=== PATIENT | female | born 1960 | race Caucasian/White ===

== ENCOUNTER 2017-10-16 15:28 | Observation (INO) | payer OTHER, SELFPAY ==
[2017-10-16] VITALS (10 sets, daily range): BP systolic 96–109; BP diastolic 51–92; PULSE 58–78; RESP 14–18; TEMP 36.3–36.9; O2SAT 95–100; BMI 22.1
--- NOTE | 2017-10-16 | APP_PTH ---
PATIENT: WINDY INIGUEZ LOC: MS3 U#:[id number] AGE/SX: 57/F ROOM: HI324 RE10/16/[address]: Dr. Love Caba MD : 1960 BED: 1 DIS: 10/17/2017 SPEC #: [id number] RECD: 10/17/17 13:40 STATUS: BRENDA REQ #: [id number] JEREMIAS: 10/16/17 00:[address]: Love Caba DEPT: SURGICAL PATHOLOGY RECD BY: David Ball ENTERED: 10/17/17 13:40 SP TYPE: APPENDIX OTHR DR: Dr. Timothy Proctor III, MD Tissues: Appendix, NOS Procedures: Surgery Specimen Level III HEADER OPERATION: Laparoscopic appendectomy PRE-OP DIAGNOSIS: Acute appendicitis TISSUE SUBMITTED: Appendix MICROSCOPIC DIAGNOSIS Appendix, appendectomy: Appendix, negative for acute inflammation. See comment. ISAC:kelsey 10/20/17 COMMENT The entire appendix is examined. No evidence of acute inflammation in the lumen or appendicular wall. The mucosa and submucosa shows prominent lymphoid aggregates. This case has been reviewed in consultation with Dr. Rhodes who concurs with the above diagnosis. MICROSCOPIC DESCRIPTION Slides are reviewed. GROSS DESCRIPTION Received is one container labeled with the patient's name and designated appendix. The specimen consists of an appendix measuring 7 cm in length and up to 1 cm in average diameter. The attached periappendiceal adipose tissue measures up to 1.5 cm in width. No obvious perforation is identified. The serosa is focally congested. The lumen is filled focally with hemorrhagic material. No fecalith is identified. Learning Analyst sections are submitted in one cassette. / SJ:kelsey 10/17/17 More sections are submitted as follows: 2 & 3 ? rest of the appendix, 4 ? school admissions representative section of periappendiceal adipose tissue. / ISAC:kelsey 10/20/17 TC:5 [facility]: [id number]
--- NOTE | 2017-10-16 09:58 | CT_ITS ---
STUDY: CT ABDOMEN AND PELVIS WITH CONTRAST REASON FOR EXAM: Female, 57 years old. One day history of periumbilical pain. History of left breast cancer with lumpectomy and radiation treatment. RADIATION DOSAGE (If Supplied By Facility): CTDIvol = ( 9.57 ) mGy, DLP = ( 437.45 ) mGycm TECHNIQUE: Transaxial images were obtained from the dome of the diaphragm to the symphysis pubis with oral contrast. 100 ml of Isovue 300 contrast was administered. Sagittal and coronal images were reconstructed. Individualized dose optimization techniques were used for this CT. COMPARISON: None. FINDINGS: Mild increased markings in the lingular segment of the left upper lobe suggestive of probable atelectasis and/or scarring. The visualized portions of the heart are within normal limits. Normal liver. Normal gallbladder and extrahepatic biliary system. Normal spleen. Normal pancreas. Normal bilateral adrenal glands. Normal right kidney. Normal left kidney. Normal visualized stomach. Normal small intestine. Normal colon. There is a tubular, thick-walled appendix (>7mm), consistent with acute appendicitis. Normal abdominal aorta. Normal inferior vena cava. Normal retroperitoneum. Normal urinary bladder. There is absence of the uterus consistent with a prior hysterectomy. Normal abdominal wall. Normal osseous structures. CT/Abdomen/Pelvis WITH Contrast IMPRESSION: Findings suggestive of a appendicitis without evidence of perforation or abscess formation. Electronically Signed: Armaan Garcia MD at 12:33 EDT Tel [phone], Service support ,
[2017-10-16 10:24] LABS: Erythrocyte Sedimentation Rate 5 mm/hr (0-30)
[2017-10-16 10:34] LABS: ALB/GLOB Ratio 1.3 RATIO (0.9-2.4); AST(SGOT) 20 U/L (15-37); Alanine Aminotransfer ALT/SGPT 22 U/L (13-56); Albumin, Serum 4.1 g/dL (3.2-5.0); Alkaline Phosphatase 89 U/L (45-117); Anion Gap 6 (5-15); BUN 15 mg/dL (7-18); BUN/Creat Ratio 20.1 RATIO (10-20); Calcium,Total 8.4 mg/dL (8.5-10.1); Chloride 109 mmol/L (98-107); Creatinine, Serum 0.75 mg/dL (0.55-1.02); EST Glomerular Filtration Rate 85 mL/min (>60); Est Glom Filt Rate - Afr Amer 103 mL/min (>60); Globulin 3.1 g/dL (2.2-4.2); Glucose 91 mg/dL (74-106); Protein, Total 7.2 g/dL (6.4-8.2); Sodium Level 145 mmol/L (136-145)
--- NOTE | 2017-10-16 14:05 | PCM.HP.STD ---
History of Present Illness Date of Admission: 10/16/17 Chief Complaint: Lower abdominal pain, acute appendicitis The patient is a 57 year old F presented to do her PCP due to lower abdominal pain which started midday yesterday. Patient states that it has always been in her lower mid abdomen. Denies nausea/vomiting. Last ate some toast this morning at [address] Patient had a CT abdomen pelvis completed which showed acute appendicitis. Per Dr. Timothy Proctor III, patient's PCP her CBC and her chest x-ray were normal. 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 Lives: Spouse/ Significant Other Smoking Status: Former smoker Drugs: None - *Family History Maternal History Items: No pertinent history Review of Systems Constitutional: Reports: Anorexia Eyes: Denies: Blurred vision HEENT: Denies: Difficulty Swallowing Cardiovascular: Denies: Chest Pain Respiratory: Denies: Shortness of Breath Gastrointestinal: Reports: Abdominal Pain Genitourinary: Denies: Dysuria VTE Information - Inpt Only VTE Present on Admission: Yes VTE Mechan Device Prophylaxis: SCD's VTE Pharm Prophylaxis ordered?: No Reason prophylaxis not ordered:: Treatment Not Indicated Patient Problems: Active and Suspected Problems (Last Updated 10/16/17 @ 14:14 by Love Caba MD) History of partial mastectomy of left breast (Acute) 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) - Physical Exam General: Alert, Oriented x3, Cooperative HEENT: Atraumatic, Normocephalic Lungs: Normal air movement Cardiovascular: Regular rate Abdomen: Soft, Non-Distended, Tender - Tender palpation in the lower midline abdomen/left lower quadrant greater than right lower quadrant, no guarding or rebound Extremities: No clubbing, No cyanosis, No edema Skin: No rashes Vital Signs Temp Pulse Resp BP Pulse Ox 97.9 F 70 18 103/83 H 100 10/16/17 13:32 10/16/17 13:32 10/16/17 13:32 10/16/17 13:32 10/16/17 13:32 Oxygen Delivery Method Room Air Weight: 135 lb Body Mass Index (BMI) 22.1 Laboratory Tests Past 24 Hrs 10/16/17 10/16/17 09:30 09:30 ESR 5 Sodium 145 Potassium 4.0 Chloride 109 H Carbon Dioxide 30.0 Anion Gap 6 BUN 15 Creatinine 0.75 Est GFR (MDRD) Af Amer 103 Est GFR (MDRD) Non-Af 85 BUN/Creatinine Ratio 20.1 H Glucose 91 Calcium 8.4 L Total Bilirubin 0.70 AST 20 ALT 22 Alkaline Phosphatase 89 Total Protein 7.2 Albumin 4.1 Globulin 3.1 Albumin/Globulin Ratio 1.3 Assessment/Plan Active and Suspected Problems (Last Updated 10/16/17 @ 14:14 by Love Caba MD) History of partial mastectomy of left breast (Acute) 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 1. Discussed procedure laparoscopic appendectomy, possible open, possible bowel resection along with the risk but not limited to bleeding, infection/abscess, injury to another organ (small bowel, colon, etc.), adhesion, hernia at incision sites, and anesthesia. We will give the patient Zosyn 3.375 g IV ?1 prior to surgery. Patient and her had no further questions at this time. Love Caba M.D. Pager: [phone] [facility] [address] [place] [address], [address] [place] [address] Office: [phone]
--- NOTE | 2017-10-16 14:10 | HP.PCM_ITS ---
History of Present Illness Date of Admission: 10/16/17 Chief Complaint: Lower abdominal pain, acute appendicitis The patient is a 57 year old F presented to do her PCP due to lower abdominal pain which started midday yesterday. Patient states that it has always been in her lower mid abdomen. Denies nausea/vomiting. Last ate some toast this morning at [address] AM[address] Patient had a CT abdomen pelvis completed which showed acute appendicitis. Per Dr. Timothy Proctor III, patient's PCP her CBC and her chest x- ray were normal. 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 Lives: Spouse/ Significant Other Smoking Status: Former smoker Drugs: None - *Family History Maternal History Items: No pertinent history Review of Systems Constitutional: Reports: Anorexia Eyes: Denies: Blurred vision HEENT: Denies: Difficulty Swallowing Cardiovascular: Denies: Chest Pain Respiratory: Denies: Shortness of Breath Gastrointestinal: Reports: Abdominal Pain Genitourinary: Denies: Dysuria VTE Information - Inpt Only VTE Present on Admission: Yes VTE Mechan Device Prophylaxis: SCD's VTE Pharm Prophylaxis ordered?: No Reason prophylaxis not ordered:: Treatment Not Indicated Patient Problems: Active and Suspected Problems (Last Updated 10/16/17 @ 14:14 by Love Caba MD) History of partial mastectomy of left breast (Acute) 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) - Physical Exam General: Alert, Oriented x3, Cooperative HEENT: Atraumatic, Normocephalic Lungs: Normal air movement Cardiovascular: Regular rate Abdomen: Soft, Non-Distended, Tender - Tender palpation in the lower midline abdomen/left lower quadrant greater than right lower quadrant, no guarding or rebound Extremities: No clubbing, No cyanosis, No edema Skin: No rashes Vital Signs Temp Pulse Resp BP Pulse Ox 97.9 F 70 18 103/83 H 100 10/16/17 13:32 10/16/17 13:32 10/16/17 13:32 10/16/17 13:32 10/16/17 13:32 Oxygen Delivery Method Room Air Weight: 135 lb Body Mass Index (BMI) 22.1 Laboratory Tests Past 24 Hrs 10/16/17 10/16/17 09:30 09:30 ESR 5 Sodium 145 Potassium 4.0 Chloride 109 H Carbon Dioxide 30.0 Anion Gap 6 BUN 15 Creatinine 0.75 Est GFR (MDRD) Af Amer 103 Est GFR (MDRD) Non-Af 85 BUN/Creatinine Ratio 20.1 H Glucose 91 Calcium 8.4 L Total Bilirubin 0.70 AST 20 ALT 22 Alkaline Phosphatase 89 Total Protein 7.2 Albumin 4.1 Globulin 3.1 Albumin/Globulin Ratio 1.3 Assessment/Plan Active and Suspected Problems (Last Updated 10/16/17 @ 14:14 by Love Caba MD) History of partial mastectomy of left breast (Acute) 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 1. Discussed procedure laparoscopic appendectomy, possible open, possible bowel resection along with the risk but not limited to bleeding, infection/ abscess, injury to another organ (small bowel, colon, etc.), adhesion, hernia at incision sites, and anesthesia. We will give the patient Zosyn 3.375 g IV ? 1 prior to surgery. Patient and her had no further questions at this time. Love Caba M.D. Pager: [phone] [facility] [address] [place] [address], [address] [place] [address] Office: [phone]
[2017-10-16] MEDS: Piperacil/Tazobactam 3.375 GM/50 ML ML IV (14:40)
[2017-10-16] MEDS: Bupiv/Epi 0.5% Mpf 30 ML Vial (15:00)
--- NOTE | 2017-10-16 15:22 | PCM.OPRPT ---
Report of Operation Date of Procedure: 10/16/17 Pre-Operative Diagnosis: Acute appendicitis Post-Operative Diagnosis: Same Surgery/Procedure Performed:: Laparoscopic appendectomy blend plant operator: Avel Cerda Type of Anesthesia:: General Anesthesiologist: Carmelo Lopez Special Medications: Zosyn 3.375 g IV ?1 Specimen's removed: Appendix Estimated Blood Loss (mL): <10 CC Fluids Replaced: 1200 CC Description of Procedure: Indications: 57-year-old female presented to her PCP today with new Midline lower abdominal pain which started yesterday midday. CT abdomen and pelvis was ordered and was consistent with acute appendicitis. Per the patient's PCP her white blood cell count was normal. Patient was given Zosyn 3.375 g IV ?1 prior to surgery. Description of the procedure: The patient was placed on operating table in supine position. General anesthesia was induced. A timeout was completed verifying correct patient, procedure, sacrum position and special, prior to beginning procedure. A Navarro catheter and orogastric tube placed. Abdomen was prepped and draped in usual sterile fashion. Incision was made in the natural skin line above the umbilicus with a 15 blade scalpel. The fascia was elevated and incised. Entry into the peritoneum was confirmed visually and no bowel was noted in the vicinity of the incision. The Hudson trocar was placed under direct vision. Abdomen insufflated with a pressure of 12-15 mmHg. Patient tolerated insertion well. The scope was inserted and the abdomen inspected. No injuries from initial trocar placement were noted. Under direct visualization 2 -5 mm trocars were placed one above the symphysis pubis and below the hairline and one in the left lower quadrant lateral to the rectus muscle. Care is taken to avoid injury to the bladder and inferior epigastric vessels. The table was placed in Trendelenburg position with the right side elevated. The appendix was grasped with atraumatic grasper and elevated. It was noted to be inflamed. A window was developed in the mesoappendix at the point between the base of the appendix and the cecum. An endoscopic 45 mm linear cutting stapler blue load was then used to divide and staple the base of the appendix. Enseal was used to divide the mesoappendix. The appendix was withdrawn into the Hudson trocar after being placed endoscopically retrieval bag. Appendix was sent to pathology. The appendiceal stump was then irrigated and hemostasis was assured. Fluid was suctioned no other pathology was identified. Secondary trochars were removed under direct visualization. No bleeding was noted trocar sites. The laparoscope withdrawn and the umbilical trocar removed. The abdomen was allowed to collapse. Local anesthesia of 18 mL of 0.5% Marcaine with epi was used at the incision sites. The umbilical trocar site was closed with the [id number] 0 Vicryl suture. The skin was closed up to clear sutures of 4-0 Monocryl and Steri-Strips. The patient was extubated. The patient tolerated the procedure well and was taken to the postanesthesia care unit in satisfactory condition. - Complications none
--- NOTE | 2017-10-16 15:28 | OP.PCM_ITS ---
Report of Operation Date of Procedure: 10/16/17 Pre-Operative Diagnosis: Acute appendicitis Post-Operative Diagnosis: Same Surgery/Procedure Performed:: Laparoscopic appendectomy crisis clinician: Avel Cerda Type of Anesthesia:: General Anesthesiologist: Carmelo Lopez Special Medications: Zosyn 3.375 g IV ?1 Specimen's removed: Appendix Estimated Blood Loss (mL): <10 CC Fluids Replaced: 1200 CC Description of Procedure: Indications: 57-year-old female presented to her PCP today with new Midline lower abdominal pain which started yesterday midday. CT abdomen and pelvis was ordered and was consistent with acute appendicitis. Per the patient' s PCP her white blood cell count was normal. Patient was given Zosyn 3.375 g IV ?1 prior to surgery. Description of the procedure: The patient was placed on operating table in supine position. General anesthesia was induced. A timeout was completed verifying correct patient, procedure, sacrum position and special, prior to beginning procedure. A Navarro catheter and orogastric tube placed. Abdomen was prepped and draped in usual sterile fashion. Incision was made in the natural skin line above the umbilicus with a 15 blade scalpel. The fascia was elevated and incised. Entry into the peritoneum was confirmed visually and no bowel was noted in the vicinity of the incision. The Hudson trocar was placed under direct vision. Abdomen insufflated with a pressure of 12-15 mmHg. Patient tolerated insertion well. The scope was inserted and the abdomen inspected. No injuries from initial trocar placement were noted. Under direct visualization 2 -5 mm trocars were placed one above the symphysis pubis and below the hairline and one in the left lower quadrant lateral to the rectus muscle. Care is taken to avoid injury to the bladder and inferior epigastric vessels. The table was placed in Trendelenburg position with the right side elevated. The appendix was grasped with atraumatic grasper and elevated. It was noted to be inflamed. A window was developed in the mesoappendix at the point between the base of the appendix and the cecum. An endoscopic 45 mm linear cutting stapler blue load was then used to divide and staple the base of the appendix. Enseal was used to divide the mesoappendix. The appendix was withdrawn into the Hudson trocar after being placed endoscopically retrieval bag. Appendix was sent to pathology. The appendiceal stump was then irrigated and hemostasis was assured. Fluid was suctioned no other pathology was identified. Secondary trochars were removed under direct visualization. No bleeding was noted trocar sites. The laparoscope withdrawn and the umbilical trocar removed. The abdomen was allowed to collapse. Local anesthesia of 18 mL of 0.5 % Marcaine with epi was used at the incision sites. The umbilical trocar site was closed with the [id number] 0 Vicryl suture. The skin was closed up to clear sutures of 4-0 Monocryl and Steri-Strips. The patient was extubated. The patient tolerated the procedure well and was taken to the postanesthesia care unit in satisfactory condition. - Complications none
[2017-10-16] MEDS: HYDROmorphone 0.5 MG/0.5 ML SYRINGE IV (15:52)
[2017-10-16] MEDS: Dextrose 5%-Lactated Ringers 1,000 ML 125 ML IV (17:05)
[2017-10-16] MEDS: Ondansetron 4 MG/2 ML Vial IV (18:57)
[2017-10-16] MEDS: 0.9% NaCl Peripheral Flush Adult/Peds IV (18:57)
[2017-10-17] MEDS: Dextrose 5%-Lactated Ringers 1,000 ML 125 ML IV (00:49)
[2017-10-17 02:30] VITALS: BP 96/49; PULSE 62; RESP 16; TEMP 36.8; O2SAT 97
--- NOTE | 2017-10-17 08:19 | PCM.PN.SRG ---
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 - Physical Exam General: Alert, Oriented x3, Cooperative, No apparent distress Lungs: Normal air movement Cardiovascular: Regular rate Abdomen: Soft, Distended - Mild, Tender - Incisions clean dry and intact with Steri/OpSite Vital Signs Temp Pulse Resp BP Pulse Ox 98.2 F 62 16 96/49 L 97 10/17/17 02:30 10/17/17 02:30 10/17/17 02:30 10/17/17 02:30 10/17/17 02:30 Oxygen Delivery Method Room Air Weight: 135 lb 0.001 oz Body Mass Index (BMI) 22.1 Intake and Output for Last 24 Hours 10/15/17 10/16/17 10/17/17 23:59 23:59 23:59 Intake Total 1965 / 1965 2154 / 2154 Output Total 50 / 50 650 / 650 Balance 1915 / 1915 1504 / 1504 Laboratory Tests Past 24 Hrs 10/16/17 10/16/17 09:30 09:30 ESR 5 Sodium 145 Potassium 4.0 Chloride 109 H Carbon Dioxide 30.0 Anion Gap 6 BUN 15 Creatinine 0.75 Est GFR (MDRD) Af Amer 103 Est GFR (MDRD) Non-Af 85 BUN/Creatinine Ratio 20.1 H Glucose 91 Calcium 8.4 L Total Bilirubin 0.70 AST 20 ALT 22 Alkaline Phosphatase 89 Total Protein 7.2 Albumin 4.1 Globulin 3.1 Albumin/Globulin Ratio 1.3 Medical Necessity - Tobacco Use Smoking Status: Former smoker Assessment/Plan Active and Suspected Problems (Last Updated 10/16/17 @ 14:14 by Love Caba MD) History of partial mastectomy of left breast (Acute) 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 Patient will be having regular diet for breakfast. If she tolerates okay to DC home as patient's pain has been controlled without any narcotics here. 2. Follow-up in the office in 2 weeks. Love Caba M.D. Pager: [phone] [facility] [address] [place] [address], [address] [place] [address] Office: [phone]
--- NOTE | 2017-10-17 08:22 | PN.SURG_ITS ---
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 - Physical Exam General: Alert, Oriented x3, Cooperative, No apparent distress Lungs: Normal air movement Cardiovascular: Regular rate Abdomen: Soft, Distended - Mild, Tender - Incisions clean dry and intact with Steri/OpSite Vital Signs Temp Pulse Resp BP Pulse Ox 98.2 F 62 16 96/49 L 97 10/17/17 02:30 10/17/17 02:30 10/17/17 02:30 10/17/17 02:30 10/17/17 02:30 Oxygen Delivery Method Room Air Weight: 135 lb 0.001 oz Body Mass Index (BMI) 22.1 Intake and Output for Last 24 Hours 10/15/17 10/16/17 10/17/17 23:59 23:59 23:59 Intake Total 1965 / 1965 2154 / 2154 Output Total 50 / 50 650 / 650 Balance 1915 / 1915 1504 / 1504 Laboratory Tests Past 24 Hrs 10/16/17 10/16/17 09:30 09:30 ESR 5 Sodium 145 Potassium 4.0 Chloride 109 H Carbon Dioxide 30.0 Anion Gap 6 BUN 15 Creatinine 0.75 Est GFR (MDRD) Af Amer 103 Est GFR (MDRD) Non-Af 85 BUN/Creatinine Ratio 20.1 H Glucose 91 Calcium 8.4 L Total Bilirubin 0.70 AST 20 ALT 22 Alkaline Phosphatase 89 Total Protein 7.2 Albumin 4.1 Globulin 3.1 Albumin/Globulin Ratio 1.3 Medical Necessity - Tobacco Use Smoking Status: Former smoker Assessment/Plan Active and Suspected Problems (Last Updated 10/16/17 @ 14:14 by Love Caba MD) History of partial mastectomy of left breast (Acute) 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 Patient will be having regular diet for breakfast. If she tolerates okay to DC home as patient's pain has been controlled without any narcotics here. 2. Follow-up in the office in 2 weeks. Love Caba M.D. Pager: [phone] [facility] [address] [address], [address] [place] [address] Office: [phone]
--- NOTE | 2017-10-17 08:22 | PCM.DC.APPY ---
Discharge Diet: Light diet - advance as tolerated Discharge Activity: May not drive while taking narcotic pain medications. May shower in (days): 1 Ice area for (Minutes): 20 - PRN Lifting Restrictions: No lifting > 20 lbs for 4 wks, no strenuous exercise for 6-8 wks Call your doctor if your incision/area has: Continuous Slow Oozing, Sudden Increased Bleeding, Increased Pain/ Swelling, Increased Redness, Foul Smelling Discharge, Swelling at the incision site Call your doctor if you observe: Fever of 101 or Higher Remove Dressing in (days):: 0 - Okay to remove OpSite today Additional Instructions: Okay to take Tylenol or ibuprofen for pain control. To help prevent constipation if no bowel movement today to take 2-3 doses of MiraLAX throughout the day tomorrow. If no results would take half a bottle of magnesium citrate next day if no results in 6 hours from I would drink the other half. Medications to take at Discharge NK [NK] 10/16/17 Allergies/Adverse Reactions: Allergies No Known Allergies Allergy (Verified 10/16/17 13:20) Primary Care Physician: Timothy Proctor III, MD [Primary Care Provider] - Please Follow Up With: Love Caba MD - After 5:00/weekends call [phone] with any concerns When: Call the office for a follow-up on Friday, [phone] Proposed Discharge Date: 10/17/17
--- NOTE | 2017-10-17 08:27 | DCINST_ITS ---
Discharge Diet: Light diet - advance as tolerated Discharge Activity: May not drive while taking narcotic pain medications. May shower in (days): 1 Ice area for (Minutes): 20 - PRN Lifting Restrictions: No lifting > 20 lbs for 4 wks, no strenuous exercise for 6 -8 wks Call your doctor if your incision/area has: Continuous Slow Oozing, Sudden Increased Bleeding, Increased Pain/ Swelling, Increased Redness, Foul Smelling Discharge, Swelling at the incision site Call your doctor if you observe: Fever of 101 or Higher Remove Dressing in (days):: 0 - Okay to remove OpSite today Additional Instructions: Okay to take Tylenol or ibuprofen for pain control. To help prevent constipation if no bowel movement today to take 2-3 doses of MiraLAX throughout the day tomorrow. If no results would take half a bottle of magnesium citrate next day if no results in 6 hours from I would drink the other half. Medications to take at Discharge NK [NK] 10/16/17 Allergies/Adverse Reactions: Allergies No Known Allergies Allergy (Verified 10/16/17 13:20) Primary Care Physician: Timothy Proctor III, MD [Primary Care Provider] - Please Follow Up With: Love Caba MD - After 5:00/weekends call [phone]? [phone] with any concerns When: Call the office for a follow-up on Friday, [phone] Proposed Discharge Date: 10/17/17
[2017-10-17 09:04] VITALS: BP 98/46; PULSE 58; RESP 16; TEMP 36.8; O2SAT 99
[2017-10-17] MEDS: Enoxaparin 40 MG/0.4 ML Syringe SC (09:11)
[2017-10-17] MEDS: Docusate Sodium 100 MG Capsule PO (09:11)
== END 2017-10-17 11:27 | disposition home or self-care (01) ==
LOC: SDC 15:46 → MS3 10-17 07:25
PROVIDERS: Admitting Provider Surgery; Family Provider Family Medicine; PCP Family Medicine; Visit Provider Surgery
PROC: 0DTJ4ZZ Resection of Appendix, Percutaneous Endoscopic Approach (ICD-10-PCS; CPT 44970; principal; 2017-10-16 07:25)
DX: K35.80 Unspecified acute appendicitis (principal); Z85.3 Personal history of malignant neoplasm of breast; Z92.3 Personal history of irradiation; Z87.891 Personal history of nicotine dependence
CPT/HCPCS: 44970; 74177; 80053; 85652; 88304; 96361; 96372; 96374; 99218; J7120; Q9967; A4216; C1760; G0378; G0379; J2405

== ENCOUNTER → 2017-12-16 16:45 | Outpatient (CLI) | payer OTHER, SELFPAY ==
--- NOTE | 2017-12-16 15:00 | BI_ITS ---
MAMMOGRAPHY - BILATERAL SCREENING REASON FOR EXAM: Female, 57 years old. Routine annual screening examination. 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 2-D mediolateral oblique (MLO) and craniocaudad (CC) views of both breasts were obtained. CAD: Full Field Digital Mammography with Computer Added Detection was performed. COMPARISON: None. FINDINGS: Breast Composition: The breasts are extremely dense, which lowers the sensitivity of mammography. There are no dominant masses or suspicious calcifications. No other significant abnormalities are identified. BI/SCREENING MAMM (CAD), BILAT IMPRESSION: Stable bilateral screening mammogram. Yearly follow-up mammogram recommended. (A) ASSESSMENT CATEGORY: BIRADS Category 2: Benign. A letter regarding these results will be sent to the patient by the facility within 30 days. Approximately 10% of breast cancers are not detected by mammography. A normal mammogram should not delay biopsy of a clinically suspicious abnormality. [id number] Electronically Signed: Becca Rogers MD at 13:02 EDT Tel , Service support ,
--- NOTE | 2017-12-16 16:45 | DT_ITS ---
This patient was seen during an EMR downtime December 15, 2017 - December 22, 2017. This patient may have a combination of paper and electronic documentation or all paper documentation. All documentation is viewable within the e-chart portion of [facility] for each patient visit.
== END ==
PROVIDERS: Family Provider Family Medicine; PCP Family Medicine; Visit Provider Family Medicine
DX: Z12.31 Encounter for screening mammogram for malignant neoplasm of breast (principal)
CPT/HCPCS: 77063; 77067

== ENCOUNTER → 2018-12-25 | Outpatient (CLI) | payer OTHER, SELFPAY ==
--- NOTE | 2018-12-24 17:02 | BI_ITS ---
MAMMOGRAPHY - BILATERAL SCREENING REASON FOR EXAM: Female, 58 years old. Routine annual screening examination. PERTINENT HISTORY: Personal history of breast cancer. Prior left lumpectomy and radiation treatment. Grandmother with breast cancer. TECHNIQUE: Digital bilateral breast israel (3D mammographic acquisition) in the CC and MLO projections. 2-D mediolateral oblique (MLO) and craniocaudad (CC) views of both breasts were obtained. CAD: Full Field Digital Mammography with Computer Added Detection was performed. COMPARISON: Comparison is made with prior examination dated December 16, 2017 and December 10, 2016. FINDINGS: Breast Composition: The breasts are extremely dense, which lowers the sensitivity of mammography. There are no dominant masses or suspicious calcifications. The patient is status post left lumpectomy with resultant mild architectural distortion in the deep upper portion of the left breast. Surgical clips are seen in the left axillary region. No other significant abnormalities are identified. There has been no significant change since the prior study. BI/SCREEN MAMM (CAD) W/ISRAEL BILAT IMPRESSION: Stable bilateral screening mammogram. Yearly follow-up mammogram recommended. (A) ASSESSMENT CATEGORY: BIRADS Category 2: Benign. A letter regarding these results will be sent to the patient by the facility within 30 days. Approximately 10% of breast cancers are not detected by mammography. A normal mammogram should not delay biopsy of a clinically suspicious abnormality. [id number] Electronically Signed: Armaan Garcia, at 8:31 EDT , Service support ,
== END | disposition home or self-care (01) ==
LOC: OPBI 07:39
PROVIDERS: Family Provider Family Medicine; PCP Family Medicine; Referring Provider Family Medicine; Visit Provider Family Medicine
DX: Z12.31 Encounter for screening mammogram for malignant neoplasm of breast (principal)
CPT/HCPCS: 77063; 77067

== ENCOUNTER → 2019-01-21 | Outpatient (CLI) | payer OTHER, SELFPAY ==
[2019-01-21 14:44] LABS: Pathologist Comment May follow
[2019-01-21 16:06] LABS: RBC /Synovial Fluid 0.005 10^6/uL (0)
[2019-01-21 17:42] LABS: Synovial Fld Polynuclear WBC % 89.9 %
[2019-01-21 17:43] LABS: Synovial Fld Mononuclear WBC % 10.1 %
[2019-01-21 18:49] LABS: AUTO B FLUID DILUENT BKGD CT WBC <0.1 RBC <0.01 (W<.1,R<.01); Source- Body Fluid SYNOVIAL
[2019-01-21 18:50] LABS: Appearance /Synovial Fluid Cloudy (CLEAR); Color / Synovial Fluid Yellow (Pale Yellow); Source / Synovial Fluid RIGHT KNEE
[2019-01-21 18:51] LABS: Body Fluid QC Type(s) BF2Q,BF3Q; Synovial Fld Mononuclear WBC # 2.484 10^3/ul
[2019-01-21 18:53] LABS: Lymph 2 %; Monocyte /Synovial Fluid 4 %; Neutrophil 93 % (0-25); Other Cell /Synovial Fluid 1 %
[2019-01-22 13:20] LABS: Pathologist Review Reviewed
== END | disposition home or self-care (01) ==
LOC: LABSPEC 14:09
PROVIDERS: Family Provider Family Medicine; PCP Family Medicine; Referring Provider Specialist; Visit Provider Specialist
DX: M17.11 Unilateral primary osteoarthritis, right knee (principal)
CPT/HCPCS: 87015; 87070; 87075; 87101; 87116; 87205; 87206; 89050; 89051; 89060

== ENCOUNTER → 2020-01-05 15:51 | Outpatient (CLI) | payer OTHER, SELFPAY ==
--- NOTE | 2020-01-05 15:54 | BI_ITS ---
MAMMOGRAPHY - BILATERAL SCREENING 3-D TOMOSYNTHESIS REASON FOR EXAM: Female, 59 years old. Routine screening PERTINENT HISTORY: BILAT SCREENING - PERSONAL HX @ AGE 48 WITH LT LUMPECTOMY, RADIATION, and amp; TOMOXIFEN - FAM HX OF PATERNAL GRANDMOTHER @ AGE 70''S. TECHNIQUE: 2-D mammograms and 3-D Tomosynthesis of the breast (s) were performed. CAD was performed. COMPARISON: 12/24/2018 FINDINGS: The breast composition is Extremely dense tissue. Scattered benign calcifications are seen. No dense spiculated masses or suspicious microcalcifications are identified. Stable architectural distortion in the left breast from previous surgery.. There is no skin thickening or retraction. There has been no significant change since the prior study. BI/SCREEN MAMM (CAD) W/ISRAEL BILAT IMPRESSION: No mammographic signs of malignancy. Routine yearly mammograms recommended. ASSESSMENT CATEGORY: BIRADS Category 2: Benign. A letter regarding these results will be sent to the patient by the facility within 30 days. FOLLOW UP RECOMMENDATION: Yearly follow up mammogram recommended. (A) Approximately 10% of breast cancers are not detected by mammography. A normal mammogram should not delay biopsy of a clinically suspicious abnormality. Electronically Signed: Elkin Bran MD at 7:56 EDT , Service support ,
== END ==
PROVIDERS: PCP Family Medicine; Referring Provider Family Medicine; Visit Provider Family Medicine
DX: Z12.31 Encounter for screening mammogram for malignant neoplasm of breast (principal)
CPT/HCPCS: 77063; 77067

== ENCOUNTER → 2020-10-26 14:22 | Outpatient (CLI) | payer BC, SELFPAY ==
--- NOTE | 2020-10-26 14:25 | US_ITS ---
STUDY: ULTRASOUND BREAST - LEFT REASON FOR EXAM: Female, 60 years old. Fullness in the region of the lumpectomy site. TECHNIQUE: Axial and longitudinal images of the LEFT breast were performed with a high resolution ultrasound transducer. # OF IMAGES: 22 COMPARISON: Comparison is made with prior mammogram done earlier today. FINDINGS: LEFT Breast: The area of the lumpectomy site was examined by ultrasound. No sonographic abnormality is seen. US/Breast Limited Unilateral IMPRESSION: No sonographic abnormality is seen. ASSESSMENT CATEGORY: BIRADS Category 1: Negative. A letter regarding these results will be sent to the patient by the facility within 30 days. Electronically Signed: Armaan Garcia MD at 15:42 EDT , Service support ,
--- NOTE | 2020-10-26 14:25 | BI_ITS ---
MAMMOGRAPHY - BILATERAL DIAGNOSTIC REASON FOR EXAM: Female, 60 years old. Tenderness at the lumpectomy site. PERTINENT HISTORY: Personal history of breast cancer. Prior left lumpectomy with radiation treatment. TECHNIQUE: Digital bilateral breast suraj (3D mammographic acquisition) in the CC and MLO projections. 2-D mediolateral oblique (MLO) and craniocaudad (CC) views of both breasts were obtained. CAD: Full Field Digital Mammography with Computer Added Detection was performed. COMPARISON: Comparison is made with prior study dated 01/05/2020 and 12/24/2018. FINDINGS: Breast Composition: The breasts are extremely dense, which lowers the sensitivity of mammography. There are no dominant masses or suspicious calcifications. The patient is status post lumpectomy in the inferior deep portion of the left breast with resultant postsurgical scarring. This is unchanged. Surgical clips are also seen in the left axillary region. No other significant abnormalities are identified. There has been no significant change since the prior study. BI/DIAG MAMM W/CAD, BILAT IMPRESSION: Stable bilateral diagnostic mammogram. With the patient''s history of tenderness at the lumpectomy site, correlation with ultrasound is recommended. ASSESSMENT CATEGORY: BIRADS Category 0: Incomplete. Need additional imaging evaluation. A letter regarding these results will be sent to the patient by the facility within 30 days. Approximately 10% of breast cancers are not detected by mammography. A normal mammogram should not delay biopsy of a clinically suspicious abnormality. Electronically Signed: Armaan Garcia MD at 15:21 EDT , Service support ,
== END ==
PROVIDERS: PCP Family Medicine; Referring Provider Family Medicine; Visit Provider Family Medicine
DX: N64.89 Other specified disorders of breast (principal); Z85.3 Personal history of malignant neoplasm of breast
CPT/HCPCS: 76642; 77062; 77066; G0279

== ENCOUNTER → 2021-11-29 | Outpatient (CLI) | payer BC, SELFPAY ==
--- NOTE | 2021-11-29 07:31 | BI_ITS ---
MAMMOGRAPHY - BILATERAL SCREENING REASON FOR EXAM: Female, 61 years old. Routine annual screening examination. PERTINENT HISTORY: Personal history of breast cancer. Prior left lumpectomy and radiation. TECHNIQUE: Digital bilateral breast israel (3D mammographic acquisition) in the CC and MLO projections. 2-D mediolateral oblique (MLO) and craniocaudad (CC) views of both breasts were obtained. CAD: Full Field Digital Mammography with Computer Added Detection was performed. COMPARISON: Comparison is made with prior examination dated 01/05/2020 and 10/26/2020. FINDINGS: Breast Composition: The breasts are extremely dense, which lowers the sensitivity of mammography. There are no dominant masses or suspicious calcifications. The patient status post lumpectomy in the upper lateral aspect of the left breast with resultant postoperative deformity. Surgical clips are seen in the left axillary region. No other significant abnormalities are identified. There has been no significant change since the prior study. BI/SCRN MAMM (CAD)W/ISRAEL BILAT IMPRESSION: Stable bilateral screening mammogram. Yearly follow-up mammogram recommended. (A) ASSESSMENT CATEGORY: BIRADS Category 2: Benign. A letter regarding these results will be sent to the patient by the facility within 30 days. Approximately 10% of breast cancers are not detected by mammography. A normal mammogram should not delay biopsy of a clinically suspicious abnormality. [id number] Electronically Signed: Armaan Garcia MD at 8:48 EDT ,
== END | disposition home or self-care (01) ==
PROVIDERS: PCP Physician Assistant; Visit Provider Physician Assistant
DX: Z12.31 Encounter for screening mammogram for malignant neoplasm of breast (principal); Z85.3 Personal history of malignant neoplasm of breast
CPT/HCPCS: 77063; 77067

== ENCOUNTER → 2022-12-02 | Outpatient (CLI) | payer OTHER, SELFPAY ==
--- NOTE | 2022-12-02 10:10 | BI_ITS ---
MAMMOGRAPHY - BILATERAL SCREENING REASON FOR EXAM: Female, 62 years old. Routine annual screening examination. PERTINENT HISTORY: Personal history of breast cancer status post left lumpectomy 2008 with chemoradiation. TECHNIQUE: Digital bilateral breast israel (3D mammographic acquisition) in the CC and MLO projections. 2-D mediolateral oblique (MLO) and craniocaudad (CC) views of both breasts were obtained. CAD: Full Field Digital Mammography with Computer Added Detection was performed. COMPARISON: Mammogram from November 29, 2022, October 26, 2020. Diagnostic left breast ultrasound from October 26, 2020. FINDINGS: Breast Composition: The breasts are extremely dense, which lowers the sensitivity of mammography. There are no dominant masses or suspicious calcifications. Stable left breast lumpectomy postoperative changes. Stable surgical clips in the left axilla. No other significant abnormalities are identified. There has been no significant change since the prior study. BI/SCRN MAMM (CAD)W/ISRAEL BILAT IMPRESSION: Stable bilateral screening mammogram. Yearly follow-up mammogram recommended. (A) ASSESSMENT CATEGORY: BIRADS Category 2: Benign. A letter regarding these results will be sent to the patient by the facility within 30 days. Approximately 10% of breast cancers are not detected by mammography. A normal mammogram should not delay biopsy of a clinically suspicious abnormality. Electronically Signed: Alfonso Pittman MD at 16:11 EDT ,
== END | disposition home or self-care (01) ==
PROVIDERS: PCP Physician Assistant; Referring Provider Physician Assistant; Visit Provider Physician Assistant
DX: Z12.31 Encounter for screening mammogram for malignant neoplasm of breast (principal)
CPT/HCPCS: 77063; 77067

== ENCOUNTER 2023-11-15 22:21 | Emergency (ER) | payer OTHER, SELFPAY ==
[2023-11-15 22:21] VITALS: BP 149/110; PULSE 84; RESP 15; TEMP 36.2; O2SAT 96
--- NOTE | 2023-11-15 22:36 | CT_ITS ---
STUDY: CT ABDOMEN AND PELVIS WITHOUT CONTRAST REASON FOR EXAM: Female, 63 years old. Kidney Stone RADIATION DOSAGE (If Supplied By Facility): CTDIvol = ( 7.62 ) mGy, DLP = ( 376.93 ) mGycm TECHNIQUE: Transaxial images were obtained from the dome of the diaphragm to the symphysis pubis without oral contrast, and without intravenous contrast. Sagittal and coronal images were reconstructed. Individualized dose optimization techniques were used for this CT. COMPARISON: None. FINDINGS: The visualized lung bases are unremarkable. The visualized portions of the heart are within normal limits. There is decreased attenuation of the liver consistent with steatosis. Normal gallbladder and extrahepatic biliary system. Normal spleen. Normal pancreas. Normal bilateral adrenal glands. Bilateral small nonobstructing renal stones. There is mild left hydronephrosis and ureteral dilatation but no ureteral stone possibly consistent with a recently passed stone. There is a small hiatal hernia. Normal small intestine. There are multiple colonic diverticula consistent with diverticulosis. There are surgical clips in the region of the appendix consistent with a prior appendectomy. Normal abdominal aorta. Normal inferior vena cava. Normal retroperitoneum. Normal urinary bladder. Normal abdominal wall. Normal osseous structures. CT/Abdomen/Pelvis without Cont IMPRESSION: 1. Suspect recently passed left ureteral stone with mild ureteral dilatation and hydronephrosis. 2. Bilateral nonobstructing renal stones. 3. Fatty infiltration liver. 4. Diverticulosis without diverticulitis. Electronically Signed: Dane Dominguez MD at 0:05 EDT ,
--- NOTE | 2023-11-15 22:37 | EX.ED.DYSGE1 ---
HPI <Jb Macias MD - Last Filed: 11/16/23 23:34> History of Present Illness Chief Complaint: Abd Pain Narrative Narrative: 63-year-old female past medical history of rheumatoid arthritis, hypercholesterolemia, presents with left lower quadrant abdominal pain/left flank pain that she has had over the last few hours. She states that she ate dinner and a few hours later, she was in bed and had sudden onset of left flank pain. She had the sudden urge to urinate and felt a pressure sensation when she tried to urinate. She denies any blood in her urine, no fevers or chills, but she is starting to become nauseated. No exacerbating or alleviating factors. She is having pain in the left lower quadrant of her abdomen flank. No exacerbating or alleviating factors. PFSH <Jb Macias MD - Last Filed: 11/16/23 23:34> [facility] Medical History (Updated 11/16/23 @ 00:[address] Casa Jay, DO) Acute appendicitis Ductal carcinoma in situ (DCIS) of left breast Home Medications NK 10/16/17 [History Last Taken Unknown] Allergy/AdvReac Type Severity Reaction Status Date / Time codeine AdvReac Mild Nausea Verified 11/15/23 22:26 Family History Grandmother Breast cancer Sister Heart disease Hypertension Surgical History (Updated 11/15/23 @ 22:50 by Rica Allen) History of hysterectomy History of partial mastectomy of left breast S/P laparoscopic appendectomy (~10/16/17) Social History Smoking Status: Former smoker alcohol intake: current alcohol intake frequency: a few times a month substance use type: does not use ROS <Jb Macias MD - Last Filed: 11/16/23 23:34> ROS ED ROS Narrative Constitutional: No fever, no chills. HEENT: No sore throat. No neck pain. No loss of vision. No rhinorrhea. Cardiovascular: No chest pain. No palpitations. No pedal edema. Respiratory: No cough, no shortness of breath. Abdominal: Left lower quadrant abdominal pain. Positive nausea. No vomiting. Genitourinary: Positive pressure sensation with urination no hematuria. Positive left flank pain. Musculoskeletal: No myalgias. No arthralgias. Neurologic: No headaches. No dizziness. No lightheadedness. Skin: No rash. No change in color. Psychiatric: No depression. No anxiety. EXAM <Jb Macias MD - Last Filed: 11/16/23 23:34> Physical Exam Narrative Exam Narrative: Afebrile. Vital signs noted. HEENT: Normocephalic. Atraumatic. PERRL, EOMI. Neck soft and supple. No point tenderness or step off. Cardiovascular: Regular rate and rhythm. No murmurs, rubs, or gallops appreciated. Respiratory: No tachypnea. Lungs clear to auscultation bilaterally. Gastrointestinal: Abdomen soft, nontender, with normoactive bowel sounds. No rebound or guarding. No CVA tenderness to percussion. Neurological: Awake. Alert. Nonfocal, nonlateralizing. Skin: No rash. Normal color. No pallor. Musculoskeletal: No pedal edema. Full range of motion extremities. Const Vital Signs: 11/16/23 00:33 11/16/23 00:33 Temperature 97.4 F L Pulse Rate 68 66 Respiratory Rate 16 16 Blood Pressure 136/98 H Blood Pressure Mean 110 Pulse Ox 96 99 Oxygen Delivery Method Room Air <Dr. Casa Jay DO - Last Filed: 11/16/23 00:39> Physical Exam Const Vital Signs: 11/16/23 00:33 11/16/23 00:33 Temperature 97.4 F L Pulse Rate 68 66 Respiratory Rate 16 16 Blood Pressure 136/98 H Blood Pressure Mean 110 Pulse Ox 96 99 Oxygen Delivery Method Room Air [facility] <Jb Macias MD - Last Filed: 11/16/23 23:34> [employer] Narrative Medical decision making narrative: Patient states that the pain is more deep inside her abdomen and flank. In the differential diagnosis is ureterolithiasis versus UTI versus pyelonephritis versus diverticulitis. History and support does not necessarily support diverticulitis as she not having problems with bowel movements. She appears uncomfortable as is with ureterolithiasis and ureteral colic. Comprehensive workup was pursued, and I do feel CT imaging without contrast is indicated. She will be bolused normal saline 1 L intravenously and given Toradol for analgesia as she declined morphine and states that she has an allergy to codeine and that narcotic pain medications make her sick. I reviewed her laboratory work and she has normal white count of 8.6, hemoglobin normal at 14.8, hematocrit 45.2. Potassium is slightly low at 3.4, but she declined oral replacement in the emergency department as she was already nauseated. Urinalysis shows WBC count 5-10 and RBC count 5-10 as well. I do not feel antibiotics are indicated. Her urine was sent for culture instead. Currently, she is pending the results of the CT. I signed the patient out to Dr. Jay, who will check the CT results and make final disposition on this patient with suspected ureterolithiasis. She is in stable condition. Patient was turned over to me by Dr. Macias @ [id number] on 11/15/2023 Brief history: 63-year-old female presents with left-sided flank pain Physical exam: No CVA tenderness noted on my exam. No pulsatile abdominal masses noted Labs and images reviewed (if obtained): CT scan shows hydronephrosis and likely passed kidney stone CBC without leukocytosis, no anemia or thrombocytopenia noted BMP with mild hypokalemia otherwise no signs of metabolic acidosis Urinalysis without definitive evidence of infection Urine culture sent and is pending MDM/plan: The synthesis of the patient's history, physical exam, labs images suggest likely passed nephrolithiasis. Repeat abdominal exam was benign. She is appropriate for discharge home with Tylenol ibuprofen instructions and f. Strict return precautions were discussed p.o. fluid instructions Lab Data Attestation: I reviewed the patient's lab results. Labs: Laboratory Results - last 24 hr 11/15/23 11/15/23 22:30 22:48 WBC 8.6 RBC 4.77 Hgb 14.8 Hct 45.2 MCV 94.8 MCH 31.0 MCHC 32.7 RDW Std Deviation 47.8 H RDW Coeff of Zulma 13.5 Plt Count 282 MPV 10.1 Immature Gran % (Auto) 0.300 Neut % (Auto) 52.6 Lymph % (Auto) 34.6 [place] % (Auto) 9.6 Eos % (Auto) 2.3 Baso % (Auto) 0.6 Absolute Neuts (auto) 4.5 Absolute Lymphs (auto) 2.97 Nucleated RBC % 0 Sodium 142 Potassium 3.4 L Chloride 108 H Carbon Dioxide 29.0 Anion Gap 5 BUN 16 Creatinine 0.91 Est GFR (MDRD) Af Amer 80 Est GFR (MDRD) Non-Af 66 BUN/Creatinine Ratio 17.6 Glucose 132 H Calcium 9.7 Urine Color Yellow Urine Clarity Sl. Cloudy Urine pH 5.0 Ur Specific [place] 1.030 Urine Protein 15 H Urine Glucose (UA) Normal Urine Ketones 5 H Urine Occult Blood 25 H Urine Nitrite Negative Urine Bilirubin Negative Urine Urobilinogen Normal Ur Leukocyte Esterase 100 H Urine RBC 5-10 SEEN Urine WBC 5-10 SEEN Ur Squamous Epith Cells 0-5 SEEN Calcium Oxalate Crystal RARE Urine Bacteria 1+ Hyaline Casts 0-5 SEEN Fine Granular Casts 0-5 SEEN Urine Mucus 0 SEEN Radiography Diagnostic Testing: Clinical Impression(s) from Imaging Studies Abdomen/Pelvis CT 11/15/23 22:36 IMPRESSION: 1. Suspect recently passed left ureteral stone with mild ureteral dilatation and hydronephrosis. 2. Bilateral nonobstructing renal stones. 3. Fatty infiltration liver. 4. Diverticulosis without diverticulitis. Electronically Signed: Dane Dominguez MD at 0:05 EDT , <Dr. Casa Jay, DO - Last Filed: 11/16/23 00:39> [employer] Narrative Medical decision making narrative: Patient states that the pain is more deep inside her abdomen and flank. In the differential diagnosis is ureterolithiasis versus UTI versus pyelonephritis versus diverticulitis. History and support does not necessarily support diverticulitis as she not having problems with bowel movements. She appears uncomfortable as is with ureterolithiasis and ureteral colic. Comprehensive workup was pursued, and I do feel CT imaging without contrast is indicated. She will be bolused normal saline 1 L intravenously and given Toradol for analgesia as she declined morphine and states that she has an allergy to codeine and that narcotic pain medications make her sick. Urinalysis will be obtained as well as CBC and BMP. Patient was turned over to me by Dr. Macias @ 1365 on 11/15/2023 Brief history: 63-year-old female presents with left-sided flank pain Physical exam: No CVA tenderness noted on my exam. No pulsatile abdominal masses noted Labs and images reviewed (if obtained): CT scan shows hydronephrosis and likely passed kidney stone CBC without leukocytosis, no anemia or thrombocytopenia noted BMP with mild hypokalemia otherwise no signs of metabolic acidosis Urinalysis without definitive evidence of infection Urine culture sent and is pending MDM/plan: The synthesis of the patient's history, physical exam, labs images suggest likely passed nephrolithiasis. Repeat abdominal exam was benign. She is appropriate for discharge home with Tylenol ibuprofen instructions and f. Strict return precautions were discussed p.o. fluid instructions Lab Data Labs: Laboratory Results - last 24 hr 11/15/23 11/15/23 22:30 22:48 WBC 8.6 RBC 4.77 Hgb 14.8 Hct 45.2 MCV 94.8 MCH 31.0 MCHC 32.7 RDW Std Deviation 47.8 H RDW Coeff of Zulma 13.5 Plt Count 282 MPV 10.1 Immature Gran % (Auto) 0.300 Neut % (Auto) 52.6 Lymph % (Auto) 34.6 [place] % (Auto) 9.6 Eos % (Auto) 2.3 Baso % (Auto) 0.6 Absolute Neuts (auto) 4.5 Absolute Lymphs (auto) 2.97 Nucleated RBC % 0 Sodium 142 Potassium 3.4 L Chloride 108 H Carbon Dioxide 29.0 Anion Gap 5 BUN 16 Creatinine 0.91 Est GFR (MDRD) Af Amer 80 Est GFR (MDRD) Non-Af 66 BUN/Creatinine Ratio 17.6 Glucose 132 H Calcium 9.7 Urine Color Yellow Urine Clarity Sl. Cloudy Urine pH 5.0 Ur Specific [place] 1.030 Urine Protein 15 H Urine Glucose (UA) Normal Urine Ketones 5 H Urine Occult Blood 25 H Urine Nitrite Negative Urine Bilirubin Negative Urine Urobilinogen Normal Ur Leukocyte Esterase 100 H Urine RBC 5-10 SEEN Urine WBC 5-10 SEEN Ur Squamous Epith Cells 0-5 SEEN Calcium Oxalate Crystal RARE Urine Bacteria 1+ Hyaline Casts 0-5 SEEN Fine Granular Casts 0-5 SEEN Urine Mucus 0 SEEN Radiography Diagnostic Testing: Clinical Impression(s) from Imaging Studies Abdomen/Pelvis CT 11/15/23 22:36 IMPRESSION: 1. Suspect recently passed left ureteral stone with mild ureteral dilatation and hydronephrosis. 2. Bilateral nonobstructing renal stones. 3. Fatty infiltration liver. 4. Diverticulosis without diverticulitis. Electronically Signed: Dane Dominguez MD at 0:05 EDT , Discharge Plan Triage Chief Complaint: Abd Pain ED Provider: Jb Macias Dx/Rx/DC Orders Clinical Impression: Nephrolithiasis Instructions: ED Kidney Stone, Passed Prescriptions: No Action NK Primary Care Provider: Eric Villalpando Referrals: Eric Villalpando MD [Primary Care Provider] - Activity Restrictions/Additional Instructions: Thank you for trusting us with your care today! Please take Tylenol (2 pills, 650 mg), ibuprofen (2 pills, 400 mg) every 6 hours as needed for pain and fever control. Please return to the emergency department if your symptoms change or worsen. Please follow with your primary care physician for further outpatient evaluation and management. Disposition Disposition: Home, Self Care Discharge Date/Time: 11/16/23 00:51
[2023-11-15] MEDS: 0.9% Normal Saline (1000mL) 1,000 ML 999 ML IV (22:45)
[2023-11-15] MEDS: Ondansetron 4 MG/2 ML Vial IV (22:45)
[2023-11-15] MEDS: Ketorolac 30 MG/ML Syringe IV (22:45)
[2023-11-15 22:55] LABS: Absolute Lymphocyte Count 2.97 X10^3/uL (0.83-4.51); Absolute Neutrophil Count 4.5 X10^3/uL (2.0-7.7); Basophil# 0.05 X10^3/uL; Basophil% 0.6 % (0-1); Eosinophils% 2.3 % (0-5); Hematocrit 45.2 % (37-47); Hemoglobin 14.8 g/dL (12.0-15.0); Lymphocyte # 2.97 X10^3/ul (0.83-4.51); Lymphocyte % 34.6 % (19-41); Mean Corp Hgb Conc 32.7 g/dL (32-36); Mean Corpuscular Volume 94.8 fL (81-99); Mean Platelet Vol. 10.1 fl (6.2-12.0); Monocyte# 0.82 X10^3/uL; Monocyte% 9.6 % (0-10); NRBC Flagged by Analyzer 0 % (0-5); Neutrophil # 4.51 X10^3/uL (2.7-7.7); Neutrophil % 52.6 % (47-70); Platelet Count 282 K/mm3 (150-450); RBC Distribution Width CV 13.5 % (11.6-14.6); RBC Distribution Width SD 47.8 fl (35.1-43.9); Red Blood Count 4.77 M/mm3 (4.2-5.4); White Blood Count 8.6 K/mm3 (4.4-11.0)
[2023-11-15 22:59] LABS: Mucous, Urine 0 SEEN /hpf (<or=2+)
[2023-11-15 23:03] LABS: Color, Urine Yellow (Yellow); Glucose, Dipstick Normal (Normal); Ketone-Dipstick 5 mg/dl (Negative); Leukocyte Esterase-Dipstick 100 /ul (Negative); Nitrite-Dipstick Negative (Negative); Occult Blood-Urine 25 /ul (Negative); Protein-Dipstick 15 mg/dl (Negative); Urine Bilirubin Dipstick Negative (Negative); Urine Clarity Sl. Cloudy (Clear); Urine Urobilinogen Normal (Normal)
[2023-11-15 23:10] LABS: Anion Gap 5 (5-15); BUN 16 mg/dL (7-18); BUN/Creat Ratio 17.6 RATIO (10-20); Calcium,Total 9.7 mg/dL (8.5-10.1); Chloride 108 mmol/L (98-107); Creatinine, Serum 0.91 mg/dL (0.55-1.02); EST Glomerular Filtration Rate 66 mL/min (>60); Est Glom Filt Rate - Afr Amer 80 mL/min (>60); Glucose 132 mg/dL (74-106); Potassium 3.4 mmol/L (3.5-5.1); Sodium Level 142 mmol/L (136-145)
[2023-11-15 23:11] LABS: Bacteria 1+ /hpf (None Seen); Calcium Oxalate Crystals Ur RARE /hpf (<or=2+); Fine Granular Cast- Urine 0-5 SEEN /lpf (0-5); Hyaline Cast 0-5 SEEN /lpf (0-5); Red Blood Cells-Urine 5-10 SEEN /hpf (0-5); Squamous Epithelial Cells - UA 0-5 SEEN /hpf (5-10); White Blood Cells 5-10 SEEN /hpf (0-5)
[2023-11-16 00:32] VITALS: BMI 26.5
[2023-11-16 00:33] VITALS: BP 136/98; PULSE 66; PULSE 68; RESP 16; TEMP 36.3; O2SAT 96; O2SAT 99
== END 2023-11-16 00:51 | disposition home or self-care (01) ==
PROVIDERS: Emergency Provider Emergency Medicine; PCP Family Medicine; Visit Provider Emergency Medicine
DX: N13.2 Hydronephrosis with renal and ureteral calculous obstruction (principal); M06.9 Rheumatoid arthritis, unspecified; E78.00 Pure hypercholesterolemia, unspecified; E87.6 Hypokalemia; Z87.891 Personal history of nicotine dependence
CPT/HCPCS: 36415; 74176; 80048; 81001; 85025; 87086; 96361; 96374; 96375; 99284; J7030; A4216; J2405

== ENCOUNTER → 2023-12-11 | Outpatient (CLI) | payer OTHER, SELFPAY ==
--- NOTE | 2023-12-11 10:58 | BI_ITS ---
MAMMOGRAPHY - BILATERAL SCREENING REASON FOR EXAM: Female, 63 years old. Routine annual screening examination. PERTINENT HISTORY: Personal history of breast cancer. Prior left lumpectomy with radiation. Grandmother with breast cancer. TECHNIQUE: Digital bilateral breast [place] (3D mammographic acquisition) in the CC and MLO projections. 2-D mediolateral oblique (MLO) and craniocaudad (CC) views of both breasts were obtained. CAD: Full Field Digital Mammography with Computer Added Detection was performed. COMPARISON: Comparison is made with prior study dated December 02, 2022 and November 29, 2021. FINDINGS: Breast Composition: The breasts are extremely dense, which lowers the sensitivity of mammography. There are no dominant masses or suspicious calcifications. Stable postoperative changes in the upper lateral aspect of the left breast in keeping with prior lumpectomy at that site. Surgical clips are seen in the left axilla. No other significant abnormalities are identified. There has been no significant change since the prior study. BI/SCRN MAMM (CAD)W/[place] BILAT IMPRESSION: Stable bilateral screening mammogram. Yearly follow-up mammogram recommended. (A) ASSESSMENT CATEGORY: BIRADS Category 2: Benign. A letter regarding these results will be sent to the patient by the facility within 30 days. Approximately 10% of breast cancers are not detected by mammography. A normal mammogram should not delay biopsy of a clinically suspicious abnormality. [id number] Electronically Signed: Armaan Garcia MD at 12:44 EDT ,
== END | disposition home or self-care (01) ==
LOC: OPBI 10:56
PROVIDERS: PCP Family Medicine; Visit Provider Family Medicine
DX: Z12.31 Encounter for screening mammogram for malignant neoplasm of breast (principal)
CPT/HCPCS: 77063; 77067

== ENCOUNTER → 2024-12-14 | Outpatient (CLI) | payer SELFPAY ==
--- NOTE | 2024-12-14 12:20 | BI_ITS ---
EXAM: SCRN MAMM (CAD)W/[place] BILAT DATE: 12/14/2024 CLINICAL HISTORY: F, Age 64 y/o , SCREENING BREAST CANCER RISK ASSESSMENT: Na TECHNIQUE: Bilateral screening digital breast tomosynthesis with 2D and 3D images. Computer aided detection. COMPARISON: Prior exam(s) were compared FINDINGS: TISSUE DENSITY: The breast tissue is heterogenously dense, which may obscure small masses. Bilateral Breast Mammographic Findings: Right breast: There is architectural distortion in the outer right breast mid depth. There is questionable associated calcifications, although the calcifications may be artifactual. Left breast: No suspicious masses, calcifications or other abnormalities are identified. BI/SCRN MAMM (CAD)W/[place] BILAT IMPRESSION: OVERALL FINAL ASSESSMENT: BIRADS 0 Incomplete: Need additional imaging evaluati on. RECOMMENDATION: Incomplete: Need additional imaging evaluation with diagnostic right breast fran mogram and ultrasound. A letter with findings and recommendations will be mailed to the patient. Reading Location: [id number]
== END | disposition home or self-care (01) ==
PROVIDERS: PCP Family Medicine; Referring Provider Family Medicine; Visit Provider Family Medicine
DX: Z12.31 Encounter for screening mammogram for malignant neoplasm of breast (principal)
CPT/HCPCS: 77063; 77067

== ENCOUNTER → 2024-12-22 | Outpatient (CLI) | payer SELFPAY ==
--- NOTE | 2024-12-22 09:04 | BI_ITS ---
EXAM: DIAG MAMM W/CAD, UNILAT; BREAST LIMITED UNILATERAL; RT BRST UNILAT [place] ADD-ON 12/22/2024 CLINICAL HISTORY: F, Age 64 y/o , ABN MAMM TECHNIQUE: Right diagnostic digital breast tomosynthesis with 2D and 3D images. Computer aided detection. Also, targeted right breast ultrasound was performed. COMPARISON: Prior exam(s) dated 12/14/2024, 12/11/2023, 12/02/2022, 11/29/2021. FINDINGS: MAMMOGRAM: TISSUE DENSITY: The breast tissue is heterogenously dense, which may obscure small masses. Right breast: Follow-up examination performed for the right breast findings seen on examination of 12/14/2024. On the present examination, the architectural distortion in the lateral right breast at middle depth does not persist. This may represent overlapping fibroglandular tissue. ULTRASOUND: Ultrasound performed of the lateral right breast demonstrates no suspicious sonographic findings. There is no evidence of solid mass or abnormal cystic elements. BI/DIAG MAMM W/CAD, UNILAT IMPRESSION: There is no evidence of malignancy in the right breast. OVERALL FINAL ASSESSMENT: BIRADS 1 NEGATIVE. RECOMMENDATION: Routine annual follow-up in 1 Year A letter with findings and recommendations will be mailed to the patient. Reading Location: [id number]
--- NOTE | 2024-12-22 09:04 | BI_ITS ---
EXAM: DIAG MAMM W/CAD, UNILAT; BREAST LIMITED UNILATERAL; RT BRST UNILAT [place] ADD-ON 12/22/2024 CLINICAL HISTORY: F, Age 64 y/o , ABN MAMM TECHNIQUE: Right diagnostic digital breast tomosynthesis with 2D and 3D images. Computer aided detection. Also, targeted right breast ultrasound was performed. COMPARISON: Prior exam(s) dated 12/14/2024, 12/11/2023, 12/02/2022, 11/29/2021. FINDINGS: MAMMOGRAM: TISSUE DENSITY: The breast tissue is heterogenously dense, which may obscure small masses. Right breast: Follow-up examination performed for the right breast findings seen on examination of 12/14/2024. On the present examination, the architectural distortion in the lateral right breast at middle depth does not persist. This may represent overlapping fibroglandular tissue. ULTRASOUND: Ultrasound performed of the lateral right breast demonstrates no suspicious sonographic findings. There is no evidence of solid mass or abnormal cystic elements. BI/Rt Brst Unilat [place] Add-On IMPRESSION: There is no evidence of malignancy in the right breast. OVERALL FINAL ASSESSMENT: BIRADS 1 NEGATIVE. RECOMMENDATION: Routine annual follow-up in 1 Year A letter with findings and recommendations will be mailed to the patient. Reading Location: [id number]
== END | disposition home or self-care (01) ==
PROVIDERS: PCP Family Medicine; Referring Provider Family Medicine; Visit Provider Family Medicine
DX: R92.8 Other abnormal and inconclusive findings on diagnostic imaging of breast (principal)
CPT/HCPCS: 76642; 77061; 77065; G0279

== ENCOUNTER 2025-02-11 21:37 | Emergency (ER) | payer OTHER, SELFPAY ==
[2025-02-11 21:37] VITALS: BP 148/99; PULSE 107; RESP 28; TEMP 36.8; O2SAT 99; BMI 25.8
[2025-02-11 21:39] VITALS: BP 148/99; PULSE 107; RESP 28; TEMP 36.8; O2SAT 99
--- NOTE | 2025-02-11 21:46 | CT_ITS ---
PROCEDURE: ABDOMEN/PELVIS WITHOUT CONT 02/11/2025 REASON FOR EXAM: RIGHT FLANK PAIN TECHNIQUE: ABDOMEN/PELVIS WITHOUT CONT Noncontrast technique limits evaluation of the abdominal and pelvic viscera. Coronal and Sagittal reconstruction series were provided. One or more dose reduction techniques were used (e.g., Automated exposure control, adjustment of the mA and/or kV according to patient size, use of iterative reconstruction technique). RADIATION DOSE SUMMARY: CTDlvol: 9 mGy DLP: 462 mGycm COMPARISON: 11/16/2023 FINDINGS: Under aerated lung bases. Upper limits of normal heart size. Diffuse hepatic steatosis. Unremarkable gallbladder, pancreas, spleen, adrenal glands, right kidney. 2 mm left renal calcification. Very mild right-sided hydronephrosis, 2 mm distal right ureteral stone. Unremarkable bladder. No retroperitoneal or pelvic adenopathy. Status post hysterectomy. No free air. Small hiatal hernia. Nondistended bowel. Status post appendectomy. Diverticulosis. No acute large bowel findings. No acute abdominal wall findings. CT/Abdomen/Pelvis without Cont IMPRESSION: 2 mm right UVJ stone, very mild hydronephrosis. Reading Location: [place] [id number]
--- NOTE | 2025-02-11 21:49 | ED.VIS.GI ---
HPI HPI - GI History of Present Illness Chief Complaint: Abd Pain Detail of Chief Complaint: Abdominal pain Informant: patient Narrative Narrative: Patient presents with abdominal pain that started 2 hours ago. Pain came on rather suddenly after taking an antibiotic. Patient states pain reminds her of a kidney stone. She complains of nausea and vomiting with it and diaphoresis. Pain is a 10 out of 10. Denies fevers or chills or sweats. Denies dysuria urgency or frequency PFSH PFSH Medical History (Updated 02/11/25 @ 23:[address] Foreign Augustine, DO) Acute appendicitis Ductal carcinoma in situ (DCIS) of left breast Home Medications ?Medication ?Instructions ?Recorded ?Last Taken ?Type ketorolac 10 mg tablet 10 mg PO Q8H PRN pain 2 days #6 02/11/25 Unknown Rx tabs ondansetron 4 mg disintegrating 4 mg PO Q8H PRN PRN Nausea #10 tabs 02/11/25 Unknown Rx tablet Allergy/AdvReac Type Severity Reaction Status Date / Time codeine AdvReac Mild Nausea Verified 02/11/25 21:39 Family History Grandmother Breast cancer Sister Heart disease Hypertension Surgical History History of hysterectomy S/P laparoscopic appendectomy (~10/16/17) History of partial mastectomy of left breast Social History Smoking Status: Former smoker alcohol intake: current alcohol intake frequency: a few times a month substance use type: does not use ROS ROS ED Review of Systems ROS Unobtainable: other Constitutional Constitutional ED: Reports lethargy; Denies chills, fever(s), sweats or weight loss Eyes Eyes: Denies blurry vision, change in vision or diplopia ENT ENT ED: Denies rhinorrhea or sore throat Cardiovascular Cardiovascular: Denies chest pain, orthopnea or racing heartbeat Respiratory/Chest Respiratory/Chest: Denies cough, dyspnea, dyspnea on exertion, orthopnea or sputum Gastrointestinal Gastrointestinal: Reports abdominal pain, nausea and vomiting; Denies diarrhea Genitourinary Genitourinary ED: Denies dysuria, hematuria or urinary frequency Musculoskeletal Musculoskeletal: Denies arthralgias, back pain, myalgias or neck pain Integumentary Denies abscess, Abrasions or rash Neurologic Neurologic: Denies headache(s) or weakness Psychiatric Psychiatric: Denies anxiety, depression or suicidal thoughts Endocrine Endocrinology: Denies polydipsia, polyphagia or polyuria Hematologic/Lymphatic Hematologic/Lymphatic: Denies easy bleeding, easy bruising or lymphadenopathy Allergic/Immunologic Allergic/Immunologic ED: Denies mouth swelling, tongue swelling or urticaria EXAM Physical Exam Const Vital Signs: 02/11/25 21:37 02/11/25 21:39 02/11/25 22:59 Temperature 98.3 F 98.3 F 98.2 F Temperature Source Oral Oral Oral Pulse Rate 107 H 107 H 81 Respiratory Rate 28 H 28 H 18 Blood Pressure 148/99 H 148/99 H 129/75 H Blood Pressure Mean 115 115 93 Pulse Ox 99 99 95 Oxygen Delivery Method Room Air Room Air Room Air Positive well nourished and well developed General Appearance ED: well developed and NAD HEENT Reports TM's clear and moist mucous membranes normocephalic and atraumatic; Negative for trauma or tenderness Tympanic Membrane ED: Yes TM's clear Eyes PERRL and EOMs intact bilaterally General Eye ED: Negative for pale conjunctiva or scleral icterus Neck no lymphadenopathy, supple and no JVD General: Negative for tenderness Chest Wall inspection of chest normal and palpation of chest normal Chest: Negative for tenderness Resp normal respiratory effort and clear to auscultation bilaterally Effort and Inspection: Negative for respiratory distress or pain with movement Auscultation: Negative for rhonchi, wheezes or diminished lung sounds Cardio regular rate, regular rhythm, S1 normal heart sound, S2 normal heart sound and no murmurs Peripheral Pulses: pulses 2+ throughout GI normal to inspection, nondistended, normoactive bowel sounds, soft to palpation, non-distended and no masses GI Narrative: Tenderness palpation over right lower quadrant with guarding. Tenderness over the suprapubic region with some guarding. There is no rebound, rigidity, or peritoneal signs. No mass palpated. Back/Spine no CVA tenderness and no thoracic nor lumbar tenderness Extremity normal to inspection General Extremety ED: Negative for edema General Extremity: Negative for edema Neuro oriented x3, CN's II-XII intact bilaterally, no sensory deficits noted and gait normal Sensorium / Orientation: awake, alert, oriented to person, oriented to place and oriented to time Motor Exam: strength 5/5 throughout and strength abnormal Psych mental status grossly normal Skin no rashes or lesions noted and no wounds MDM MDM MDM Narrative Medical decision making narrative: Patient presents with sudden onset of abdominal pain and nausea and vomiting. She thought it might be related to the cefadroxil she is taking for sinus infection. She is on day 2 of the antibiotic. Patient does have history of kidney stone also. Clinically suspect likely kidney stone. IV line established. She was medicated with Toradol and Zofran and she had good pain relief with that. CBC with differential obtained showed a white count of 9.6 with hemoglobin 14 and platelet count of 232. Chemistries unremarkable. Urinalysis without signs of infection. CT scan of the abdomen pelvis showed a 2 mm right UVJ stone with just very mild hydroureter. At this point should be discharged to home with urine strainers. She will be given a prescription for Toradol as she does not want to take any narcotic pain medications as she does not tolerate them well. Will also give her prescription for Zofran. Advised return if worsening pain, fever, vomiting, or condition worsen anyway Lab Data Attestation: I reviewed the patient's lab results. Labs: Laboratory Results - last 24 hr 02/11/25 21:50 WBC 9.6 RBC 4.53 Hgb 14.3 Hct 42.4 MCV 93.6 MCH 31.6 MCHC 33.7 RDW Std Deviation 44.4 H RDW Coeff of Zulma 13.0 Plt Count 232 MPV 10.2 Immature Gran % (Auto) 0.700 Neut % (Auto) 70.3 H Lymph % (Auto) 18.5 L [place] % (Auto) 8.2 Eos % (Auto) 1.8 Baso % (Auto) 0.5 Absolute Neuts (auto) 6.7 Absolute Lymphs (auto) 1.78 Nucleated RBC % 0 Sodium 142 Potassium 3.7 Chloride 106 Carbon Dioxide 23.9 Anion Gap 13 BUN 16 Creatinine 0.91 Estim Creat Clear Calc 65.96 Est GFR (MDRD) Non-Af 71 BUN/Creatinine Ratio 18.0 Glucose 164 H Calcium 9.5 Radiography Diagnostic Testing: Clinical Impression(s) from Imaging Studies Abdomen/Pelvis CT 02/11/25 21:46 IMPRESSION: 2 mm right UVJ stone, very mild hydronephrosis. Reading Location: [place] [id number] Discharge Plan Triage Chief Complaint: Abd Pain ED Provider: Foreign Augustine Dx/Rx/DC Orders Clinical Impression: Urolithiasis Instructions: ED Kidney Stone with Pain Prescriptions: New ketorolac 10 mg tablet 10 mg PO Q8H PRN (Reason: pain) 2 Days Qty: 6 0RF ondansetron 4 mg tablet,disintegrating 4 mg PO Q8H PRN PRN (Reason: Nausea) Qty: 10 0RF Primary Care Provider: Eric Villalpando Referrals: Sintia Oden MD [Med Staff - Active Staff] - As Needed Eric Villalpando MD [Primary Care Provider] - Print Language: Indonesian Disposition Disposition: Home, Self Care
[2025-02-11] MEDS: 0.9% Normal Saline (1000mL) 1,000 ML 150 ML IV (21:57)
[2025-02-11 21:59] LABS: Hematocrit 42.4 % (37-47); Hemoglobin 14.3 g/dL (12.0-15.0); Immature Granulocytes Count 0.070 X10^3/uL (0.0-0.0); Mean Corp Hgb Conc 33.7 g/dL (32-36); Mean Corpuscular Volume 93.6 fL (81-99); Mean Platelet Vol. 10.2 fl (6.2-12.0); NRBC Flagged by Analyzer 0 % (0-5); Platelet Count 232 K/mm3 (150-450); RBC Distribution Width CV 13.0 % (11.6-14.6); RBC Distribution Width SD 44.4 fl (35.1-43.9); Red Blood Count 4.53 M/mm3 (4.2-5.4); White Blood Count 9.6 K/mm3 (4.4-11.0)
[2025-02-11 22:17] LABS: Anion Gap 13 (5-15); BUN 16 mg/dL (4-19); BUN/Creat Ratio 18.0 RATIO (10-20); Calcium,Total 9.5 mg/dL (7.6-11.0); Carbon Dioxide 23.9 mmol/L (21.0-32.0); Chloride 106 mmol/L (98-108); Estimated Creatinine Clearance 65.96 ml/min (50-250); Glucose 164 mg/dL (70-99); Potassium 3.7 mmol/L (3.3-5.1)
--- OUTSIDE RECORDS SUMMARY | 2025-02-11 22:18 | XMS RPT_ITS | CCD ---
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 cough and sneezing fits, and diarrhea. Windy reports a constant pressure-like headache across her forehead that began a few months ago. The headache is present upon waking and persists throughout the day, subsiding slightly by mid to late morning but intensifying again in the afternoon. She notes that the headache is sometimes accompanied by nausea in the afternoon. The headache does not wake her from sleep and is not triggered by sexual activity. She denies any neurological symptoms such as vision changes, facial weakness, dysphagia, dysarthria, or drooling. She also denies any pain in the temporal areas. In addition to the headache, Windy experiences a coughing and sneezing fit every morning, which she attributes to allergies. She reports post-nasal drainage but denies any sore throat, otalgia, fever, or pain in the cheek area, upper teeth, or gums. She also experiences diarrhea every morning. She denies any nausea or emesis. Windy has a history of sleep apnea but has not yet started using a CPAP machine due to anxiety. She is considering an oral appliance as an alternative treatment. She reports that her sleep has improved, and she no longer takes trazodone for insomnia. Windy has tried to identify the cause of her headaches by discontinuing several medications, including Astepro, Lipitor, and minoxidil, but this did not alleviate the headaches. She is currently only taking Actemra. She denies any recent changes in medication prior to the onset of the headaches. Past medical history, appointments, medications, allergies reviewed. 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 Doss ([facility]) Insomnia 03/07/2015 Internal hemorrhoids without mention of complication REINA (nonalcoholic steatohepatitis) 04/16/2023 VICKIE (obstructive sleep apnea) 08/10/2023 Consult Sleep Med 07/2023. 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 Esteves ([facility]) Previous Surgical History PAST SURGICAL HISTORY Procedure Laterality Date APPENDECTOMY 10/16/2017 COLONOSCOPY 10/07/2022 repeat in 10 years COLONOSCOPY FLX DX W/COLLJ SPEC WHEN PFRMD 05/06/2011 CYSTOSCOPY 09/21/2014 INJ RADIOACTIVE TRACER FOR ID OF SENTINEL NODE 06/30/2008 LEFT BREAST MASTECTOMY,PARTIAL, WITH AXILLARY LYMPHADENECTOMY 06/30/2008 LEFT BREAST, lumpectomy- cancerious PAST SURGICAL HISTORY OF Novasure PAST SURGICAL HISTORY OF 06/24/2011 Excisional biopsy right forearm- benign PAST SURGICAL HISTORY OF 07/11/2015 left trigger thumb release PREOP PLACEMENT NEEDLE LOC 06/30/2008 LEFT BREAST PUNCH BIOPSY B/O 04/13/2011 Right forearm STEREOTACTIC CORE BIOPSY 06/01/2008 left TONSILLECTOMY PRIMARY/SECONDARY TOTAL ABDOMINAL HYSTERECT W/WO RMVL TUBE OVARY 01/12/2008 Hysterectomy, BLANCA BSO Family History FAMILY HISTORY Problem Relation Age of Onset Cancer Father LIVER AND PANCREAS other (ASHD [Other]) Sister defibrillator Breast Cancer Paternal Grandmother Cancer Maternal Grandfather LUNG Arthritis Mother Patient Allergies ALLERGIES Allergen Reactions Horse Hair And Dand* Other: See Comments Codeine Vomiting Nausea and vomiting Fosamax [Alendronat* Other: See Comments Chest pain Loratadine-Pseudoep* Other: See Comments Palpitations and jittery Relafen [Nabumetone] Unknown Trees Unknown Current Medications Current Outpatient Medications (more content not included)... Normal [facility] Breast Limited Unilateralon 12-22-2024 Breast Limited Unilateral [facility] Imaging Services [address] [place], [place] [id number] Breast Limited Unilateral MR#: [id number] Acct: [id number] Name: WINDY INIGUEZ Rep #: [id number] : 1960 F 64 From: Marga Brice MD PCP: Dr. Eric Esteves MD Status: REG CLI Study: Breast Limited Unilateral Date of Exam: Exam# [id number] Ordering Dr: Eric Esteves MD EXAM: DIAG MAMM W/CAD, UNILAT; BREAST LIMITED UNILATERAL; RT BRST UNILAT ERIC ADD-ON 12/22/2024 CLINICAL HISTORY: F, Age 64 y/o , ABN MAMM TECHNIQUE: Right diagnostic digital breast tomosynthesis with 2D and 3D images. Computer aided detection. Also, targeted right breast ultrasound was performed. COMPARISON: Prior exam(s) dated 12/14/2024, 12/11/2023, 12/02/2022, 11/29/2021. FINDINGS: MAMMOGRAM: TISSUE DENSITY: The breast tissue is heterogenously dense, which may obscure small masses. Right breast: Follow-up examination performed for the right breast findings seen on examination of 12/14/2024. On the present examination, the architectural distortion in the lateral right breast at middle depth does not persist. This may represent overlapping fibroglandular tissue. ULTRASOUND: Ultrasound performed of the lateral right breast demonstrates no suspicious sonographic findings. There is no evidence of solid mass or abnormal cystic elements. US/Breast Limited Unilateral IMPRESSION: There is no evidence of malignancy in the right breast. OVERALL FINAL ASSESSMENT: BIRADS 1 NEGATIVE. RECOMMENDATION: Routine annual follow-up in 1 Year A letter with findings and recommendations will be mailed to the patient. Reading Location: [facility] CC: Dr. Eric Esteves MD Computational Theory Scientist: Signed Normal [facility] Breast imaging reportOrdered By: Marga Brice on 12-22-2024 Study report [facility] Imaging Services [address] [place] [address] DIAG MAMM W/CAD, UNILAT MR#: [id number] Acct: [id number] Name: WINDY INIGUEZ Rep #: [id number] : 1960 F 64 From: Karolyn Brice MD PCP: Dr. Eric Esteves MD Status: REG CLI Study:DIAG MAMM W/CAD, UNILAT Date of Exam: 12/22/24 Exam# [id number] Ordering Dr: Jenna Esteves MD EXAM: DIAG MAMM W/CAD, UNILAT; BREAST LIMITED UNILATERAL; RT BRST UNILAT ERIC ADD-ON 12/22/2024 CLINICAL HISTORY: F, Age 64 y/o , ABN MAMM TECHNIQUE: Right diagnostic digital breast tomosynthesis with 2D and 3D images. Computer aided detection. Also, targeted right breast ultrasound was performed. COMPARISON: Prior exam(s) dated 12/14/2024, 12/11/2023, 12/02/2022, 11/29/2021. FINDINGS: MAMMOGRAM: TISSUE DENSITY: The breast tissue is heterogenously dense, which may obscure small masses. Right breast: Follow-up examination performed for the right breast findings seen on examination of 12/14/2024. On the present examination, the architectural distortion in the lateral right breast at middle depth does not persist. This may represent overlapping fibroglandular tissue. ULTRASOUND: Ultrasound performed of the lateral right breast demonstrates no suspicious sonographic findings. There is no evidence of solid mass or abnormal cystic elements. BI/DIAG MAMM W/CAD, UNILAT IMPRESSION: There is no evidence of malignancy in the right breast. OVERALL FINAL ASSESSMENT: BIRADS 1 NEGATIVE. RECOMMENDATION: Routine annual follow-up in 1 Year A letter with findings and recommendations will be mailed to the patient. Reading Location: [facility] CC: Dr. Eric Esteves MD ~ Computational Theory Scientist: Signed [facility] Study report [facility] Imaging Services [address] [place] [address] Rt Brst Unilat Eric Add-On MR#: [id number] Acct: [id number] Name: WINDY INIGUEZ Rep #: [id number] : 1960 F 64 From: Karolyn Brice MD PCP: Dr. Eric Esteves MD Status: REG CLI Study:Rt Brst Unilat Eric Add-On Date of Exam : 12/22/24 Exam# [id number] Ordering Dr: Jenna Esteves MD EXAM: DIAG MAMM W/CAD, UNILAT; BREAST LIMITED UNILATERAL; RT BRST UNILAT ERIC ADD-ON 12/22/2024 CLINICAL HISTORY: F, Age 64 y/o , ABN MAMM TECHNIQUE: Right diagnostic digital breast tomosynthesis with 2D and 3D images. Computer aided detection. Also, targeted right breast ultrasound was performed. COMPARISON: Prior exam(s) dated 12/14/2024, 12/11/2023, 12/02/2022, 11/29/2021. FINDINGS: MAMMOGRAM: TISSUE DENSITY: The breast tissue is heterogenously dense, which may obscure small masses. Right breast: Follow-up examination performed for the right breast findings seen on examination of 12/14/2024. On the present examination, the architectural distortion in the lateral right breast at middle depth does not persist. This may represent overlapping fibroglandular tissue. ULTRASOUND: Ultrasound performed of the lateral right breast demonstrates no suspicious sonographic findings. There is no evidence of solid mass or abnormal cystic elements. BI/Rt Brst Unilat Eric Add-On IMPRESSION: There is no evidence of malignancy in the right breast. OVERALL FINAL ASSESSMENT: BIRADS 1 NEGATIVE. RECOMMENDATION: Routine annual follow-up in 1 Year A letter with findings and recommendations will be mailed to the patient. Reading Location: [id number] CC: Dr. Eric Esteves MD ~ Computational Theory Scientist: Signed [facility] WINDY INIGUEZ ([id number]) 1960 F Date Time Provider Department 12/22/24 SG BA During your visit today, we recorded the following information about you: Sg Ba MA 12/22/2024 2:50 PM Signed Diagnotic mammogram results given to PCP to review. STEPHANIE Barnes Jeffrey A, MD 12/22/2024 5:12 PM Signed Let patient know the additional breast imaging showed no suspicious mass and can return to yearly routine screening. Zoraida Taylor LPN 12/23/2024 9:11 AM Signed Patient notified of results and provider's instructions. Patient verbalizes understanding. Zoraida Taylor LPN Allergies As of Date: 12/22/2024 Noted Allergy Reaction CODEINE 01/31/2005 11 - Vomiting Comments: Nausea and vomiting DUST MITES 06/14/2005 16 - Unknown FOSAMAX (ALENDRONATE) 12/06/2020 14 - Other: See Comments Comments: Chest pain LORATADINE-PSEUDOEPH EDRINE 08/11/2023 14 - Other: See Comments Comments: Palpitations and jittery MOLD 06/14/2005 16 - Unknown RELAFEN (NABUMETONE) 06/14/2005 16 - Unknown TREES 06/14/2005 16 - Unknown Date Reviewed: 09/08/2024 Reviewed by: Eric Esteves MD - Fully Assessed Reason for Visit: Results [95] Prescriptions as of 12/23/2024 - omeprazole (PRILOSEC) 40 mg capsule Take 1 capsule by mouth once daily. - traZODone (DESYREL) 100 mg tablet Take 1/2 to 1 tablet by mouth at bedtime for insomnia. - atorvastatin (LIPITOR) 20 mg tablet Take 1 tablet by mouth daily at bedtime. For cholesterol. - tocilizumab (ACTEMRA) 162 mg/0.9 mL Inject 0.9 mL subcutaneously one time a week. Per Rheumatology - fluticasone (FLONASE) 50 mcg/actuation nasal spray Use 1 [place] in each nostril twice daily. Rinse mouth after use. - Cholecalciferol, Vitamin D3, 50 mcg (2,000 unit) cap Take 1 capsule by mouth once daily. - calcium carbonate/vitamin D3 (CALCIUM-D ORAL) Take by mouth once daily. Meds Comments as of 02/13/2024: Lipitor placed on hold 02/13/2024 due to rash. Problem List As Of Date 12/22/2024 Noted Resolved Carcinoma in situ of breast [D05.90] 07/11/2008 CMC arthritis, thumb, degenerative [M18.9] 05/27/2014 De Quervain's tenosynovitis, left [M65.4] 05/27/2014 08/13/2016 Urethral stenosis [DPC2413] 09/28/2014 Insomnia [G47.00] 03/07/2015 Degenerative arthritis of toe joint [M19.079] 03/07/2015 08/13/2016 Patellar tendinitis of right knee [M76.51] 03/07/2015 08/13/2016 Trigger thumb of left hand [M65.312] 07/18/2015 08/13/2016 Personal history of malignant neoplasm of breas*12/13/2016 Arthritis of right knee [M17.11] 09/22/2018 Osteoporosis of lumbar spine [M81.0] 10/09/2018 Elevated liver function tests [R79.89] 10/17/2020 Well adult exam [Z00.00] 12/06/2020 Right elbow pain [M25.521] 08/13/2021 Encounter for screening for diabetes mellitus [*03/13/2022 Rheumatoid arthritis of multiple sites with neg*04/01/2022 Situational depression [F43.21] 04/01/2022 GERD without esophagitis [K21.9] 04/01/2022 Vitamin D deficiency [E55.9] 09/19/2022 Medication management [Z79.899] 09/19/2022 Skin cancer screening [Z12.83] 04/02/2023 REINA (nonalcoholic steatohepatitis) [K75.81] 04/16/2023 VICKIE (obstructive sleep apnea) [G47.33] 08/10/2023 Encounter for screening mammogram for breast ca*09/17/2023 Trigger ring finger of left hand [M65.342] 10/09/2023 Hyperlipidemia, mixed [E78.2] 04/20/2024 Encounter Status:Closed by ZORAIDA TAYLOR on 12/23/24 Normal [facility] DIAG MAMM W/CAD, UNILATon DIAG MAMM W/CAD, UNILAT [facility] Imaging Services [address] [place], [place] [address] DIAG MAMM W/CAD, UNILAT MR#: [id number] Acct: [id number] Name: WINDY INIGUEZ Rep #: [id number] : 1960 F 64 From: Marga Brice MD PCP: Dr. Eric Esteves MD Status: REG CLI Study: DIAG MAMM W/CAD, UNILAT Date of Exam: 12/22/24 Exam# [id number] Ordering Dr: Eric Esteves MD EXAM: DIAG MAMM W/CAD, UNILAT; BREAST LIMITED UNILATERAL; RT BRST UNILAT ERIC ADD-ON 12/22/2024 CLINICAL HISTORY: F, Age 64 y/o , ABN MAMM TECHNIQUE: Right diagnostic digital breast tomosynthesis with 2D and 3D images. Computer aided detection. Also, targeted right breast ultrasound was performed. COMPARISON: Prior exam(s) dated 12/14/2024, 12/11/2023, 12/02/2022, 11/29/2021. FINDINGS: MAMMOGRAM: TISSUE DENSITY: The breast tissue is heterogenously dense, which may obscure small masses. Right breast: Follow-up examination performed for the right breast findings seen on examination of 12/14/2024. On the present examination, the architectural distortion in the lateral right breast at middle depth does not persist. This may represent overlapping fibroglandular tissue. ULTRASOUND: Ultrasound performed of the lateral right breast demonstrates no suspicious sonographic findings. There is no evidence of solid mass or abnormal cystic elements. BI/DIAG MAMM W/CAD, UNILAT IMPRESSION: There is no evidence of malignancy in the right breast. OVERALL FINAL ASSESSMENT: BIRADS 1 NEGATIVE. RECOMMENDATION: Routine annual follow-up in 1 Year A letter with findings and recommendations will be mailed to the patient. Reading Location: [facility] CC: Dr. Eric Esteves MD Computational Theory Scientist: Signed Normal [facility] Rt Brst Unilat Eric Add-Onon 12-22-2024 Rt Brst Unilat Eric Add-On [facility] Imaging Services [address] [place], [place] [id number] Rt Brst Unilat Eric Add-On MR#: [id number] Acct: [id number] Name: WINDY INIGUEZ Rep #: [id number] : 1960 F 64 From: Marga Brice MD PCP: Dr. Eric Esteves MD Status: REG CLI Study: Rt Brst Unilat Eric Add-On Date of Exam: 12/22 Exam# [id number] Ordering Dr: Eric Esteves MD EXAM: DIAG MAMM W/CAD, UNILAT; BREAST LIMITED UNILATERAL; RT BRST UNILAT ERIC ADD-ON 12/22/2024 CLINICAL HISTORY: F, Age 64 y/o , ABN MAMM TECHNIQUE: Right diagnostic digital breast tomosynthesis with 2D and 3D images. Computer aided detection. Also, targeted right breast ultrasound was performed. COMPARISON: Prior exam(s) dated 12/14/2024, 12/11/2023, 12/02/2022, 11/29/2021. FINDINGS: MAMMOGRAM: TISSUE DENSITY: The breast tissue is heterogenously dense, which may obscure small masses. Right breast: Follow-up examination performed for the right breast findings seen on examination of 12/14/2024. On the present examination, the architectural distortion in the lateral right breast at middle depth does not persist. This may represent overlapping fibroglandular tissue. ULTRASOUND: Ultrasound performed of the lateral right breast demonstrates no suspicious sonographic findings. There is no evidence of solid mass or abnormal cystic elements. BI/Rt Brst Unilat Eric Add-On IMPRESSION: There is no evidence of malignancy in the right breast. OVERALL FINAL ASSESSMENT: BIRADS 1 NEGATIVE. RECOMMENDATION: Routine annual follow-up in 1 Year A letter with findings and recommendations will be mailed to the patient. Reading Location: [facility] CC: Dr. Eric Esteves MD Computational Theory Scientist: Signed Normal [facility] 12-15-2024 [facility] KHADIJAHWINDY Huang ([id number]) 1960 F Date Time Provider Department 12/15/24 [facility] During your visit today, we recorded the following information about you: Maricruz Sherman RN 12/15/2024 2:47 PM Signed Julia with [facility] called and reports she had sent over a request for orders for a diagnostic and US of the R breast and the report they had of the mammogram. I let her know I didn't see that the providers office had received them and asked her to resend them. Once providers office receives and reviews. Please fax over orders to fax # [phone]. LAWRENCE Baldwin Roxanne, MA 12/15/2024 4:25 PM Signed Received results from mammogram. Given to provider to review and advise. STEPHANIE Barnes Jeffrey A, MD 12/15/2024 5:18 PM Signed Orders ready to be faxed to [facility]. Zoraida Taylor LPN 12/16/2024 6:57 AM Signed Orders faxed to [phone]. Zoraida Taylor LPN Allergies As of Date: 12/15/2024 Noted Allergy Reaction CODEINE 01/31/2005 11 - Vomiting Comments: Nausea and vomiting DUST MITES 06/14/2005 16 - Unknown FOSAMAX (ALENDRONATE) 12/06/2020 14 - Other: See Comments Comments: Chest pain LORATADINE-PSEUDOEPH EDRINE 08/11/2023 14 - Other: See Comments Comments: Palpitations and jittery MOLD 06/14/2005 16 - Unknown RELAFEN (NABUMETONE) 06/14/2005 16 - Unknown TREES 06/14/2005 16 - Unknown Date Reviewed: 09/08/2024 Reviewed by: Eric Esteves MD - Fully Assessed Reason for Visit: Orders [681] Primary Visit Diagnosis:Abnormal mammogram [R92.8] Order(s):[facility] DIAGNOSTIC RIGHT [[id number]] Order #: [id number] FUTURE BREAST LTD RIGHT [[id number]] Order #: [id number] FUTURE Prescriptions as of 12/16/2024 - omeprazole (PRILOSEC) 40 mg capsule Take 1 capsule by mouth once daily. - traZODone (DESYREL) 100 mg tablet Take 1/2 to 1 tablet by mouth at bedtime for insomnia. - atorvastatin (LIPITOR) 20 mg tablet Take 1 tablet by mouth daily at bedtime. For cholesterol. - tocilizumab (ACTEMRA) 162 mg/0.9 mL Inject 0.9 mL subcutaneously one time a week. Per Rheumatology - fluticasone (FLONASE) 50 mcg/actuation nasal spray Use 1 [place] in each nostril twice daily. Rinse mouth after use. - Cholecalciferol, Vitamin D3, 50 mcg (2,000 unit) cap Take 1 capsule by mouth once daily. - calcium carbonate/vitamin D3 (CALCIUM-D ORAL) Take by mouth once daily. Meds Comments as of 02/13/2024: Lipitor placed on hold 02/13/2024 due to rash. Problem List As Of Date 12/15/2024 Noted Resolved Carcinoma in situ of breast [D05.90] 07/11/2008 CMC arthritis, thumb, degenerative [M18.9] 05/27/2014 De Quervain's tenosynovitis, left [M65.4] 05/27/2014 08/13/2016 Urethral stenosis [FRI2926] 09/28/2014 Insomnia [G47.00] 03/07/2015 Degenerative arthritis of toe joint [M19.079] 03/07/2015 08/13/2016 Patellar tendinitis of right knee [M76.51] 03/07/2015 08/13/2016 Trigger thumb of left hand [M65.312] 07/18/2015 08/13/2016 Personal history of malignant neoplasm of breas*12/13/2016 Arthritis of right knee [M17.11] 09/22/2018 Osteoporosis of lumbar spine [M81.0] 10/09/2018 Elevated liver function tests [R79.89] 10/17/2020 Well adult exam [Z00.00] 12/06/2020 Right elbow pain [M25.521] 08/13/2021 Encounter for screening for diabetes mellitus [*03/13/2022 Rheumatoid arthritis of multiple sites with neg*04/01/2022 Situational depression [F43.21] 04/01/2022 GERD without esophagitis [K21.9] 04/01/2022 Vitamin D deficiency [E55.9] 09/19/2022 Medication management [Z79.899] 09/19/2022 Skin cancer screening [Z12.83] 04/02/2023 REINA (nonalcoholic steatohepatitis) [K75.81] 04/16/2023 VICKIE (obstructive sleep apnea) [G47.33] 08/10/2023 Encounter for screening mammogram for breast ca*09/17/2023 Trigger ring finger of left hand [M65.342] 10/09/2023 Hyperlipidemia, mixed [E78.2] 04/20/2024 Encounter Status:Closed by ZORAIDA TAYLOR on 12/16/24 Normal [facility] Breast imaging reportOrdered By: Jazmin Grimes on 12-14-2024 Study report [facility] Imaging Services [address] [place] [address] SCRN MAMM (CAD)W/ERIC BILAT MR#: [id number] Acct: [id number] Name: WINDY INIGUEZ Rep #: [id number] : 1960 F 64 From: Aniket Olivia MD PCP: Dr. Eric Esteves MD Status: REG CLI Study:SCRN MAMM (CAD)W/ERIC BILAT Date of Exa m: 12/14/24 Exam# [id number] Ordering Dr: Jenna Esteves MD EXAM: SCRN MAMM (CAD)W/ERIC BILAT DATE: 12/14/2024 CLINICAL HISTORY: F, Age 64 y/o , SCREENING BREAST CANCER RISK ASSESSMENT: Na TECHNIQUE: Bilateral screening digital breast tomosynthesis with 2D and 3D images. Computeraided detection. COMPARISON: Prior exam(s) were compared FINDINGS: TISSUE DENSITY: The breast tissue is heterogenously dense, which may obscure small masses. Bilateral Breast Mammographic Findings: Right breast: There is architectural distortion in the outer right breast mid depth. There isquestionable associated calcifications, although the calcifications may be artifactual. Left breast: No suspicious masses, calcifications or other abnormalities are identified. BI/SCRN MAMM (CAD)W/ERIC BILAT IMPRESSION: OVERALL FINAL ASSESSMENT: BIRADS 0 Incomplete: Need additional imaging evaluation. RECOMMENDATION: Incomplete: Need additional imaging evaluation with diagnostic right breast mammogram and ultrasound. A letter with findings and recommendations will be mailed to the patient. Reading Location: [id number] CC: Dr. Eric Esteves MD ~ Computational Theory Scientist: Signed [facility] SCRN MAMM (CAD)W/ERIC BILATo n 12-14-2024 SCRN MAMM (CAD)W/ERIC BILAT [facility] Imaging Services [address] [place] [id number] SCRN MAMM (CAD)W/ERIC BILAT MR#: [id number] Acct: [id number] Name: WINDY INIGUEZ Rep #: [id number] : 1960 F 64 From: Jazmin Foster i, MD PCP: Dr. Eric Esteves MD Status: [facility] Study: SCRN MAMM (CAD)W/ERIC BILAT Date of Exam: 10/05 Exam# [id number] Ordering Dr: Eric Esteves MD EXAM: SCRN MAMM (CAD)W/ERIC BILAT DATE: 12/14/2024 CLINICAL HISTORY: F, Age 64 y/o , SCREENING BREAST CANCER RISK ASSESSMENT: Na TECHNIQUE: Bilateral screening digital breast tomosynthesis with 2D and 3D images. Computer aided detection. COMPARISON: Prior exam(s) were compared FINDINGS: TISSUE DENSITY: The breast tissue is heterogenously dense, which may obscure small masses. Bilateral Breast Mammographic Findings: Right breast: There is architectural distortion in the outer right breast mid depth. There is questionable associated calcifications, although the calcifications may be artifactual. Left breast: No suspicious masses, calcifications or other abnormalities are identified. BI/SCRN MAMM (CAD)W/ERIC BILAT IMPRESSION: OVERALL FINAL ASSESSMENT: BIRADS 0 Incomplete: Need additional imaging evaluation. RECOMMENDATION: Incomplete: Need additional imaging evaluation with diagnostic right breast mammogram and ultrasound. A letter with findings and recommendations will be mailed to the patient. Reading Location: [id number] CC: Dr. Eric Esteves MD Computational Theory Scientist: Signed [facility] CNOVon 09-08-2024 CNOV Office Visit (FAMPWS) KHADIJAHWINDY Huang ([id number]) 1960 F Date Time Provider Department 09/08/24 9:40 AM ERIC ESTEVES FAMPWS During your visit today, we recorded the following information about you: Pulse Respiration Blood pressure Weight 80/minute 16/minute 120/86 78.5 kg Eric Esteves MD 09/08/2024 1:57 PM Signed Chief Complaint Patient presents with: Trigger Finger HPI Windy Iniguez is a 64 year old female who presents here today for Trigger injection. left ring finger injected 10/2023 and lasted till about mid May 2024. Patient saw ENT yesterday. See scanned documents. Patient was switched to Protonix. Past medical history, appointments, medications, allergies reviewed. 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 Doss ([facility]) Insomnia 03/07/2015 Internal hemorrhoids without mention of complication REINA (nonalcoholic steatohepatitis) 04/16/2023 VICKIE (obstructive sleep apnea) 08/10/2023 Consult Sleep Med 07/2023. 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 Esteves ([facility]) Previous Surgical History PAST SURGICAL HISTORY Procedure Laterality Date APPENDECTOMY 10/16/2017 COLONOSCOPY 10/07/2022 repeat in 10 years COLONOSCOPY FLX DX W/COLLJ SPEC WHEN PFRMD 05/06/2011 CYSTOSCOPY 09/21/2014 INJ RADIOACTIVE TRACER FOR ID OF SENTINEL NODE 06/30/2008 LEFT BREAST MASTECTOMY,PARTIAL, WITH AXILLARY LYMPHADENECTOMY 06/30/2008 LEFT BREAST, lumpectomy- cancerious PAST SURGICAL HISTORY OF Novasure PAST SURGICAL HISTORY OF 06/24/2011 Excisional biopsy right forearm- benign PAST SURGICAL HISTORY OF 07/11/2015 left trigger thumb release PREOP PLACEMENT NEEDLE LOC 06/30/2008 LEFT BREAST PUNCH BIOPSY B/O 04/13/2011 Right forearm STEREOTACTIC CORE BIOPSY 06/01/2008 left TONSILLECTOMY PRIMARY/SECONDARY TOTAL ABDOMINAL HYSTERECT W/WO RMVL TUBE OVARY 01/12/2008 Hysterectomy, BLANCA BSO Family History FAMILY HISTORY Problem Relation Age of Onset Cancer Father LIVER AND PANCREAS other (ASHD [Other]) Sister defibrillator Breast Cancer Paternal Grandmother Cancer Maternal Grandfather LUNG Arthritis Mother Patient Allergies ALLERGIES Allergen Reactions Codeine Vomiting Nausea and vomiting Dust Mites Unknown Fosamax [Alendronat* Other: See Comments Chest pain Loratadine-Pseudoep* Other: See Comments Palpitations and jittery Mold Unknown Relafen [Nabumetone] Unknown Trees Unknown Current Medications Current Outpatient Medications on File Prior to Visit Medication Sig ciprofloxacin HCl (CIPRO) 500 mg tablet Take 1 tablet by mouth two times a day for 10 days. traZODone (DESYREL) 100 mg tablet Take 1/2 to 1 tablet by mouth at bedtime for insomnia. omeprazole (PRILOSEC) 40 mg capsule Take 1 capsule by mouth once daily. atorvastatin (LIPITOR) 20 mg tablet Take 1 tablet by mouth daily at bedtime. For cholesterol. tocilizumab (ACTEMRA) 162 mg/0.9 mL Inject 0.9 mL subcutaneously one time a week. Per Rheumatology fluticasone (FLONASE) 50 mcg/actuation nasal spray Use 1 [place] in each nostril twice daily. Rinse mouth after use. Cholecalciferol, Vitamin D3, 50 mcg (2,000 unit) cap Take 1 capsule by mouth once daily. calcium carbonate/vitamin D3 (CALCIUM-D ORAL) Take by mouth once daily. No current facility-administere d medications on file prior to visit. Social History Social History Tobacco Use Smoking status: Never Smokeless tobacco: Never Vaping Use Vaping status: Never Used Substance Use Topics Alcohol use: Yes Comment: socially Drug use: No Review of Symptoms REVIEW OF SYSTEMS See HPI EXAM: LMP 12/30/2007 General Appearance: Well appearing, alert, in no acute distress, well-hydrated, well nourished.. Musculoskeletal: triggering of left ring finger. Health Maintenance List Mammogram Screening due on 12/10/2024 RSV Vaccine(1 - Risk 60-74 years 1-dose series) due on 04/20/2025 Anxiety Screening due on 04/20/2025 Covid-19 Vaccine(8 - Pfizer risk 2023- season) due on 10/10/2024 Diabetes Screening due on 03/25/2027 Lipid Screening due on 03/25/2029 DTaP,Tdap,Td Vaccine(4 - Td or Tdap) du (more content not included)... Normal [facility] CNOVon 08-30-2024 CN Office Visit (FAMPWS) WINDY INIGUEZ ([id number]) 1960 F Date Time Provider Department 08/30/24 2:00 PM ERIC ESTEVES FAMPWS During your visit today, we recorded the following information about you: Pulse Blood pressure Weight 82/minute 120/76 78.5 kg Eric Esteves MD 08/30/2024 4:05 PM Signed Chief Complaint Patient presents with: Back Pain HPI Windy Iniguez is a 63 year old female who presents here today for back pain/left hand/trigger finger. Patient with Hx of GERD, RA seeing Rheum, situational depression, past Hx of breast cancer, insomnia, Vit D def, osteoporosis as well as those below. Patient had the left ring finger injected 10/2023 and lasted till about mid May 2024. Patient continues to have a hoarse voice since having COVID at the last week of April and resolved over 5 weeks. No smoking or chewing tobacco. No GERD symptoms with being on the omeprazole 40 mg a day. The lower thoracic back has been bothering her on the left for the past 3 weeks. Has been doing ice, heat and OTC pain relievers with no benefit. Not constant. Does not bother her when sleeping, rolling over and getting up. The pain starts when she has been sitting for an extended time. Then when it's sore she will feel it when getting up and walking. No dysuria, hematuria, fevers or chills. Some urine frequency. Office visit 04/20/2024 Patient did see derm for her Rash. They did do an biopsy. This came back as keratosis pilaris inflamed. Patient with Hx of GERD, RA seeing Rheum, situational depression, past Hx of breast cancer, insomnia, Vit D def, osteoporosis as well as those below. Since last seeing me she had both knees x-rayed and left hand x-rayed. Left hand showed findings consistent with RA and the knees showed changes consistent with mod arthritis of the medial joint spaces bilaterally and the patella femoral joint area on the right. Patient was given a dose of kenalog in her buttocks 3 weeks ago. This did seem to improve her symptoms. Patient has been doing ok otherwise. Patient gregory been seeing PHYSICAL THERAPY who has been working on her hip pain, low back pain and knee pain. Past medical history, appointments, medications, allergies reviewed. 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 Doss ([facility]) Insomnia 03/07/2015 Internal hemorrhoids without mention of complication REINA (nonalcoholic steatohepatitis) 04/16/2023 VICKIE (obstructive sleep apnea) 08/10/2023 Consult Sleep Med 07/2023. 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 Esteves ([facility]) Previous Surgical History PAST SURGICAL HISTORY Procedure Laterality Date APPENDECTOMY 10/16/2017 COLONOSCOPY 10/07/2022 repeat in 10 years COLONOSCOPY FLX DX W/COLLJ SPEC WHEN PFRMD 05/06/2011 CYSTOSCOPY 09/21/2014 INJ RADIOACTIVE TRACER FOR ID OF SENTINEL NODE 06/30/2008 LEFT BREAST MASTECTOMY,PARTIAL, WITH AXILLARY LYMPHADENECTOMY 06/30/2008 LEFT BREAST, lumpectomy- cancerious PAST SURGICAL HISTORY OF Novasure PAST SURGICAL HISTORY OF 06/24/2011 Excisional biopsy right forearm- benign PAST SURGICAL HISTORY OF 07/11/2015 left trigger thumb release PREOP PLACEMENT NEEDLE LOC 06/30/2008 LEFT BREAST PUNCH BIOPSY B/O 04/13/2011 Right forearm STEREOTACTIC CORE BIOPSY 06/01/2008 left TONSILLECTOMY PRIMARY/SECONDARY TOTAL ABDOMINAL HYSTERECT W/WO RMVL TUBE OVARY 01/12/2008 Hysterectomy, BLANCA BSO Family History FAMILY HISTORY Problem Relation Age of Onset Cancer Father LIVER AND PANCREAS other (ASHD [Other]) Sister defibrillator Breast Cancer Paternal Grandmother Cancer Maternal Grandfather LUNG Arthritis Mother Patient Allergies ALLERGIES Allergen Reactions Codeine Vomiting Nausea and vomiting Dust Mites Unknown Fosamax [Alendronat* Other: See Comments Chest pain Loratadine-Pseudoep* Other: See Comments Palpitations and jittery Mold Unknown Relafen [Nabumetone] Unknown Trees Unknown Current Medications Current Outpatient Medications on File Prior to Visit Medication Sig traZODone (DESYREL) 100 mg tablet Take 1/2 to 1 tablet by mouth at bedtime for insomnia. (more content not included)... Normal [facility] UA DIP, URINE (POC)on 2024 BILIRUBIN UA (POCT) Negative Negative [facility] CLARITY UA (POCT) Clear [facility] COLOR UA (POCT) Yellow [facility] GLUCOSE UA (POCT) Negative Negative mg/dL [facility] Hemoglobin Ql (U) Negative Negative [facility] Interpretation and review of laboratory results Abnormal [facility] KETONE UA (POCT) Negative Negative mg/dL [facility] LEUKOCYTES UA (POCT) Small Abnormal Negative [facility] NITRITE UA (POCT) Negative Negative [facility] PH UA (POCT) 5 4.5 - 8.0 [facility] Protein Ql (U) Negative Negative mg/dL [facility] SPECIFIC GRAVITY UA (POCT) 1.025 1.005 - 1.030 [facility] UROBILINOGEN UA (POCT) 0.2 Arianna l E.U./dL [facility] Location:[address], [address] [place] [address] POINT OF CARE [facility] CNOVon 06-30-2024 CNOV Office Visit (SLEWST) WINDY INIGUEZ ([id number]) 1960 F Date Time Provider Department 06/30/24 10:30 AM MORGAN BEY During your visit today, we recorded the following information about you: Pulse Respiration Blood pressure Weight 90/minute 18/minute 120/78 77.9 kg Morgan Bey APRN.CNP 06/30/2024 12:15 PM Signed [facility] Follow up/ Established patient visit Date of last visit : 02/27/2024 The following Impression/Plan was copied and pasted from the patient's last Sleep Disorders Center visit on 02/27/24: IMPRESSION: Chronic insomnia (primary encounter diagnosis) Windy Iniguez is a 63 year old female with chronic insomnia, VICKIE Some increased stress since losing COBRA and will need to find insurance coverage until she can go on Medicare We will stop doxepin and switch to trazodone Rx trazodone 50-100 mg at HS Continue with online [facility]I Go To Sleep program She did look up PAP therapy, thinks it would be difficult to tolerate but is willing to consider Follow up 3 mos Morgan Bey APRN.INTERNAL AUDITOR Here for follow up for insomnia She was doing pretty well with insomnia on trazodone by the end of April but now feels like starting over with insomnia, back to using trazodone the past 2 wks after being ill for 5 wks with COVID. So back to sleeping every other night--having insomnia every other night. When she takes trazodone 100 mg it feels like she can't breathe through her nose, like she is trying to catch her breath when falling asleep. So she usually only takes 50 mg which is helpful but sleeps better with 100 mg. Was taking Nyquil when ill. Has been napping. Very fatigued from COVID and RA flare due to COVID. She has done online CBTI Go To Sleep and found that helpful Other meds tried for insomnia: Doxepin -- no adverse effects, just not effective Melatonin VICKIE AHI 8.2 on HSAT in 07/2023 Really worried about the idea of PAP therapy No TMJ or dental issues SLEEP HYGIENE QUESTIONS: Bedtime : 11 PM, trazodone at 10 pm Wake up Time : varies now since having Covid, was 7 AM before Time it takes to fall sleep : varies Number of times patient wakes up per night : none Naps : recently because of being ill PATIENT-ENTERED QUESTIONNAIRE SLEEP SCORES 04/01/2022 PHQ-9 Score 13 10/16/2020 03/31/2023 03/22/2024 PROMIS Global Health - (T-Scores - the mean of general population = 50. Five points is a clinically meaningful difference.) Physical T-Score 32.4 34.9 34.9 Mental T-Score 38.8 43.5 43.5 ALLERGIES Allergen Reactions Codeine Vomiting Nausea and vomiting Dust Mites Unknown Fosamax [Alendronat* Other: See Comments Chest pain Loratadine-Pseudoep* Other: See Comments Palpitations and jittery Mold Unknown Relafen [Nabumetone] Unknown Trees Unknown CURRENT MEDICATIONS: traZODone (DESYREL) 100 mg tablet Take 1/2 to 1 tablet by mouth at bedtime for insomnia. omeprazole (PRILOSEC) 40 mg capsule Take 1 capsule by mouth once daily. atorvastatin (LIPITOR) 20 mg tablet Take 1 tablet by mouth daily at bedtime. For cholesterol. tocilizumab (ACTEMRA) 162 mg/0.9 mL Inject 0.9 mL subcutaneously one time a week. Per Rheumatology fluticasone (FLONASE) 50 mcg/actuation nasal spray Use 1 [place] in each nostril twice daily. Rinse mouth after use. Cholecalciferol, Vitamin D3, 50 mcg (2,000 unit) cap Take 1 capsule by mouth once daily. calcium carbonate/vitamin D3 (CALCIUM-D ORAL) Take by mouth once daily. PHYSICAL EXAMINATION: Vital Signs: BP 120/78 (BP Site: Right Arm, BP Position: Sitting) Pulse 90 Resp 18 Wt 77.9 kg (171 lb 12.8 oz) LMP 12/30/2007 SpO2 95% BMI 28.15 kg/m? PHYSICAL EXAM: General appearance: pleasant, NAD Mental status: alert and oriented, able to provide own history Constitutional: WNL Skin: No visible rashes on exposed skin Neuro: No focal deficits observed, no tremors IMPRESSION: Chronic insomnia Vickie (obstructive sleep apnea) (primary encounter diagnosis) Windy Iniguez is a 63 year old female with PMH of chronic insomnia, at least mild VICKIE, RA, HLD. GERD, REINA, hx breast cancer Her insomnia was stable on trazodone before becoming ill with COVID infection in April. She is just now getting back to normal. I think the feeling of not breathing when falling asleep when she takes 100 mg of trazodone may be apnea. She is very reluctant to use PAP therapy. She is willing to try Oral Appliance Therapy (OAT). Might need to refer her to F Dentist although this isn't convenient. PLAN: Continue with trazodone 50-100 mg at HS, contact me for refill Follow up 6 mos Refer to Dentist for OAT for at least mild VICKIE Morgan Bey APRN.Morgan Villanueva APRN.CNP 06/30/2024 11:08 AM Signed For sleep apnea, refer to dentist for Oral Appliance Therapy We'll check if Dr Joel Dyer in [place] (more content not included)... Normal [facility] CNOVon 04-20-2024 CNOV Office Visit (FAMPWS) WINDY INIGUEZ ([id number]) 1960 F Date Time Provider Department 04/20/24 2:00 PM [facility] During your visit today, we recorded the following information about you: Pulse Respiration Blood pressure Weight 82/minute 16/minute 120/80 76.2 kg Height 1.664 m Eric Esteves MD 04/20/2024 3:13 PM Signed Chief Complaint Patient presents with: Physical HPI Windy Iniguez is a 63 year old female who presents here today for Physical. Patient did see derm for her Rash. They did do an biopsy. This came back as keratosis pilaris inflamed. Patient with Hx of GERD, RA seeing Rheum, situational depression, past Hx of breast cancer, insomnia, Vit D def, osteoporosis as well as those below. Since last seeing me she had both knees x-rayed and left hand x-rayed. Left hand showed findings consistent with RA and the knees showed changes consistent with mod arthritis of the medial joint spaces bilaterally and the patella femoral joint area on the right. Patient was given a dose of kenalog in her buttocks 3 weeks ago. This did seem to improve her symptoms. Patient has been doing ok otherwise. Patient gregory been seeing PHYSICAL THERAPY who has been working on her hip pain, low back pain and knee pain. Past medical history, appointments, medications, allergies reviewed. 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 Doss ([facility]) Insomnia 03/07/2015 Internal hemorrhoids without mention of complication REINA (nonalcoholic steatohepatitis) 04/16/2023 VICKIE (obstructive sleep apnea) 08/10/2023 Consult Sleep Med 07/2023. 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 Esteves ([facility]) Previous Surgical History PAST SURGICAL HISTORY Procedure Laterality Date APPENDECTOMY 10/16/2017 COLONOSCOPY 10/07/2022 repeat in 10 years COLONOSCOPY FLX DX W/COLLJ SPEC WHEN PFRMD 05/06/2011 CYSTOSCOPY 09/21/2014 INJ RADIOACTIVE TRACER FOR ID OF SENTINEL NODE 06/30/2008 LEFT BREAST MASTECTOMY,PARTIAL, WITH AXILLARY LYMPHADENECTOMY 06/30/2008 LEFT BREAST, lumpectomy- cancerious PAST SURGICAL HISTORY OF Novasure PAST SURGICAL HISTORY OF 06/24/2011 Excisional biopsy right forearm- benign PAST SURGICAL HISTORY OF 07/11/2015 left trigger thumb release PREOP PLACEMENT NEEDLE LOC 06/30/2008 LEFT BREAST PUNCH BIOPSY B/O 04/13/2011 Right forearm STEREOTACTIC CORE BIOPSY 06/01/2008 left TONSILLECTOMY PRIMARY/SECONDARY TOTAL ABDOMINAL HYSTERECT W/WO RMVL TUBE OVARY 01/12/2008 Hysterectomy, BLANCA BSO Family History FAMILY HISTORY Problem Relation Age of Onset Cancer Father LIVER AND PANCREAS other (ASHD [Other]) Sister defibrillator Breast Cancer Paternal Grandmother Cancer Maternal Grandfather LUNG Arthritis Mother Patient Allergies ALLERGIES Allergen Reactions Codeine Vomiting Nausea and vomiting Dust Mites Unknown Fosamax [Alendronat* Other: See Comments Chest pain Loratadine-Pseudoep* Other: See Comments Palpitations and jittery Mold Unknown Relafen [Nabumetone] Unknown Trees Unknown Current Medications Current Outpatient Medications on File Prior to Visit Medication Sig traZODone (DESYREL) 100 mg tablet Take 1/2 to 1 tablet by mouth at bedtime for insomnia. atorvastatin (LIPITOR) 20 mg tablet Take 1 tablet by mouth daily at bedtime. For cholesterol. Benzonatate 200 mg capsule Take 1 capsule by mouth three times a day as needed. omeprazole (PRILOSEC) 40 mg capsule Take 1 capsule by mouth once daily. tocilizumab (ACTEMRA) 162 mg/0.9 mL Inject 0.9 mL subcutaneously one time a week. Per Rheumatology fluticasone (FLONASE) 50 mcg/actuation nasal spray Use 1 [place] in each nostril twice daily. Rinse mouth after use. Cholecalciferol, Vitamin D3, 50 mcg (2,000 unit) cap Take 1 capsule by mouth once daily. calcium carbonate/vitamin D3 (CALCIUM-D ORAL) Take by mouth once daily. No current facility-administere d medications on file prior to visit. Social History Social History Tobacco Use Smoking status: Never Smokeless tobacco: Never Vaping Use Vaping status: Never Used Substance Use Topics Alcohol use: Yes Comment: socially Drug use: No (more content not included)... Normal [facility] CNTHERAPYon 04-12-2024 CNTHERAPY OT/PT/Speech Visit (PTWS) WINDY INIGUEZ ([id number]) 1960 F Date Time Provider Department 04/12/24 9:30 AM BEATRICE SABILLON PTMARINE Date Time Provider Department Center 04/12/2024 9:30 AM [id number] SABILLON PTMARINE [facility] Reason for Visit: Physical Therapy [503] Primary Visit Diagnosis:Left hip pain [M25.552] Allergies As of Date: 04/12/2024 Noted Allergy Reaction CODEINE 01/31/2005 11 - Vomiting Comments: Nausea and vomiting DUST MITES 06/14/2005 16 - Unknown FOSAMAX (ALENDRONATE) 12/06/2020 14 - Other: See Comments Comments: Chest pain LORATADINE-PSEUDOEPH EDRINE 08/11/2023 14 - Other: See Comments Comments: Palpitations and jittery MOLD 06/14/2005 16 - Unknown RELAFEN (NABUMETONE) 06/14/2005 16 - Unknown TREES 06/14/2005 16 - Unknown Date Reviewed: 03/18/2024 Reviewed by: Linda Craig MA - Fully Assessed Prescriptions as of 04/12/2024 - traZODone (DESYREL) 100 mg tablet Take 1/2 to 1 tablet by mouth at bedtime for insomnia. - atorvastatin (LIPITOR) 20 mg tablet Take 1 tablet by mouth daily at bedtime. For cholesterol. - Benzonatate 200 mg capsule Take 1 capsule by mouth three times a day as needed. - omeprazole (PRILOSEC) 40 mg capsule Take 1 capsule by mouth once daily. - tocilizumab (ACTEMRA) 162 mg/0.9 mL Inject 0.9 mL subcutaneously one time a week. Per Rheumatology - fluticasone (FLONASE) 50 mcg/actuation nasal spray Use 1 [place] in each nostril twice daily. Rinse mouth after use. - Cholecalciferol, Vitamin D3, 50 mcg (2,000 unit) cap Take 1 capsule by mouth once daily. - calcium carbonate/vitamin D3 (CALCIUM-D ORAL) Take by mouth once daily. Meds Comments as of 02/13/2024: Lipitor placed on hold 02/13/2024 due to rash. Fan Mail Editor: Addendum Therapy (PT/OT/Speech/Resp) ID: [id number] 04/12/2024 9:53 AM Author: BEATRICE SABILLON Signed by BEATRICE SABILLON PT on 04/12/2024 at 9:53 AM * * * This document replaces document [id number] * * * Document text: Program_ID:[id number] Access Code: [email or web address] URL: [email or web address] Date: 04-12-2024 Prepared By: Beatrice Sabillon Program Notes Exercises - Standing Lumbar Extension - 3-5 x daily - 7 x weekly - 3-5 sets - 10 reps - Supine Posterior Pelvic Tilt - 1-2 x daily - 7 x weekly - 2 sets - 5 reps - Supine Bridge - 1-2 x daily - 7 x weekly - 3-4 sets - 10 reps - Supine Gluteal Sets - 1-2 x daily - 7 x weekly - 3-4 sets - 8 reps -------- Normal [facility] THERAPY NTon 04-12-2024 THERAPY NT HNO ID: [id number] Author: BEATRICE SABILLON PT Service: ? Author Type: Physical Therapist Type: Therapy (PT/OT/Speech/Resp) Filed: 04/12/2024 09:53 Note Text: Program_ID:[id number] Access Code: [email or web address] URL: [email or web address] Date: 04-12-2024 Prepared By: Beatrice Sabillon Program Notes Exercises - Standing Lumbar Extension - 3-5 x daily - 7 x weekly - 3-5 sets - 10 reps - Supine Posterior Pelvic Tilt - 1-2 x daily - 7 x weekly - 2 sets - 5 reps - Supine Bridge - 1-2 x daily - 7 x weekly - 3-4 sets - 10 reps - Supine Gluteal Sets - 1-2 x daily - 7 x weekly - 3-4 sets - 8 reps Normal [facility] CNTHERAPYon 03-26-2024 CNTHERAPY OT/PT/Speech Visit (PTWS) WINDY INIGUEZ ([id number]) 1960 F Date Time Provider Department 03/26/24 3:30 PM KOMAL MICHELLE PTWS Date Time Provider Department Center 03/26/2024 3:30 PM [id number], MARIAH PTWS Brenden Gotti Reason for Visit: Physical Therapy [503] Primary Visit Diagnosis:Left hip pain [M25.552] Allergies As of Date: 03/26/2024 Noted Allergy Reaction CODEINE 01/31/2005 11 - Vomiting Comments: Nausea and vomiting DUST MITES 06/14/2005 16 - Unknown FOSAMAX (ALENDRONATE) 12/06/2020 14 - Other: See Comments Comments: Chest pain LORATADINE-PSEUDOEPH EDRINE 08/11/2023 14 - Other: See Comments Comments: Palpitations and jittery MOLD 06/14/2005 16 - Unknown RELAFEN (NABUMETONE) 06/14/2005 16 - Unknown TREES 06/14/2005 16 - Unknown Date Reviewed: 03/18/2024 Reviewed by: Linda Craig MA - Fully Assessed Prescriptions as of 03/29/2024 - traZODone (DESYREL) 100 mg tablet Take 1/2 to 1 tablet by mouth at bedtime for insomnia. - atorvastatin (LIPITOR) 20 mg tablet Take 1 tablet by mouth daily at bedtime. For cholesterol. - Benzonatate 200 mg capsule Take 1 capsule by mouth three times a day as needed. - omeprazole (PRILOSEC) 40 mg capsule Take 1 capsule by mouth once daily. - tocilizumab (ACTEMRA) 162 mg/0.9 mL Inject 0.9 mL subcutaneously one time a week. Per Rheumatology - fluticasone (FLONASE) 50 mcg/actuation nasal spray Use 1 [place] in each nostril twice daily. Rinse mouth after use. - Cholecalciferol, Vitamin D3, 50 mcg (2,000 unit) cap Take 1 capsule by mouth once daily. - calcium carbonate/vitamin D3 (CALCIUM-D ORAL) Take by mouth once daily. Meds Comments as of 02/13/2024: Lipitor placed on hold 02/13/2024 due to rash. Fan Mail Editor: Therapy (PT/OT/Speech/Resp) ID: [id number] 03/26/2024 4:06 PM Author: KOMAL MICHELLE Signed by KOMAL MICHELLE HOME ENER[employer] RATER on 03/26/2024 at 4:06 PM Document text: Program_ID:[id number] Access Code: [email or web address] URL: [email or web address] Date: 03-26-2024 Prepared By: Beatrice Sabillon Program Notes Exercises - Standing Lumbar Extension - 3-5 x daily - 7 x weekly - 3-5 sets - 10 reps - Supine Figure 4 Piriformis Stretch - 3 x daily - 7 x weekly - 1 sets - 3 reps - Supine Posterior Pelvic Tilt - 1-2 x daily - 7 x weekly - 4 sets - 10 reps - Standing Lumbar Extension with Counter - 1 x daily - 7 x weekly - 2 sets - 10 reps - Standing Lumbar Extension with Counter - 1 x daily - 7 x weekly - 2 sets - 10 reps -------- Normal [facility] THERAPY NTon 03-26-2024 THERAPY NT HNO ID: [id number] Author: KOMAL MICHELLE PTA Service: ? Author Type: Business Executive Type: Therapy (PT/OT/Speech/Resp) Filed: 03/26/2024 16:06 Note Text: Program_ID:[id number] Access Code: [email or web address] URL: [email or web address] Date: 03-26-2024 Prepared By: Beatrice Sabillon Program Notes Exercises - Standing Lumbar Extension - 3-5 x daily - 7 x weekly - 3-5 sets - 10 reps - Supine Figure 4 Piriformis Stretch - 3 x daily - 7 x weekly - 1 sets - 3 reps - Supine Posterior Pelvic Tilt - 1-2 x daily - 7 x weekly - 4 sets - 10 reps - Standing Lumbar Extension with Counter - 1 x daily - 7 x weekly - 2 sets - 10 reps - Standing Lumbar Extension with Counter - 1 x daily - 7 x weekly - 2 sets - 10 reps Normal [facility] 25(OH)D3 SerPl-ncon 2023 25-hydroxyvitamin D3 [Mass/Vol] 47.4 ng/mL Normal 31.0-80.0 [facility] Comment on above: Order Comment: Speci men Type: BLOOD SPECIMEN Ordering Facility: [facility] Address: [address] [place] [address] Performed By: #### 2 4323-8, 2132-9, LIPNF, 16145-8 #### [facility] CLIA [id number] [address] [place] [address] [place] CBC W Auto Differential pane l (Bld)on 03-25-2024 Basophils (Bld) [#/Vol] 0.05 10*3/uL Normal <0.11 [facility] Comment on above: Order Comment: Speci men Type: BLOOD SPECIMEN Ordering Facility: [facility] Address: [address] [place] [address] Performed By: #### 5 7021-8 #### [facility] CLIA [id number] [address] [place] [address] [place] Basophils/100 WBC (Bld) 1.0 % Normal [facility] Comment on above: Order Comment: Speci men Type: BLOOD SPECIMEN Ordering Facility: [facility] Address: [address] [place] [address] Performed By: #### 5 7021-8 #### [facility] CLIA [id number] [address] [place] [address] [place] Differential cell count method Nom (Bld) Auto Normal [facility] Comment on above: Order Comment: Speci men Type: BLOOD SPECIMEN Ordering Facility: [facility] Address: [address] [place] [address] Performed By: #### 5 7021-8 #### [facility] CLIA [id number] [address] [place] [address] [place] Eosinophils (Bld) [#/Vol] 0.13 10*3/uL Normal <0.46 [facility] Comment on above: Order Comment: Speci men Type: BLOOD SPECIMEN Ordering Facility: [facility] Address: [address] [place] [address] Performed By: #### 5 7021-8 #### [facility] CLIA [id number] [address] [place] [address] [place] Eosinophils/100 WBC (Bld) 2.5 % Normal [facility] Comment on above: Order Comment: Speci men Type: BLOOD SPECIMEN Ordering Facility: [facility] Address: [address] [place] [address] Performed By: #### 5 7021-8 #### [facility] CLIA [id number] [address] [place] [address] [place] Erythrocyte distribution width (RBC) [Ratio] 13.2 % Normal 11.5-15.0 [facility] Comment on above: Order Comment: Speci men Type: BLOOD SPECIMEN Ordering Facility: [facility] Address: [address] [place] [address] Performed By: #### 5 7021-8 #### [facility] CLIA [id number] [address] [place] [address] [place] Hematocrit (Bld) [Volume fraction] 45.7 % Normal 36.0-46.0 [facility] Comment on above: Order Comment: Speci men Type: BLOOD SPECIMEN Ordering Facility: [facility] Address: [address] [place] [address] Performed By: #### 5 7021-8 #### [facility] CLIA [id number] [address] [place] [address] [place] Hemoglobin (Bld) [Mass/Vol] 14.9 g/dL Normal 11.5-15.5 [facility] Comment on above: Order Comment: Speci men Type: BLOOD SPECIMEN Ordering Facility: [facility] Address: [address] [place] [address] Performed By: #### 5 7021-8 #### [facility] CLIA [id number] [address] [place] [address] [place] Immature granulocytes (Bld) [#/Vol] 10*3/uL Normal <0.10 [facility] Comment on above: Order Comment: Speci men Type: BLOOD SPECIMEN Ordering Facility: [facility] Address: [address] [place] [address] Performed By: #### 5 7021-8 #### [facility] CLIA [id number] [address] [place] [address] [place] Immature granulocytes/100 WBC (Bld) 0.4 % Normal [facility] Comment on above: Order Comment: Speci men Type: BLOOD SPECIMEN Ordering Facility: [facility] Address: [address] [place] [address] Performed By: #### 5 7021-8 #### [facility] CLIA [id number] [address] [place] [address] [place] Lymphocytes (Bld) [#/Vol] 1.97 10*3/uL Normal 1.00-4.00 [facility] Comment on above: Order Comment: Speci men Type: BLOOD SPECIMEN Ordering Facility: [facility] Address: [address] [place] [address] Performed By: #### 5 7021-8 #### [facility] CLIA [id number] [address] [place] [address] [place] Lymphocytes/100 WBC (Bld) 37.8 % Normal [facility] Comment on above: Order Comment: Speci men Type: BLOOD SPECIMEN Ordering Facility: [facility] Address: [address] [place] [address] Performed By: #### 5 7021-8 #### [facility] CLIA [id number] [address] [place] [address] [place] MCH (RBC) [Entitic mass] 31.7 pg Normal 26.0-34.0 [facility] Comment on above: Order Comment: Speci men Type: BLOOD SPECIMEN Ordering Facility: [facility] Address: [address] [place] [address] Performed By: #### 5 7021-8 #### [facility] CLIA [id number] [address] [place] [address] [place] MCHC (RBC) [Mass/Vol] 32.6 g/dL Normal 30.5-36.0 [facility] Comment on above: Order Comment: Speci men Type: BLOOD SPECIMEN Ordering Facility: [facility] Address: [address] [place] [address] Performed By: #### 5 7021-8 #### [facility] CLIA [id number] [address] [place] [address] [place] MCV (RBC) [Entitic vol] 97.2 fL Normal 80.0-100.0 C [facility] Comment on above: Order Comment: Speci men Type: BLOOD SPECIMEN Ordering Facility: [facility] Address: [address] [place] [address] Performed By: #### 5 7021-8 #### [facility] CLIA [id number] [address] [place] [address] [place] Monocytes (Bld) [#/Vol] 0.48 10*3/uL Normal <0.87 [facility] Comment on above: Order Comment: Speci men Type: BLOOD SPECIMEN Ordering Facility: [facility] Address: [address] [place] [address] Performed By: #### 5 7021-8 #### [facility] CLIA [id number] [address] [place] [address] [place] Monocytes/100 WBC (Bld) 9.2 % Normal C [facility] Comment on above: Order Comment: Speci men Type: BLOOD SPECIMEN Ordering Facility: [facility] Address: [address] [place] [address] Performed By: #### 5 7021-8 #### [facility] CLIA [id number] [address] [place] [address] [place] Neutrophils (Bld) [#/Vol] 2.56 10*3/uL Normal 1.45-7.50 [facility] Comment on above: Order Comment: Speci men Type: BLOOD SPECIMEN Ordering Facility: [facility] Address: [address] [place] [address] Performed By: #### 5 7021-8 #### [facility] CLIA [id number] [address] [place] [address] [place] Neutrophils/100 WBC (Bld) 49.1 % Normal [facility] Comment on above: Order Comment: Speci men Type: BLOOD SPECIMEN Ordering Facility: [facility] Address: [address] [place] [address] Performed By: #### 5 7021-8 #### [facility] CLIA [id number] [address] [place] [address] [place] Nucleated RBC (Bld) [#/Vol] 10*3/uL Normal <0.01 [facility] Comment on above: Order Comment: Speci men Type: BLOOD SPECIMEN Ordering Facility: [facility] Address: [address] [place] [address] Performed By: #### 5 7021-8 #### [facility] CLIA [id number] [address] [place] [address] [place] Nucleated RBC/100 WBC (Bld) [Ratio] 0.0 /100 WBC Normal [facility] Comment on above: Order Comment: Speci men Type: BLOOD SPECIMEN Ordering Facility: [facility] Address: [address] [place] [address] Performed By: #### 5 7021-8 #### [facility] CLIA [id number] [address] [place] [address] [place] Platelet mean volume (Bld) [Entitic vol] 10.9 fL Normal 9.0-12.7 [facility] Comment on above: Order Comment: Speci men Type: BLOOD SPECIMEN Ordering Facility: [facility] Address: [address] [place] [address] Performed By: #### 5 7021-8 #### [facility] CLIA [id number] [address] [place] [address] [place] Platelets (Bld) [#/Vol] 252 10*3/uL Normal 150-400 [facility] Comment on above: Order Comment: Speci men Type: BLOOD SPECIMEN Ordering Facility: [facility] Address: [address] [place] [address] Performed By: #### 5 7021-8 #### [facility] CLIA [id number] [address] [place] [address] [place] RBC (Bld) [#/Vol] 4.70 10*6/uL Normal 3.90-5.20 [facility] Comment on above: Order Comment: Speci men Type: BLOOD SPECIMEN Ordering Facility: [facility] Address: [address] [place] [address] Performed By: #### 5 7021-8 #### [facility] CLIA [id number] [address] [place] [address] [place] WBC (Bld) [#/Vol] 5.21 10*3/uL Normal 3.70-11.00 [facility] Comment on above: Order Comment: Speci men Type: BLOOD SPECIMEN Ordering Facility: [facility] Address: [address] [place] [address] Performed By: #### 5 7021-8 #### [facility] CLIA [id number] [address] [place] [address] [place] Comprehensive metabolic 2000 panelon 03-25-2024 Albumin [Mass/Vol] 4.6 g/dL Normal 3.9-4.9 [facility] Comment on above: Order Comment: Speci men Type: BLOOD SPECIMEN Ordering Facility: [facility] Address: [address] [place] [address] Performed By: #### 2 4323-8, 2132-03, LIPNF, #### [facility] CLIA [id number] [address] [place] [address] [place] ALP [Catalytic activity/Vol] 117 U/L Normal 34-123 [facility] Comment on above: Order Comment: Speci men Type: BLOOD SPECIMEN Ordering Facility: [facility] Address: [address] [place] [address] Performed By: #### 2 4323-8, 2132-03, LIPNF, #### [facility] CLIA [id number] [address] [place] [address] [place] ALT [Catalytic activity/Vol] 45 U/L High 7-38 [facility] Comment on above: Order Comment: Speci men Type: BLOOD SPECIMEN Ordering Facility: [facility] Address: [address] [place] [address] Performed By: #### 2 432-8, 2132-03, LIPNF, #### [facility] CLIA [id number] [address] [place] [address] [place] Anion gap [Moles/Vol] 10 mmol/L Normal 8-15 [facility] Comment on above: Order Comment: Speci men Type: BLOOD SPECIMEN Ordering Facility: [facility] Address: [address] [place] [address] Performed By: #### 2 432-8, 2132-03, LIPNF, #### [facility] CLIA [id number] [address] [place], [place] [id number] [place] AST [Catalytic activity/Vol] 32 U/L Normal 13-35 [facility] Comment on above: Order Comment: Speci men Type: BLOOD SPECIMEN Ordering Facility: [facility] Address: [address] [place] [address] Performed By: #### 2 432-8, 2132-03, LIPNF, #### [facility] CLIA [id number] [address] [place], [place] [id number] [place] Bilirubin [Mass/Vol] 0.9 mg/dL Normal 0.2-1.3 [facility] Comment on above: Order Comment: Speci men Type: BLOOD SPECIMEN Ordering Facility: [facility] Address: [address] [place] [address] Performed By: #### 2 432-8, 2132-03, LIPNF, #### [facility] CLIA [id number] [address] [place] [address] [place] Calcium [Mass/Vol] 9.3 mg/dL Normal 8.5-10.2 [facility] Comment on above: Order Comment: Speci men Type: BLOOD SPECIMEN Ordering Facility: [facility] Address: [address] [place] [address] Performed By: #### 2 8, 2132-03, LIPNF, #### [facility] CLIA [id number] [address] [place] [address] [place] Chloride [Moles/Vol] 107 mmol/L Normal 98-107 [facility] Comment on above: Order Comment: Speci men Type: BLOOD SPECIMEN Ordering Facility: [facility] Address: [address] [place] [address] Performed By: #### 2 4328, 2132-03, LIPNF, #### [facility] CLIA [id number] [address] [place], [place] [address] [place] CO2 [Moles/Vol] 27 mmol/L Normal 22-30 [facility] Comment on above: Order Comment: Speci men Type: BLOOD SPECIMEN Ordering Facility: [facility] Address: [address] [place] [address] Performed By: #### 2 432-8, 2132-03, [place], #### [facility] CLIA [id number] [address] [place] [address] [place] Creatinine [Mass/Vol] 0.87 mg/dL Normal 0.58-0.96 [facility] Comment on above: Order Comment: Speci men Type: BLOOD SPECIMEN Ordering Facility: [facility] Address: [address] [place] [address] Performed By: #### 2 4328, 2132-03, [place], #### [facility] CLIA [id number] [address] [place] [address] [place] Creatinine and Glomerular filtration rate.predicted panel (S/P/Bld) 75 mL/min/1.73m??? Normal >=60 [facility] Comment on above: Order Comment: Naina lopez Type: BLOOD SPECIMEN Ordering Facility: [facility] Address: [address] [place] [address] Result Comment: Fanny mated Glomerular Filtration Rate (eGFR) is calculated using the 2020 CKD-EPI creatinine equation. This equation utilizes serum creatinine, sex, and age as parameters. The creatinine assay has traceable calibration to isotope dilution-mass spectrometry. Refer to KDIGO guidelines for clinical interpretation. In patients with unstable renal function, e.g. those with acute kidney injury, the eGFR may not accurately reflect actual GFR. Performed By: #### 2 432-8, 2132-03, LIPGISELA, #### [facility] CLIA [id number] [address] [place] [address] [place] Glucose [Mass/Vol] 110 mg/dL High 74-99 [facility] Comment on above: Order Comment: Heroi men Type: BLOOD SPECIMEN Ordering Facility: [facility] Address: [address] [place] [address] Result Comment: The [place] Diabetes Association (ADA) provides guidance for cutoff values for fasting glucose and random glucose. The ADA defines fasting as no caloric intake for at least 8 hours. Fasting plasma glucose results between 100 to 125 mg/dL indicate increased risk for diabetes (prediabetes). Fasting plasma glucose results greater than or equal to 126 mg/dL meet the criteria for diagnosis of diabetes. In the absence of unequivocal hyperglycemia, results should be confirmed by repeat testing. In a patient with classic symptoms of hyperglycemia or hyperglycemic crisis, random plasma glucose results greater than or equal to 200 mg/dL meet the criteria for diagnosis of diabetes. Reference: Standards of Medical Care in Diabetes 2016, [place] Diabetes Association. Diabetes Care. 2016.39(Suppl 1). Performed By: #### 2 4323-02, 2132-03, ROME, #### [facility] CLIA [id number] [address] [place] [address] [place] Potassium [Moles/Vol] 4.0 mmol/L Normal 3.7-5.1 [facility] Comment on above: Order Comment: Speci men Type: BLOOD SPECIMEN Ordering Facility: [facility] Address: [address] [place] [address] Performed By: #### 2 4323-02, 2132-03, LIPGISELA, #### [facility] CLIA [id number] [address] [place] [address] [place] Protein [Mass/Vol] 6.5 g/dL Normal 6.3-8.0 [facility] Comment on above: Order Comment: Speci men Type: BLOOD SPECIMEN Ordering Facility: [facility] Address: [address] [place], [place] [address] Performed By: #### 2 4323-02, 2132-03, LIPNF, #### [facility] CLIA [id number] [address] [place] [address] [place] Sodium [Moles/Vol] 144 mmol/L Normal 136-144 [facility] Comment on above: Order Comment: Speci men Type: BLOOD SPECIMEN Ordering Facility: [facility] Address: [address] [place] [address] Performed By: #### 2 4323-8, 2132-03, ROME, #### [facility] CLIA [id number] [address] [place] [address] [place] Urea nitrogen [Mass/Vol] 12 mg/dL Normal 7-21 [facility] Comment on above: Order Comment: Naina men Type: BLOOD SPECIMEN Ordering Facility: [facility] Address: [address] [place] [address] Performed By: #### 2 4328, 2132-03, ROME, #### [facility] CLIA [id number] [address] [place] [address] [place] HbA1c (Bld)on 03-25-2024 Average glucose Estimated from glycated hemoglobin (Bld) [Mass/Vol] 111 mg/dL Normal [facility] Comment on above: Order Comment: Naina lopez Type: BLOOD SPECIMEN Ordering Facility: [facility] Address: [address] [place] [address] Result Comment: eAG: (Estimated average glucose) is a calculated value from HgbA1c and is patient accounting representative of the average blood glucose level in the last 2-3 month period. Performed By: #### 2 4323-8, 2132-03, ROME, #### [facility] CLIA [id number] [address] [place] [address] [place] HbA1c (Bld) [Mass fraction] 5.5 % Normal 4.3-5.6 [facility] Comment on above: Order Comment: Naina lopez Type: BLOOD SPECIMEN Ordering Facility: [facility] Address: [address] [place] [address] Result Comment: Amer [place] Diabetes Association guidelines indicate that patients with HgbA1c in the range 5.7-6.4% are at increased risk for development of diabetes, and intervention by lifestyle modification may be beneficial. HgbA1c greater or equal to 6.5% is considered diagnostic of diabetes. Performed By: #### 2 4323-8, 2132-03, LIPNF, #### [facility] CLIA [id number] [facility] [place] [address] [place] LIPID PANEL, NONFASTINGon Cholesterol [Mass/Vol] 192 mg/dL Normal <200 [facility] Comment on above: Order Comment: Naina men Type: BLOOD SPECIMEN Ordering Facility: [facility] Address: [address] [place] [address] Result Comment: <200 mg/dL, Desirable 200-239 mg/dL, Borderline high >239 mg/dL, High Performed By: #### 2 432-8, 2132-03, LIPNF, #### [facility] CLIA [id number] [address] [place] [address] [place] HDL CHOLESTEROL, NF 61 mg/dL Normal >39 [facility] Comment on above: Order Comment: Naina lopez Type: BLOOD SPECIMEN Ordering Facility: [facility] Address: [address] [place] [address] Result Comment: 40-5 9 mg/dL, Acceptable >59 mg/dL, High: Negative risk factor for coronary heart disease <40 mg/dL, Low: Positive risk factor for coronary heart disease Performed By: #### 2 432-8, 2132-03, LIPNF, #### [facility] CLIA [id number] [address] [place] [address] [place] LDL CHOLESTEROL, NF 111 mg/dL High <100 [facility] Comment on above: Order Comment: Naina men Type: BLOOD SPECIMEN Ordering Facility: [facility] Address: [address] [place] [address] Result Comment: <100 mg/dL, Optimal 100-129 mg/dL, Near optimal/above optimal 130-159 mg/dL, Borderline high 160-189 mg/dL, High >189 mg/dL, Very high Secondary prevention optimal LDL Cholesterol levels are recommended to be < 70 mg/dL Performed By: #### 2 4323-8, 9, LIPNF, #### [facility] CLIA [id number] [address] [place] [address] [place] LDL/HDL RATIO, NF 1.82 mg/dL Normal <2.54 [facility] Comment on above: Order Comment: Speci men Type: BLOOD SPECIMEN Ordering Facility: [facility] Address: [address] [place] [address] Result Comment: Refe rence: 1. National Cholesterol Education Program ATP III Guideline At-A-Glance Quick Desk Reference: National Heart, Lung, and Blood [place]. National Institutes of Health. 2001: NIH Publication No. 01-3305. 2. An International Atherosclerosis Society position paper: global recommendations for the management of dyslipidemia: executive summary, Atherosclerosis. 2014: 232(2):410-413. Performed By: #### 2 432-8, 2132-03, R[place], #### [facility] CLIA [id number] [address] [place] [address] [place] NON HDL CHOL, NF 131 mg/dL High <130 [facility] Comment on above: Order Comment: Naina lopez Type: BLOOD SPECIMEN Ordering Facility: [facility] Address: [address] [place] [address] Result Comment: <130 mg/dL, Optimal 130-159 mg/dL, Near optimal/above optimal 160-189 mg/dL, Borderline high 190-219 mg/dL, High >219 mg/dL, Very high Secondary prevention optimal non HDL Cholesterol levels are recommended to be <100 mg/dL Performed By: #### 2 4323-8, 9, LIPNF, #### [facility] CLIA [id number] [address] [place] [address] [place] T CHOL/HDL RATIO NF 3.15 mg/dL Normal <5.10 [facility] Comment on above: Order Comment: Speci men Type: BLOOD SPECIMEN Ordering Facility: [facility] Address: [address] [place] [address] Performed By: #### 2 432-8, 2132-03, LIPNF, #### [facility] CLIA [id number] [address] [place] [address] [place] TRIGLYCERIDES, NF 100 mg/dL Normal <150 [facility] Comment on above: Order Comment: Speci men Type: BLOOD SPECIMEN Ordering Facility: [facility] Address: [address] [place] [address] Result Comment: <150 mg/dL, Normal 150-199 mg/dL, Borderline high 200-499 mg/dL, High >499 mg/dL, Very high Performed By: #### 2 432-8, 2132-03, LIPNF, #### [facility] CLIA [id number] [address] [place] [address] [place] VLDL CHOLESTEROL, NF 20 mg/dL Normal <30 [facility] Comment on above: Order Comment: Speci men Type: BLOOD SPECIMEN Ordering Facility: [facility] Address: [address] [place] [address] Performed By: #### 2 4328, 2132-03, LIPNF, #### [facility] CLIA [id number] [address] [place] [address] [place] Magnesium SerPl-mCncon 03-25 Magnesium [Mass/Vol] 2.3 mg/dL Normal 1.7-2.3 [facility] Comment on above: Order Comment: Speci men Type: BLOOD SPECIMEN Ordering Facility: [facility] Address: [address] [place] [address] Performed By: #### 2 4328, 2132-03, LIPNF, #### [facility] CLIA [id number] [address] [place] [address] [place] Vit B12 SerPl-[facility] 024 Cobalamin (Vitamin B12) [Mass/Vol] 600 pg/mL Normal 232-1245 [facility] Comment on above: Order Comment: Speci men Type: BLOOD SPECIMEN Ordering Facility: [facility] Address: [address] [place] [address] Performed By: #### 2 4323-8, 2132-9, LIPNF, 52629-3 #### [facility] CLIA [id number] [address] [place] [address] [id number] 03-22-2024 [id number] HNO ID: [id number] Author: BEATRICE SABILLON PT Service: ? Author Type: Physical Therapist Type: [id number] Filed: 03/22/2024 11:07 Note Text: [facility] Physical Therapy Plan of Care Certification Patient Name: Windy Iniguez : 1960 [facility] #: [id number] Date: 03/22/2024 To: Eric Esteves MD From Therapist: Beatrice Sabillon PT RE: Patient Certification/ Recertification Your review, approval and electronic signature are required in order to comply with Payor: PEDRO / Plan: BLUE ACCESS PPO / Product Type: PPO / regulations. The identified Physical Therapy PLAN OF CARE for the patient is as follows: M25.552 Left hip pain (primary encounter diagnosis) PLAN OF CARE: Assessment: Windy Iniguez presents with diagnosis of left hip pain that interferes with walking in the community, sitting . She presents with impairments in ADL's, independence in exercise, joint mobility, overall function, patient reported outcome measures, posture, range of motion, strength, symptom management, and tissue tenderness. PROMIS? (Patient-Reported Outcomes Measurement Information System) scores were reviewed and identified as a rehabilitation concern. Prognosis for therapy is Good due to: good support system/ coping skills, within-session changes, positive past response to therapy, acuteness of condition, current objective clinical presentation . She will benefit from skilled therapy services to meet the goals established for this plan of care as noted below. Classification Pain Mechanism Classification: Nociceptive Low Back Pain Classification: Symptom Modulation Goals for Episode of Care: established 03/22/24 Independent in home exercises. Patient will decrease pain rating by 2 points to meet minimal clinical important difference for numeric pain rating scale. Restore pain-free lumbar ROM to minimal to no limitation extension to allow for improved posture and reduced pain with transitional movements. Stand / Walk 30-40 minutes without pain/symptoms. Sit 1-2 hours without pain/symptoms to allow for seated activities. Patient will be able to tolerate functional activities for 1-2 hours without increased symptoms. Patient will be able to correct postural deviations independently in order to improve postural alignment of trunk during sitting, allow for normal mechanics, to decrease current pain , and prevent future recurrence. Patient Goals: reduce hip pain Time Frame for Goals and Treatment : 05/03/24 Planned Interventions, Frequency, and Duration: Current Frequency: 1x/week Duration: 6 weeks Total Number of Visits Planned: 6 Planned Treatment Interventions: Therapeutic exercise (57678), Neuromuscular re-education (01147), Manual therapy (14369), Therapeutic activities (09526), Self-custodial management (96073), Gait Training (95158) PLAN FOR NEXT VISIT: assess symptom response to extension directional preference exercises. Continue core stabilization if pt. has centralization of symptoms from L hip to low back Patient demonstrates good understanding of plan of care and treatment. The above goals and plan of care were discussed and agreed upon by patient/family. For further details regarding this patient refer to the Physical Therapy electronically documented visit dated 03/22/2024. Provider Attestation I have reviewed the treatment plan for Windy Iniguez, [facility]# [id number] for the period of 03/22/24 -- 04/26/24, established on 03/22/2024. Signature certifies the need for therapy services. Normal [facility] CNTHERAPYon 03-22-2024 CNTHERAPY OT/PT/Speech Visit (PTWS) WINDY INIGUEZ ([id number]) 1960 F Date Time Provider Department 03/22/24 8:00 AM BEATRICE SABILLON PTWS Date Time Provider Department [place] 03/22/2024 8:00 AM [id number] SABILLON PTWS Brenden Shen Reason for Visit: PT Kimal [747] Primary Visit Diagnosis:Left hip pain [M25.552] Allergies As of Date: 03/22/2024 Noted Allergy Reaction CODEINE 01/31/2005 11 - Vomiting Comments: Nausea and vomiting DUST MITES 06/14/2005 16 - Unknown FOSAMAX (ALENDRONATE) 12/06/2020 14 - Other: See Comments Comments: Chest pain LORATADINE-PSEUDOEPH EDRINE 08/11/2023 14 - Other: See Comments Comments: Palpitations and jittery MOLD 06/14/2005 16 - Unknown RELAFEN (NABUMETONE) 06/14/2005 16 - Unknown TREES 06/14/2005 16 - Unknown Date Reviewed: 03/18/2024 Reviewed by: Linda Craig MA - Fully Assessed Prescriptions as of 03/22/2024 - traZODone (DESYREL) 100 mg tablet Take 1/2 to 1 tablet by mouth at bedtime for insomnia. - atorvastatin (LIPITOR) 20 mg tablet Take 1 tablet by mouth daily at bedtime. For cholesterol. - Benzonatate 200 mg capsule Take 1 capsule by mouth three times a day as needed. - omeprazole (PRILOSEC) 40 mg capsule Take 1 capsule by mouth once daily. - tocilizumab (ACTEMRA) 162 mg/0.9 mL Inject 0.9 mL subcutaneously one time a week. Per Rheumatology - fluticasone (FLONASE) 50 mcg/actuation nasal spray Use 1 [place] in each nostril twice daily. Rinse mouth after use. - Cholecalciferol, Vitamin D3, 50 mcg (2,000 unit) cap Take 1 capsule by mouth once daily. - calcium carbonate/vitamin D3 (CALCIUM-D ORAL) Take by mouth once daily. Meds Comments as of 02/13/2024: Lipitor placed on hold 02/13/2024 due to rash. Fan Mail Editor: Therapy (PT/OT/Speech/Resp) ID: [id number] 03/22/2024 8:27 AM Author: BEATRICE SABILLON Signed by BEATRICE SABILLON PT on 03/22/2024 at 8:27 AM Document text: Program_ID:[id number] Access Code: [email or web address] URL: [email or web address] Date: 03-22-2024 Prepared By: Beatrice Sabillon Program Notes Exercises - Standing Lumbar Extension - 3-5 x daily - 7 x weekly - 3-5 sets - 10 reps - Supine Figure 4 Piriformis Stretch - 3 x daily - 7 x weekly - 3 sets - 10 reps - Supine Posterior Pelvic Tilt - 1-2 x daily - 7 x weekly - 4 sets - 10 reps -------- Normal [facility] THERAPY NTon 03-22-2024 THERAPY NT HNO ID: [id number] Author: BEATRICE SABILLON PT Service: ? Author Type: Physical Therapist Type: Therapy (PT/OT/Speech/Resp) Filed: 03/22/2024 08:27 Note Text: Program_ID:[id number] Access Code: [email or web address] URL: [email or web address] Date: 03-22-2024 Prepared By: Beatrice Sabillon Program Notes Exercises - Standing Lumbar Extension - 3-5 x daily - 7 x weekly - 3-5 sets - 10 reps - Supine Figure 4 Piriformis Stretch - 3 x daily - 7 x weekly - 3 sets - 10 reps - Supine Posterior Pelvic Tilt - 1-2 x daily - 7 x weekly - 4 sets - 10 reps Normal [facility] CNPNon 03-20-2024 CNPN Telephone (FAMPWS) WINDY INIGUEZ ([id number]) 1960 F Date Time Provider Department 03/20/24 ERIC ESTEVES During your visit today, we recorded the following information about you: Eric Esteves MD 03/20/2024 8:40 PM Signed Let patient know hip x-ray showed no acute issues. Order placed for PHYSICAL THERAPY. Zoraida Taylor LPN 03/22/2024 8:59 AM Signed Patient notified of results and provider's instructions. Patient verbalizes understanding. Pt actually saw order on and had PT appointment this am. Zoraida Taylor LPN Allergies As of Date: 03/20/2024 Noted Allergy Reaction CODEINE 01/31/2005 11 - Vomiting Comments: Nausea and vomiting DUST MITES 06/14/2005 16 - Unknown FOSAMAX (ALENDRONATE) 12/06/2020 14 - Other: See Comments Comments: Chest pain LORATADINE-PSEUDOEPH EDRINE 08/11/2023 14 - Other: See Comments Comments: Palpitations and jittery MOLD 06/14/2005 16 - Unknown RELAFEN (NABUMETONE) 06/14/2005 16 - Unknown TREES 06/14/2005 16 - Unknown Date Reviewed: 03/18/2024 Reviewed by: Linda Craig MA - Fully Assessed Reason for Visit: Results [95] Primary Visit Diagnosis:Left hip pain [M25.552] Order(s):CONSULT TO PHYSICAL THERAPY [9032] Order #: [id number]: 1 FUTURE Prescriptions as of 03/22/2024 - traZODone (DESYREL) 100 mg tablet Take 1/2 to 1 tablet by mouth at bedtime for insomnia. - atorvastatin (LIPITOR) 20 mg tablet Take 1 tablet by mouth daily at bedtime. For cholesterol. - Benzonatate 200 mg capsule Take 1 capsule by mouth three times a day as needed. - omeprazole (PRILOSEC) 40 mg capsule Take 1 capsule by mouth once daily. - tocilizumab (ACTEMRA) 162 mg/0.9 mL Inject 0.9 mL subcutaneously one time a week. Per Rheumatology - fluticasone (FLONASE) 50 mcg/actuation nasal spray Use 1 [place] in each nostril twice daily. Rinse mouth after use. - Cholecalciferol, Vitamin D3, 50 mcg (2,000 unit) cap Take 1 capsule by mouth once daily. - calcium carbonate/vitamin D3 (CALCIUM-D ORAL) Take by mouth once daily. Meds Comments as of 02/13/2024: Lipitor placed on hold 02/13/2024 due to rash. 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] 09/28/2014 Insomnia [G47.00] 03/07/2015 Degenerative arthritis of toe joint [M19.079] 03/07/2015 08/13/2016 Patellar tendinitis of right knee [M76.51] 03/07/2015 08/13/2016 Trigger thumb of left hand [M65.312] 07/18/2015 08/13/2016 Personal history of malignant neoplasm of breas*12/13/2016 Arthritis of right knee [M17.11] 09/22/2018 Osteoporosis of lumbar spine [M81.0] 10/09/2018 Elevated liver function tests [R79.89] 10/17/2020 Well adult exam [Z00.00] 12/06/2020 Right elbow pain [M25.521] 08/13/2021 Encounter for screening for diabetes mellitus [*03/13/2022 Rheumatoid arthritis of multiple sites with neg*04/01/2022 Situational depression [F43.21] 04/01/2022 GERD without esophagitis [K21.9] 04/01/2022 Vitamin D deficiency [E55.9] 09/19/2022 Medication management [Z79.899] 09/19/2022 Skin cancer screening [Z12.83] 04/02/2023 REINA (nonalcoholic steatohepatitis) [K75.81] 04/16/2023 VICKIE (obstructive sleep apnea) [G47.33] 08/10/2023 Encounter for screening mammogram for breast ca*09/17/2023 Trigger ring finger of left hand [M65.342] 10/09/2023 Encounter Status:Closed by ZORAIDA TAYLOR on 03/22/24 [facility] CNOVon 03-18-2024 CNOV Office Visit (FAMPWS) KHADIJAHWINDY Huang Jenna ([id number]) 1960 F Date Time Provider Department 03/18/24 9:40 AM ERIC ESTEVES During your visit today, we recorded the following information about you: Pulse Blood pressure Weight Height 88/minute 121/82 76.2 kg 1.702 m Eric Esteves MD 03/18/2024 4:53 PM Signed Chief Complaint Patient presents with: Follow Up Hip Pain Rash HPI Windy West Khadijahsal is a 63 year old female who presents here today for follow up on rash on legs. Patient with Hx of GERD, RA seeing Rheum, situational depression, past Hx of breast cancer, insomnia, Vit D def, osteoporosis as well as those below. Last visit patient was seen for rash on legs. We stopped the lipitor for possible drug reaction . Since being off the lipitor the rash has not improved and seems to be getting slightly worse and on her arms. Not itching or burning. Left hip pain for about last three weeks after walking on the beach [facility]. Is doing some exercises and has helped. But not resolved. Laying on the left hip makes it hurt more and with sitting. Has not noted any grinding. Office visit 02/13/2024 - rash on legs Rash started upper part of the left anterior lateral part maybe in December/January and then a few weeks later started to get it on the right anterior thigh. Thinks she may have a few spots on her upper inner arms. Denies any itching. Patient tried OTC cortisone with no improvement. Past medical history, appointments, medications, allergies reviewed. Previous Medical History PAST MEDICAL HISTORY 09/22/2018: Arthritis of right knee No date: Carcinoma in situ of breast Comment: LEFT 05/27/2014: CMC arthritis, thumb, degenerative No date: Diffuse cystic mastopathy 09/17/2023: Encounter for screening mammogram for breast cancer 04/01/2022: GERD without esophagitis 09/28/2019: Inflammatory arthritis Comment: Seeing Dr. Doss ([facility]) 03/07/2015: Insomnia No date: Internal hemorrhoids without mention of complication 04/16/2023: REINA (nonalcoholic steatohepatitis) 08/10/2023: VICKIE (obstructive sleep apnea) Comment: Consult Sleep Med 07/2023. 10/09/2018: Osteoporosis of lumbar spine 12/13/2016: Personal history of malignant neoplasm of breast 08/13/2021: Right elbow pain Comment: Seeing [facility] ortho 04/01/2022: Situational depression 04/02/2023: Skin cancer screening Comment: Sees Derm 09/28/2014: Urethral stenosis 09/19/2022: Vitamin D deficiency 12/06/2020: Well adult exam Comment: Last Done: 10/17/[address] Esteves ([facility]) Previous Surgical History PAST SURGICAL HISTORY 10/16/2017: APPENDECTOMY 10/07/2022: COLONOSCOPY Comment: repeat in 10 years 05/06/2011: COLONOSCOPY FLX DX W/COLLJ SPEC WHEN PFRMD 09/21/2014: CYSTOSCOPY 06/30/2008: INJ RADIOACTIVE TRACER FOR ID OF SENTINEL NODE Comment: LEFT BREAST 06/30/2008: MASTECTOMY,PARTIAL, WITH AXILLARY LYMPHADENECTOMY Comment: LEFT BREAST, lumpectomy- cancerious No date: PAST SURGICAL HISTORY OF Comment: Novasure 06/24/2011: PAST SURGICAL HISTORY OF Comment: Excisional biopsy right forearm- benign 07/11/2015: PAST SURGICAL HISTORY OF Comment: left trigger thumb release 06/30/2008: PREOP PLACEMENT NEEDLE LOC Comment: LEFT BREAST 04/13/2011: PUNCH BIOPSY B/O Comment: Right forearm 06/01/2008: STEREOTACTIC CORE BIOPSY Comment: left No date: TONSILLECTOMY PRIMARY/SECONDARY 01/12/2008: TOTAL ABDOMINAL HYSTERECT W/WO RMVL TUBE OVARY Comment: Hysterectomy, BLANCA BSO Family History FAMILY HISTORY Problem Relation Age of Onset Cancer Father LIVER AND PANCREAS other (ASHD [Other]) Sister defibrillator Breast Cancer Paternal Grandmother Cancer Maternal Grandfather LUNG Arthritis Mother Patient Allergies ALLERGIES Allergen Reactions Codeine Vomiting Nausea and vomiting Dust Mites Unknown Fosamax [Alendronat* Other: See Comments Chest pain Loratadine-Pseudoep* Other: See Comments Palpitations and jittery Mold Unknown Relafen [Nabumetone] Unknown Trees Unknown Current Medications Current Outpatient Medications on File Prior to Visit Medication Sig traZODone (DESYREL) 100 mg tablet Take 1/2 to 1 tablet by mouth at bedtime for insomnia. atorvastatin (LIPITOR) 20 mg tablet Take 1 tablet by mouth daily at bedtime. For cholesterol. Benzonatate 200 mg capsule Take 1 capsule by mouth three times a day as needed. omeprazole (PRILOSEC) 40 mg capsule Take 1 capsule by mouth once daily. tocilizumab (ACTEMRA) 162 mg/0.9 mL Inject 0.9 mL subcutaneously one time a week. Per Rheumatology fluticasone (FLONASE) 50 mcg/actuation nasal spray Use 1 [place] in each nostril twice daily. Rinse mouth after use. Cholecalciferol, Vitamin D3, 50 mcg (2,000 unit) cap Take 1 capsule by mouth once daily. calcium carbonate/vitamin D3 (CALCIUM-D ORAL) Take by mouth once daily. (more content not included)... Normal [facility] XR HIP SYLVIA 5V PEL+ AP/LAT EA HIPon 03-18-2024 XR HIP SYLVIA 5V PEL+ AP/LAT EA HIP * * *Final Report* * * DATE OF EXAM: Mar 18 2024 10:58AM WOX [id number] - XR HIP SYLVIA 5V PEL+ AP/LAT EA HIP / PROCEDURE REASON: Left hip pain * * * * Physician Interpretation * * * * EXAMINATION: XR HIP SYLVIA 5V PEL+ AP/LAT EA HIP PATIENT/TECHNOLOGIST PROVIDED HISTORY: pain for several months in both hips and left worse after walking on beach a few weeks ago, pain is lateral side upper pelvis and groin on both no inj CLINICAL INFORMATION: 63 years old Female with Left hip pain TECHNIQUE: XR HIP SYLVIA 5V PEL+ AP/LAT EA HIP Laterality: BILATERAL Number of different views (projections): 5 COMPARISON: None RESULT: No fracture. Hip joint spaces are maintained. Sacroiliac joints and pubic symphysis are maintained. IMPRESSION: No acute osseous abnormality. Computational Theory Scientist: PSCB Transcribe Date/Time: Mar 20 2024 2:34P Dictated by : SRINI RODRIGUEZ DO This examination was interpreted and the report reviewed and electronically signed by: SRINI RODRIGUEZ DO on Mar 20 2024 2:36PM EST [id number] Normal [facility] CNOVon 02-27-2024 CNOV Office Visit (SLEWST) WINDY INIGUEZ ([id number]) 1960 F Date Time Provider Department 02/27/24 8:00 AM MORGAN BEY During your visit today, we recorded the following information about you: Pulse Respiration Blood pressure Weight 99/minute 16/minute 121/84 76.3 kg Morgan Bey APRN.INTERNAL AUDITOR 03/07/2024 9:57 AM Signed [facility] Follow up/ Established patient visit Date of last visit : 11/10/2023 The following Impression/Plan was copied and pasted from the patient's last [facility] visit on 11/10/23: IMPRESSION/PLAN: F51.04 Chronic insomnia (primary encounter diagnosis) G47.33 VICKIE (obstructive sleep apnea) Windy Jenna Geetha is a 63 year old female with chronic insomnia, VICKIE. PMH of RA, GERD, REINA, breast cancer. Has had sleep onset insomnia for at least 2 yrs; she did get some relief with doxepin 20 mg but stopped when she developed a URI a few weeks ago. Diagnosed with at least mild VICKIE this year. We discussed VICKIE, reviewed her HSAT result, briefly discussed risks of untreated VICKIE, treatment options including dental device and PAP therapy. Will treat insomnia first, then revisit VICKIE. Take doxepin 20 mg at about 9 PM Info re [facility] online CBTI program for insomnia Follow up 3 mos Morgan Bey APRN.INTERNAL AUDITOR Here for follow up for chronic insomnia, VICKIE She thinks stress is making is difficult to control her insomnia My mind is everywhere COBRA ends next month, needs coverage until age 65 so this is of course very stressful She reports doxepin isn't helping, taking 20 mg at HS, no adverse effects She is doing the online CBTI program. [facility] told her she isn't doing enough sleep restriction. She doesn't want to get out of bed after 20 minutes. She no longer reads in bed. She is staying up until 130 AM. Tried CBD gummies last week but they didn't help. No other meds tried for insomnia except melatonin. SLEEP HYGIENE QUESTIONS: Time it takes to fall sleep : long long time around 130 AM. gets up at 5 AM, she doesn't usually hear him. She is setting alarm for 7 AM but finding it hard to get up then. Number of times patient wakes up per night : if she wakes to urinate she is able to fall back asleep. Estimated total sleep time ( in a 24 hour period of time) : 5 Naps : No VICKIE AHI 8.2 on HSATin 07/2023 PATIENT-ENTERED QUESTIONNAIRE SLEEP SCORES 04/01/2022 PHQ-9 Score 13 10/16/2020 03/31/2023 PROMIS Global Health - (T-Scores - the mean of general population = 50. Five points is a clinically meaningful difference.) Physical T-Score 32.4 34.9 Mental T-Score 38.8 43.5 ALLERGIES Allergen Reactions Codeine Vomiting Nausea and vomiting Dust Mites Unknown Fosamax [Alendronat* Other: See Comments Chest pain Loratadine-Pseudoep* Other: See Comments Palpitations and jittery Mold Unknown Relafen [Nabumetone] Unknown Trees Unknown CURRENT MEDICATIONS: atorvastatin (LIPITOR) 20 mg tablet Take 1 tablet by mouth daily at bedtime. For cholesterol. Benzonatate 200 mg capsule Take 1 capsule by mouth three times a day as needed. omeprazole (PRILOSEC) 40 mg capsule Take 1 capsule by mouth once daily. tocilizumab (ACTEMRA) 162 mg/0.9 mL Inject 0.9 mL subcutaneously one time a week. Per Rheumatology fluticasone (FLONASE) 50 mcg/actuation nasal spray Use 1 [place] in each nostril twice daily. Rinse mouth after use. Cholecalciferol, Vitamin D3, 50 mcg (2,000 unit) cap Take 1 capsule by mouth once daily. calcium carbonate/vitamin D3 (CALCIUM-D ORAL) Take by mouth once daily. traZODone (DESYREL) 100 mg tablet Take 1/2 to 1 tablet by mouth at bedtime for insomnia. PHYSICAL EXAMINATION: Vital Signs: BP 121/84 Pulse 99 Resp 16 Wt 76.3 kg (168 lb 3.4 oz) LMP 12/30/2007 SpO2 97% BMI 26.35 kg/m? PHYSICAL EXAM: General appearance: pleasant, NAD Mental status: alert and oriented, able to provide own history Constitutional: WNL Skin: No visible rashes on exposed skin Neuro: No focal deficits observed, no tremors IMPRESSION: Chronic insomnia (primary encounter diagnosis) Windy Iniguez is a 63 year old female with chronic insomnia, VICKIE Some increased stress since losing COBRA and will need to find insurance coverage until she can go on Medicare We will stop doxepin and switch to trazodone Rx trazodone 50-100 mg at HS Continue with online CBTI [facility] program She did look up PAP therapy, thinks it would be difficult to tolerate but is willing to consider Follow up 3 mos Morgan Bey APRN.INTERNAL AUDITOR Referring Provider: ERIC ESTEVES [[id number]] Allergies As of Date: 02/27/2024 Noted Allergy Reaction CODEINE 01/31/2005 11 - Vomiting Comments: Nausea and vomiting DUST MITES 06/14/2005 16 - Unknown FOSAMAX (ALENDRONATE) 12/06/2020 14 - Other: See Comments Comments: Chest pain LORATADI (more content not included)... Normal [facility] CNOVon 02-13-2024 CNOV Office Visit (FAMPWS) WINDY INIGUEZ ([id number]) 1960 F Date Time Provider Department 02/13/24 1:00 PM ERIC ESTEVES During your visit today, we recorded the following information about you: Pulse Respiration Blood pressure Weight 82/minute 16/minute 128/83 75.8 kg Eric Esteves MD 02/13/2024 2:22 PM Signed Chief Complaint Patient presents with: Rash HPI Windy Iniguez is a 63 year old female who presents here today for rash on legs.. Patient with Hx of GERD, RA seeing Rheum, situational depression, past Hx of breast cancer, insomnia, Vit D def, osteoporosis as well as those below. Rash started upper part of the left anterior lateral part maybe in December/January and then a few weeks later started to get it on the right anterior thigh. Thinks she may have a few spots on her upper inner arms. Denies any itching. Patient tried OTC cortisone with no improvement. Her doxepin was increased to 20 mg QHS on 11/10/2023 and her Lipitor was increased from 10 mg to 20 mg on 01/08/2024. Past medical history, appointments, medications, allergies reviewed. Previous Medical History PAST MEDICAL HISTORY 09/22/2018: Arthritis of right knee No date: Carcinoma in situ of breast Comment: LEFT 05/27/2014: CMC arthritis, thumb, degenerative No date: Diffuse cystic mastopathy 09/17/2023: Encounter for screening mammogram for breast cancer 04/01/2022: GERD without esophagitis 09/28/2019: Inflammatory arthritis Comment: Seeing Dr. Doss ([facility]) 03/07/2015: Insomnia No date: Internal hemorrhoids without mention of complication 04/16/2023: REINA (nonalcoholic steatohepatitis) 08/10/2023: VICKIE (obstructive sleep apnea) Comment: Consult Sleep Med 07/2023. 10/09/2018: Osteoporosis of lumbar spine 12/13/2016: Personal history of malignant neoplasm of breast 08/13/2021: Right elbow pain Comment: Seeing [facility] ortho 04/01/2022: Situational depression 04/02/2023: Skin cancer screening Comment: Sees Derm 09/28/2014: Urethral stenosis 09/19/2022: Vitamin D deficiency 12/06/2020: Well adult exam Comment: Last Done: 10/17/[address] Esteves ([facility]) Previous Surgical History PAST SURGICAL HISTORY 10/16/2017: APPENDECTOMY 10/07/2022: COLONOSCOPY Comment: repeat in 10 years 05/06/2011: COLONOSCOPY FLX DX W/COLLJ SPEC WHEN PFRMD 09/21/2014: CYSTOSCOPY 06/30/2008: INJ RADIOACTIVE TRACER FOR ID OF SENTINEL NODE Comment: LEFT BREAST 06/30/2008: MASTECTOMY,PARTIAL, WITH AXILLARY LYMPHADENECTOMY Comment: LEFT BREAST, lumpectomy- cancerious No date: PAST SURGICAL HISTORY OF Comment: Novasure 06/24/2011: PAST SURGICAL HISTORY OF Comment: Excisional biopsy right forearm- benign 07/11/2015: PAST SURGICAL HISTORY OF Comment: left trigger thumb release 06/30/2008: PREOP PLACEMENT NEEDLE LOC Comment: LEFT BREAST 04/13/2011: PUNCH BIOPSY B/O Comment: Right forearm 06/01/2008: STEREOTACTIC CORE BIOPSY Comment: left No date: TONSILLECTOMY PRIMARY/SECONDARY 01/12/2008: TOTAL ABDOMINAL HYSTERECT W/WO RMVL TUBE OVARY Comment: Hysterectomy, BLANCA BSO Family History FAMILY HISTORY Problem Relation Age of Onset Cancer Father LIVER AND PANCREAS other (ASHD [Other]) Sister defibrillator Breast Cancer Paternal Grandmother Cancer Maternal Grandfather LUNG Arthritis Mother Patient Allergies ALLERGIES Allergen Reactions Codeine Vomiting Nausea and vomiting Dust Mites Unknown Fosamax [Alendronat* Other: See Comments Chest pain Loratadine-Pseudoep* Other: See Comments Palpitations and jittery Mold Unknown Relafen [Nabumetone] Unknown Trees Unknown Current Medications Current Outpatient Medications on File Prior to Visit Medication Sig atorvastatin (LIPITOR) 20 mg tablet Take 1 tablet by mouth daily at bedtime. For cholesterol. doxepin capsule 10 mg Take 2 capsules by mouth daily at bedtime. beclomethasone (QVAR REDIHALER) 40 mcg/actuation inhaler Inhale 1 Puff as instructed two times a day. Rinse, guargle and spit after each use. Benzonatate 200 mg capsule Take 1 capsule by mouth three times a day as needed. omeprazole (PRILOSEC) 40 mg capsule Take 1 capsule by mouth once daily. tocilizumab (ACTEMRA) 162 mg/0.9 mL Inject 0.9 mL subcutaneously one time a week. Per Rheumatology fluticasone (FLONASE) 50 mcg/actuation nasal spray Use 1 [place] in each nostril twice daily. Rinse mouth after use. Cholecalciferol, Vitamin D3, 50 mcg (2,000 unit) cap Take 1 capsule by mouth once daily. calcium carbonate/vitamin D3 (CALCIUM-D ORAL) Take by mouth once daily. No current facility-administere d medications on file prior to visit. Social History Social History Tobacco Use Smoking status: Never Smokeless tobacco: Never Vaping Use Vaping Use: Never used Substance Use Topics Alcohol use: Yes Comment: socially Drug use: No Review of Symptom (more content not included)... Normal [facility] POTASSIUMon 11-17-2023 Interpretation and review of laboratory results Normal [facility] Potassium [Moles/Vol] 4.0 mmol/L 3.7 - 5.1 mmol/L [facility] UA DIP, URINE (POC)on 2023 BILIRUBIN UA (POCT) Negative Negative [facility] CLARITY UA (POCT) Clear [facility] COLOR UA (POCT) Yellow [facility] GLUCOSE UA (POCT) Negative Negative mg/dL [facility] Hemoglobin Ql (U) Negative Negative [facility] KETONE UA (POCT) Negative Negative mg/dL [facility] LEUKOCYTES UA (POCT) Negative Negative [facility] NITRITE UA (POCT) Negative Negative [facility] PH UA (POCT) 5.5 4.5 - 8.0 [facility] Protein Ql (U) Negative Negative mg/dL [facility] SPECIFIC GRAVITY UA (POCT) >=1.030 1.005 - 1.030 [facility] UROBILINOGEN UA (POCT) 0.2 Arianna l E.U./dL [facility] Location:Formerly [facility], [address], [place], [place], [id number] [place] [address] POINT OF CARE [facility] Absolute lymphocyte countOrd ered By: Jb Macias on 11-15-2023 Lymphocytes Auto (Unsp spec) [#/Vol] 2.97 10*3/uL 0.83-4.51 [facility] Automated lymphocyte count a s percentage of total leukocytesOrdered By: Jb Macias on 11-15-2023 Lymphocytes/100 WBC Auto (Unsp spec) 34.6 % 19-41 [facility] Basophil percentageOrdered B y: Jb Macias on 11-15-2023 Basophil percentage 5-10 SEEN /hpf 0-5 [facility] Basophils/100 WBC (Bld) 0.6 % 0-1 [facility] Chloride [Moles/Vol] 108 mmol/L 98-107 [facility] Eosinophils/100 WBC (Bld) 2.3 % 0-5 [facility] Glucose [Mass/Vol] 132 mg/dL 74-[address] [facility] Comment on above: Fasting Glucose resu lt greater than or equal to 126 mg/dL suggests DIABETES MELLITUS per A.D.A. criteria. Hemoglobin (Bld) [Mass/Vol] 14.8 g/dL 12.0-15.0 [facility] Monocytes/100 WBC (Bld) 9.6 % 0-10 [facility] Neutrophils (Bld) [#/Vol] 4.5 10*3/uL 2.0-7.7 [facility] Neutrophils/100 WBC (Bld) 52.6 % 47-70 [facility] Potassium [Moles/Vol] 3.4 mmol/L 3.5-5.1 [facility] Sodium [Moles/Vol] 142 mmol/L 136-[address] [facility] WBC (Bld) [#/Vol] 8.6 10*3/uL 4.4-11.[address] [facility] Bilirubin Test strip Ql (U)O rdered By: Jb Macias on 11-15-2023 Bilirubin Ql (U) Negative Negative [facility] Calcium oxalate crystals det ection in urine sediment by light microscopyOrdered By: Jb Macias on 11-15-2023 Calcium oxalate crystals LM Ql (Urine sed) RARE /hpf [facility] Determination of erythrocyte mean corpuscular volume (MCV)Ordered By: Jb Macias on 11-15-2023 MCV (RBC) [Entitic vol] 94.8 fL 81-99 [facility] Erythrocyte distribution wid th ratioOrdered By: Jb Macias on 11-15-2023 Erythrocyte distribution width (RBC) [Ratio] 13.5 % 11.6-14.6 [facility] Erythrocyte distribution wid th standard deviationOrdered By: Jb Macias on 11-15-2023 Erythrocyte distribution width (RBC) [Entitic vol] 47.8 fL 35.1-43.9 [facility] Hematocrit Auto (Bld) [Volum e fraction]Ordered By: Jb Macias on 11-15-2023 Hematocrit (Bld) [Volume fraction] 45.2 % 37-47 [facility] Hyaline casts LM.LPF (Urine sed) [#/Area]Ordered By: Jb Macias on 11-15-2023 Hyaline casts (Urine sed) [#/Area] 0 /[LPF] 0-5 [facility] Immature granulocytes/100 WB C Auto (Bld)Ordered By: Jb Macias on 11-15-2023 Immature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 02-27-2024 08:01-0400 Diastolic blood pressure 84 mm[Hg] Morgan Sotero [employer].INTERNAL AUDITOR Work Phone: [facility] 02-27-2024 08:01-0400 Heart rate 99 /min Morgan Sotero [employer].INTERNAL AUDITOR Work Phone: [facility] 02-27-2024 08:01-0400 Respiratory rate 16 /min Morgan Sotero [employer].INTERNAL AUDITOR Work Phone: [facility] 02-27-2024 08:01-0400 SaO2% (BldA) [Mass fraction] 97 % Morgan Bey [employer].INTERNAL AUDITOR Work Phone: [facility] 02-27-2024 08:01-0400 Systolic blood pressure 121 mm[Hg] Morgan Bey APRN.INTERNAL AUDITOR Work Phone: [facility] 02-13-2024 13:23-0400 Diastolic blood pressure 83 mm[Hg] Eric Esteves MD Work Phone: [facility] 02-13-2024 13:23-0400 Systolic blood pressure 128 mm[Hg] Eric Esteves MD Work Phone: [facility] 02-13-2024 12:56-0400 Body mass index (BMI) [Ratio] 26.16 kg/m2 Eric Esteves MD Work Phone: [facility] 02-13-2024 12:56-0400 Body weight 75.75 kg Eric Esteves MD Work Phone: [facility] 02-13-2024 12:56-0400 Heart rate 82 /min Eric Esteves MD Work Phone: [facility] 02-13-2024 12:56-0400 Respiratory rate 16 /min Eric Esteves MD Work Phone: [facility] 11-17-2023 13:09-0400 Body mass index (BMI) [Ratio] 25.84 kg/m2 Devi Ward APRN.INTERNAL AUDITOR Work Phone: [facility] 11-17-2023 13:09-0400 Body weight 74.84 kg Devi Ward APRN.INTERNAL AUDITOR Work Phone: [facility] 11-17-2023 13:09-0400 Diastolic blood pressure 82 mm[Hg] Devi Ward APRN.INTERNAL AUDITOR Work Phone: [facility] 11-17-2023 13:09-0400 Heart rate 87 /min Devi Ward APRN.INTERNAL AUDITOR Work Phone: [facility] 11-17-2023 13:09-0400 Respiratory rate 16 /min Devi Ward [employer].INTERNAL AUDITOR Work Phone: [facility] 11-17-2023 13:09-0400 Systolic blood pressure 125 mm[Hg] Devi Ward [employer].INTERNAL AUDITOR Work Phone: [facility] 11-16-2023 00:33-0400 Body temperature 97.4 [degF] [facility] 11-16-2023 00:33-0400 Diastolic blood pressure 98 mm[Hg] [facility] 11-16-2023 00:33-0400 Heart rate 66 /min [facility] 11-16-2023 00:33-0400 Respiratory rate 16 /min [facility] 11-16-2023 00:33-0400 SaO2% (BldA) [Mass fraction] 99 % [facility] 11-16-2023 00:33-0400 Systolic blood pressure 136 mm[Hg] [facility] 11-16-2023 00:32-0400 Body mass index (BMI) [Ratio] 26.5 kg/m2 [facility] 11-16-2023 00:32-0400 Body weight 76.91 kg [facility] 11-15-2023 22:21-0400 Body height 170.18 cm [facility] 11-10-2023 15:26-0400 Body mass index (BMI) [Ratio] 26.22 kg/m2 Morgan Sotero [employer].INTERNAL AUDITOR Work Phone: [facility] 11-10-2023 15:26-0400 Body weight 75.93 kg Morgna Sotero [employer].INTERNAL AUDITOR Work Phone: [facility] 11-10-2023 15:26-0400 Diastolic blood pressure 86 mm[Hg] Morgan Sotero [employer].INTERNAL AUDITOR Work Phone: [facility] 11-10-2023 15:26-0400 Heart rate 85 /min Morgan Sotero [employer].INTERNAL AUDITOR Work Phone: [facility] 11-10-2023 15:26-0400 Respiratory rate 18 /min Morgan Sotero [employer].INTERNAL AUDITOR Work Phone: [facility] 11-10-2023 15:26-0400 SaO2% (BldA) [Mass fraction] 97 % Morgan Sotero [employer].INTERNAL AUDITOR Work Phone: [facility] 11-10-2023 15:26-0400 Systolic blood pressure 143 mm[Hg] Morgan Sotero [employer].INTERNAL AUDITOR Work Phone: [facility] 11-05-2023 09:15-0400 Body mass index (BMI) [Ratio] 26.16 kg/m2 Eric Esteves MD Work Phone: [facility] 11-05-2023 09:15-0400 Body temperature 98.49 [degF] Eric Esteves MD Work Phone: [facility] 11-05-2023 09:15-0400 Body weight 75.75 kg Eric Esteves MD Work Phone: [facility] 11-05-2023 09:15-0400 Diastolic blood pressure 80 mm[Hg] Eric Esteves MD Work Phone: [facility] 11-05-2023 09:15-0400 Heart rate 97 /min Eric Esteves MD Work Phone: [facility] 11-05-2023 09:15-0400 Respiratory rate 18 /min Eric Esteves MD Work Phone: [facility] 11-05-2023 09:15-0400 SaO2% (BldA) [Mass fraction] 98 % Eric Esteves MD Work Phone: [facility] 11-05-2023 09:15-0400 Systolic blood pressure 120 mm[Hg] Eric Esteves MD Work Phone: [facility] 10-22-2023 08:01-0400 Body temperature 97.7 [degF] Eric Esteves MD Work Phone: [facility] 10-22-2023 08:01-0400 Body weight 76.2 kg Eric Esteves MD Work Phone: [facility] 10-22-2023 08:01-0400 Diastolic blood pressure 80 mm[Hg] Eric Esteves MD Work Phone: [facility] 10-22-2023 08:01-0400 Heart rate 92 /min Eric Esteves MD Work Phone: [facility] 10-22-2023 08:01-0400 Respiratory rate 18 /min Eric Esteves MD Work Phone: [facility] 10-22-2023 08:01-0400 SaO2% (BldA) [Mass fraction] 96 % Eric Esteves MD Work Phone: [facility] 10-22-2023 08:01-0400 Systolic blood pressure 120 mm[Hg] Eric Esteves MD Work Phone: [facility] 09-17-2023 08:35-0500 Body weight 74.84 kg Eric Esteves MD Work Phone: [facility] 09-17-2023 08:35-0500 Diastolic blood pressure 80 mm[Hg] Eric Esteves MD Work Phone: [facility] 09-17-2023 08:35-0500 Heart rate 82 /min Eric Esteves MD Work Phone: [facility] 09-17-2023 08:35-0500 Respiratory rate 16 /min Eric Esteves MD Work Phone: [facility] 09-17-2023 08:35-0500 Systolic blood pressure 118 mm[Hg] Eric Esteves MD Work Phone: [facility] 04-02-2023 09:57-0400 Body height 170.2 cm Eric Esteves MD Work Phone: [facility] 04-02-2023 09:57-0400 Body temperature 97.59 [degF] Eric Esteves MD Work Phone: [facility] 04-02-2023 09:57-0400 Body weight 77.84 kg Eric Esteves MD Work Phone: [facility] 04-02-2023 09:57-0400 Diastolic blood pressure 80 mm[Hg] Eric Esteves MD Work Phone: [facility] 04-02-2023 09:57-0400 Heart rate 74 /min Eric Esteves MD Work Phone: [facility] 04-02-2023 09:57-0400 Respiratory rate 16 /min Eric Esteves MD Work Phone: [facility] 04-02-2023 09:57-0400 SaO2% (BldA) [Mass fraction] 96 % Eric Esteves MD Work Phone: [facility] 04-02-2023 09:57-0400 Systolic blood pressure 124 mm[Hg] Eric Esteves MD Work Phone: [facility] 10-21-2022 13:43-0400 Body height 167.[address] [facility] 10-21-2022 13:43-0400 Body weight 78.[address] [facility] 10-07-2022 08:22-0400 Diastolic blood pressure 85 mm[Hg] Dane Rapp MD Work Phone: [facility] 10-07-2022 08:22-0400 Heart rate 60 /min Dane Rapp MD Work Phone: [facility] 10-07-2022 08:22-0400 Respiratory rate 5 /min Dane Rapp MD Work Phone: [facility] 10-07-2022 08:22-0400 SaO2% (BldA) [Mass fraction] 95 % Dane Rapp MD Work Phone: [facility] 10-07-2022 08:22-0400 Systolic blood pressure 122 mm[Hg] Dane Rapp MD Work Phone: [facility] 10-07-2022 07:55-0400 Body temperature 97 [degF] Dane Rapp MD Work Phone: [facility] 10-07-2022 06:40-0400 Body height 167.6 cm Dane Rapp MD Work Phone: [facility] 10-07-2022 06:40-0400 Body weight 74.84 kg Dane Rapp MD Work Phone: [facility] 09-19-2022 08:58-0500 Body weight 78.47 kg Eric Esteves MD Work Phone: [facility] 09-19-2022 08:58-0500 Diastolic blood pressure 94 mm[Hg] Eric Esteves MD Work Phone: [facility] 09-19-2022 08:58-0500 Heart rate 82 /min Eric Esteves MD Work Phone: [facility] 09-19-2022 08:58-0500 Systolic blood pressure 138 mm[Hg] Eric Esteves MD Work Phone: [facility] 07-29-2022 14:26-0500 Body height 167.[address] [facility] 07-29-2022 14:26-0500 Body weight 77.[address] [facility] 06-19-2022 08:03-0500 Body temperature 97 [degF] Eric Esteves MD Work Phone: [facility] 06-19-2022 08:03-0500 Body weight 76.66 kg Eric Esteves MD Work Phone: [facility] 06-19-2022 08:03-0500 Diastolic blood pressure 80 mm[Hg] Eric Esteves MD Work Phone: [facility] 06-19-2022 08:03-0500 Heart rate 84 /min Eric Esteves MD Work Phone: [facility] 06-19-2022 08:03-0500 Respiratory rate 18 /min Eric Esteves MD Work Phone: [facility] 06-19-2022 08:03-0500 Systolic blood pressure 100 mm[Hg] Eric Esteves MD Work Phone: [facility] 06-17-2022 15:10-0500 Body height 167.[address] [facility] 06-17-2022 15:10-0500 Body weight 76.43 kg Cori Keshawn SALGADO [facility] 05-23-2022 11:49-0500 Diastolic blood pressure 84 mm[Hg] Eric Esteves MD Work Phone: [facility] 05-23-2022 11:49-0500 Systolic blood pressure 124 mm[Hg] Eric Esteves MD Work Phone: [facility] 05-23-2022 10:48-0500 Body temperature 98.4 [degF] Eric Esteves MD Work Phone: [facility] 05-23-2022 10:48-0500 Body weight 77.11 kg Eric Esteves MD Work Phone: [facility] 05-23-2022 10:48-0500 Heart rate 77 /min Eric Esteves MD Work Phone: [facility] 05-23-2022 10:48-0500 Respiratory rate 18 /min Eric Esteves MD Work Phone: [facility] 05-23-2022 10:48-0500 SaO2% (BldA) [Mass fraction] 98 % Eric Esteves MD Work Phone: [facility] 05-06-2022 14:30-0400 Body height 167.[address] [facility] 05-06-2022 14:30-0400 Body weight 77.[address] [facility] 04-22-2022 08:08-0400 Body height 167.6 cm Maricruz Ovidio PA-C Work Phone: [facility] 04-22-2022 08:08-0400 Body temperature 97.81 [degF] Maricruz [place] PA-C Work Phone: [facility] 04-22-2022 08:08-0400 Body weight 77.11 kg Maricruz [place] PA-C Work Phone: [facility] 04-22-2022 08:08-0400 Diastolic blood pressure 82 mm[Hg] Maricruz [place] PA-C Work Phone: [facility] 04-22-2022 08:08-0400 Heart rate 104 /min Maricruz [place] PA-C Work Phone: [facility] 04-22-2022 08:08-0400 SaO2% (BldA) [Mass fraction] 96 % Maricruz [place] PA-C Work Phone: [facility] 04-22-2022 08:08-0400 Systolic blood pressure 128 mm[Hg] Maricruz [place] PA-C Work Phone: [facility] 04-01-2022 16:04-0400 Diastolic blood pressure 85 mm[Hg] Eric Esteves MD Work Phone: [facility] 04-01-2022 16:04-0400 Systolic blood pressure 126 mm[Hg] Eric Esteves MD Work Phone: [facility] 04-01-2022 14:45-0400 Body height 167 cm Eric Esteves MD Work Phone: [facility] 04-01-2022 14:45-0400 Body weight 76.66 kg Eric Esteves MD Work Phone: [facility] 04-01-2022 14:45-0400 Heart rate 86 /min Eric Esteves MD Work Phone: [facility] 04-01-2022 14:45-0400 Respiratory rate 16 /min Eric Esteves MD Work Phone: [facility] 01-25-2022 07:31-0400 Body weight 75.66 kg Twyla Kauffman APRN.INTERNAL AUDITOR Work Phone: [facility] 01-25-2022 07:31-0400 Diastolic blood pressure 72 mm[Hg] Twyla Kauffman APRN.INTERNAL AUDITOR Work Phone: [facility] 01-25-2022 07:31-0400 Systolic blood pressure 124 mm[Hg] Twyla Kauffman APRN.INTERNAL AUDITOR Work Phone: [facility] 01-24-2022 12:09-0400 Body temperature 97.81 [degF] Afia Ba APRN.INTERNAL AUDITOR Work Phone: [facility] 01-24-2022 12:09-0400 Body weight 75.57 kg Afia Ba APRN.INTERNAL AUDITOR Work Phone: [facility] 01-24-2022 12:09-0400 Diastolic blood pressure 94 mm[Hg] Afia Ba APRN.INTERNAL AUDITOR Work Phone: [facility] 01-24-2022 12:09-0400 Heart rate 111 /min Afia Ba APRN.INTERNAL AUDITOR Work Phone: [facility] 01-24-2022 12:09-0400 Respiratory rate 21 /min Afia Ba APRN.INTERNAL AUDITOR Work Phone: [facility] 01-24-2022 12:09-0400 SaO2% (BldA) [Mass fraction] 98 % Afia Ba APRN.INTERNAL AUDITOR Work Phone: [facility] 01-24-2022 12:09-0400 Systolic blood pressure 128 mm[Hg] Afia Ba APRN.INTERNAL AUDITOR Work Phone: [facility] Encounters Encounter Date Encounter Type Care Provider Facility Start: 02-09-2025 End: 02-09-2025 Patient encounter procedure Eric Esteves MD Work Phone: [facility] Comment on above: Headaches (Primary D x); Bacterial sinusitis; Abrasion of left lower extremity, initial encounter Start: 02-09-2025 End: 02-09-2025 ambulatory ERIC ESTEVES Facility:[facility] Start: 12-24-2024 End: 12-24-2024 ambulatory Morgan eBy APRN.INTERNAL AUDITOR Work Phone: Neurology Start: 12-24-2024 End: 12-24-2024 Follow-up encounter Morgan Bey APRN.INTERNAL AUDITOR Work Phone: Neurology Comment on above: Cancelled next week s follow up appointment Start: 12-22-2024 End: 12-23-2024 Telephone encounter Sg Ba MA Family [facility] [place] Comment on above: Results Start: 12-22-2024 End: 12-22-[address] Eric Esteves MD Work Phone: [facility] Work Phone: Start: 12-22-2024 End: 12-22-[address] Eric Esteves MD -Outpatient Breast Imaging Work Phone: Start: 12-22-2024 End: 12-22-2024 ambulatory Eric Esteves Facility:[facility] Start: 12-15-2024 End: 12-15-2024 ambulatory Eric Esteves MD Work Phone: [facility] [place] Comment on above: Mammogram results fr om yesterday 12/14 Start: 12-15-2024 End: 12-16-2024 Telephone encounter Eric Esteves MD Work Phone: [facility] [place] Comment on above: Orders Start: 12-14-2024 End: 12-14-[address] Eric Esteves MD Work Phone: [facility] Work Phone: Start: 12-14-2024 End: 12-14-[address] Eric Esteves MD -Outpatient Breast Imaging Work Phone: Start: 12-13-2024 End: 12-14-2024 Refill Eric Esteves MD Work Phone: [facility] [place] Comment on above: Refill Request Start: 11-28-2024 End: 12-07-2024 MC Get Medical Advice Eric Esteves MD Work Phone: [facility] [place] Comment on above: Mammogram order Start: 09-08-2024 End: 09-08-2024 Chart abstracting Sg Ba MA [facility] [place] Comment on above: Consult (ENT ) Start: 09-08-2024 End: 09-08-2024 ambulatory ERIC ESTEVES Facility:[facility] Start: 09-08-2024 End: 09-08-2024 Patient encounter procedure Eric Esteves MD Work Phone: [facility] [place] Comment on above: Trigger ring finger of left hand (Primary Dx) Start: 09-01-2024 End: 09-01-2024 ambulatory Eric Esteves MD Work Phone: [facility] Start: 09-01-2024 End: 09-01-2024 Patient encounter procedure Eric Esteves MD Work Phone: [facility] Comment on above: Referral to [facility] Start: 08-30-2024 End: 08-30-2024 ambulatory ERIC ESTEVES Facility:[facility] Start: 08-30-2024 End: 08-30-2024 Office outpatient visit 25 minutes Eric Esteves MD Work Phone: [facility] [place] Comment on above: Urine frequency (Tosha concetta Dx); Flank pain; Trigger ring finger of left hand; Hoarse voice quality; Acute cystitis without hematuria Start: 07-27-2024 End: 08-09-2024 ambulatory Morgan Sotero [employer].INTERNAL AUDITOR Work Phone: Neurology Start: 07-27-2024 End: 08-09-2024 Follow-up encounter Morgan Bey APRN.INTERNAL AUDITOR Work Phone: Neurology Comment on above: Follow Up on 06/30 a ppointment re dentist Start: 06-30-2024 End: 06-30-2024 Patient encounter procedure Morgan Sotero [employer].INTERNAL AUDITOR Work Phone: Neurology Comment on above: VICKIE (obstructive sle ep apnea) (Primary Dx); Chronic insomnia Start: 06-30-2024 End: 06-30-2024 ambulatory MORGAN SOTERO Facility:[facility] Start: 05-28-2024 End: 06-03-2024 ambulatory Morgan Sotero [employer].INTERNAL AUDITOR Work Phone: Neurology Start: 05-28-2024 End: 06-03-2024 Patient encounter procedure Morgan Sotero ETCHER AIRCRAFT.INTERNAL AUDITOR Work Phone: Neurology Comment on above: Jose s appointment - sick Start: 05-15-2024 End: 05-17-2024 ambulatory Eric Esteves MD Work Phone: [facility] [place] Comment on above: Covid Start: 04-21-2024 End: 04-21-2024 ambulatory Eric Esteves MD Work Phone: [facility] [place] Start: 04-21-2024 End: 04-21-2024 Documentation procedure Eric Esteves MD Work Phone: [facility] [place] Comment on above: Mammogram Documentat ion Start: 04-20-2024 End: 04-20-2024 ambulatory ERIC ESTEVES Facility:[facility] Start: 04-20-2024 End: 04-20-2024 Patient encounter procedure Eric Esteves MD Work Phone: [facility] [place] Comment on above: Well adult exam (Tosha concetta Dx); GERD without esophagitis; Situational depression; Rheumatoid arthritis 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 factor (HCC); Carcinoma in situ of left breast, unspecified type; Insomnia, unspecified type; VICKIE (obstructive sleep apnea); Vitamin D deficiency; REINA (nonalcoholic steatohepatitis); Encounter for screening for diabetes mellitus; Medication management; Hyperlipidemia, mixed Start: 04-20-2024 End: 04-20-2024 Patient encounter status Eric Esteves MD Work Phone: [facility] Work Phone: Start: 04-20-2024 Encounter for genera l adult medical examination without abnormal findings ERIC ESTEVES [facility] Start: 04-12-2024 End: 04-12-2024 ambulatory Beatrice Sabillon PT [facility] Comment on above: Left hip pain (Prima ry Dx) Start: 03-26-2024 End: 03-26-2024 ambulatory Komal Michelle HOME ENERGY RATER Work Phone: [facility] Comment on above: Left hip pain (Prima ry Dx) Start: 03-25-2024 End: 03-25-2024 ambulatory ERIC ESTEVES Facility:[facility] Start: 03-22-2024 End: 03-22-2024 ambulatory Beatrice Sabillon PT [place] [facility] Physical Therapy Comment on above: Left hip pain (Prima ry Dx) Start: 03-20-2024 End: 03-22-2024 Telephone encounter Eric Esteves MD Work Phone: [facility] [place] Comment on above: Results Start: 03-18-2024 End: 03-18-2024 ambulatory ERIC ESTEVES Facility:[facility] Start: 03-18-2024 End: 03-18-2024 Subsequent hospital visit by physician Xr [facility] [place] Work Phone: Radiology Comment on above: Left hip pain [M25.5 52] Start: 03-18-2024 End: 03-18-2024 Patient encounter procedure Eric Esteves MD Work Phone: [facility] [place] Comment on above: Rash (Primary Dx); Left hip pain; Tendinitis of left hip flexor Start: 03-18-2024 End: 03-18-2024 ambulatory ERIC ESTEVES Facility:[facility] Start: 02-27-2024 End: 02-27-2024 Patient encounter procedure Morgan Bey APRN.INTERNAL AUDITOR Work Phone: Neurology Comment on above: Chronic insomnia (Pr imary Dx) Start: 02-27-2024 End: 02-27-2024 ambulatory ERIC ESTEVES Facility:[facility] Start: 02-17-2024 ambulatory Eric canchola MD Work Phone: [facility] [place] Comment on above: Quick question re ra sh Start: 02-13-2024 End: 02-13-2024 ambulatory ERIC ESTEVES Facility:[facility] Start: 02-13-2024 End: 02-13-2024 Patient encounter procedure Eric Esteves MD Work Phone: [facility] [place] Comment on above: Rash (Primary Dx) Start: 02-06-2024 E-mail encounter holly m caregiver Sg Ba MA [facility] [place] Start: 02-06-2024 Patient encounter procedure Sg Ba MA [facility] [place] Comment on above: Appointment Start: 01-08-2024 ambulatory Eric canchola MD Work Phone: [facility] Comment on above: Lipitor Start: 01-07-2024 Telephone encounter Eric Esteves MD Work Phone: [facility] Comment on above: Results Start: 12-14-2023 Telephone encounter Eric Esteves MD Work Phone: [facility] Comment on above: Results Start: 12-12-2023 Chart abstracting Eric reis MD Work Phone: [facility] Comment on above: Ext Mammogram Start: 11-18-2023 Telephone encounter Devi puentes ETCHER AIRCRAFT.INTERNAL AUDITOR Work Phone: [facility] Comment on above: Results Start: 11-17-2023 End: 11-17-2023 Patient encounter procedure Devi Ward ETCHER AIRCRAFT.INTERNAL AUDITOR Work Phone: [facility] Comment on above: Hypokalemia (Primary Dx); Urinary frequency Start: 11-15-2023 End: 11-16-2023 Emergency department patient visit [facility] Work Phone: Start: 11-10-2023 End: 11-10-2023 Patient encounter procedure Morgan Bey ETCHER AIRCRAFT.INTERNAL AUDITOR Work Phone: Neurology Comment on above: Chronic insomnia (Pr imary Dx); VICKIE (obstructive sleep apnea) Start: 11-05-2023 End: 11-05-2023 Patient encounter procedure Eric Esteves MD Work Phone: [facility] Comment on above: Trigger ring finger of left hand (Primary Dx) Start: 10-22-2023 Telephone encounter Eric Esteves MD Work Phone: [facility] Comment on above: Results Start: 10-22-2023 End: 10-22-2023 Patient encounter procedure Eric Esteves MD Work Phone: [facility] Comment on above: Viral illness (Prima ry Dx) Start: 09-17-2023 End: 09-17-2023 Patient encounter procedure Eric Esteves MD Work Phone: [facility] [place] Comment on above: Dysfunction of right eustachian tube (Primary Dx); Encounter for screening mammogram for breast cancer; Trigger ring finger of left hand Start: 04-15-2023 ambulatory Eric canchola MD Work Phone: [facility] [place] Comment on above: Liver US Results - [facility] Start: 04-14-2023 Telephone encounter Devi puentes APRN.INTERNAL AUDITOR Work Phone: [facility] [place] Comment on above: Results Start: 04-14-2023 End: 04-14-2023 Subsequent hospital visit by physician [facility] Work Phone: Radiology Comment on above: Elevated liver funct ion tests [R79.89] Start: 04-02-2023 End: 04-02-2023 Patient encounter procedure Eric Esteves MD Work Phone: Family [facility] [place] Comment on above: Well adult exam ([facility] Dx); GERD without esophagitis; Rheumatoid arthritis 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 factor (HCC); Situational depression; Carcinoma in situ of left breast, unspecified type; Insomnia, unspecified type; Osteoporosis of lumbar spine; Elevated liver function tests; Skin cancer screening; Fatigue, unspecified type; Snores; Hypersomnolence Start: 04-02-2023 End: 04-02-2023 Patient encounter status Eric Esteves MD Work Phone: [facility] Work Phone: Start: 03-18-2023 ambulatory Eric canchola MD Work Phone: [facility] [place] Start: 03-18-2023 Patient encounter procedure Eric Esteves MD Work Phone: Family [facility] [place] Comment on above: Upcoming annual well ness appointment on 04/02 Start: 12-12-2022 Chart abstracting Eric reis MD Work Phone: [facility] [place] Comment on above: Outside Rheumatology Start: 12-03-2022 Telephone encounter Zenia galvin PA-C Work Phone: [facility] [place] Comment on above: Results Start: 12-02-2022 End: 12-02-2022 ambulatory [facility] Work Phone: Start: 12-02-2022 End: 12-02-2022 Patient encounter procedure [facility] Start: 11-21-2022 Refill Eric canchola MD Work Phone: [facility] Comment on above: Refill Request Start: 10-21-2022 End: 10-21-[address] Nutrition Therapy Comment on above: Reassessment; Patien t Education Start: 10-07-2022 ambulatory TATIANA SILVAINA Facility :[facility] Start: 10-07-2022 End: 10-07-2022 Subsequent hospital visit by physician Dane Rapp MD Work Phone: [facility] Comment on above: Special screening fo r malignant neoplasm of colon [Z12.11] Start: 09-30-2022 Telephone encounter Dane Rapp MD Work Phone: General Surgery Comment on above: GI Pre Procedure Start: 09-19-2022 Telephone encounter Sg Ba MA [facility] Comment on above: Orders Start: 09-19-2022 End: 09-19-2022 Patient encounter procedure Eric Esteves MD Work Phone: [facility] Comment on above: Fluid level behind t ympanic membrane of right ear (Primary Dx); Eustachian tube dysfunction, right Start: 07-29-2022 End: 07-29-[address] Nutrition Therapy Comment on above: Reassessment; Patien t Education Start: 06-19-2022 End: 06-19-2022 Patient encounter procedure Eric Esteves MD Work Phone: [facility] Comment on above: Non-recurrent acute serous otitis media of right ear (Primary Dx); URI, acute Start: 06-18-2022 End: 06-18-2022 Nursing evaluation of patient and report Mi Nurse [facility] Comment on above: Need for vaccination (Primary Dx) Start: 06-17-2022 End: 06-17-2022 ambulatory Eric Esteves MD Work Phone: [facility] [place] Comment on above: Reassessment; Patien t Education Start: 06-17-2022 Follow-up encounter Eric Esteves MD Work Phone: [facility] [place] Comment on above: Follow up from 05/23 visit for cough Start: 05-24-2022 Telephone encounter Eric Esteves MD Work Phone: [facility] [place] Comment on above: Results Start: 05-23-2022 End: 05-23-2022 Patient encounter procedure Eric Esteves MD Work Phone: [facility] [place] Comment on above: Bacterial URI (Prima ry Dx); Suspected COVID-19 virus infection Start: 05-22-2022 Telephone encounter Eric Esteves MD Work Phone: [facility] [place] Comment on above: Opened In Error Start: 05-06-2022 End: 05-06-[address] Nutrition Therapy Comment on above: Assessment; Patient Education Start: 04-22-2022 End: 04-22-2022 Patient encounter procedure Maricruz Robertson PA-C Work Phone: General Surgery Comment on above: Screening for colon cancer (Primary Dx); Tortuous colon Start: 04-17-2022 Telephone encounter Eric Esteves MD Work Phone: [facility] [place] Comment on above: Orders Start: 04-01-2022 End: 04-01-2022 Patient encounter procedure Eric Esteves MD Work Phone: [facility] [place] Comment on above: Well adult exam (Tosha concetta Dx); Insomnia, unspecified type; Personal history of malignant neoplasm of breast; Osteoporosis of lumbar spine; Rheumatoid arthritis 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 factor (HCC); Screening for colon cancer; Situational depression; GERD without esophagitis Start: 04-01-2022 End: 04-01-2022 Patient encounter status Eric Esteves MD Work Phone: [facility] [place] Start: 04-01-2022 Telephone encounter Sg Ba MA [facility] [place] Comment on above: Consult Start: 03-13-2022 ambulatory Eric canchola MD Work Phone: [facility] [place] Comment on above: Lab Tests Prior to A ppt Start: 03-13-2022 Patient encounter status Sheldon Esteves MD Work Phone: [facility] [place] Start: 02-15-2022 Orders Only Twyla PONCE RN.INTERNAL AUDITOR Work Phone: OB/Gynecology Comment on above: Folliculitis (Primar y Dx) Start: 01-25-2022 End: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 Type Detail Facility Start: 06-26-2015 End: 04-01-2022 Tobacco smoking status NHIS Never smoked tobacco [facility] Work Phone: History of tobacco use Cigarette Smoker C [facility] Work Phone: Start: 06-26-2015 End: 04-01-2022 Tobacco use and exposure Smokeless tobacco non-user [facility] Work Phone: Start: 08-21-2021 End: 02-09-2025 Alcohol intake Current drinker of alcohol (finding) [facility] Start: 10-16-2020 History SDOH Alcohol Frequency 3 [facility] Start: 10-16-2020 History SDOH Alcohol Std Drinks 1 [facility] Start: 05-23-2008 History SDOH Alcohol Comment socially [facility] Start: 10-16-2020 History SDOH Social Connections Phone 2 [facility] Start: 10-16-2020 History SDOH Social Connections Get Together 98 [facility] Start: 10-16-2020 History SDOH Stress 5 [facility] Start: 10-16-2020 Education 16 [facility] Start: 1960 Sex Assigned At Not on file [facility] Start: 07-02-2021 End: 05-23-2022 Exposure to SARS-CoV-2 (event) Not sure [facility] Start: 1960 Sex Assigned At Female [facility] Start: 10-27-2017 End: 11-15-2023 Tobacco smoking status NVIS Unknown if ever smoked [facility] Start: 10-16-2017 None [facility] Start: 10-16-2017 Spouse/ Significant Other [facility] Start: 10-16-2020 End: 11-25-2022 History of Social function [facility] Start: 10-16-2020 End: 11-25-2022 Social connection and isolation [facility] How often do you get together with friends or relatives? Patient refused [facility] Do you belong to any clubs or organizations such as temple groups, unions, fraternal or athletic groups, or school groups? Yes [facility] Are you now , , , , never or living with a partner? [facility] How often to you hav e a drink containing alcohol? 2-4 times a month [facility] How many standard dr inks containing alcohol do you have on a typical day? 1 or 2 [facility] How often do you hav e 6 or more drinks on 1 occasion? Never [facility] Do you feel stress - tense, restless, nervous, or anxious, or unable to sleep at night because your mind is troubled all the time - these days [OSQ] Very much [facility] (I/We) worried jada (my/our) food would run out before (I/we) got money to buy more. Never true [facility] In the past 12 month s, was there a time when you were not able to pay the mortgage or rent on time? No [facility] Start: 11-15-2023 Tobacco smoking status [facility] Ex-smoker (finding) [facility] Medical Equipment Procedure Code Equipment Code Equipment Origin al Text Equipment Identifier Dates RELOAD,STANDARD 45 [id number] ETH FDA Start: 10-16-2017 RELOAD,STANDARD 45 [id number] ETH FDA Start: 10-16-2017 RELOAD,STANDARD 45 [id number] ETH FDA Start: 10-16-2017 RELOAD,STANDARD 45 [id number] ETH FDA Start: 10-16-2017 RELOAD,STANDARD 45 [id number] ETH FDA Start: 10-16-2017 Functional Status Date Assessment Result Facility 10-26-2018 Are you deaf, or do you have serious difficulty hearing No 10/26/2018 9:48 PM EDT Timothy Proctor III, MD [facility] 10-26-2018 Are you blind, or do you have serious difficulty seeing, even when wearing glasses No 10/26/2018 9:48 PM TOYAT Timothy Proctor III, MD No [facility] 10-26-2018 Do you have serious difficulty walking or climbing stairs No 10/26/2018 9:48 PM Timothy Coleman III, MD [facility] 10-26-2018 Do you have difficul ty dressing or bathing No 10/26/2018 9:48 PM Timothy Coleman III, MD [facility] 10-26-2018 Because of a physica l, mental, or emotional condition, do you have difficulty doing errands alone such as visiting a physician's office or shopping No 10/26/2018 9:48 PM EDT Timothy Proctor III, MD No [facility] Mental Status Date Assessment Result Facility 10-26-2018 Because of a physica l, mental, or emotional condition, do you have serious difficulty concentrating, remembering, or making decisions No 10/26/2018 9:48 PM EDT Timothy Proctor III, MD No [facility] Clinical Notes 07-18-2015 to 02-09-2025 Patient InstructionsEric Esteves MD - 02/09/2025 8:36 AM EDTTelephone Encounter - Morgan Bey APRN.INTERNAL AUDITOR - 12/24/2024 1:55 PM EDTBEric wallace MD - 09/08/2024 9:58 AM EST Note Date & Type Note Facility 02-09-2025 Instructions Eric Esteves MD - 02/09/2025 9:19 AM EDT We discussed your headaches: - Your headaches may be related to sinus issues or allergies. I will treat this as a sinus infection and have prescribed an antibiotic for 10 days. This has been sent to your preferred [facility] pharmacy. - Please restart Astepro (nasal spray) and begin taking a daily allergy medication such as Claritin, Deja, or Zyrtec. You mentioned Deja worked well for you in the past, so you may consider using that again. - If your headaches do not improve after completing the antibiotic course, we will proceed with a head CT to rule out other causes. Please schedule a follow-up appointment in one month to reassess your symptoms. - If your headaches resolve before the follow-up, you may cancel the appointment and send me a [employer] message to let me know. We discussed your morning symptoms: - Your coughing and sneezing fits, as well as the sensation of drainage in your throat, may be related to allergies. Restarting Astepro and a daily allergy medication should help alleviate these symptoms. - Continue monitoring your symptoms and let me know if they worsen or do not improve. We discussed your sleep apnea: - Untreated sleep apnea can contribute to headaches and other health issues. I encourage you to follow up with Morgan Bey or a dentist specializing in sleep apnea devices to explore treatment options, such as a mouthpiece, if CPAP therapy is not feasible for you. Please follow these instructions and let me know if you have any concerns or if your symptoms change. I look forward to seeing you at your follow-up appointment in one month. documented in this encounter [facility] 02-09-2025 Note HNO ID: [id number] Author: ERIC ESTEVES MD Service: ? Author Type: Physician Type: Progress Notes Filed: 02/09/2025 23:07 Note Text: Chief Complaint Patient presents with: Headaches HPI Windy Iniguez is a 64 year old female who presents here today for an acute visit. Patient here today with complaints of headaches. Would like to have left lower ash looked at to make sure it's healing. Hit lower ash on a friends car door. Windy Iniguez is a 64-year-old female with a history of sleep apnea, presenting with persistent headaches, morning cough and sneezing fits, and diarrhea. Windy reports a constant pressure-like headache across her forehead that began a few months ago. The headache is present upon waking and persists throughout the day, subsiding slightly by mid to late morning but intensifying again in the afternoon. She notes that the headache is sometimes accompanied by nausea in the afternoon. The headache does not wake her from sleep and is not triggered by sexual activity. She denies any neurological symptoms such as vision changes, facial weakness, dysphagia, dysarthria, or drooling. She also denies any pain in the temporal areas. In addition to the headache, Windy experiences a coughing and sneezing fit every morning, which she attributes to allergies. She reports post-nasal drainage but denies any sore throat, otalgia, fever, or pain in the cheek area, upper teeth, or gums. She also experiences diarrhea every morning. She denies any nausea or emesis. Windy has a history of sleep apnea but has not yet started using a CPAP machine due to anxiety. She is considering an oral appliance as an alternative treatment. She reports that her sleep has improved, and she no longer takes trazodone for insomnia. Windy has tried to identify the cause of her headaches by discontinuing several medications, including Astepro, Lipitor, and minoxidil, but this did not alleviate the headaches. She is currently only taking Actemra. She denies any recent changes in medication prior to the onset of the headaches. Past medical history, appointments, medications, allergies reviewed. 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 Doss ([facility]) Insomnia 03/07/2015 Internal hemorrhoids without mention of complication REINA (nonalcoholic steatohepatitis) 04/16/2023 VICKIE (obstructive sleep apnea) 08/10/2023 Consult Sleep Med 07/2023. 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 Esteves ([facility]) Previous Surgical History PAST SURGICAL HISTORY Procedure Laterality Date APPENDECTOMY 10/16/2017 COLONOSCOPY 10/07/2022 repeat in 10 years COLONOSCOPY FLX DX W/COLLJ SPEC WHEN PFRMD 05/06/2011 CYSTOSCOPY 09/21/2014 INJ RADIOACTIVE TRACER FOR ID OF SENTINEL NODE 06/30/2008 LEFT BREAST MASTECTOMY,PARTIAL, WITH AXILLARY LYMPHADENECTOMY 06/30/2008 LEFT BREAST, lumpectomy- cancerious PAST SURGICAL HISTORY OF Novasure PAST SURGICAL HISTORY OF 06/24/2011 Excisional biopsy right forearm- benign PAST SURGICAL HISTORY OF 07/11/2015 left trigger thumb release PREOP PLACEMENT NEEDLE LOC 06/30/2008 LEFT BREAST PUNCH BIOPSY B/O 04/13/2011 Right forearm STEREOTACTIC CORE BIOPSY 06/01/2008 left TONSILLECTOMY PRIMARY/SECONDARY TOTAL ABDOMINAL HYSTERECT W/WO RMVL TUBE OVARY 01/12/2008 Hysterectomy, BLANCA BSO Family History FAMILY HISTORY Problem Relation Age of Onset Cancer Father LIVER AND PANCREAS other (ASHD [Other]) Sister defibrillator Breast Cancer Paternal Grandmother Cancer Maternal Grandfather LUNG Arthritis Mother Patient Allergies ALLERGIES Allergen Reactions Horse Hair And Dand* Other: See Comments Codeine Vomiting Nausea and vomiting Fosamax [Alendronat* Other: See Comments Chest pain Loratadine-Pseudoep* Other: See Comments Palpitations and jittery Relafen [Nabumetone] Unknown Trees Unknown Current Medications Current Outpatient Medications on File Prior to Visit Medication Sig omeprazole (PRILOSEC) 40 mg capsule Take 1 capsule by mouth once daily. traZODone (DESYREL) 100 mg tablet Take 1/2 to 1 tablet by mouth at bedtime for insomnia. atorvastatin (LIPITOR) 20 mg tablet Take 1 tablet by mouth daily a (more content not included)... [facility] 02-09-2025 History of Presen t illness Narrative Chief Complaint Patient presents with: Headaches HPI Windy Iniguez is a 64 year old female who presents here today for an acute visit. Patient here today with complaints of headaches. Would like to have left lower ash looked at to make sure it's healing. Hit lower ash on a friends car door. Windy Iniguez is a 64-year-old female with a history of sleep apnea, presenting with persistent headaches, morning cough and sneezing fits, and diarrhea. Windy reports a constant pressure-like headache across her forehead that began a few months ago. The headache is present upon waking and persists throughout the day, subsiding slightly by mid to late morning but intensifying again in the afternoon. She notes that the headache is sometimes accompanied by nausea in the afternoon. The headache does not wake her from sleep and is not triggered by sexual activity. She denies any neurological symptoms such as vision changes, facial weakness, dysphagia, dysarthria, or drooling. She also denies any pain in the temporal areas. In addition to the headache, Windy experiences a coughing and sneezing fit every morning, which she attributes to allergies. She reports post-nasal drainage but denies any sore throat, otalgia, fever, or pain in the cheek area, upper teeth, or gums. She also experiences diarrhea every morning. She denies any nausea or emesis. Windy has a history of sleep apnea but has not yet started using a CPAP machine due to anxiety. She is considering an oral appliance as an alternative treatment. She reports that her sleep has improved, and she no longer takes trazodone for insomnia. Windy has tried to identify the cause of her headaches by discontinuing several medications, including Astepro, Lipitor, and minoxidil, but this did not alleviate the headaches. She is currently only taking Actemra. She denies any recent changes in medication prior to the onset of the headaches. Past medical history, appointments, medications, allergies reviewed. 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 Doss ([facility]) Insomnia 03/07/2015 Internal hemorrhoids without mention of complication REINA (nonalcoholic steatohepatitis) 04/16/2023 VICKIE (obstructive sleep apnea) 08/10/2023 Consult Sleep Med 07/2023. 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 Esteves ([facility]) Previous Surgical History PAST SURGICAL HISTORY Procedure Laterality Date APPENDECTOMY 10/16/2017 COLONOSCOPY 10/07/2022 repeat in 10 years COLONOSCOPY FLX DX W/COLLJ SPEC WHEN PFRMD 05/06/2011 CYSTOSCOPY 09/21/2014 INJ RADIOACTIVE TRACER FOR ID OF SENTINEL NODE 06/30/2008 LEFT BREAST MASTECTOMY,PARTIAL, WITH AXILLARY LYMPHADENECTOMY 06/30/2008 LEFT BREAST, lumpectomy- cancerious PAST SURGICAL HISTORY OF Novasure PAST SURGICAL HISTORY OF 06/24/2011 Excisional biopsy right forearm- benign PAST SURGICAL HISTORY OF 07/11/2015 left trigger thumb release PREOP PLACEMENT NEEDLE LOC 06/30/2008 LEFT BREAST PUNCH BIOPSY B/O 04/13/2011 Right forearm STEREOTACTIC CORE BIOPSY 06/01/2008 left TONSILLECTOMY PRIMARY/SECONDARY <AGE 12 TOTAL ABDOMINAL HYSTERECT W/WO RMVL TUBE OVARY 01/12/2008 Hysterectomy, BLANCA BSO Family History FAMILY HISTORY Problem Relation Age of Onset Cancer Father LIVER AND PANCREAS other (ASHD [Other]) Sister defibrillator Breast Cancer Paternal Grandmother Cancer Maternal Grandfather LUNG Arthritis Mother Patient Allergies ALLERGIES Allergen Reactions Horse Hair And Dand* Other: See Comments Codeine Vomiting Nausea and vomiting Fosamax [Alendronat* Other: See Comments Chest pain Loratadine-Pseudoep* Other: See Comments Palpitations and jittery Relafen [Nabumetone] Unknown Trees Unknown Current Medications Current Outpatient Medications on File Prior to Visit Medication Sig omeprazole (PRILOSEC) 40 mg capsule Take 1 capsule by mouth once daily. traZODone (DESYREL) 100 mg tablet Take 1/2 to 1 tablet by mouth at bedtime for insomnia. atorvastatin (LIPITOR) 20 mg tablet Take 1 tablet by mouth daily at bedtime. For cholesterol. tocilizumab (ACTEMRA) 162 mg/0.9 mL Inject 0.9 mL subcutaneously one time a week. Per Rheumatology fluticasone (FLONASE) 50 mcg/actuation nasal spray Use 1 [place] in each nostril twice daily. Rinse mouth after use. Cholecalciferol, Vitamin D3, 50 mcg (2,000 unit) cap Take 1 capsule by mouth once daily. calcium carbonate/vitamin D3 (CALCIUM-D ORAL) Take by mouth once daily. No current facility-administered medications on file prior to visit. Social History Social History Tobacco Use Smoking status: Never Smokeless tobacco: Never Vaping Use Vaping status: Never Used Substance Use Topics Alcohol use: Yes Comment: socially Drug use: No Review of Symptoms REVIEW OF SYSTEMS SEE HPI EXAM: BP 128/88 (BP Site: Right Arm, BP Position: Sitting, BP Cuff Size: Regular Adult) Pulse 84 Resp 16 Wt 77.5 kg (170 lb 12.8 oz) LMP 12/30/2007 BMI 27.99 kg/m General Appearance: Well appearing, alert, in no acute distress, well-hydrated, well nourished.. Eyes: Anicteric sclera. Pupils are equally round and reactive to light. Extraocular movements are intact. . Ears: External ears, TM's normal, canals clear. Nose/Sinuses: Nares normal, septum midline, mucosa normal, no drainage or sinus tenderness. Oropharynx: Lips, mucosa, and tongue normal, teeth and gums normal, oropharynx normal. Neck: Supple, no adenopathy; thyroid symmetric, normal size, no bruits. Lungs: Lungs clear to auscultation. No wheezing, rhonchi, rales.. Heart: RRR without murmur, gallop, or rubs. No ectopy. Neuo: crainal nerves 2-12 normal. Light touch sensation normal nd moving al four extremities. Skin: has a healing abrasion on the left lower shine. No signs of infection. Health Maintenance List Mammogram Screening due on 12/10/2024 RSV Vaccine(1 - Risk 60-74 years 1-dose series) due on 04/20/2025 Anxiety Screening due on 04/20/2025 Influenza Vaccine(1) due on 03/14/2025 Diabetes Screening due on 03/25/2027 Lipid Screening due on 03/25/2029 DTaP,Tdap,Td Vaccine(4 - Td or Tdap) due on 06/18/2032 Colorectal Cancer Screening due on 10/07/2032 Pneumococcal Vaccine: 50+ Completed Cervical Cancer Screening Discontinued Hepatitis C Screening Discontinued HIV Screening Discontinued Shingrix Vaccine Discontinued Data reviewed Assessment and Plan 1. Headaches (R51.9) Bacterial sinusitis (J32.9) Chronic headaches with a constant pressure across the forehead, persisting for several months. Symptoms are worse in the morning and late afternoon, with associated nausea. No otalgia, facial pain, or dental pain. Neurological exam is unremarkable. Differential diagnoses include sinusitis, sleep apnea-related headaches, and migraines. - Initiated antibiotic therapy for 10 days to treat suspected bacterial sinusitis. - Advised resumption of Astepro and initiation of a daily antihistamine such as Claritin, Deja, or Zyrtec. - Scheduled follow-up in one month to reassess headache symptoms. - If headaches persist, will order a CT scan of the head. 2. Abrasion of left lower extremity, initial encounter (S80.812A) Abrasion on the left lower extremity secondary to trauma from a car door. No signs of infection; mild erythema and pruritus consistent with normal healing process. - Continue monitoring for signs of infection. - Advised patient that pruritus is a normal part of the healing process. Requested Prescriptions Signed Prescriptions Disp Refills cefADROxil (DURICEF) 500 mg capsule 20 capsule 0 Sig: Take 1 capsule by mouth two times a day for 10 days. F/u in a month recheck Eric Esteves MD Recording using [employer] software for draft documentation of the visit was discussed with the patient/authorized patient accounting representative; all questions welcomed and answered. Patient/authorized patient accounting representative agreed to proceed documented in this encounter [facility] 12-24-2024 Telephone encounter Note Noted thanks Morgan Bey APRN.INTERNAL AUDITOR [facility] 12-24-2024 Miscellaneous Notes Noted thanks Morgan Bey APRN.INTERNAL AUDITOR Patient cancelled 12/29 appointment. DARYN Mccarthy documented in this encounter [facility] 12-24-2024 Telephone encounter Note Patient cancelled 12/29 appointment. DARYN Mccarthy [facility] 12-23-2024 Telephone encounter Note Patient notified of results and provider's instructions. Patient verbalizes understanding. Zoraida Taylor LPN [facility] 12-23-2024 Miscellaneous Notes Patient notified of results and provider's instructions. Patient verbalizes understanding. Zoraida Taylor LPN Let patient know the additional breast imaging showed no suspicious mass and can return to yearly routine screening. Diagnotic mammogram results given to PCP to review. Sg Ba MA documented in this encounter [facility] 12-22-2024 Telephone encounter Note Let patient know the additional breast imaging showed no suspicious mass and can return to yearly routine screening. [facility] 12-22-2024 Telephone encounter Note Diagnotic mammogram results given to PCP to review. Sg Ba MA [facility] 12-22-2024 Radiology Diagnostic study note [facility] Imaging Services [address] [place], [place] [address] Breast Limited Unilateral MR#: [id number] Acct: [id number] Name: WINDY INIGUEZ Rep #: [id number] : 1960 F 64 From: Karolyn Brice MD PCP: Dr. Eric Esteves MD Status: REG CLI Study:Breast Limited Unilateral Date of Exam: 12/22/24 Exam# [id number] Ordering Dr: Jenna Esteves MD EXAM: DIAG MAMM W/CAD, UNILAT; BREAST LIMITED UNILATERAL; RT BRST UNILAT ERIC ADD-ON 12/22/2024 CLINICAL HISTORY: F, Age 64 y/o , ABN MAMM TECHNIQUE: Right diagnostic digital breast tomosynthesis with 2D and 3D images. Computer aided detection. Also, targeted right breast ultrasound was performed. COMPARISON: Prior exam(s) dated 12/14/2024, 12/11/2023, 12/02/2022, 11/29/2021. FINDINGS: MAMMOGRAM: TISSUE DENSITY: The breast tissue is heterogenously dense, which may obscure small masses. Right breast: Follow-up examination performed for the right breast findings seen on examination of 12/14/2024. On the present examination, the architectural distortion in the lateral right breast at middle depth does not persist. This may represent overlapping fibroglandular tissue. ULTRASOUND: Ultrasound performed of the lateral right breast demonstrates no suspicious sonographic findings. There is no evidence of solid mass or abnormal cystic elements. US/Breast Limited Unilateral IMPRESSION: There is no evidence of malignancy in the right breast. OVERALL FINAL ASSESSMENT: BIRADS 1 NEGATIVE. RECOMMENDATION: Routine annual follow-up in 1 Year A letter with findings and recommendations will be mailed to the patient. Reading Location: [id number] CC: Dr. Eric Esteves MD ~ Computational Theory Scientist: Signed [facility] 12-16-2024 Telephone encounter Note Orders faxed to [phone]. Zoraida Taylor LPN [facility] 12-16-2024 Miscellaneous Notes Orders faxed to [phone]. Zoraida Taylor LPN Orders ready to be faxed to [facility]. Received results from mammogram. Given to provider to review and advise. Sg Ba MA Julia with [facility] called and reports she had sent over a request for orders for a diagnostic and US of the R breast and the report they had of the mammogram. I let her know I didn't see that the providers office had received them and asked her to resend them. Once providers office receives and reviews. Please fax over orders to fax # [phone]. Maricruz Sherman RN documented in this encounter [facility] 12-15-2024 Telephone encounter Note Orders ready to be faxed to [facility]. [facility] 12-15-2024 Telephone encounter Note Received results from mammogram. Given to provider to review and advise. Sg Ba MA [facility] 12-15-2024 Telephone encounter Note Julia with [facility] called and reports she had sent over a request for orders for a diagnostic and US of the R breast and the report they had of the mammogram. I let her know I didn't see that the providers office had received them and asked her to resend them. Once providers office receives and reviews. Please fax over orders to fax # [phone]. Maricruz Sherman RN [facility] 12-13-2024 Telephone encounter Note Prescription Refill Information The patient has been identified by name and date of : Yes Caregiver verified no other encounters exist for this prescription request: Yes Caregiver confirmed with patient/requestor that no other refills are due, in the near future, with this provider at this time: Yes The last office visit in the department: 09/08/24 Does the patient have a future office visit with this provider/department: Yes Requested Prescriptions Pending Prescriptions Disp Refills omeprazole (PRILOSEC) 40 mg capsule 90 capsule 1 Sig: Take 1 capsule by mouth once daily. Zoraida Taylor LPN December 13, 2024 10:18 AM [facility] 12-13-2024 Miscellaneous Notes Prescription Refill Information The patient has been identified by name and date of : Yes Caregiver verified no other encounters exist for this prescription request: Yes Caregiver confirmed with patient/requestor that no other refills are due, in the near future, with this provider at this time: Yes The last office visit in the department: 09/08/24 Does the patient have a future office visit with this provider/department: Yes Requested Prescriptions Pending Prescriptions Disp Refills omeprazole (PRILOSEC) 40 mg capsule 90 capsule 1 Sig: Take 1 capsule by mouth once daily. Zoraida Taylor LPN December 13, 2024 10:18 AM documented in this encounter [facility] 12-07-2024 Telephone encounter Note Patient calling [facility] did not have her Mamm order. Printed order and faxed to [phone] as requested, she has appt scheduled fro 12/14/2024. [facility] 12-07-2024 Miscellaneous Notes Patient calling [facility] did not have her Mamm order. Printed order and faxed to [phone] as requested, she has appt scheduled fro 12/14/2024. Please fax to [facility] as requested. Pt is requesting to have mammogram order faxed to [facility] [phone]. Order pended. Zoraida Taylor LPN documented in this encounter [facility] 11-29-2024 Telephone encounter Note Please fax to [facility] as requested. [facility] 11-29-2024 Telephone encounter Note Pt is requesting to have mammogram order faxed to [facility] [phone]. Order pended. Zoraida Taylor LPN [facility] 09-08-2024 Note HNO ID: [id number] Author: ERIC ESTEVES MD Service: ? Author Type: Physician Type: Procedures Filed: 09/08/2024 13:57 Note Text: UNIVERSAL PROTOCOL / SAFETY CHECKLIST Procedure to be Performed: trigger finger inject Sign In: A Moment of CARE was completed. Appropriate PPE (Personal Protective Equipment) worn by all providers involved with the procedure. Special equipment not required. Patient/Surrogate Stated/Verified: Patient name, Date of , Relevant allergies, and The intended procedure Time Out: Relevant labs, photos, and/or imaging studies are not applicable. Intended patient and procedure match the source document(s) (e.g. consent, HANDP, associated studies [imaging, pathology]) match the intended patient and procedure. Consent obtained and matches the intended procedure. Yes. Correct side/site has been marked and visible. Medications required for this procedure are verified. Fire risk assessed and is not applicable. Implants: are not applicable. Sign Out: Specimens not collected. All instruments, equipment, possible retained foreign bodies are accounted for. Yes. The post-procedure plan of care has been communicated to the patient or surrogate. Area was cleansed with betadine and alcohol. A 25 gauge 5/8 needle was inserted. Aspiration attempted with no blood return. Medication was then injected without any difficulty. Patient tolerated well. Medication: 0.25 ml 2% lido without epi with 20 mg of kenalog. [facility] 09-08-2024 Procedure note Procedure(s): TENDON SHEATH INJECT. Pre-Procedure Diagnose(s): Trigger ring finger of left hand Post-Procedure Diagnose(s): Trigger ring finger of left hand UNIVERSAL PROTOCOL / SAFETY CHECKLIST Procedure to be Performed: trigger finger inject Sign In: A Moment of CARE was completed. Appropriate PPE (Personal Protective Equipment) worn by all providers involved with the procedure. Special equipment not required. Patient/Surrogate Stated/Verified: Patient name, Date of , Relevant allergies, and The intended procedure Time Out: Relevant labs, photos, and/or imaging studies are not applicable. Intended patient and procedure match the source document(s) (e.g. consent, H&P, associated studies [imaging, pathology]) match the intended patient and procedure. Consent obtained and matches the intended procedure. Yes. Correct side/site has been marked and visible. Medications required for this procedure are verified. Fire risk assessed and is not applicable. Implants: are not applicable. Sign Out: Specimens not collected. All instruments, equipment, possible retained foreign bodies are accounted for. Yes. The post-procedure plan of care has been communicated to the patient or surrogate. Area was cleansed with betadine and alcohol. A 25 gauge 5/8 needle was inserted. Aspiration attempted with no blood return. Medication was then injected without any difficulty. Patient tolerated well. Medication: 0.25 ml 2% lido without epi with 20 mg of kenalog. [facility] 09-08-2024 Procedure note Procedure(s): TENDON SHEATH INJECT. Pre-Procedure Diagnose(s): Trigger ring finger of left hand Post-Procedure Diagnose(s): Trigger ring finger of left hand UNIVERSAL PROTOCOL / SAFETY CHECKLIST Procedure to be Performed: trigger finger inject Sign In: A Moment of CARE was completed. Appropriate PPE (Personal Protective Equipment) worn by all providers involved with the procedure. Special equipment not required. Patient/Surrogate Stated/Verified: Patient name, Date of , Relevant allergies, and The intended procedure Time Out: Relevant labs, photos, and/or imaging studies are not applicable. Intended patient and procedure match the source document(s) (e.g. consent, H&P, associated studies [imaging, pathology]) match the intended patient and procedure. Consent obtained and matches the intended procedure. Yes. Correct side/site has been marked and visible. Medications required for this procedure are verified. Fire risk assessed and is not applicable. Implants: are not applicable. Sign Out: Specimens not collected. All instruments, equipment, possible retained foreign bodies are accounted for. Yes. The post-procedure plan of care has been communicated to the patient or surrogate. Area was cleansed with betadine and alcohol. A 25 gauge 5/8 needle was inserted. Aspiration attempted with no blood return. Medication was then injected without any difficulty. Patient tolerated well. Medication: 0.25 ml 2% lido without epi with 20 mg of kenalog. documented in this encounter [facility] 09-08-2024 History of Presen t illness Narrative Chief Complaint Patient presents with: Trigger Finger HPI Windy Iniguez is a 64 year old female who presents here today for Trigger injection. left ring finger injected 10/2023 and lasted till about mid May 2024. Patient saw ENT yesterday. See scanned documents. Patient was switched to Protonix. Past medical history, appointments, medications, allergies reviewed. 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 Doss ([facility]) Insomnia 03/07/2015 Internal hemorrhoids without mention of complication RENIA (nonalcoholic steatohepatitis) 04/16/2023 VICKIE (obstructive sleep apnea) 08/10/2023 Consult Sleep Med 07/2023. 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 Esteves ([facility]) Previous Surgical History PAST SURGICAL HISTORY Procedure Laterality Date APPENDECTOMY 10/16/2017 COLONOSCOPY 10/07/2022 repeat in 10 years COLONOSCOPY FLX DX W/COLLJ SPEC WHEN PFRMD 05/06/2011 CYSTOSCOPY 09/21/2014 INJ RADIOACTIVE TRACER FOR ID OF SENTINEL NODE 06/30/2008 LEFT BREAST MASTECTOMY,PARTIAL, WITH AXILLARY LYMPHADENECTOMY 06/30/2008 LEFT BREAST, lumpectomy- cancerious PAST SURGICAL HISTORY OF Novasure PAST SURGICAL HISTORY OF 06/24/2011 Excisional biopsy right forearm- benign PAST SURGICAL HISTORY OF 07/11/2015 left trigger thumb release PREOP PLACEMENT NEEDLE LOC 06/30/2008 LEFT BREAST PUNCH BIOPSY B/O 04/13/2011 Right forearm STEREOTACTIC CORE BIOPSY 06/01/2008 left TONSILLECTOMY PRIMARY/SECONDARY <AGE 12 TOTAL ABDOMINAL HYSTERECT W/WO RMVL TUBE OVARY 01/12/2008 Hysterectomy, BLANCA BSO Family History FAMILY HISTORY Problem Relation Age of Onset Cancer Father LIVER AND PANCREAS other (ASHD [Other]) Sister defibrillator Breast Cancer Paternal Grandmother Cancer Maternal Grandfather LUNG Arthritis Mother Patient Allergies ALLERGIES Allergen Reactions Codeine Vomiting Nausea and vomiting Dust Mites Unknown Fosamax [Alendronat* Other: See Comments Chest pain Loratadine-Pseudoep* Other: See Comments Palpitations and jittery Mold Unknown Relafen [Nabumetone] Unknown Trees Unknown Current Medications Current Outpatient Medications on File Prior to Visit Medication Sig ciprofloxacin HCl (CIPRO) 500 mg tablet Take 1 tablet by mouth two times a day for 10 days. traZODone (DESYREL) 100 mg tablet Take 1/2 to 1 tablet by mouth at bedtime for insomnia. omeprazole (PRILOSEC) 40 mg capsule Take 1 capsule by mouth once daily. atorvastatin (LIPITOR) 20 mg tablet Take 1 tablet by mouth daily at bedtime. For cholesterol. tocilizumab (ACTEMRA) 162 mg/0.9 mL Inject 0.9 mL subcutaneously one time a week. Per Rheumatology fluticasone (FLONASE) 50 mcg/actuation nasal spray Use 1 [place] in each nostril twice daily. Rinse mouth after use. Cholecalciferol, Vitamin D3, 50 mcg (2,000 unit) cap Take 1 capsule by mouth once daily. calcium carbonate/vitamin D3 (CALCIUM-D ORAL) Take by mouth once daily. No current facility-administered medications on file prior to visit. Social History Social History Tobacco Use Smoking status: Never Smokeless tobacco: Never Vaping Use Vaping status: Never Used Substance Use Topics Alcohol use: Yes Comment: socially Drug use: No Review of Symptoms REVIEW OF SYSTEMS See HPI EXAM: LMP 12/30/2007 General Appearance: Well appearing, alert, in no acute distress, well-hydrated, well nourished.. Musculoskeletal: triggering of left ring finger. Health Maintenance List Mammogram Screening due on 12/10/2024 RSV Vaccine(1 - Risk 60-74 years 1-dose series) due on 04/20/2025 Anxiety Screening due on 04/20/2025 Covid-19 Vaccine(8 - Pfizer risk 2023- season) due on 10/10/2024 Diabetes Screening due on 03/25/2027 Lipid Screening due on 03/25/2029 DTaP,Tdap,Td Vaccine(4 - Td or Tdap) due on 06/18/2032 Colorectal Cancer Screening due on 10/07/2032 Influenza Vaccine Completed Pneumococcal Vaccine: 50+ Completed Cervical Cancer Screening Discontinued Hepatitis C Screening Discontinued HIV Screening Discontinued Shingrix Vaccine Discontinued Data reviewed A/P ASSESSMENT/PLAN: 1. Trigger ring finger of left hand - ICD9: 727.03, ICD10: M65.342 - discussed steroid injection and patient in agreement. - consent signed. - see procedure note. Eric Esteves MD documented in this encounter [facility] 09-08-2024 Note HNO ID: [id number] Author: ERIC ESTEVES MD Service: ? Author Type: Physician Type: Progress Notes Filed: 09/08/2024 13:57 Note Text: Chief Complaint Patient presents with: Trigger Finger HPI Windy Iniguez is a 64 year old female who presents here today for Trigger injection. left ring finger injected 10/2023 and lasted till about mid May 2024. Patient saw ENT yesterday. See scanned documents. Patient was switched to Protonix. Past medical history, appointments, medications, allergies reviewed. 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 Doss ([facility]) Insomnia 03/07/2015 Internal hemorrhoids without mention of complication REINA (nonalcoholic steatohepatitis) 04/16/2023 VICKIE (obstructive sleep apnea) 08/10/2023 Consult Sleep Med 07/2023. 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 Esteves ([facility]) Previous Surgical History PAST SURGICAL HISTORY Procedure Laterality Date APPENDECTOMY 10/16/2017 COLONOSCOPY 10/07/2022 repeat in 10 years COLONOSCOPY FLX DX W/COLLJ SPEC WHEN PFRMD 05/06/2011 CYSTOSCOPY 09/21/2014 INJ RADIOACTIVE TRACER FOR ID OF SENTINEL NODE 06/30/2008 LEFT BREAST MASTECTOMY,PARTIAL, WITH AXILLARY LYMPHADENECTOMY 06/30/2008 LEFT BREAST, lumpectomy- cancerious PAST SURGICAL HISTORY OF [facility] PAST SURGICAL HISTORY OF 06/24/2011 Excisional biopsy right forearm- benign PAST SURGICAL HISTORY OF 07/11/2015 left trigger thumb release PREOP PLACEMENT NEEDLE LOC 06/30/2008 LEFT BREAST PUNCH BIOPSY B/O 04/13/2011 Right forearm STEREOTACTIC CORE BIOPSY 06/01/2008 left TONSILLECTOMY PRIMARY/SECONDARY TOTAL ABDOMINAL HYSTERECT W/WO RMVL TUBE OVARY 01/12/2008 Hysterectomy, BLANCA BSO Family History FAMILY HISTORY Problem Relation Age of Onset Cancer Father LIVER AND PANCREAS other (ASHD [Other]) Sister defibrillator Breast Cancer Paternal Grandmother Cancer Maternal Grandfather LUNG Arthritis Mother Patient Allergies ALLERGIES Allergen Reactions Codeine Vomiting Nausea and vomiting Dust Mites Unknown Fosamax [Alendronat* Other: See Comments Chest pain Loratadine-Pseudoep* Other: See Comments Palpitations and jittery Mold Unknown Relafen [Nabumetone] Unknown Trees Unknown Current Medications Current Outpatient Medications on File Prior to Visit Medication Sig ciprofloxacin HCl (CIPRO) 500 mg tablet Take 1 tablet by mouth two times a day for 10 days. traZODone (DESYREL) 100 mg tablet Take 1/2 to 1 tablet by mouth at bedtime for insomnia. omeprazole (PRILOSEC) 40 mg capsule Take 1 capsule by mouth once daily. atorvastatin (LIPITOR) 20 mg tablet Take 1 tablet by mouth daily at bedtime. For cholesterol. tocilizumab (ACTEMRA) 162 mg/0.9 mL Inject 0.9 mL subcutaneously one time a week. Per Rheumatology fluticasone (FLONASE) 50 mcg/actuation nasal spray Use 1 [place] in each nostril twice daily. Rinse mouth after use. Cholecalciferol, Vitamin D3, 50 mcg (2,000 unit) cap Take 1 capsule by mouth once daily. calcium carbonate/vitamin D3 (CALCIUM-D ORAL) Take by mouth once daily. No current facility-administered medications on file prior to visit. Social History Social History Tobacco Use Smoking status: Never Smokeless tobacco: Never Vaping Use Vaping status: Never Used Substance Use Topics Alcohol use: Yes Comment: socially Drug use: No Review of Symptoms REVIEW OF SYSTEMS See HPI EXAM: LMP 12/30/2007 General Appearance: Well appearing, alert, in no acute distress, well-hydrated, well nourished.. Musculoskeletal: triggering of left ring finger. Health Maintenance List Mammogram Screening due on 12/10/2024 RSV Vaccine(1 - Risk 60-74 years 1-dose series) due on 04/20/2025 Anxiety Screening due on 04/20/2025 Covid-19 Vaccine(8 - Pfizer risk 2023- season) due on 10/10/2024 Diabetes Screening due on 03/25/2027 Lipid Screening due on 03/25/2029 DTaP,Tdap,Td Vaccine(4 - Td or Tdap) due on 06/18/2032 Colorectal Cancer Screening due on 10/07/2032 Influenza Vaccine Completed Pneumococcal Vaccine: 50+ Completed Cervical Cancer Screening Discontinued Hepatitis C Screening Discontinued HIV Screening Discontinued Shingrix Vaccine Discontinued Da (more content not included)... [facility] 09-08-2024 Note HNO ID: [id number] Author: SG BA MA Service: ? Author Type: Cot Assembler Type: Progress Notes Filed: 09/08/2024 08:04 Note Text: Scan on 09/07/2024 10:14 AM by ProviderMari PA-C: Consultation - ENT Sg Ba MA [facility] 09-08-2024 History of Presen t illness Narrative Scan on 09/07/2024 10:14 AM by ProviderMari PA-C: Consultation - ENT Sg Ba MA documented in this encounter [facility] 08-30-2024 History of Presen t illness Narrative Chief Complaint Patient presents with: Back Pain HPI Windy Iniguez is a 63 year old female who presents here today for back pain/left hand/trigger finger. Patient with Hx of GERD, RA seeing Rheum, situational depression, past Hx of breast cancer, insomnia, Vit D def, osteoporosis as well as those below. Patient had the left ring finger injected 10/2023 and lasted till about mid May 2024. Patient continues to have a hoarse voice since having COVID at the last week of April and resolved over 5 weeks. No smoking or chewing tobacco. No GERD symptoms with being on the omeprazole 40 mg a day. The lower thoracic back has been bothering her on the left for the past 3 weeks. Has been doing ice, heat and OTC pain relievers with no benefit. Not constant. Does not bother her when sleeping, rolling over and getting up. The pain starts when she has been sitting for an extended time. Then when it's sore she will feel it when getting up and walking. No dysuria, hematuria, fevers or chills. Some urine frequency. Office visit 04/20/2024 Patient did see derm for her Rash. They did do an biopsy. This came back as keratosis pilaris inflamed. Patient with Hx of GERD, RA seeing Rheum, situational depression, past Hx of breast cancer, insomnia, Vit D def, osteoporosis as well as those below. Since last seeing me she had both knees x-rayed and left hand x-rayed. Left hand showed findings consistent with RA and the knees showed changes consistent with mod arthritis of the medial joint spaces bilaterally and the patella femoral joint area on the right. Patient was given a dose of kenalog in her buttocks 3 weeks ago. This did seem to improve her symptoms. Patient has been doing ok otherwise. Patient gregory been seeing PHYSICAL THERAPY who has been working on her hip pain, low back pain and knee pain. Past medical history, appointments, medications, allergies reviewed. 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 Doss ([facility]) Insomnia 03/07/2015 Internal hemorrhoids without mention of complication REINA (nonalcoholic steatohepatitis) 04/16/2023 VICKIE (obstructive sleep apnea) 08/10/2023 Consult Sleep Med 07/2023. 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 Esteves ([facility]) Previous Surgical History PAST SURGICAL HISTORY Procedure Laterality Date APPENDECTOMY 10/16/2017 COLONOSCOPY 10/07/2022 repeat in 10 years COLONOSCOPY FLX DX W/COLLJ SPEC WHEN PFRMD 05/06/2011 CYSTOSCOPY 09/21/2014 INJ RADIOACTIVE TRACER FOR ID OF SENTINEL NODE 06/30/2008 LEFT BREAST MASTECTOMY,PARTIAL, WITH AXILLARY LYMPHADENECTOMY 06/30/2008 LEFT BREAST, lumpectomy- cancerious PAST SURGICAL HISTORY OF [facility] PAST SURGICAL HISTORY OF 06/24/2011 Excisional biopsy right forearm- benign PAST SURGICAL HISTORY OF 07/11/2015 left trigger thumb release PREOP PLACEMENT NEEDLE LOC 06/30/2008 LEFT BREAST PUNCH BIOPSY B/O 04/13/2011 Right forearm STEREOTACTIC CORE BIOPSY 06/01/2008 left TONSILLECTOMY PRIMARY/SECONDARY <AGE 12 TOTAL ABDOMINAL HYSTERECT W/WO RMVL TUBE OVARY 01/12/2008 Hysterectomy, BLANCA BSO Family History FAMILY HISTORY Problem Relation Age of Onset Cancer Father LIVER AND PANCREAS other (ASHD [Other]) Sister defibrillator Breast Cancer Paternal Grandmother Cancer Maternal Grandfather LUNG Arthritis Mother Patient Allergies ALLERGIES Allergen Reactions Codeine Vomiting Nausea and vomiting Dust Mites Unknown Fosamax [Alendronat* Other: See Comments Chest pain Loratadine-Pseudoep* Other: See Comments Palpitations and jittery Mold Unknown Relafen [Nabumetone] Unknown Trees Unknown Current Medications Current Outpatient Medications on File Prior to Visit Medication Sig traZODone (DESYREL) 100 mg tablet Take 1/2 to 1 tablet by mouth at bedtime for insomnia. omeprazole (PRILOSEC) 40 mg capsule Take 1 capsule by mouth once daily. atorvastatin (LIPITOR) 20 mg tablet Take 1 tablet by mouth daily at bedtime. For cholesterol. tocilizumab (ACTEMRA) 162 mg/0.9 mL Inject 0.9 mL subcutaneously one time a week. Per Rheumatology fluticasone (FLONASE) 50 mcg/actuation nasal spray Use 1 [place] in each nostril twice daily. Rinse mouth after use. Cholecalciferol, Vitamin D3, 50 mcg (2,000 unit) cap Take 1 capsule by mouth once daily. calcium carbonate/vitamin D3 (CALCIUM-D ORAL) Take by mouth once daily. No current facility-administered medications on file prior to visit. Social History Social History Tobacco Use Smoking status: Never Smokeless tobacco: Never Vaping Use Vaping status: Never Used Substance Use Topics Alcohol use: Yes Comment: socially Drug use: No Review of Symptoms REVIEW OF SYSTEMS See HPI EXAM: BP 120/76 Pulse 82 Wt 78.5 kg (173 lb) LMP 12/30/2007 BMI 28.35 kg/m General Appearance: Well appearing, alert, in no acute distress, well-hydrated, well nourished.. Back: no pain to palpation of vertebrae, mild discomfort to percussion over the left CVA region but not just to palpation. There is mild discomfort produced in the left CVA area with back extension and rotation to the right but not with other movements. no muscle tenderness, motor and sensory are normal, DTR's normal at the knees, negative SLR test, no evidence of scoliosis Lungs: Lungs clear to auscultation. No wheezing, rhonchi, rales.. Heart: RRR without murmur, gallop, or rubs. No ectopy. Abdomen: Abdomen soft, non-distended and has suprapubic tenderness. . Bowel sounds normal. No masses, organomegaly. Musculoskeletal: Spine range of motion normal. Muscular strength intact. Health Maintenance List Mammogram Screening due on 12/10/2024 RSV Vaccine(1 - Risk 60-74 years 1-dose series) due on 04/20/2025 Anxiety Screening due on 04/20/2025 Covid-19 Vaccine(8 - Pfizer risk 2023- season) due on 10/10/2024 Diabetes Screening due on 03/25/2027 Lipid Screening due on 03/25/2029 DTaP,Tdap,Td Vaccine(4 - Td or Tdap) due on 06/18/2032 Colorectal Cancer Screening due on 10/07/2032 Influenza Vaccine Completed Pneumococcal Vaccine: 50+ Completed Cervical Cancer Screening Discontinued Hepatitis C Screening Discontinued HIV Screening Discontinued Shingrix Vaccine Discontinued Data reviewed Latest Ref Rng 08/30/2024 GLUCOSE UA (POCT) Negative mg/dL Negative BILIRUBIN UA (POCT) Negative Negative KETONE UA (POCT) Negative mg/dL Negative SPECIFIC GRAVITY UA (POCT) 1.005 - 1.030 1.025 HEMOGLOBIN/BLOOD UA (POCT) Negative Negative PH UA (POCT) 4.5 - 8.0 5.0 PROTEIN UA (POCT) Negative mg/dL Negative UROBILINOGEN UA (POCT) Normal E.U./dL 0.2 NITRITE UA (POCT) Negative Negative LEUKOCYTES UA (POCT) Negative Small ! COLOR UA (POCT) Yellow CLARITY UA (POCT) Clear A/P ASSESSMENT/PLAN: 1. Urine frequency - ICD9: 788.41, ICD10: R35.0 (primary diagnosis) acute - UA positive for leuk esterase - Patient education for prevention given See below 2. Flank pain - ICD9: 789.09, ICD10: R10.9 - suspect a mild pyelonephritis, therefore systemic symptom. See UTI below. - UA DIP, URINE (POC) 3. Trigger ring finger of left hand - ICD9: 727.03, ICD10: M65.342 - patient to return for injection in the near future. 4. Hoarse voice quality - ICD9: 784.42, ICD10: R49.0 - CONSULT TO ENT 5. Acute cystitis without hematuria - ICD9: 595.0, ICD10: N30.00 - will treat with Cipro 500 mg twice a day for 10 days. Requested Prescriptions Signed Prescriptions Disp Refills ciprofloxacin HCl (CIPRO) 500 mg tablet 20 tablet 0 Sig: Take 1 tablet by mouth two times a day for 10 days. F/u near future for trigger injection left ring. Eric Esteves MD documented in this encounter [facility] 08-30-2024 Note HNO ID: [id number] Author: ERIC ESTEVES MD Service: ? Author Type: Physician Type: Progress Notes Filed: 08/30/2024 16:05 Note Text: Chief Complaint Patient presents with: Back Pain HPI Windy Iniguez is a 63 year old female who presents here today for back pain/left hand/trigger finger. Patient with Hx of GERD, RA seeing Rheum, situational depression, past Hx of breast cancer, insomnia, Vit D def, osteoporosis as well as those below. Patient had the left ring finger injected 10/2023 and lasted till about mid May 2024. Patient continues to have a hoarse voice since having COVID at the last week of April and resolved over 5 weeks. No smoking or chewing tobacco. No GERD symptoms with being on the omeprazole 40 mg a day. The lower thoracic back has been bothering her on the left for the past 3 weeks. Has been doing ice, heat and OTC pain relievers with no benefit. Not constant. Does not bother her when sleeping, rolling over and getting up. The pain starts when she has been sitting for an extended time. Then when it's sore she will feel it when getting up and walking. No dysuria, hematuria, fevers or chills. Some urine frequency. Office visit 04/20/2024 Patient did see derm for her Rash. They did do an biopsy. This came back as keratosis pilaris inflamed. Patient with Hx of GERD, RA seeing Rheum, situational depression, past Hx of breast cancer, insomnia, Vit D def, osteoporosis as well as those below. Since last seeing me she had both knees x-rayed and left hand x-rayed. Left hand showed findings consistent with RA and the knees showed changes consistent with mod arthritis of the medial joint spaces bilaterally and the patella femoral joint area on the right. Patient was given a dose of kenalog in her buttocks 3 weeks ago. This did seem to improve her symptoms. Patient has been doing ok otherwise. Patient gregory been seeing PHYSICAL THERAPY who has been working on her hip pain, low back pain and knee pain. Past medical history, appointments, medications, allergies reviewed. 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 Doss ([facility]) Insomnia 03/07/2015 Internal hemorrhoids without mention of complication REINA (nonalcoholic steatohepatitis) 04/16/2023 VICKIE (obstructive sleep apnea) 08/10/2023 Consult Sleep Med 07/2023. 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 Esteves ([facility]) Previous Surgical History PAST SURGICAL HISTORY Procedure Laterality Date APPENDECTOMY 10/16/2017 COLONOSCOPY 10/07/2022 repeat in 10 years COLONOSCOPY FLX DX W/COLLJ SPEC WHEN PFRMD 05/06/2011 CYSTOSCOPY 09/21/2014 INJ RADIOACTIVE TRACER FOR ID OF SENTINEL NODE 06/30/2008 LEFT BREAST MASTECTOMY,PARTIAL, WITH AXILLARY LYMPHADENECTOMY 06/30/2008 LEFT BREAST, lumpectomy- cancerious PAST SURGICAL HISTORY OF [facility] PAST SURGICAL HISTORY OF 06/24/2011 Excisional biopsy right forearm- benign PAST SURGICAL HISTORY OF 07/11/2015 left trigger thumb release PREOP PLACEMENT NEEDLE LOC 06/30/2008 LEFT BREAST PUNCH BIOPSY B/O 04/13/2011 Right forearm STEREOTACTIC CORE BIOPSY 06/01/2008 left TONSILLECTOMY PRIMARY/SECONDARY TOTAL ABDOMINAL HYSTERECT W/WO RMVL TUBE OVARY 01/12/2008 Hysterectomy, BLANCA BSO Family History FAMILY HISTORY Problem Relation Age of Onset Cancer Father LIVER AND PANCREAS other (ASHD [Other]) Sister defibrillator Breast Cancer Paternal Grandmother Cancer Maternal Grandfather LUNG Arthritis Mother Patient Allergies ALLERGIES Allergen Reactions Codeine Vomiting Nausea and vomiting Dust Mites Unknown Fosamax [Alendronat* Other: See Comments Chest pain Loratadine-Pseudoep* Other: See Comments Palpitations and jittery Mold Unknown Relafen [Nabumetone] Unknown Trees Unknown Current Medications Current Outpatient Medications on File Prior to Visit Medication Sig traZODone (DESYREL) 100 mg tablet Take 1/2 to 1 tablet by mouth at bedtime for insomnia. omeprazole (PRILOSEC) 40 mg capsule Take 1 capsule by mouth once daily. atorvastatin (LIPITOR) 20 mg tablet Take 1 tablet by mouth daily at bedtime. For cholesterol. tocilizumab (ACTEMRA) 162 mg/0.9 mL Inject 0.9 mL subcutaneously one time a we (more content not included)... [facility] 06-30-2024 Instructions Morgan Bey APRN.CNP - 06/30/2024 11:08 AM EST For sleep apnea, refer to dentist for Oral Appliance Therapy We'll check if Dr Joel Dyer in [place] takes [place], if not we'll check on Dr Julien in [place] documented in this encounter [facility] 06-30-2024 History of Presen t illness Narrative Images from the original note were not included. [facility] Follow up/ Established patient visit Date of last visit : 02/27/2024 The following Impression/Plan was copied and pasted from the patient's last [facility] visit on 02/27/24: IMPRESSION: Chronic insomnia (primary encounter diagnosis) Windy Iniguez is a 63 year old female with chronic insomnia, VICKIE Some increased stress since losing COBRA and will need to find insurance coverage until she can go on Medicare We will stop doxepin and switch to trazodone Rx trazodone 50-100 mg at HS Continue with online [facility] Go To Sleep program She did look up PAP therapy, thinks it would be difficult to tolerate but is willing to consider Follow up 3 mos Morgan Bey APRN.INTERNAL AUDITOR Here for follow up for insomnia She was doing pretty well with insomnia on trazodone by the end of April but now feels like starting over with insomnia, back to using trazodone the past 2 wks after being ill for 5 wks with COVID. So back to sleeping every other night--having insomnia every other night. When she takes trazodone 100 mg it feels like she can't breathe through her nose, like she is trying to catch her breath when falling asleep. So she usually only takes 50 mg which is helpful but sleeps better with 100 mg. Was taking Nyquil when ill. Has been napping. Very fatigued from COVID and RA flare due to COVID. She has done online [facility] Go To Sleep and found that helpful Other meds tried for insomnia: Doxepin -- no adverse effects, just not effective Melatonin VICKIE AHI 8.2 on HSAT in 07/2023 Really worried about the idea of PAP therapy No TMJ or dental issues SLEEP HYGIENE QUESTIONS: Bedtime : 11 PM, trazodone at 10 pm Wake up Time : varies now since having Covid, was 7 AM before Time it takes to fall sleep : varies Number of times patient wakes up per night : none Naps : recently because of being ill PATIENT-ENTERED QUESTIONNAIRE SLEEP SCORES 04/01/2022 PHQ-9 Score 13 10/16/2020 03/31/2023 03/22/2024 PROMIS Global Health - (T-Scores - the mean of general population = 50. Five points is a clinically meaningful difference.) Physical T-Score 32.4 34.9 34.9 Mental T-Score 38.8 43.5 43.5 ALLERGIES Allergen Reactions Codeine Vomiting Nausea and vomiting Dust Mites Unknown Fosamax [Alendronat* Other: See Comments Chest pain Loratadine-Pseudoep* Other: See Comments Palpitations and jittery Mold Unknown Relafen [Nabumetone] Unknown Trees Unknown CURRENT MEDICATIONS: traZODone (DESYREL) 100 mg tablet Take 1/2 to 1 tablet by mouth at bedtime for insomnia. omeprazole (PRILOSEC) 40 mg capsule Take 1 capsule by mouth once daily. atorvastatin (LIPITOR) 20 mg tablet Take 1 tablet by mouth daily at bedtime. For cholesterol. tocilizumab (ACTEMRA) 162 mg/0.9 mL Inject 0.9 mL subcutaneously one time a week. Per Rheumatology fluticasone (FLONASE) 50 mcg/actuation nasal spray Use 1 [place] in each nostril twice daily. Rinse mouth after use. Cholecalciferol, Vitamin D3, 50 mcg (2,000 unit) cap Take 1 capsule by mouth once daily. calcium carbonate/vitamin D3 (CALCIUM-D ORAL) Take by mouth once daily. PHYSICAL EXAMINATION: Vital Signs: BP 120/78 (BP Site: Right Arm, BP Position: Sitting) Pulse 90 Resp 18 Wt 77.9 kg (171 lb 12.8 oz) LMP 12/30/2007 SpO2 95% BMI 28.15 kg/m PHYSICAL EXAM: General appearance: pleasant, NAD Mental status: alert and oriented, able to provide own history Constitutional: WNL Skin: No visible rashes on exposed skin Neuro: No focal deficits observed, no tremors IMPRESSION: Chronic insomnia Vickie (obstructive sleep apnea) (primary encounter diagnosis) Windy Iniguez is a 63 year old female with PMH of chronic insomnia, at least mild VICKIE, RA, HLD. GERD, REINA, hx breast cancer Her insomnia was stable on trazodone before becoming ill with COVID infection in April. She is just now getting back to normal. I think the feeling of not breathing when falling asleep when she takes 100 mg of trazodone may be apnea. She is very reluctant to use PAP therapy. She is willing to try Oral Appliance Therapy (OAT). Might need to refer her to [facility] Dentist although this isn't convenient. PLAN: Continue with trazodone 50-100 mg at HS, contact me for refill Follow up 6 mos Refer to Dentist for OAT for at least mild VICKIE Morgan Bey APRN.CNP documented in this encounter [facility] 06-30-2024 Note HNO ID: [id number] Author: MORGAN BEY APRN.CNP Service: ? Author Type: Nurse Practitioner Type: Progress Notes Filed: 06/30/2024 12:15 Note Text: [facility] Follow up/ Established patient visit Date of last visit : 02/27/2024 The following Impression/Plan was copied and pasted from the patient's last Sleep Disorders Center visit on 02/27/24: IMPRESSION: Chronic insomnia (primary encounter diagnosis) Windy Iniguez is a 63 year old female with chronic insomnia, VICKIE Some increased stress since losing COBRA and will need to find insurance coverage until she can go on Medicare We will stop doxepin and switch to trazodone Rx trazodone 50-100 mg at HS Continue with online [facility] Go To Sleep program She did look up PAP therapy, thinks it would be difficult to tolerate but is willing to consider Follow up 3 mos Morgan Bey APRN.CNP Here for follow up for insomnia She was doing pretty well with insomnia on trazodone by the end of April but now feels like starting over with insomnia, back to using trazodone the past 2 wks after being ill for 5 wks with COVID. So back to sleeping every other night--having insomnia every other night. When she takes trazodone 100 mg it feels like she can't breathe through her nose, like she is trying to catch her breath when falling asleep. So she usually only takes 50 mg which is helpful but sleeps better with 100 mg. Was taking Nyquil when ill. Has been napping. Very fatigued from COVID and RA flare due to COVID. She has done online CBTI Go To Sleep and found that helpful Other meds tried for insomnia: Doxepin -- no adverse effects, just not effective Melatonin VICKIE AHI 8.2 on HSAT in 07/2023 Really worried about the idea of PAP therapy No TMJ or dental issues SLEEP HYGIENE QUESTIONS: Bedtime : 11 PM, trazodone at 10 pm Wake up Time : varies now since having Covid, was 7 AM before Time it takes to fall sleep : varies Number of times patient wakes up per night : none Naps : recently because of being ill PATIENT-ENTERED QUESTIONNAIRE SLEEP SCORES 04/01/2022 PHQ-9 Score 13 10/16/2020 03/31/2023 03/22/2024 PROMIS Global Health - (T-Scores - the mean of general population = 50. Five points is a clinically meaningful difference.) Physical T-Score 32.4 34.9 34.9 Mental T-Score 38.8 43.5 43.5 ALLERGIES Allergen Reactions Codeine Vomiting Nausea and vomiting Dust Mites Unknown Fosamax [Alendronat* Other: See Comments Chest pain Loratadine-Pseudoep* Other: See Comments Palpitations and jittery Mold Unknown Relafen [Nabumetone] Unknown Trees Unknown CURRENT MEDICATIONS: traZODone (DESYREL) 100 mg tablet Take 1/2 to 1 tablet by mouth at bedtime for insomnia. omeprazole (PRILOSEC) 40 mg capsule Take 1 capsule by mouth once daily. atorvastatin (LIPITOR) 20 mg tablet Take 1 tablet by mouth daily at bedtime. For cholesterol. tocilizumab (ACTEMRA) 162 mg/0.9 mL Inject 0.9 mL subcutaneously one time a week. Per Rheumatology fluticasone (FLONASE) 50 mcg/actuation nasal spray Use 1 [place] in each nostril twice daily. Rinse mouth after use. Cholecalciferol, Vitamin D3, 50 mcg (2,000 unit) cap Take 1 capsule by mouth once daily. calcium carbonate/vitamin D3 (CALCIUM-D ORAL) Take by mouth once daily. PHYSICAL EXAMINATION: Vital Signs: BP 120/78 (BP Site: Right Arm, BP Position: Sitting) Pulse 90 Resp 18 Wt 77.9 kg (171 lb 12.8 oz) LMP 12/30/2007 SpO2 95% BMI 28.15 kg/m? PHYSICAL EXAM: General appearance: pleasant, NAD Mental status: alert and oriented, able to provide own history Constitutional: WNL Skin: No visible rashes on exposed skin Neuro: No focal deficits observed, no tremors IMPRESSION: Chronic insomnia Vickie (obstructive sleep apnea) (primary encounter diagnosis) Windy Iniguez is a 63 year old female with PMH of chronic insomnia, at least mild VICKIE, RA, HLD. GERD, REINA, hx breast cancer Her insomnia was stable on trazodone before becoming ill with COVID infection in April. She is just now getting back to normal. I think the feeling of not breathing when falling asleep when she takes 100 mg of trazodone may be apnea. She is very reluctant to use PAP therapy. She is willing to try Oral Appliance Therapy (OAT). Might need to refer her to [facility]ist although this isn't convenient. PLAN: Continue with trazodone 50-100 mg at HS, contact me for refill Follow up 6 mos Refer to Dentist for OAT for at least mild VICKIE Morgan Bey APRN.LETI [facility] 05-28-2024 Telephone encounter Note See above [facility] 05-28-2024 Miscellaneous Notes See above Rx ok'd Ok to reschedule her follow up due to her illness Morgan Bey APRN.INTERNAL AUDITOR Prescription Refill Information The patient has been identified by name and date of : Yes Caregiver verified no other encounters exist for this prescription request: Yes Caregiver confirmed with patient/requestor that no other refills are due, in the near future, with this provider at this time: Yes The last office visit in the department: 02/27/2024 Does the patient have a future office visit with this provider/department: No Requested Prescriptions Pending Prescriptions Disp Refills traZODone (DESYREL) 100 mg tablet 30 tablet 2 Sig: Take 1/2 to 1 tablet by mouth at bedtime for insomnia. DARYN Mccarthy May 28, 2024 3:22 PM documented in this encounter [facility] 05-28-2024 Telephone encounter Note Rx ok'd Ok to reschedule her follow up due to her illness Morgan Bey APRN.INTERNAL AUDITOR [facility] 05-28-2024 Telephone encounter Note Prescription Refill Information The patient has been identified by name and date of : Yes Caregiver verified no other encounters exist for this prescription request: Yes Caregiver confirmed with patient/requestor that no other refills are due, in the near future, with this provider at this time: Yes The last office visit in the department: 02/27/2024 Does the patient have a future office visit with this provider/department: No Requested Prescriptions Pending Prescriptions Disp Refills traZODone (DESYREL) 100 mg tablet 30 tablet 2 Sig: Take 1/2 to 1 tablet by mouth at bedtime for insomnia. DARYN Mccarthy May 28, 2024 3:22 PM [facility] 04-21-2024 Telephone encounter Note Updated. Sg Ba MA [facility] 04-21-2024 Miscellaneous Notes Updated. Sg Ba MA documented in this encounter [facility] 04-20-2024 History of Presen t illness Narrative Images from the original note were not included. Chief Complaint Patient presents with: Physical HPI Windy Iniguez is a 63 year old female who presents here today for Physical. Patient did see derm for her Rash. They did do an biopsy. This came back as keratosis pilaris inflamed. Patient with Hx of GERD, RA seeing Rheum, situational depression, past Hx of breast cancer, insomnia, Vit D def, osteoporosis as well as those below. Since last seeing me she had both knees x-rayed and left hand x-rayed. Left hand showed findings consistent with RA and the knees showed changes consistent with mod arthritis of the medial joint spaces bilaterally and the patella femoral joint area on the right. Patient was given a dose of kenalog in her buttocks 3 weeks ago. This did seem to improve her symptoms. Patient has been doing ok otherwise. Patient gregory been seeing PHYSICAL THERAPY who has been working on her hip pain, low back pain and knee pain. Past medical history, appointments, medications, allergies reviewed. 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 Doss ([facility]) Insomnia 03/07/2015 Internal hemorrhoids without mention of complication REINA (nonalcoholic steatohepatitis) 04/16/2023 VICKIE (obstructive sleep apnea) 08/10/2023 Consult Sleep Med 07/2023. 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 Esteves ([facility]) Previous Surgical History PAST SURGICAL HISTORY Procedure Laterality Date APPENDECTOMY 10/16/2017 COLONOSCOPY 10/07/2022 repeat in 10 years COLONOSCOPY FLX DX W/COLLJ SPEC WHEN PFRMD 05/06/2011 CYSTOSCOPY 09/21/2014 INJ RADIOACTIVE TRACER FOR ID OF SENTINEL NODE 06/30/2008 LEFT BREAST MASTECTOMY,PARTIAL, WITH AXILLARY LYMPHADENECTOMY 06/30/2008 LEFT BREAST, lumpectomy- cancerious PAST SURGICAL HISTORY OF Novasure PAST SURGICAL HISTORY OF 06/24/2011 Excisional biopsy right forearm- benign PAST SURGICAL HISTORY OF 07/11/2015 left trigger thumb release PREOP PLACEMENT NEEDLE LOC 06/30/2008 LEFT BREAST PUNCH BIOPSY B/O 04/13/2011 Right forearm STEREOTACTIC CORE BIOPSY 06/01/2008 left TONSILLECTOMY PRIMARY/SECONDARY <AGE 12 TOTAL ABDOMINAL HYSTERECT W/WO RMVL TUBE OVARY 01/12/2008 Hysterectomy, BLANCA BSO Family History FAMILY HISTORY Problem Relation Age of Onset Cancer Father LIVER AND PANCREAS other (ASHD [Other]) Sister defibrillator Breast Cancer Paternal Grandmother Cancer Maternal Grandfather LUNG Arthritis Mother Patient Allergies ALLERGIES Allergen Reactions Codeine Vomiting Nausea and vomiting Dust Mites Unknown Fosamax [Alendronat* Other: See Comments Chest pain Loratadine-Pseudoep* Other: See Comments Palpitations and jittery Mold Unknown Relafen [Nabumetone] Unknown Trees Unknown Current Medications Current Outpatient Medications on File Prior to Visit Medication Sig traZODone (DESYREL) 100 mg tablet Take 1/2 to 1 tablet by mouth at bedtime for insomnia. atorvastatin (LIPITOR) 20 mg tablet Take 1 tablet by mouth daily at bedtime. For cholesterol. Benzonatate 200 mg capsule Take 1 capsule by mouth three times a day as needed. omeprazole (PRILOSEC) 40 mg capsule Take 1 capsule by mouth once daily. tocilizumab (ACTEMRA) 162 mg/0.9 mL Inject 0.9 mL subcutaneously one time a week. Per Rheumatology fluticasone (FLONASE) 50 mcg/actuation nasal spray Use 1 [place] in each nostril twice daily. Rinse mouth after use. Cholecalciferol, Vitamin D3, 50 mcg (2,000 unit) cap Take 1 capsule by mouth once daily. calcium carbonate/vitamin D3 (CALCIUM-D ORAL) Take by mouth once daily. No current facility-administered medications on file prior to visit. Social History Social History Tobacco Use Smoking status: Never Smokeless tobacco: Never Vaping Use Vaping status: Never Used Substance Use Topics Alcohol use: Yes Comment: socially Drug use: No Review of Symptoms REVIEW OF SYSTEMS GENERAL: No weight loss, malaise or fevers HEENT: Negative for frequent or significant headaches, No changes in hearing or vision, no nose bleeds or other nasal problems NECK: Negative for lumps, goiter, pain and significant neck swelling RESPIRATORY: Negative for cough, hemoptysis, wheezing, COPD. On occasion will get slightly short of breath. CARDIOVASCULAR: Negative for chest pain, leg swelling, hypertension, CHF or palpitations GI: No nausea, vomiting, or diarrhea, No heartburn or reflux symptoms, and no blood. : No history of dysuria, frequency or blood MUSCULOSKELETAL: see HPI SKIN: Negative for lesions, rash, and itching PSYCH: feeling somewhat depressed and anxious at times. HEMATOLOGY/LYMPHOLOGY: Negative for prolonged bleeding, bruising easily or swollen nodes ENDOCRINE: Negative for cold or heat intolerance, polyuria, polydipsia and goiter NEURO: No history of headaches, syncope, paralysis, seizures or tremors EXAM: BP 120/80 (BP Site: Right Arm, BP Position: Sitting, BP Cuff Size: Large Adult) Pulse 82 Resp 16 Ht 166.4 cm (5' 5.5) Wt 76.2 kg (168 lb) LMP 12/30/2007 BMI 27.53 kg/m Last 5 Encounter Wt Readings: Date: Wt: 04/20/2024 76.2 kg (168 lb) 03/18/2024 76.2 kg (168 lb) 02/27/2024 76.3 kg (168 lb 3.4 oz) 02/13/2024 75.8 kg (167 lb) 11/17/2023 74.8 kg (165 lb) General Appearance: Well appearing, alert, in no acute distress, well-hydrated, well nourished. and Overweight. Skin: Skin color, texture, turgor normal, no suspicious rashes or lesions. Head: Normocephalic, no masses, lesions, tenderness or abnormalities. Eyes: Anicteric sclera. Pupils are equally round and reactive to light. Extraocular movements are intact. . Ears: External ears, TM's normal, canals clear. Nose/Sinuses: Nares normal, septum midline, mucosa normal, no drainage or sinus tenderness. Oropharynx: Lips, mucosa, and tongue normal, teeth and gums normal, oropharynx normal. Neck: Supple, no adenopathy; thyroid symmetric, normal size, no bruits. Lungs: Lungs clear to auscultation. No wheezing, rhonchi, rales.. Heart: RRR without murmur, gallop, or rubs. No ectopy. Abdomen: Normal abdominal exam, Abdomen soft, non-tender. Bowel sounds normal. No masses, organomegaly. Extremities: No deformities, edema, skin discoloration, Good capillary refill. . Musculoskeletal: Muscular strength intact, No joint swelling, deformity, or tenderness. Peripheral Pulses: Normal. Neurologic: Gait normal. Reflexes normal and symmetric. Sensation to light touch nd crainal nerves 2-12 intact.. Health Maintenance List Anxiety Screening Never done RSV Vaccine(1 - Risk 60-74 years 1-dose series) Never done Mammogram Screening due on 12/03/2023 Covid-19 Vaccine( season) due on 06/07/2024 Diabetes Screening due on 03/25/2027 Lipid Screening due on 03/25/2029 DTaP,Tdap,Td Vaccine(4 - Td or Tdap) due on 06/18/2032 Colorectal Cancer Screening due on 10/07/2032 Influenza Vaccine Completed Pneumococcal Vaccine Completed Cervical Cancer Screening Discontinued Hepatitis C Screening Discontinued HIV Screening Discontinued Shingrix Vaccine Discontinued Data reviewed Latest Ref Rng 03/19/2023 04/02/2023 09/01/2023 01/07/2024 03/25/2024 WBC 3.70 - 11.00 k/uL 5.10 5.21 RBC 3.90 - 5.20 m/uL 4.72 4.70 Hemoglobin 11.5 - 15.5 g/dL 14.8 14.9 Hematocrit 36.0 - 46.0 % 46.1 (H) 45.7 MCV 80.0 - 100.0 fL 97.7 97.2 MCH 26.0 - 34.0 pg 31.4 31.7 MCHC 30.5 - 36.0 g/dL 32.1 32.6 RDW-CV 11.5 - 15.0 % 13.4 13.2 Platelet Count 150 - 400 k/uL 253 252 MPV 9.0 - 12.7 fL 11.5 10.9 Neut% % 52.7 49.1 Abs Neut (ANC) 1.45 - 7.50 k/uL 2.69 2.56 Lymph% % 31.0 37.8 Abs Lymph 1.00 - 4.00 k/uL 1.58 1.97 Hickman% % 11.8 9.2 Abs Hickman <0.87 k/uL 0.60 0.48 Eosin% % 3.1 2.5 Abs Eosin <0.46 k/uL 0.16 0.13 Baso% % 1.0 1.0 Abs Baso <0.11 k/uL 0.05 0.05 Immature Gran % % 0.4 0.4 IMMATURE GRANS (ABS) <0.10 k/uL <0.03 <0.03 NRBC /100 WBC 0.0 0.0 Absolute nRBC <0.01 k/uL <0.01 <0.01 DTYPE Auto Auto Protein, Total 6.3 - 8.0 g/dL 6.6 6.5 6.5 6.5 Albumin 3.9 - 4.9 g/dL 4.7 4.7 4.7 4.6 Calcium 8.5 - 10.2 mg/dL 9.6 9.3 Bilirubin, Total 0.2 - 1.3 mg/dL 0.6 0.9 1.1 0.9 Alkaline Phosphatase 34 - 123 U/L 98 120 113 117 AST 13 - 35 U/L 62 (H) 38 (H) 31 32 ALT 7 - 38 U/L 99 (H) 70 (H) 50 (H) 45 (H) Glucose 74 - 99 mg/dL 102 (H) 110 (H) BUN 7 - 21 mg/dL 13 12 Creatinine 0.58 - 0.96 mg/dL 0.88 0.87 Sodium 136 - 144 mmol/L 144 144 Potassium 3.7 - 5.1 mmol/L 4.1 4.0 Chloride 98 - 107 mmol/L 106 (H) 107 CO2 22 - 30 mmol/L 25 27 Anion Gap 8 - 15 mmol/L 13 10 eGFR >=60 mL/min/1.73m 74 75 Total Cholesterol, Nonfasting <200 mg/dL 233 (H) 245 (H) 168 192 Triglycerides, Nonfasting <150 mg/dL 91 152 (H) 76 100 HDL Cholesterol, Nonfasting >39 mg/dL 62 61 72 61 LDL Cholesterol, Nonfasting <100 mg/dL 153 (H) 154 (H) 81 111 (H) Non HDL Cholesterol, Nonfasting <130 mg/dL 171 (H) 184 (H) 96 131 (H) VLDL Cholesterol, Nonfasting <30 mg/dL 18 30 (H) 15 20 Total Chol/HDL Ratio, Nonfasting <5.10 mg/dL 3.76 4.02 2.33 3.15 LDL/HDL Ratio, Nonfasting <2.54 mg/dL 2.47 2.52 1.13 1.82 Bilirubin, Direct <0.2 mg/dL <0.2 0.3 (H) Hemoglobin A1C 4.3 - 5.6 % 5.2 5.5 Estimated Average Glucose mg/dL 103 111 Vitamin D 25 Hydroxy 31.0 - 80.0 ng/mL 35.2 47.4 Magnesium 1.7 - 2.3 mg/dL 2.3 2.3 TSH 0.270 - 4.200 mIU/L 1.680 Free T4 0.9 - 1.7 ng/dL 1.3 HCV RNA HCV RNA not detected by PCR. HCV RNA not detected by PCR. Hep B Surface Ag Negative Negative Hep A Ab, IgM Negative Negative Hep B Core Ab, IgM Negative Negative Vitamin B12 232 - 1,245 pg/mL 600 A/P ASSESSMENT/PLAN: 1. Well adult exam - ICD9: V70.0, ICD10: Z00.00 (primary diagnosis) - Counseled on healthy diet and regular exercise - Discussed need and benefit for weight loss. BMI 27.53 kg/(m^2) - Follow up for annual exam in one year 2. GERD without esophagitis - ICD9: 530.81, ICD10: K21.9 - Continue treatment with Prilosec 40 mg QD 3. Situational depression - ICD9: 309.0, ICD10: F43.21 - stale not needing med management 4. Rheumatoid arthritis 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 factor (HCC) - ICD9: 714.0, ICD10: M06.09 - on meds per Rheum 5. Carcinoma in situ of left breast, unspecified type - ICD9: 233.0, ICD10: D05.92 - follows with Heme/Onc 6. Insomnia, unspecified type - ICD9: 780.52, ICD10: G47.00 - cont trazodone. 7. VICKIE (obstructive sleep apnea) - ICD9: 327.23, ICD10: G47.33 - seeing sleep med. 8. Vitamin D deficiency - ICD9: 268.9, ICD10: E55.9 - cont replacement 9. REINA (nonalcoholic steatohepatitis) - ICD9: 571.8, ICD10: K75.81 FIB-4 Calculation: 1.19 at 03/25/2024 7:40 AM Calculated from: SGOT/AST: 32 U/L at 03/25/2024 7:40 AM SGPT/ALT: 45 U/L at 03/25/2024 7:40 AM Platelets: 252 k/uL at 03/25/2024 7:40 AM Age: 63 years 10. Hyperlipidemia, mixed - ICD9: 272.2, ICD10: E78.2 - Controlled - Continue current medications - Counseled on healthy diet and regular exercise - Discussed need for and benefit of weight loss. BMI 27.53 kg/(m^2) Requested Prescriptions Signed Prescriptions Disp Refills omeprazole (PRILOSEC) 40 mg capsule 90 capsule 1 Sig: Take 1 capsule by mouth once daily. atorvastatin (LIPITOR) 20 mg tablet 90 tablet 1 Sig: Take 1 tablet by mouth daily at bedtime. For cholesterol. F/u in year for WAE or sooner if needed. Eric Esteves MD documented in this encounter [facility] 04-20-2024 Note HNO ID: [id number] Author: ERIC ESTEVES MD Service: ? Author Type: Physician Type: Progress Notes Filed: 04/20/2024 15:13 Note Text: Chief Complaint Patient presents with: Physical HPI Windy Iniguez is a 63 year old female who presents here today for Physical. Patient did see derm for her Rash. They did do an biopsy. This came back as keratosis pilaris inflamed. Patient with Hx of GERD, RA seeing Rheum, situational depression, past Hx of breast cancer, insomnia, Vit D def, osteoporosis as well as those below. Since last seeing me she had both knees x-rayed and left hand x-rayed. Left hand showed findings consistent with RA and the knees showed changes consistent with mod arthritis of the medial joint spaces bilaterally and the patella femoral joint area on the right. Patient was given a dose of kenalog in her buttocks 3 weeks ago. This did seem to improve her symptoms. Patient has been doing ok otherwise. Patient gregory been seeing PHYSICAL THERAPY who has been working on her hip pain, low back pain and knee pain. Past medical history, appointments, medications, allergies reviewed. 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 Doss ([facility]) Insomnia 03/07/2015 Internal hemorrhoids without mention of complication REINA (nonalcoholic steatohepatitis) 04/16/2023 VICKIE (obstructive sleep apnea) 08/10/2023 Consult Sleep Med 07/2023. 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 Esteves ([facility]) Previous Surgical History PAST SURGICAL HISTORY Procedure Laterality Date APPENDECTOMY 10/16/2017 COLONOSCOPY 10/07/2022 repeat in 10 years COLONOSCOPY FLX DX W/COLLJ SPEC WHEN PFRMD 05/06/2011 CYSTOSCOPY 09/21/2014 INJ RADIOACTIVE TRACER FOR ID OF SENTINEL NODE 06/30/2008 LEFT BREAST MASTECTOMY,PARTIAL, WITH AXILLARY LYMPHADENECTOMY 06/30/2008 LEFT BREAST, lumpectomy- cancerious PAST SURGICAL HISTORY OF Novasure PAST SURGICAL HISTORY OF 06/24/2011 Excisional biopsy right forearm- benign PAST SURGICAL HISTORY OF 07/11/2015 left trigger thumb release PREOP PLACEMENT NEEDLE LOC 06/30/2008 LEFT BREAST PUNCH BIOPSY B/O 04/13/2011 Right forearm STEREOTACTIC CORE BIOPSY 06/01/2008 left TONSILLECTOMY PRIMARY/SECONDARY TOTAL ABDOMINAL HYSTERECT W/WO RMVL TUBE OVARY 01/12/2008 Hysterectomy, BLANCA BSO Family History FAMILY HISTORY Problem Relation Age of Onset Cancer Father LIVER AND PANCREAS other (ASHD [Other]) Sister defibrillator Breast Cancer Paternal Grandmother Cancer Maternal Grandfather LUNG Arthritis Mother Patient Allergies ALLERGIES Allergen Reactions Codeine Vomiting Nausea and vomiting Dust Mites Unknown Fosamax [Alendronat* Other: See Comments Chest pain Loratadine-Pseudoep* Other: See Comments Palpitations and jittery Mold Unknown Relafen [Nabumetone] Unknown Trees Unknown Current Medications Current Outpatient Medications on File Prior to Visit Medication Sig traZODone (DESYREL) 100 mg tablet Take 1/2 to 1 tablet by mouth at bedtime for insomnia. atorvastatin (LIPITOR) 20 mg tablet Take 1 tablet by mouth daily at bedtime. For cholesterol. Benzonatate 200 mg capsule Take 1 capsule by mouth three times a day as needed. omeprazole (PRILOSEC) 40 mg capsule Take 1 capsule by mouth once daily. tocilizumab (ACTEMRA) 162 mg/0.9 mL Inject 0.9 mL subcutaneously one time a week. Per Rheumatology fluticasone (FLONASE) 50 mcg/actuation nasal spray Use 1 [place] in each nostril twice daily. Rinse mouth after use. Cholecalciferol, Vitamin D3, 50 mcg (2,000 unit) cap Take 1 capsule by mouth once daily. calcium carbonate/vitamin D3 (CALCIUM-D ORAL) Take by mouth once daily. No current facility-administered medications on file prior to visit. Social History Social History Tobacco Use Smoking status: Never Smokeless tobacco: Never Vaping Use Vaping status: Never Used Substance Use Topics Alcohol use: Yes Comment: socially Drug use: No Review of Symptoms REVIEW OF SYSTEMS GENERAL: No weight loss, malaise or fevers HEENT: Negative for frequent or significant headaches, No changes in hearing or vision, no nose bleeds or other nasal problems NECK: Negative for lumps, goiter, pain and significant neck swelling RESPIR (more content not included)... [facility] 04-12-2024 History of Presen t illness Narrative Program_ID:[id number] Access Code: [email or web address] URL: [email or web address] Date: 04-12-2024 Prepared By: Beatrice Sabillon Program Notes Exercises - Standing Lumbar Extension - 3-5 x daily - 7 x weekly - 3-5 sets - 10 reps - Supine Posterior Pelvic Tilt - 1-2 x daily - 7 x weekly - 2 sets - 5 reps - Supine Bridge - 1-2 x daily - 7 x weekly - 3-4 sets - 10 reps - Supine Gluteal Sets - 1-2 x daily - 7 x weekly - 3-4 sets - 8 reps Episode Visit Count: 3 Therapist That Will Accept/Oversee The Plan Of Care: Beatrice Sabillon Start of Care Date: 03/22/24 Onset Date: 02/20/24 Plan of Care Certification Date: 03/22/24 Next Certification Due Date: 04/26/24 [facility] PHYSICAL THERAPY TREATMENT NOTE ASSESSMENT: Windy Iniguez tolerated the session with fatigue. She demonstrated difficulty with prone position and upright bike due to knee pain with AROM flexion/extension. Symptoms seemed to centralize with repeated lumbar extension, however knee pain returned upon walking. The patient will continue to benefit from ongoing skilled physical therapy . Current Frequency: 1x/week PLAN FOR NEXT VISIT: consider SL hip abd progression. Caution with knee/hip ER due to pt. had pain with R knee during piriformis stretch. Pt. changes insurance and mentions that PT may not be covered. SUBJECTIVE: pt. reports that rheumatology informed pt. that she is having an overall flair of RA. Pt. was given a shot of kenelog which she reports improved her symptoms. She has increased L kneed pain that is constant. Patient Goals: reduce hip pain Pain: Pain Pain Level: 0 Pain Location: Hip - Left, Back Pain Level 2: 5 Pain Location 2: Knee - Right Description 2: Aching Frequency 2: Standing Post Treatment Pain Post Treatment Pain Level: 5 Post Treatment Pain Location: Hip - Left Post Treatment Pain Location 2: Low Back/Lumbar Spine - Left OBJECTIVE MEASURES WITH LEVEL OF FUNCTION: LE Flexibility Flexibility: Hip Flexor Flexibility R Hip Flexor Flexibility: limited L Hip Flexor Flexibility: limited LE Strength R Hip Extension: 2-/5 L Hip Extension: 2-/5 TREATMENT: Therapeutic Exercise: 1: scifit bike seat 9, level 1, dc after 3 minutes due to knee pain increase. 1:1 throughout, subjective collected 2: *Access Code: [email or web address] URL: [email or web address] Date: 04/12/2024 Prepared by: Beatrice Vidal Exercises - Standing Lumbar Extension - 3-5 x daily - 7 x weekly - 3-5 sets - 10 reps - 1 hold - Supine Posterior Pelvic Tilt - 1-2 x daily - 7 x weekly - 2 sets - 5 reps - 10 hold - Supine Bridge - 1-2 x daily - 7 x weekly - 3-4 sets - 10 reps - 1 hold - Supine Gluteal Sets - 1-2 x daily - 7 x weekly - 3-4 sets - 8 reps - 5 hold 3: prone hip extension - dc due to upper back pain and knee pain 4: hook lying TA activation 2x10 5: hook lying TA activation with alt mini marches 3x30 sec 6: hook lying TA activation with alt leg slides 1x30 sec dc due to knee pain with active flexion/extension 7: hook lying bugs 3x30 sec Skilled Intervention: Patient was educated in proper exercise technique and purpose for exercises. Reviewed and educated patient on additions/changes for home exercise program as above (*). Skilled judgment was used in selection of appropriate interventions. Provided written instruction for home exercise program to facilitate proper performance and compliance. Correct performance of therapeutic exercises was facilitated with verbal, visual, and tactile cuing. Educated patient on rationale for performing exercises in regards to decreasing fatigue , increase ease of ADL, and ROM and function . Patient education as noted. Billing Therapeutic Exercise Treatment Minutes: 43 Skilled Treatment Time Minutes (timed and untimed codes): 43 Total Session Time (minutes): 43 Session Start Time : 926 Session Stop Time : 1009 Beatrice Sabillon PT documented in this encounter [facility] 04-12-2024 Note HNO ID: [id number] Author: BEATRICE SABILLON PT Service: ? Author Type: Physical Therapist Type: Progress Notes Filed: 04/12/2024 10:10 Note Text: Episode Visit Count: 3 Therapist That Will Accept/Oversee The Plan Of Care: Beatrice Sabillon Start of Care Date: 03/22/24 Onset Date: 02/20/24 Plan of Care Certification Date: 03/22/24 Next Certification Due Date: 04/26/24 REHABILITATION AND SPORTS THERAPY PHYSICAL THERAPY TREATMENT NOTE ASSESSMENT: Windy Iniguez tolerated the session with fatigue. She demonstrated difficulty with prone position and upright bike due to knee pain with AROM flexion/extension. Symptoms seemed to centralize with repeated lumbar extension, however knee pain returned upon walking. The patient will continue to benefit from ongoing skilled physical therapy . Current Frequency: 1x/week PLAN FOR NEXT VISIT: consider SL hip abd progression. Caution with knee/hip ER due to pt. had pain with R knee during piriformis stretch. Pt. changes insurance and mentions that PT may not be covered. SUBJECTIVE: pt. reports that rheumatology informed pt. that she is having an overall flair of RA. Pt. was given a shot of kenelog which she reports improved her symptoms. She has increased L kneed pain that is constant. Patient Goals: reduce hip pain Pain: Pain Pain Level: 0 Pain Location: Hip - Left, Back Pain Level 2: 5 Pain Location 2: Knee - Right Description 2: Aching Frequency 2: Standing Post Treatment Pain Post Treatment Pain Level: 5 Post Treatment Pain Location: Hip - Left Post Treatment Pain Location 2: Low Back/Lumbar Spine - Left OBJECTIVE MEASURES WITH LEVEL OF FUNCTION: LE Flexibility Flexibility: Hip Flexor Flexibility R Hip Flexor Flexibility: limited L Hip Flexor Flexibility: limited LE Strength R Hip Extension: 2-/5 L Hip Extension: 2-/5 TREATMENT: Therapeutic Exercise: 1: scifit bike seat 9, level 1, dc after 3 minutes due to knee pain increase. 1:1 throughout, subjective collected 2: *Access Code: [email or web address] URL: [email or web address] Date: 04/12/2024 Prepared by: Beatrice Sabillon Exercises - Standing Lumbar Extension - 3-5 x daily - 7 x weekly - 3-5 sets - 10 reps - 1 hold - Supine Posterior Pelvic Tilt - 1-2 x daily - 7 x weekly - 2 sets - 5 reps - 10 hold - Supine Bridge - 1-2 x daily - 7 x weekly - 3-4 sets - 10 reps - 1 hold - Supine Gluteal Sets - 1-2 x daily - 7 x weekly - 3-4 sets - 8 reps - 5 hold 3: prone hip extension - dc due to upper back pain and knee pain 4: hook lying TA activation 2x10 5: hook lying TA activation with alt mini marches 3x30 sec 6: hook lying TA activation with alt leg slides 1x30 sec dc due to knee pain with active flexion/extension 7: hook lying bugs 3x30 sec Skilled Intervention: Patient was educated in proper exercise technique and purpose for exercises. Reviewed and educated patient on additions/changes for home exercise program as above (*). Skilled judgment was used in selection of appropriate interventions. Provided written instruction for home exercise program to facilitate proper performance and compliance. Correct performance of therapeutic exercises was facilitated with verbal, visual, and tactile cuing. Educated patient on rationale for performing exercises in regards to decreasing fatigue , increase ease of ADL, and ROM and function . Patient education as noted. Billing Therapeutic Exercise Treatment Minutes: 43 Skilled Treatment Time Minutes (timed and untimed codes): 43 Total Session Time (minutes): 43 Session Start Time : 926 Session Stop Time : 1009 Beatrice Sabillon, PT [facility] 03-26-2024 History of Presen t illness Narrative Program_ID:[id number] Access Code: [email or web address] URL: [email or web address] Date: 03-26-2024 Prepared By: Beatrice Sabillon Program Notes Exercises - Standing Lumbar Extension - 3-5 x daily - 7 x weekly - 3-5 sets - 10 reps - Supine Figure 4 Piriformis Stretch - 3 x daily - 7 x weekly - 1 sets - 3 reps - Supine Posterior Pelvic Tilt - 1-2 x daily - 7 x weekly - 4 sets - 10 reps - Standing Lumbar Extension with Counter - 1 x daily - 7 x weekly - 2 sets - 10 reps - Standing Lumbar Extension with Counter - 1 x daily - 7 x weekly - 2 sets - 10 reps Episode Visit Count: 2 Therapist That Will Accept/Oversee The Plan Of Care: Beatrice Sabillon Start of Care Date: 03/22/24 Onset Date: 02/20/24 Plan of Care Certification Date: 03/22/24 Next Certification Due Date: 04/26/24 Patient Identified by Name and Date of : Yes REHABILITATION AND SPORTS THERAPY PHYSICAL THERAPY TREATMENT NOTE ASSESSMENT: Windy Iniguez tolerated the session with fatigue and expected muscle soreness. She demonstrated improvements in lumbar extension with use of table behind back. The patient will continue to benefit from ongoing skilled physical therapy to progress toward set goals. PLAN FOR NEXT VISIT: Contiue with n/s strengthening SUBJECTIVE: Pt reports that the exercise shave been helping. The hip is doing better and wento the fair without difficulty. Some pain in the lower back on the L side. Pt states that she has had this horrible pain in her R knee and can hardly walk. Pt states that she has not done any exercises yesterday or today. Pain: Pain Pain Level: 0 Pain Location: Hip - Left Pain Level 2: 0 Pain Location 2: Low Back/Lumbar Spine- Midline Post Treatment Pain Post Treatment Pain Level: Better OBJECTIVE MEASURES WITH LEVEL OF FUNCTION: TREATMENT: Therapeutic Exercise: 1: Standing lumbar extension at wall x 5 with wider HECTOR 2: Standing lumbar extension over edge of bed x 5 3: PPT 2x10 4: PPT with alt LE marching 2x10 B 5: *Reviewed HEP in depth 6: Seated TA activation with push into 55 cm physioball 2x10 Skilled Intervention: Patient was educated in proper exercise technique and purpose for exercises. Reviewed and educated patient on additions/changes for home exercise program as above (*). Skilled judgment was used in selection of appropriate interventions. Provided written instruction for home exercise program to facilitate proper performance and compliance. Correct performance of therapeutic exercises was facilitated with verbal and visual cuing. Billing Therapeutic Exercise Treatment Minutes: 38 Skilled Treatment Time Minutes (timed and untimed codes): 38 Total Session Time (minutes): 38 Session Start Time : 1533 Session Stop Time : 1611 PALMER Martinez PT documented in this encounter [facility] 03-26-2024 Note HNO ID: [id number] Author: BEATRICE SABILLON PT Service: ? Author Type: Physical Therapist Type: Progress Notes Filed: 03/29/2024 10:05 Note Text: Episode Visit Count: 2 Therapist That Will Accept/Oversee The Plan Of Care: Beatrice Sabillon Start of Care Date: 03/22/24 Onset Date: 02/20/24 Plan of Care Certification Date: 03/22/24 Next Certification Due Date: 04/26/24 Patient Identified by Name and Date of : Yes REHABILITATION AND SPORTS THERAPY PHYSICAL THERAPY TREATMENT NOTE ASSESSMENT: Windy Iniguez tolerated the session with fatigue and expected muscle soreness. She demonstrated improvements in lumbar extension with use of table behind back. The patient will continue to benefit from ongoing skilled physical therapy to progress toward set goals. PLAN FOR NEXT VISIT: Contiue with n/s strengthening SUBJECTIVE: Pt reports that the exercise shave been helping. The hip is doing better and wento the fair without difficulty. Some pain in the lower back on the L side. Pt states that she has had this horrible pain in her R knee and can hardly walk. Pt states that she has not done any exercises yesterday or today. Pain: Pain Pain Level: 0 Pain Location: Hip - Left Pain Level 2: 0 Pain Location 2: Low Back/Lumbar Spine- Midline Post Treatment Pain Post Treatment Pain Level: Better OBJECTIVE MEASURES WITH LEVEL OF FUNCTION: TREATMENT: Therapeutic Exercise: 1: Standing lumbar extension at wall x 5 with wider HECTOR 2: Standing lumbar extension over edge of bed x 5 3: PPT 2x10 4: PPT with alt LE marching 2x10 B 5: *Reviewed HEP in depth 6: Seated TA activation with push into 55 cm physioball 2x10 Skilled Intervention: Patient was educated in proper exercise technique and purpose for exercises. Reviewed and educated patient on additions/changes for home exercise program as above (*). Skilled judgment was used in selection of appropriate interventions. Provided written instruction for home exercise program to facilitate proper performance and compliance. Correct performance of therapeutic exercises was facilitated with verbal and visual cuing. Billing Therapeutic Exercise Treatment Minutes: 38 Skilled Treatment Time Minutes (timed and untimed codes): 38 Total Session Time (minutes): 38 Session Start Time : 1533 Session Stop Time : 1611 Komal Michelle, HOME EN[employer]GY [employer]ATER Beatrice Sabillon, PT [facility] 03-22-2024 Telephone encounter Note \Patient notified of results and provider's instructions. Patient verbalizes understanding. Pt actually saw order on [facility] and had PT appointment this am. Zoraida Taylor LPN [facility] 03-22-2024 Miscellaneous Notes \Patient notified of results and provider's instructions. Patient verbalizes understanding. Pt actually saw order on [facility] and had PT appointment this am. Zoraida Taylor LPN Let patient know hip x-ray showed no acute issues. Order placed for PHYSICAL THERAPY. documented in this encounter [facility] 03-22-2024 History of Presen t illness Narrative Program_ID:[id number] Access Code: [email or web address] URL: [email or web address] Date: 03-22-2024 Prepared By: Beatrice Sabillon Program Notes Exercises - Standing Lumbar Extension - 3-5 x daily - 7 x weekly - 3-5 sets - 10 reps - Supine Figure 4 Piriformis Stretch - 3 x daily - 7 x weekly - 3 sets - 10 reps - Supine Posterior Pelvic Tilt - 1-2 x daily - 7 x weekly - 4 sets - 10 reps Images from the original note were not included. Episode Visit Count: 1 Therapist That Will Accept/Oversee The Plan Of Care: Beatrice Sabillon Start of Care Date: 03/22/24 Onset Date: 02/20/24 Plan of Care Certification Date: 03/22/24 Next Certification Due Date: 04/26/24 Patient Identified by Name and Date of : Yes REHABILITATION AND SPORTS THERAPY PHYSICAL THERAPY EVALUATION PLAN OF CARE: Assessment: Windy Iniguez presents with diagnosis of left hip pain that interferes with walking in the community, sitting . She presents with impairments in ADL's, independence in exercise, joint mobility, overall function, patient reported outcome measures, posture, range of motion, strength, symptom management, and tissue tenderness. PROMIS (Patient-Reported Outcomes Measurement Information System) scores were reviewed and identified as a rehabilitation concern. Prognosis for therapy is Good due to: good support system/ coping skills, within-session changes, positive past response to therapy, acuteness of condition, current objective clinical presentation . She will benefit from skilled therapy services to meet the goals established for this plan of care as noted below. Classification Pain Mechanism Classification: Nociceptive Low Back Pain Classification: Symptom Modulation Goals for Episode of Care: established 03/22/24 Independent in home exercises. Patient will decrease pain rating by 2 points to meet minimal clinical important difference for numeric pain rating scale. Restore pain-free lumbar ROM to minimal to no limitation extension to allow for improved posture and reduced pain with transitional movements. Stand / Walk 30-40 minutes without pain/symptoms. Sit 1-2 hours without pain/symptoms to allow for seated activities. Patient will be able to tolerate functional activities for 1-2 hours without increased symptoms. Patient will be able to correct postural deviations independently in order to improve postural alignment of trunk during sitting, allow for normal mechanics, to decrease current pain , and prevent future recurrence. Patient Goals: reduce hip pain Time Frame for Goals and Treatment : 05/03/24 Planned Interventions, Frequency, and Duration: Current Frequency: 1x/week Duration: 6 weeks Total Number of Visits Planned: 6 Planned Treatment Interventions: Therapeutic exercise (47205), Neuromuscular re-education (40692), Manual therapy (68819), Therapeutic activities (84569), Self-custodial management (00372), Gait Training (76702) PLAN FOR NEXT VISIT: assess symptom response to extension directional preference exercises. Continue core stabilization if pt. has centralization of symptoms from L hip to low back Patient demonstrates good understanding of plan of care and treatment. The above goals and plan of care were discussed and agreed upon by patient/family. SUBJECTIVE: for L hip pain that onset [place] the [place] about 1 mo. ago. Pt. has PMHx of RA. Pt. has weekly injections for B knee pain due to her RA. Chronic hx of LBP, denies R hip pain. Prolonged sitting and walking cause increased L hip pain along the iliac crest and L ASIS. Patient Goals: reduce hip pain Functional Limitations: walking in the community, sitting Prior Level of Function: Independent without limitations Relevant History Employment: Retired Hobbies / Interests: exercises regularly with you tube program Intake Information: Prescription present Falls Interview: No positive findings with falls interview Red Flags Vertebral Fracture Red Flags: Female Vertebral Fracture Clinical Reasoning: Proceed with caution due to the above (1-2) risk factors Abdominal Aortic Aneurysm Red Flags: Age >60 Abdominal Aortic Aneurysm Clinical Reasoning: Proceed with caution Cancer Red Flags: Age >50 or <20, History of Cancer Cancer Clinical Reasoning: Proceed with caution Infection Clinical Reasoning: No identified risk factors. Cauda Equina Syndrome Clinical Reasoning: No identified risk factors. Red Flags - Cervical Cancer Red Flags: Age >50 or <20, History of Cancer Cancer Clinical Reasoning: Proceed with caution Infection Clinical Reasoning: No identified risk factors. Spine History Symptoms Location at Onset: Back Pain: Pain Pain Level: 3 Pain Location: Hip - Left Description: Sharp Frequency: At rest Additional Pain Information : Location 2 Pain Level 2: 0 Pain Location 2: Low Back/Lumbar Spine- Midline Description 2: Aching Frequency 2: Sitting Post Treatment Pain Post Treatment Pain Level: 0 Post Treatment Pain Location: Hip - Left Post Treatment Pain Score 2: 4/10 Post Treatment Pain Location 2: Low Back/Lumbar Spine - Left PROMIS Scales 03/22/2024 Higher is Better Phys Func - Score 36 (moderate dysfunction) Phys Func - Percentile 8 Self-Eff Symptom - Score 41 (Average) Self-Eff Symptom - Percentile 18 T-scores: mean of general population = 50. 5 points is clinically meaningfully difference Percentiles provide an indication of how the patient's score ranks in relation to the general population. Higher percentile rankings indicate better function/quality of life. 50th percentile is the average of the general population and indicates half of respondents had a worse score. OBJECTIVE MEASURES WITH LEVEL OF FUNCTION: Posture / Alignment Posture: Forward head, Increased thoracic kyphosis, Lateral Shift (weight shifted over the R) Sensation - Lower Extremity LE Light Touch Sensation: Grossly Intact Spine Observations R Lumbar Spine Palpation Tenderness: Iliacus, ASIS (Anterior superior iliac spine) L Lumbar Spine Palpation Tenderness: ASIS (Anterior superior iliac spine), Iliacus Sensation - Lumbar Sensation: Grossly Intact Lumbar Spine AROM Lumbar Flexion: Moderate limitation, Produces, Peripheralizing Lumbar Extension: Abolishes, Moderate limitation Repeated Test Movements - Lumbar CHADD - Symptoms During: abolishes CHADD - Symptoms After: centralized, increase ROM Other Lumbar Repeated Test Movements: Yes Other Repeated Test Movements - Lumbar SGIS/L - Symptoms During: centralizing SGIS/L - Symptoms After: centralized Static Testing - Lumbar Sit Erect: better, centralized Stand Erect: better Gait Gait: Independent Education: Education Learning Preferences: Demonstration, Explanation, Performance, Printed Materials Barriers: Acuity of Illness Learning/educational needs: Plan of Care, Home exercise program, Posture Education Provided: Yes, see treatment interventions for education provided Education Provided To: Patient Education Mode/Type: Demonstration, Explanation/Discussion, Literature/Printed Materials, Performance TREATMENT: PT Treatment Interventions: Therapeutic Exercise, Self-Half-Way Management Evaluation Therapeutic Exercise: 1: *Access Code: [email or web address] URL: [email or web address] Date: 03/22/2024 Prepared by: Beatrice Vidal Exercises - Standing Lumbar Extension - 3-5 x daily - 7 x weekly - 3-5 sets - 10 reps - 1 hold - Supine Figure 4 Piriformis Stretch - 3 x daily - 7 x weekly - 3 sets - 10 reps - 30 hold - Supine Posterior Pelvic Tilt - 1-2 x daily - 7 x weekly - 4 sets - 10 reps - 1 hold Skilled Intervention: Patient was educated in proper exercise technique and purpose for exercises. Reviewed and educated patient on additions/changes for home exercise program as above (*). Skilled judgment was used in selection of appropriate interventions. Provided written instruction for home exercise program to facilitate proper performance and compliance. Correct performance of therapeutic exercises was facilitated with verbal, visual, and tactile cuing. Educated patient on rationale for performing exercises in regards to decreasing fatigue , increase ease of ADL, and ROM and function . Patient education as noted. Self-Half-Way Management: 1: discussed centralization 2: discussed how LBP can radiate to the hip 3: discussed directional prefreence 4: encouraged good posture and modification of exercises as needd Skilled Intervention: Skilled judgment in the selection of proper modification for activity of daily living/home management based on clinical presentation, deficits, and needs. Provided written instruction for activities of daily living techniques to facilitate proper performance and compliance. Reviewed patient specific diagnosis in relation to activities of daily living/home management. Activity progression based on professional judgement. Moderate verbal cues for maintaining neutral spine alignment. Reviewed and educated patient on additions/changes for home program as noted above with an (*). Provided written instruction for home program to facilitate proper performance and compliance. Correct performance of home program was facilitated with verbal, visual, and tactile cueing. Billing * Evaluation Low Complexity: 1 Unit Therapeutic Exercise Treatment Minutes: 15 Self-Care/Home Management Treatment Minutes: 10 Skilled Treatment Time Minutes (timed and untimed codes): 45 Total Session Time (minutes): 45 Session Start Time : 0759 Session Stop Time : 0844 Beatrice Sabillon, PT documented in this encounter [facility] 03-22-2024 Note HNO ID: [id number] Author: BEATRICE SABILLON PT Service: ? Author Type: Physical Therapist Type: Progress Notes Filed: 03/22/2024 11:07 Note Text: Episode Visit Count: 1 Therapist That Will Accept/Oversee The Plan Of Care: Beatrice Sabillon Start of Care Date: 03/22/24 Onset Date: 02/20/24 Plan of Care Certification Date: 03/22/24 Next Certification Due Date: 04/26/24 Patient Identified by Name and Date of : Yes REHABILITATION AND SPORTS THERAPY PHYSICAL THERAPY EVALUATION PLAN OF CARE: Assessment: Windy Iniguez presents with diagnosis of left hip pain that interferes with walking in the community, sitting . She presents with impairments in ADL's, independence in exercise, joint mobility, overall function, patient reported outcome measures, posture, range of motion, strength, symptom management, and tissue tenderness. PROMIS? (Patient-Reported Outcomes Measurement Information System) scores were reviewed and identified as a rehabilitation concern. Prognosis for therapy is Good due to: good support system/ coping skills, within-session changes, positive past response to therapy, acuteness of condition, current objective clinical presentation . She will benefit from skilled therapy services to meet the goals established for this plan of care as noted below. Classification Pain Mechanism Classification: Nociceptive Low Back Pain Classification: Symptom Modulation Goals for Episode of Care: established 03/22/24 Independent in home exercises. Patient will decrease pain rating by 2 points to meet minimal clinical important difference for numeric pain rating scale. Restore pain-free lumbar ROM to minimal to no limitation extension to allow for improved posture and reduced pain with transitional movements. Stand / Walk 30-40 minutes without pain/symptoms. Sit 1-2 hours without pain/symptoms to allow for seated activities. Patient will be able to tolerate functional activities for 1-2 hours without increased symptoms. Patient will be able to correct postural deviations independently in order to improve postural alignment of trunk during sitting, allow for normal mechanics, to decrease current pain , and prevent future recurrence. Patient Goals: reduce hip pain Time Frame for Goals and Treatment : 05/03/24 Planned Interventions, Frequency, and Duration: Current Frequency: 1x/week Duration: 6 weeks Total Number of Visits Planned: 6 Planned Treatment Interventions: Therapeutic exercise (51523), Neuromuscular re-education (99168), Manual therapy (76280), Therapeutic activities (62729), Self-custodial management ([id number]), Gait Training ([id number]) PLAN FOR NEXT VISIT: assess symptom response to extension directional preference exercises. Continue core stabilization if pt. has centralization of symptoms from L hip to low back Patient demonstrates good understanding of plan of care and treatment. The above goals and plan of care were discussed and agreed upon by patient/family. SUBJECTIVE: for L hip pain that onset following walking on the beach for vacation about 1 mo. ago. Pt. has PMHx of RA. Pt. has weekly injections for B knee pain due to her RA. Chronic hx of LBP, denies R hip pain. Prolonged sitting and walking cause increased L hip pain along the iliac crest and L ASIS. Patient Goals: reduce hip pain Functional Limitations: walking in the community, sitting Prior Level of Function: Independent without limitations Relevant History Employment: Retired Hobbies / Interests: exercises regularly with you tube program Intake Information: Prescription present Falls Interview: No positive findings with falls interview Red Flags Vertebral Fracture Red Flags: Female Vertebral Fracture Clinical Reasoning: Proceed with caution due to the above (1-2) risk factors Abdominal Aortic Aneurysm Red Flags: Age >60 Abdominal Aortic Aneurysm Clinical Reasoning: Proceed with caution Cancer Red Flags: Age >50 or <20, History of Cancer Cancer Clinical Reasoning: Proceed with caution Infection Clinical Reasoning: No identified risk factors. Cauda Equina Syndrome Clinical Reasoning: No identified risk factors. Red Flags - Cervical Cancer Red Flags: Age >50 or <20, History of Cancer Cancer Clinical Reasoning: Proceed with caution Infection Clinical Reasoning: No identified risk factors. Spine History Symptoms Location at Onset: Back Pain: Pain Pain Level: 3 Pain Location: Hip - Left Description: Sharp Frequency: At rest Additional Pain Information : Location 2 Pain Level 2: 0 Pain Location 2: Low Back/Lumbar Spine- Midline Description 2: Aching Frequency 2: Sitting Post Treatment Pain Post Treatment Pain Level: 0 Post Treatment Pain Location: Hip - Left Post Treatment Pain Score 2: 4/10 Post Treatment Pain Location 2: Low Back/Lumbar Spine - Left PROMIS Scales 03/22/2024 Higher is Better Phys Func - Score 36 (moderate dysfunction) Phys Func (more content not included)... [facility] 03-20-2024 Telephone encounter Note Let patient know hip x-ray showed no acute issues. Order placed for PHYSICAL THERAPY. [facility] 03-18-2024 History of Presen t illness Narrative Radiology Service Progress Note PATIENT NAME: Windy Iniguez DATE OF SERVICE: March 18, 2024 TIME: 10:50 AM PATIENT IDENTITY VERIFICATION COMPLETED USING TWO (2) IDENTIFIERS: Name and Date of confirmed by patient verbally. FALL SCREENING: Has the patient had 2 falls in the last year or 1 fall with injury or currently using an Ambulatory Assistive Device (Walker, Cane, Wheelchair, Crutches, etc.)? No PATIENT GENDER DATA: Female. status: : No status: NO. PATIENT RELEVANT IMPLANT DATA REVIEWED: Not Applicable PATIENT PRESENTS WITH AN IMPLANTABLE OR ATTACHED CARE COORDINATOR: No RADIOLOGY DEPARTMENT: General X-ray: Exam(s) Completed: Pelvis X-Ray: Pelvis with Hip Bilateral PERIPHERAL IV DATA: Not applicable SIGNED BY: RT Ysabel(Sal) March 18, 2024 10:50 AM documented in this encounter [facility] 03-18-2024 Note HNO ID: [id number] Author: MERVIN STEVENS RT(R) Service: Radiology Author Type: Technologist Type: Progress Notes Filed: 03/18/2024 10:58 Note Text: Radiology Service Progress Note PATIENT NAME: Windy Iniguez DATE OF SERVICE: March 18, 2024 TIME: 10:50 AM PATIENT IDENTITY VERIFICATION COMPLETED USING TWO (2) IDENTIFIERS: Name and Date of confirmed by patient verbally. FALL SCREENING: Has the patient had 2 falls in the last year or 1 fall with injury or currently using an Ambulatory Assistive Device (Walker, Cane, Wheelchair, Crutches, etc.)? No PATIENT GENDER DATA: Female. status: : No status: NO. PATIENT RELEVANT IMPLANT DATA REVIEWED: Not Applicable PATIENT PRESENTS WITH AN IMPLANTABLE OR ATTACHED CARE COORDINATOR: No RADIOLOGY DEPARTMENT: General X-ray: Exam(s) Completed: Pelvis X-Ray: Pelvis with Hip Bilateral PERIPHERAL IV DATA: Not applicable SIGNED BY: Mevrin Stevens RT(R) March 18, 2024 10:50 AM [facility] 03-18-2024 Instructions Eric Esteves MD - 03/18/2024 10:32 AM EDT was going to refer to Derm but with the blanching question a vasculitis and if related to her underlying RA. Asked patient to discus with her whale fisherman next week documented in this encounter [facility] 03-18-2024 History of Presen t illness Narrative Chief Complaint Patient presents with: Follow Up Hip Pain Rash HPI Windy Iniguez is a 63 year old female who presents here today for follow up on rash on legs. Patient with Hx of GERD, RA seeing Rheum, situational depression, past Hx of breast cancer, insomnia, Vit D def, osteoporosis as well as those below. Last visit patient was seen for rash on legs. We stopped the lipitor for possible drug reaction . Since being off the lipitor the rash has not improved and seems to be getting slightly worse and on her arms. Not itching or burning. Left hip pain for about last three weeks after walking on the beach at [facility]. Is doing some exercises and has helped. But not resolved. Laying on the left hip makes it hurt more and with sitting. Has not noted any grinding. Office visit 02/13/2024 - rash on legs Rash started upper part of the left anterior lateral part maybe in December/January and then a few weeks later started to get it on the right anterior thigh. Thinks she may have a few spots on her upper inner arms. Denies any itching. Patient tried OTC cortisone with no improvement. Past medical history, appointments, medications, allergies reviewed. Previous Medical History PAST MEDICAL HISTORY 09/22/2018: Arthritis of right knee No date: Carcinoma in situ of breast Comment: LEFT 05/27/2014: [facility] arthritis, thumb, degenerative No date: Diffuse cystic mastopathy 09/17/2023: Encounter for screening mammogram for breast cancer 04/01/2022: GERD without esophagitis 09/28/2019: Inflammatory arthritis Comment: Seeing Dr. Doss ([facility]) 03/07/2015: Insomnia No date: Internal hemorrhoids without mention of complication 04/16/2023: REINA (nonalcoholic steatohepatitis) 08/10/2023: VICKIE (obstructive sleep apnea) Comment: Consult Sleep Med 07/2023. 10/09/2018: Osteoporosis of lumbar spine 12/13/2016: Personal history of malignant neoplasm of breast 08/13/2021: Right elbow pain Comment: Seeing [facility] ortho 04/01/2022: Situational depression 04/02/2023: Skin cancer screening Comment: Sees Derm 09/28/2014: Urethral stenosis 09/19/2022: Vitamin D deficiency 12/06/2020: Well adult exam Comment: Last Done: 10/17/[address] Esteves ([facility]) Previous Surgical History PAST SURGICAL HISTORY 10/16/2017: APPENDECTOMY 10/07/2022: COLONOSCOPY Comment: repeat in 10 years 05/06/2011: COLONOSCOPY FLX DX W/COLLJ SPEC WHEN PFRMD 09/21/2014: CYSTOSCOPY 06/30/2008: INJ RADIOACTIVE TRACER FOR ID OF SENTINEL NODE Comment: LEFT BREAST 06/30/2008: MASTECTOMY,PARTIAL, WITH AXILLARY LYMPHADENECTOMY Comment: LEFT BREAST, lumpectomy- cancerious No date: PAST SURGICAL HISTORY OF Comment: [place] 06/24/2011: PAST SURGICAL HISTORY OF Comment: Excisional biopsy right forearm- benign 07/11/2015: PAST SURGICAL HISTORY OF Comment: left trigger thumb release 06/30/2008: PREOP PLACEMENT NEEDLE LOC Comment: LEFT BREAST 04/13/2011: PUNCH BIOPSY B/O Comment: Right forearm 06/01/2008: STEREOTACTIC CORE BIOPSY Comment: left No date: TONSILLECTOMY PRIMARY/SECONDARY <AGE 12 01/12/2008: TOTAL ABDOMINAL HYSTERECT W/WO RMVL TUBE OVARY Comment: Hysterectomy, BLANCA BSO Family History FAMILY HISTORY Problem Relation Age of Onset Cancer Father LIVER AND PANCREAS other (ASHD [Other]) Sister defibrillator Breast Cancer Paternal Grandmother Cancer Maternal Grandfather LUNG Arthritis Mother Patient Allergies ALLERGIES Allergen Reactions Codeine Vomiting Nausea and vomiting Dust Mites Unknown Fosamax [Alendronat* Other: See Comments Chest pain Loratadine-Pseudoep* Other: See Comments Palpitations and jittery Mold Unknown Relafen [Nabumetone] Unknown Trees Unknown Current Medications Current Outpatient Medications on File Prior to Visit Medication Sig traZODone (DESYREL) 100 mg tablet Take 1/2 to 1 tablet by mouth at bedtime for insomnia. atorvastatin (LIPITOR) 20 mg tablet Take 1 tablet by mouth daily at bedtime. For cholesterol. Benzonatate 200 mg capsule Take 1 capsule by mouth three times a day as needed. omeprazole (PRILOSEC) 40 mg capsule Take 1 capsule by mouth once daily. tocilizumab (ACTEMRA) 162 mg/0.9 mL Inject 0.9 mL subcutaneously one time a week. Per Rheumatology fluticasone (FLONASE) 50 mcg/actuation nasal spray Use 1 [place] in each nostril twice daily. Rinse mouth after use. Cholecalciferol, Vitamin D3, 50 mcg (2,000 unit) cap Take 1 capsule by mouth once daily. calcium carbonate/vitamin D3 (CALCIUM-D ORAL) Take by mouth once daily. No current facility-administered medications on file prior to visit. Social History Social History Tobacco Use Smoking status: Never Smokeless tobacco: Never Vaping Use Vaping status: Never Used Substance Use Topics Alcohol use: Yes Comment: socially Drug use: No Review of Symptoms REVIEW OF SYSTEMS See HPI EXAM: BP 121/82 Pulse 88 Ht 170.2 cm (5' 7) Wt 76.2 kg (168 lb) LMP 12/30/2007 BMI 26.31 kg/m General Appearance: Well appearing, alert, in no acute distress, well-hydrated, well nourished.. Skin: has very small like pin head size macular papular rash on her anterior thighs and upper inner arms. Blanches to palpation. Musculoskeletal: there is discomfort to palpation of the anterior superior iliac spine and hip flexor tendons attached to this area. There is discomfort to palpation over the left greater trochanter and increased pain in this area with hip abduction.. Health Maintenance List Anxiety Screening Never done RSV Vaccine(1 - 1-dose 60+ series) Never done Mammogram Screening due on 12/03/2023 Covid-19 Vaccine( season) due on 03/14/2024 Influenza Vaccine(1) due on 03/14/2024 Diabetes Screening due on 03/19/2026 Lipid Screening due on 01/06/2029 DTaP,Tdap,Td Vaccine(4 - Td or Tdap) due on 06/18/2032 Colorectal Cancer Screening due on 10/07/2032 Pneumococcal Vaccine Completed Cervical Cancer Screening Discontinued Hepatitis C Screening Discontinued HIV Screening Discontinued Shingrix Vaccine Discontinued Data reviewed A/P ASSESSMENT/PLAN: 1. Rash - ICD9: 782.1, ICD10: R21 (primary diagnosis) - definitely not due to the Lipitor and patient to restart. - was going to refer to Derm but with the blanching question a vasculitis and if related to her underlying RA. Asked patient to discus with her whale fisherman next week 2. Left hip pain - ICD9: 719.45, ICD10: M25.552 - suspect greater trochanter bursitis. Check - XR HIP BILATERAL 5V PEL/AP/LAT EACH HIP: if ok will refer to PHYSICAL THERAPY. 3. Tendinitis of left hip flexor - ICD9: 727.09, ICD10: M76.892 - await hip x-rays nd if ok refer to PHYSICAL THERAPY. Keep next routine f/u Eric Esteves MD documented in this encounter [facility] 03-18-2024 Note HNO ID: [id number] Author: ERIC ESTEVES MD Service: ? Author Type: Physician Type: Progress Notes Filed: 03/18/2024 16:53 Note Text: Chief Complaint Patient presents with: Follow Up Hip Pain Rash HPI Windy Iniguez is a 63 year old female who presents here today for follow up on rash on legs. Patient with Hx of GERD, RA seeing Rheum, situational depression, past Hx of breast cancer, insomnia, Vit D def, osteoporosis as well as those below. Last visit patient was seen for rash on legs. We stopped the lipitor for possible drug reaction . Since being off the lipitor the rash has not improved and seems to be getting slightly worse and on her arms. Not itching or burning. Left hip pain for about last three weeks after walking on the beach at [facility]. Is doing some exercises and has helped. But not resolved. Laying on the left hip makes it hurt more and with sitting. Has not noted any grinding. Office visit 02/13/2024 - rash on legs Rash started upper part of the left anterior lateral part maybe in December/January and then a few weeks later started to get it on the right anterior thigh. Thinks she may have a few spots on her upper inner arms. Denies any itching. Patient tried OTC cortisone with no improvement. Past medical history, appointments, medications, allergies reviewed. Previous Medical History PAST MEDICAL HISTORY 09/22/2018: Arthritis of right knee No date: Carcinoma in situ of breast Comment: LEFT 05/27/2014: [facility] arthritis, thumb, degenerative No date: Diffuse cystic mastopathy 09/17/2023: Encounter for screening mammogram for breast cancer 04/01/2022: GERD without esophagitis 09/28/2019: Inflammatory arthritis Comment: Seeing Dr. Doss ([facility]) 03/07/2015: Insomnia No date: Internal hemorrhoids without mention of complication 04/16/2023: REINA (nonalcoholic steatohepatitis) 08/10/2023: VICKIE (obstructive sleep apnea) Comment: Consult Sleep Med 07/2023. 10/09/2018: Osteoporosis of lumbar spine 12/13/2016: Personal history of malignant neoplasm of breast 08/13/2021: Right elbow pain Comment: Seeing [facility] ortho 04/01/2022: Situational depression 04/02/2023: Skin cancer screening Comment: Sees Derm 09/28/2014: Urethral stenosis 09/19/2022: Vitamin D deficiency 12/06/2020: Well adult exam Comment: Last Done: 10/17/[address] Esteves ([facility]) Previous Surgical History PAST SURGICAL HISTORY 10/16/2017: APPENDECTOMY 10/07/2022: COLONOSCOPY Comment: repeat in 10 years 05/06/2011: COLONOSCOPY FLX DX W/COLLJ SPEC WHEN PFRMD 09/21/2014: CYSTOSCOPY 06/30/2008: INJ RADIOACTIVE TRACER FOR ID OF SENTINEL NODE Comment: LEFT BREAST 06/30/2008: MASTECTOMY,PARTIAL, WITH AXILLARY LYMPHADENECTOMY Comment: LEFT BREAST, lumpectomy- cancerious No date: PAST SURGICAL HISTORY OF Comment: [place] 06/24/2011: PAST SURGICAL HISTORY OF Comment: Excisional biopsy right forearm- benign 07/11/2015: PAST SURGICAL HISTORY OF Comment: left trigger thumb release 06/30/2008: PREOP PLACEMENT NEEDLE LOC Comment: LEFT BREAST 04/13/2011: PUNCH BIOPSY B/O Comment: Right forearm 06/01/2008: STEREOTACTIC CORE BIOPSY Comment: left No date: TONSILLECTOMY PRIMARY/SECONDARY 01/12/2008: TOTAL ABDOMINAL HYSTERECT W/WO RMVL TUBE OVARY Comment: Hysterectomy, BLANCA BSO Family History FAMILY HISTORY Problem Relation Age of Onset Cancer Father LIVER AND PANCREAS other (ASHD [Other]) Sister defibrillator Breast Cancer Paternal Grandmother Cancer Maternal Grandfather LUNG Arthritis Mother Patient Allergies ALLERGIES Allergen Reactions Codeine Vomiting Nausea and vomiting Dust Mites Unknown Fosamax [Alendronat* Other: See Comments Chest pain Loratadine-Pseudoep* Other: See Comments Palpitations and jittery Mold Unknown Relafen [Nabumetone] Unknown Trees Unknown Current Medications Current Outpatient Medications on File Prior to Visit Medication Sig traZODone (DESYREL) 100 mg tablet Take 1/2 to 1 tablet by mouth at bedtime for insomnia. atorvastatin (LIPITOR) 20 mg tablet Take 1 tablet by mouth daily at bedtime. For cholesterol. Benzonatate 200 mg capsule Take 1 capsule by mouth three times a day as needed. omeprazole (PRILOSEC) 40 mg capsule Take 1 capsule by mouth once daily. tocilizumab (ACTEMRA) 162 mg/0.9 mL Inject 0.9 mL subcutaneously one time a week. Per Rheumatology fluticasone (FLONASE) 50 mcg/actuation nasal spray Use 1 [place] in each nostril twice daily. Rinse mouth after use. Cholecalciferol, Vitamin D3, 50 mcg (2,000 unit) cap Take 1 capsule by mouth once daily. calcium carbonate/vitamin D3 (CALCIUM-D ORAL) Take by mouth once daily. No current facility-administered medications on file prior to visit. Social History Social History Tobacco Use Smoking status: Never Smokeless tobacco: Never Vaping Use Vaping status: Never Used Substance Use Topics Alcohol use: Yes Comment: sociall (more content not included)... [facility] 02-27-2024 History of Presen t illness Narrative Images from the original note were not included. [facility] Follow up/ Established patient visit Date of last visit : 11/10/2023 The following Impression/Plan was copied and pasted from the patient's last [facility] visit on 11/10/23: IMPRESSION/PLAN: F51.04 Chronic insomnia (primary encounter diagnosis) G47.33 IVCKIE (obstructive sleep apnea) Windy Iniguez is a 63 year old female with chronic insomnia, VICKIE. PMH of RA, GERD, REINA, breast cancer. Has had sleep onset insomnia for at least 2 yrs; she did get some relief with doxepin 20 mg but stopped when she developed a URI a few weeks ago. Diagnosed with at least mild VICKIE this year. We discussed VICKIE, reviewed her HSAT result, briefly discussed risks of untreated VICKIE, treatment options including dental device and PAP therapy. Will treat insomnia first, then revisit VICKIE. Take doxepin 20 mg at about 9 PM Info re [facility] online CBTI program for insomnia Follow up 3 mos Morgan Bey APRN.INTERNAL AUDITOR Here for follow up for chronic insomnia, VICKIE She thinks stress is making is difficult to control her insomnia My mind is everywhere COBRA ends next month, needs coverage until age 65 so this is of course very stressful She reports doxepin isn't helping, taking 20 mg at HS, no adverse effects She is doing the online CBTI program. [facility] told her she isn't doing enough sleep restriction. She doesn't want to get out of bed after 20 minutes. She no longer reads in bed. She is staying up until 130 AM. Tried CBD gummies last week but they didn't help. No other meds tried for insomnia except melatonin. SLEEP HYGIENE QUESTIONS: Time it takes to fall sleep : long long time around 130 AM. gets up at 5 AM, she doesn't usually hear him. She is setting alarm for 7 AM but finding it hard to get up then. Number of times patient wakes up per night : if she wakes to urinate she is able to fall back asleep. Estimated total sleep time ( in a 24 hour period of time) : 5 Naps : No VICKIE AHI 8.2 on HSATin 07/2023 PATIENT-ENTERED QUESTIONNAIRE SLEEP SCORES 04/01/2022 PHQ-9 Score 13 10/16/2020 03/31/2023 PROMIS Global Health - (T-Scores - the mean of general population = 50. Five points is a clinically meaningful difference.) Physical T-Score 32.4 34.9 Mental T-Score 38.8 43.5 ALLERGIES Allergen Reactions Codeine Vomiting Nausea and vomiting Dust Mites Unknown Fosamax [Alendronat* Other: See Comments Chest pain Loratadine-Pseudoep* Other: See Comments Palpitations and jittery Mold Unknown Relafen [Nabumetone] Unknown Trees Unknown CURRENT MEDICATIONS: atorvastatin (LIPITOR) 20 mg tablet Take 1 tablet by mouth daily at bedtime. For cholesterol. Benzonatate 200 mg capsule Take 1 capsule by mouth three times a day as needed. omeprazole (PRILOSEC) 40 mg capsule Take 1 capsule by mouth once daily. tocilizumab (ACTEMRA) 162 mg/0.9 mL Inject 0.9 mL subcutaneously one time a week. Per Rheumatology fluticasone (FLONASE) 50 mcg/actuation nasal spray Use 1 [place] in each nostril twice daily. Rinse mouth after use. Cholecalciferol, Vitamin D3, 50 mcg (2,000 unit) cap Take 1 capsule by mouth once daily. calcium carbonate/vitamin D3 (CALCIUM-D ORAL) Take by mouth once daily. traZODone (DESYREL) 100 mg tablet Take 1/2 to 1 tablet by mouth at bedtime for insomnia. PHYSICAL EXAMINATION: Vital Signs: BP 121/84 Pulse 99 Resp 16 Wt 76.3 kg (168 lb 3.4 oz) LMP 12/30/2007 SpO2 97% BMI 26.35 kg/m PHYSICAL EXAM: General appearance: pleasant, NAD Mental status: alert and oriented, able to provide own history Constitutional: WNL Skin: No visible rashes on exposed skin Neuro: No focal deficits observed, no tremors IMPRESSION: Chronic insomnia (primary encounter diagnosis) Windy Iniguez is a 63 year old female with chronic insomnia, VICKIE Some increased stress since losing COBRA and will need to find insurance coverage until she can go on Medicare We will stop doxepin and switch to trazodone Rx trazodone 50-100 mg at HS Continue with online CBTI [facility] program She did look up PAP therapy, thinks it would be difficult to tolerate but is willing to consider Follow up 3 mos Morgan Bey APRN.INTERNAL AUDITOR documented in this encounter [facility] 02-27-2024 Note HNO ID: [id number] Author: MORGAN BEY APRN.LETI Service: ? Author Type: Nurse Practitioner Type: Progress Notes Filed: 03/07/2024 09:57 Note Text: [facility] Follow up/ Established patient visit Date of last visit : 11/10/2023 The following Impression/Plan was copied and pasted from the patient's last [facility] Disorders Center visit on 11/10/23: IMPRESSION/PLAN: F51.04 Chronic insomnia (primary encounter diagnosis) G47.33 VICKIE (obstructive sleep apnea) Windy Iniguez is a 63 year old female with chronic insomnia, VICKIE. PMH of RA, GERD, REINA, breast cancer. Has had sleep onset insomnia for at least 2 yrs; she did get some relief with doxepin 20 mg but stopped when she developed a URI a few weeks ago. Diagnosed with at least mild VICKIE this year. We discussed VICKIE, reviewed her HSAT result, briefly discussed risks of untreated VICKIE, treatment options including dental device and PAP therapy. Will treat insomnia first, then revisit VICKIE. Take doxepin 20 mg at about 9 PM Info re [facility] online CBTI program for insomnia Follow up 3 mos Morgan Bey APRN.INTERNAL AUDITOR Here for follow up for chronic insomnia, VICKIE She thinks stress is making is difficult to control her insomnia My mind is everywhere COBRA ends next month, needs coverage until age 65 so this is of course very stressful She reports doxepin isn't helping, taking 20 mg at HS, no adverse effects She is doing the online CBTI program. [facility] told her she isn't doing enough sleep restriction. She doesn't want to get out of bed after 20 minutes. She no longer reads in bed. She is staying up until 130 AM. Tried CBD gummies last week but they didn't help. No other meds tried for insomnia except melatonin. SLEEP HYGIENE QUESTIONS: Time it takes to fall sleep : long long time around 130 AM. gets up at 5 AM, she doesn't usually hear him. She is setting alarm for 7 AM but finding it hard to get up then. Number of times patient wakes up per night : if she wakes to urinate she is able to fall back asleep. Estimated total sleep time ( in a 24 hour period of time) : 5 Naps : No VICKIE AHI 8.2 on HSATin 07/2023 PATIENT-ENTERED QUESTIONNAIRE SLEEP SCORES 04/01/2022 PHQ-9 Score 13 10/16/2020 03/31/2023 PROMIS Global Health - (T-Scores - the mean of general population = 50. Five points is a clinically meaningful difference.) Physical T-Score 32.4 34.9 Mental T-Score 38.8 43.5 ALLERGIES Allergen Reactions Codeine Vomiting Nausea and vomiting Dust Mites Unknown Fosamax [Alendronat* Other: See Comments Chest pain Loratadine-Pseudoep* Other: See Comments Palpitations and jittery Mold Unknown Relafen [Nabumetone] Unknown Trees Unknown CURRENT MEDICATIONS: atorvastatin (LIPITOR) 20 mg tablet Take 1 tablet by mouth daily at bedtime. For cholesterol. Benzonatate 200 mg capsule Take 1 capsule by mouth three times a day as needed. omeprazole (PRILOSEC) 40 mg capsule Take 1 capsule by mouth once daily. tocilizumab (ACTEMRA) 162 mg/0.9 mL Inject 0.9 mL subcutaneously one time a week. Per Rheumatology fluticasone (FLONASE) 50 mcg/actuation nasal spray Use 1 [place] in each nostril twice daily. Rinse mouth after use. Cholecalciferol, Vitamin D3, 50 mcg (2,000 unit) cap Take 1 capsule by mouth once daily. calcium carbonate/vitamin D3 (CALCIUM-D ORAL) Take by mouth once daily. traZODone (DESYREL) 100 mg tablet Take 1/2 to 1 tablet by mouth at bedtime for insomnia. PHYSICAL EXAMINATION: Vital Signs: BP 121/84 Pulse 99 Resp 16 Wt 76.3 kg (168 lb 3.4 oz) LMP 12/30/2007 SpO2 97% BMI 26.35 kg/m? PHYSICAL EXAM: General appearance: pleasant, NAD Mental status: alert and oriented, able to provide own history Constitutional: WNL Skin: No visible rashes on exposed skin Neuro: No focal deficits observed, no tremors IMPRESSION: Chronic insomnia (primary encounter diagnosis) Windy Iniguez is a 63 year old female with chronic insomnia, VICKIE Some increased stress since losing COBRA and will need to find insurance coverage until she can go on Medicare We will stop doxepin and switch to trazodone Rx trazodone 50-100 mg at HS Continue with online [facility] program She did look up PAP therapy, thinks it would be difficult to tolerate but is willing to consider Follow up 3 mos Morgan Bey APRN.INTERNAL AUDITOR [facility] 02-17-2024 Telephone encounter Note Please see pt's message regarding rash. Zoraida Taylor LPN [facility] 02-17-2024 Miscellaneous Notes Please see pt's message regarding rash. Zoraida Taylor LPN documented in this encounter [facility] 02-13-2024 Note HNO ID: [id number] Author: ERIC ESTEVES MD Service: ? Author Type: Physician Type: Progress Notes Filed: 02/13/2024 14:22 Note Text: Chief Complaint Patient presents with: Rash HPI Windy Iniguez is a 63 year old female who presents here today for rash on legs.. Patient with Hx of GERD, RA seeing Rheum, situational depression, past Hx of breast cancer, insomnia, Vit D def, osteoporosis as well as those below. Rash started upper part of the left anterior lateral part maybe in December/January and then a few weeks later started to get it on the right anterior thigh. Thinks she may have a few spots on her upper inner arms. Denies any itching. Patient tried OTC cortisone with no improvement. Her doxepin was increased to 20 mg QHS on 11/10/2023 and her Lipitor was increased from 10 mg to 20 mg on 01/08/2024. Past medical history, appointments, medications, allergies reviewed. Previous Medical History PAST MEDICAL HISTORY 09/22/2018: Arthritis of right knee No date: Carcinoma in situ of breast Comment: LEFT 05/27/2014: CMC arthritis, thumb, degenerative No date: Diffuse cystic mastopathy 09/17/2023: Encounter for screening mammogram for breast cancer 04/01/2022: GERD without esophagitis 09/28/2019: Inflammatory arthritis Comment: Seeing Dr. Doss ([facility]) 03/07/2015: Insomnia No date: Internal hemorrhoids without mention of complication 04/16/2023: REINA (nonalcoholic steatohepatitis) 08/10/2023: VICKIE (obstructive sleep apnea) Comment: Consult Sleep Med 07/2023. 10/09/2018: Osteoporosis of lumbar spine 12/13/2016: Personal history of malignant neoplasm of breast 08/13/2021: Right elbow pain Comment: Seeing [facility] ortho 04/01/2022: Situational depression 04/02/2023: Skin cancer screening Comment: Sees Derm 09/28/2014: Urethral stenosis 09/19/2022: Vitamin D deficiency 12/06/2020: Well adult exam Comment: Last Done: 10/17/[address] Esteves ([facility]) Previous Surgical History PAST SURGICAL HISTORY 10/16/2017: APPENDECTOMY 10/07/2022: COLONOSCOPY Comment: repeat in 10 years 05/06/2011: COLONOSCOPY FLX DX W/COLLJ SPEC WHEN PFRMD 09/21/2014: CYSTOSCOPY 06/30/2008: INJ RADIOACTIVE TRACER FOR ID OF SENTINEL NODE Comment: LEFT BREAST 06/30/2008: MASTECTOMY,PARTIAL, WITH AXILLARY LYMPHADENECTOMY Comment: LEFT BREAST, lumpectomy- cancerious No date: PAST SURGICAL HISTORY OF Comment: Lissette 06/24/2011: PAST SURGICAL HISTORY OF Comment: Excisional biopsy right forearm- benign 07/11/2015: PAST SURGICAL HISTORY OF Comment: left trigger thumb release 06/30/2008: PREOP PLACEMENT NEEDLE LOC Comment: LEFT BREAST 04/13/2011: PUNCH BIOPSY B/O Comment: Right forearm 06/01/2008: STEREOTACTIC CORE BIOPSY Comment: left No date: TONSILLECTOMY PRIMARY/SECONDARY 01/12/2008: TOTAL ABDOMINAL HYSTERECT W/WO RMVL TUBE OVARY Comment: Hysterectomy, BLANCA BSO Family History FAMILY HISTORY Problem Relation Age of Onset Cancer Father LIVER AND PANCREAS other (ASHD [Other]) Sister defibrillator Breast Cancer Paternal Grandmother Cancer Maternal Grandfather LUNG Arthritis Mother Patient Allergies ALLERGIES Allergen Reactions Codeine Vomiting Nausea and vomiting Dust Mites Unknown Fosamax [Alendronat* Other: See Comments Chest pain Loratadine-Pseudoep* Other: See Comments Palpitations and jittery Mold Unknown Relafen [Nabumetone] Unknown Trees Unknown Current Medications Current Outpatient Medications on File Prior to Visit Medication Sig atorvastatin (LIPITOR) 20 mg tablet Take 1 tablet by mouth daily at bedtime. For cholesterol. doxepin capsule 10 mg Take 2 capsules by mouth daily at bedtime. beclomethasone (QVAR REDIHALER) 40 mcg/actuation inhaler Inhale 1 Puff as instructed two times a day. Rinse, guargle and spit after each use. Benzonatate 200 mg capsule Take 1 capsule by mouth three times a day as needed. omeprazole (PRILOSEC) 40 mg capsule Take 1 capsule by mouth once daily. tocilizumab (ACTEMRA) 162 mg/0.9 mL Inject 0.9 mL subcutaneously one time a week. Per Rheumatology fluticasone (FLONASE) 50 mcg/actuation nasal spray Use 1 [place] in each nostril twice daily. Rinse mouth after use. Cholecalciferol, Vitamin D3, 50 mcg (2,000 unit) cap Take 1 capsule by mouth once daily. calcium carbonate/vitamin D3 (CALCIUM-D ORAL) Take by mouth once daily. No current facility-administered medications on file prior to visit. Social History Social History Tobacco Use Smoking status: Never Smokeless tobacco: Never Vaping Use Vaping Use: Never used Substance Use Topics Alcohol use: Yes Comment: socially Drug use: No Review of Symptoms REVIEW OF SYSTEMS See HPI EXAM: BP 136/90 (BP Site: Left Arm, BP Position: Sitting, BP Cuff Size: Regular Adult) Pulse 82 Resp 16 Wt 75.8 kg (167 lb) LMP 12/30/2007 BMI 26.16 kg/m? BP 128/83 Pulse 82 Resp 16 Wt 75.8 kg (167 lb) LMP (more content not included)... [facility] 02-13-2024 History of Presen t illness Narrative Chief Complaint Patient presents with: Rash HPI Windy Iniguez is a 63 year old female who presents here today for rash on legs.. Patient with Hx of GERD, RA seeing Rheum, situational depression, past Hx of breast cancer, insomnia, Vit D def, osteoporosis as well as those below. Rash started upper part of the left anterior lateral part maybe in December/January and then a few weeks later started to get it on the right anterior thigh. Thinks she may have a few spots on her upper inner arms. Denies any itching. Patient tried OTC cortisone with no improvement. Her doxepin was increased to 20 mg QHS on 11/10/2023 and her Lipitor was increased from 10 mg to 20 mg on 01/08/2024. Past medical history, appointments, medications, allergies reviewed. Previous Medical History PAST MEDICAL HISTORY 09/22/2018: Arthritis of right knee No date: Carcinoma in situ of breast Comment: LEFT 05/27/2014: CMC arthritis, thumb, degenerative No date: Diffuse cystic mastopathy 09/17/2023: Encounter for screening mammogram for breast cancer 04/01/2022: GERD without esophagitis 09/28/2019: Inflammatory arthritis Comment: Seeing Dr. Doss ([facility]) 03/07/2015: Insomnia No date: Internal hemorrhoids without mention of complication 04/16/2023: REINA (nonalcoholic steatohepatitis) 08/10/2023: VICKIE (obstructive sleep apnea) Comment: Consult Sleep Med 07/2023. 10/09/2018: Osteoporosis of lumbar spine 12/13/2016: Personal history of malignant neoplasm of breast 08/13/2021: Right elbow pain Comment: Seeing [facility] ortho 04/01/2022: Situational depression 04/02/2023: Skin cancer screening Comment: Sees Derm 09/28/2014: Urethral stenosis 09/19/2022: Vitamin D deficiency 12/06/2020: Well adult exam Comment: Last Done: 10/17/[address] Esteves ([facility]) Previous Surgical History PAST SURGICAL HISTORY 10/16/2017: APPENDECTOMY 10/07/2022: COLONOSCOPY Comment: repeat in 10 years 05/06/2011: COLONOSCOPY FLX DX W/COLLJ SPEC WHEN PFRMD 09/21/2014: CYSTOSCOPY 06/30/2008: INJ RADIOACTIVE TRACER FOR ID OF SENTINEL NODE Comment: LEFT BREAST 06/30/2008: MASTECTOMY,PARTIAL, WITH AXILLARY LYMPHADENECTOMY Comment: LEFT BREAST, lumpectomy- cancerious No date: PAST SURGICAL HISTORY OF Comment: Novasure 06/24/2011: PAST SURGICAL HISTORY OF Comment: Excisional biopsy right forearm- benign 07/11/2015: PAST SURGICAL HISTORY OF Comment: left trigger thumb release 06/30/2008: PREOP PLACEMENT NEEDLE LOC Comment: LEFT BREAST 04/13/2011: PUNCH BIOPSY B/O Comment: Right forearm 06/01/2008: STEREOTACTIC CORE BIOPSY Comment: left No date: TONSILLECTOMY PRIMARY/SECONDARY <AGE 12 01/12/2008: TOTAL ABDOMINAL HYSTERECT W/WO RMVL TUBE OVARY Comment: Hysterectomy, BLANCA BSO Family History FAMILY HISTORY Problem Relation Age of Onset Cancer Father LIVER AND PANCREAS other (ASHD [Other]) Sister defibrillator Breast Cancer Paternal Grandmother Cancer Maternal Grandfather LUNG Arthritis Mother Patient Allergies ALLERGIES Allergen Reactions Codeine Vomiting Nausea and vomiting Dust Mites Unknown Fosamax [Alendronat* Other: See Comments Chest pain Loratadine-Pseudoep* Other: See Comments Palpitations and jittery Mold Unknown Relafen [Nabumetone] Unknown Trees Unknown Current Medications Current Outpatient Medications on File Prior to Visit Medication Sig atorvastatin (LIPITOR) 20 mg tablet Take 1 tablet by mouth daily at bedtime. For cholesterol. doxepin capsule 10 mg Take 2 capsules by mouth daily at bedtime. beclomethasone (QVAR REDIHALER) 40 mcg/actuation inhaler Inhale 1 Puff as instructed two times a day. Rinse, guargle and spit after each use. Benzonatate 200 mg capsule Take 1 capsule by mouth three times a day as needed. omeprazole (PRILOSEC) 40 mg capsule Take 1 capsule by mouth once daily. tocilizumab (ACTEMRA) 162 mg/0.9 mL Inject 0.9 mL subcutaneously one time a week. Per Rheumatology fluticasone (FLONASE) 50 mcg/actuation nasal spray Use 1 [place] in each nostril twice daily. Rinse mouth after use. Cholecalciferol, Vitamin D3, 50 mcg (2,000 unit) cap Take 1 capsule by mouth once daily. calcium carbonate/vitamin D3 (CALCIUM-D ORAL) Take by mouth once daily. No current facility-administered medications on file prior to visit. Social History Social History Tobacco Use Smoking status: Never Smokeless tobacco: Never Vaping Use Vaping Use: Never used Substance Use Topics Alcohol use: Yes Comment: socially Drug use: No Review of Symptoms REVIEW OF SYSTEMS See HPI EXAM: BP 136/90 (BP Site: Left Arm, BP Position: Sitting, BP Cuff Size: Regular Adult) Pulse 82 Resp 16 Wt 75.8 kg (167 lb) LMP 12/30/2007 BMI 26.16 kg/m BP 128/83 Pulse 82 Resp 16 Wt 75.8 kg (167 lb) LMP 12/30/2007 BMI 26.16 kg/m General Appearance: Well appearing, alert, in no acute distress, well-hydrated, well nourished.. Skin: has very small (less then a pin head) round erythematous papules with a small white protruding part (like Skin) that makes them feel ruff on the anterior thighs and upper inner arms. They do not jp.. Health Maintenance List Anxiety Screening Never done RSV Vaccine(1 - 1-dose 60+ series) Never done Covid-19 Vaccine( season) due on 07/02/2023 Mammogram Screening due on 12/03/2023 Influenza Vaccine(1) due on 03/14/2024 Diabetes Screening due on 03/19/2026 Lipid Screening due on 01/06/2029 DTaP,Tdap,Td Vaccine(4 - Td or Tdap) due on 06/18/2032 Colorectal Cancer Screening due on 10/07/2032 Pneumococcal Vaccine Completed Cervical Cancer Screening Discontinued Hepatitis C Screening Discontinued HIV Screening Discontinued Shingrix Vaccine Discontinued Data reviewed A/P ASSESSMENT/PLAN: 1. Rash - ICD9: 782.1, ICD10: R21 - possible drug reaction to the lipitor. Will have her stop this. Do not feel she needs steroids at this tie since not sever not itchy or painful. F/u in a month to recheck. Eric Esteves MD documented in this encounter [facility] 01-08-2024 Telephone encounter Note The following approved medication requests have been transmitted electronically. Requested Prescriptions Signed Prescriptions Disp Refills atorvastatin (LIPITOR) 20 mg tablet 90 tablet 1 Sig: Take 1 tablet by mouth daily at bedtime. For cholesterol. Authorizing Provider: ERIC ESTEVES MD [facility] 01-08-2024 Miscellaneous Notes The following approved medication requests have been transmitted electronically. Requested Prescriptions Signed Prescriptions Disp Refills atorvastatin (LIPITOR) 20 mg tablet 90 tablet 1 Sig: Take 1 tablet by mouth daily at bedtime. For cholesterol. Authorizing Provider: ERIC ESTEVES MD Pt called and is notified of providers results and instructions. Pt voices understanding. She states she will go up to the [address] Lip[address] if [address] Esteves thinks she needs to. Pt was told to take two of the 10 mg to reach the dose, and then when she picks up the new prescription she will only have to take one. The patient has been identified by name and date of : Yes Caregiver verified no other encounters exist for this prescription request: Yes Caregiver confirmed with patient/requestor that no other refills are due, in the near future, with this provider at this time: Yes The last office visit in the department: 11/17/2023 Does the patient have a future office visit with this provider/department: Yes 04/06/2024 Requested Prescriptions Pending Prescriptions Disp Refills atorvastatin (LIPITOR) 20 mg tablet Sig: Take 1 tablet by mouth daily at bedtime. For cholesterol. Maricruz Sherman RN January 08, 2024 9:07 AM Let patient know her lipid panel is much better and her liver function are both improved with one being back to normal. See if she is ok is I increase the Lipitor to 20 mg a day? documented in this encounter [facility] 01-08-2024 Telephone encounter Note Pt called and is notified of providers results and instructions. Pt voices understanding. She states she will go up to the [address] Esteves thinks she needs to. Pt was told to take two of the 10 mg to reach the dose, and then when she picks up the new prescription she will only have to take one. The patient has been identified by name and date of : Yes Caregiver verified no other encounters exist for this prescription request: Yes Caregiver confirmed with patient/requestor that no other refills are due, in the near future, with this provider at this time: Yes The last office visit in the department: 11/17/2023 Does the patient have a future office visit with this provider/department: Yes 04/06/2024 Requested Prescriptions Pending Prescriptions Disp Refills atorvastatin (LIPITOR) 20 mg tablet Sig: Take 1 tablet by mouth daily at bedtime. For cholesterol. Maricruz Sherman RN January 08, 2024 9:07 AM [facility] 01-07-2024 Telephone encounter Note Let patient know her lipid panel is much better and her liver function are both improved with one being back to normal. See if she is ok is I increase the Lipitor to 20 mg a day? [facility] 12-15-2023 Telephone encounter Note Patient notified and voiced understanding. Sg Ba MA [facility] 12-15-2023 Miscellaneous Notes Patient notified and voiced understanding. Sg Ba MA Let patient know mammogram was ok. documented in this encounter [facility] 12-14-2023 Telephone encounter Note Let patient know mammogram was ok. [facility] 12-12-2023 History of Presen t illness Narrative Scan on 12/11/2023 12:48 PM by Provider, NIURKA Guerra: Mammography Estella Araiza LPN documented in this encounter [facility] 11-18-2023 Telephone encounter Note Pt notified and verbalized understanding Kiara Bunch MA [facility] 11-18-2023 Miscellaneous Notes Pt notified and verbalized understanding Kiara Bunch MA Please let patient know her potassium has returned to normal. documented in this encounter [facility] 11-18-2023 Telephone encounter Note Please let patient know her potassium has returned to normal. [facility] Work Phone: 11-17-2023 History of Presen t illness Narrative Chief Complaint Patient presents with: ER F/U HPI Windy Iniguez is a 63 year old female who presents here today for Above Complaints.. Patient presents for ER follow up. Patient reports she was seen 11/14 and was diagnosed with a recently passed kidney stone. Urine culture from ER is pending. Patient reports continued bladder pressure and urinary frequency. Patient was not started on antibiotics in ER. Past medical history, appointments, medications, allergies reviewed. 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 Doss ([facility]) Insomnia 03/07/2015 Internal hemorrhoids without mention of complication REINA (nonalcoholic steatohepatitis) 04/16/2023 VICKIE (obstructive sleep apnea) 08/10/2023 Consult Sleep Med 07/2023. Osteoporosis of lumbar spine 10/09/2018 Personal history of malignant neoplasm of breast 12/13/2016 Right elbow pain 08/13/2021 Seeing [facility] ortho Situational depression 04/01/2022 Skin cancer screening 04/02/2023 Sees Derm Urethral stenosis 09/28/2014 Vitamin D deficiency 09/19/2022 Well adult exam 12/06/2020 Last Done: 10/17/[address] Esteves ([facility]) Previous Surgical History PAST SURGICAL HISTORY Procedure Laterality Date APPENDECTOMY 10/16/2017 COLONOSCOPY 10/07/2022 repeat in 10 years COLONOSCOPY FLX DX W/COLLJ SPEC WHEN PFRMD 05/06/2011 CYSTOSCOPY 09/21/2014 INJ RADIOACTIVE TRACER FOR ID OF SENTINEL NODE 06/30/2008 LEFT BREAST MASTECTOMY,PARTIAL, WITH AXILLARY LYMPHADENECTOMY 06/30/2008 LEFT BREAST, lumpectomy- cancerious PAST SURGICAL HISTORY OF Novasure PAST SURGICAL HISTORY OF 06/24/2011 Excisional biopsy right forearm- benign PAST SURGICAL HISTORY OF 07/11/2015 left trigger thumb release PREOP PLACEMENT NEEDLE LOC 06/30/2008 LEFT BREAST PUNCH BIOPSY B/O 04/13/2011 Right forearm STEREOTACTIC CORE BIOPSY 06/01/2008 left TONSILLECTOMY PRIMARY/SECONDARY <AGE 12 TOTAL ABDOMINAL HYSTERECT W/WO RMVL TUBE OVARY 01/12/2008 Hysterectomy, BLANCA BSO Family History FAMILY HISTORY Problem Relation Age of Onset Cancer Father LIVER AND PANCREAS other (ASHD [Other]) Sister defibrillator Breast Cancer Paternal Grandmother Cancer Maternal Grandfather LUNG Arthritis Mother Patient Allergies ALLERGIES Allergen Reactions Codeine Vomiting Nausea and vomiting Dust Mites Unknown Fosamax [Alendronat* Other: See Comments Chest pain Loratadine-Pseudoep* Other: See Comments Palpitations and jittery Mold Unknown Relafen [Nabumetone] Unknown Trees Unknown Current Medications Current Outpatient Medications on File Prior to Visit Medication Sig doxepin capsule 10 mg Take 2 capsules by mouth daily at bedtime. beclomethasone (QVAR REDIHALER) 40 mcg/actuation inhaler Inhale 1 Puff as instructed two times a day. Rinse, guargle and spit after each use. Benzonatate 200 mg capsule Take 1 capsule by mouth three times a day as needed. atorvastatin (LIPITOR) 10 mg tablet Take 1 tablet by mouth daily at bedtime. For cholesterol. omeprazole (PRILOSEC) 40 mg capsule Take 1 capsule by mouth once daily. tocilizumab (ACTEMRA) 162 mg/0.9 mL Inject 0.9 mL subcutaneously one time a week. Per Rheumatology fluticasone (FLONASE) 50 mcg/actuation nasal spray Use 1 [place] in each nostril twice daily. Rinse mouth after use. Cholecalciferol, Vitamin D3, 50 mcg (2,000 unit) cap Take 1 capsule by mouth once daily. calcium carbonate/vitamin D3 (CALCIUM-D ORAL) Take by mouth once daily. No current facility-administered medications on file prior to visit. Social History Social History Tobacco Use Smoking status: Never Smokeless tobacco: Never Vaping Use Vaping Use: Never used Substance Use Topics Alcohol use: Yes Comment: socially Drug use: No Review of Symptoms REVIEW OF SYSTEMS SEE HPI EXAM: BP 125/82 Pulse 87 Resp 16 Wt 74.8 kg (165 lb) LMP 12/30/2007 BMI 25.84 kg/m General Appearance: Well appearing, alert, in no acute distress, well-hydrated, well nourished. Abdomen: Normal abdominal exam, Abdomen soft, non-tender. Bowel sounds normal. No masses, organomegaly. Health Maintenance List RSV Vaccine(1 - 1-dose 60+ series) Never done Covid-19 Vaccine(2022- season) due on 07/02/2023 Mammogram Screening due on 12/03/2023 Diabetes Screening due on 03/19/2026 Lipid Screening due on 09/01/2028 DTaP,Tdap,Td Vaccine(4 - Td or Tdap) due on 06/18/2032 Colorectal Cancer Screening due on 10/07/2032 Influenza Vaccine Completed Pneumococcal Vaccine Completed Pap Testing Discontinued HPV Testing Discontinued Hepatitis C Screening Discontinued HIV Screening Discontinued Shingrix Vaccine Discontinued ASSESSMENT/PLAN: 1. Hypokalemia - ICD9: 276.8, ICD10: E87.6 (primary diagnosis) - POTASSIUM 2. Urinary frequency - ICD9: 788.41, ICD10: R35.0 acute - Patient education for prevention given - Patient encouraged to continue with good hydration and symptoms should improve over the next few days as pain is likely residual irritation. - UA DIP, URINE (POC) Devi Ward APRN.INTERNAL AUDITOR documented in this encounter [facility] 11-10-2023 Instructions oMrgan Bey APRN.LETI - 11/10/2023 3:53 PM EDT Images from the original note were not included. Sleep Apnea What is sleep apnea? Sleep apnea is a serious sleep disorder that occurs when a person s breathing is interrupted during sleep. People with untreated sleep apnea stop breathing repeatedly during their sleep, sometimes hundreds of times during the night. There are two types of sleep apnea: obstructive and central. Obstructive sleep apnea (VICKIE) is the more common of the two. Obstructive sleep apnea occurs as repetitive episodes of complete or partial upper airway blockage during sleep. During an apnea episode, the diaphragm and chest muscles work harder as the pressure increases to open the airway. Breathing usually resumes with a loud gasp or body jerk. These episodes can interfere with sound sleep, reduce the flow of oxygen to vital organs, and cause heart rhythm irregularities. In central sleep apnea (CSA), the airway is not blocked but the brain fails to signal the muscles to breathe due to instability in the respiratory control center. Central apnea is named as such because it is related to the function of the central nervous system. Who gets sleep apnea? Sleep apnea occurs in about 25 percent of men and nearly 10 percent of women. Sleep apnea can affect people of all ages, including babies and children and particularly people over the age of forty and those who are overweight. Certain physical traits and clinical features are common in patients with obstructive sleep apnea. These include excessive weight, large neck, and structural abnormalities reducing the diameter of the upper airway, such as nasal obstruction, a low-hanging soft palate, enlarged tonsils, or a small jaw with an overbite. The figures below illustrate the upper airway in normal sleep: (A) person is lying on back, face up, and (B) in obstructive sleep apnea. The arrows indicate complete obstruction in the back of the throat. Normal (A) Sleep apnea (B): What causes sleep apnea? Obstructive sleep apnea is caused by a blockage of the airway, usually when the soft tissues in the rear of the throat collapse during sleep. Central sleep apnea is usually observed in patients with central nervous system dysfunction, such as following a stroke or in patients with neuromuscular diseases like amyotrophic lateral sclerosis. It is also common in patients with heart failure and other forms of cardiac and pulmonary disease. What are the symptoms of sleep apnea? Often the first signs of obstructive sleep apnea are recognized not by the patient, but by the bed partner. Many of those affected have no sleep complaints. The most common symptoms of VICKIE include: Snoring Daytime sleepiness or fatigue Restlessness during sleep Sudden awakenings with a sensation of gasping or choking Dry mouth or sore throat upon awakening Intellectual impairment, such as trouble concentrating, forgetfulness, or irritability Night sweats Sexual dysfunction Headaches People with central sleep apnea more often report recurrent awakenings or insomnia, although they may also experience a choking or gasping sensation with sudden awakenings. Symptoms in children may not be as obvious and include: Poor school performance Sluggishness or sleepiness, often misinterpreted as laziness in the classroom Daytime mouth breathing and swallowing difficulty Inward movement of the ribcage when inhaling Unusual sleeping positions, such as sleeping on the hands and knees, or with the neck hyper-extended Excessive sweating at night Learning and behavioral disorders Bedwetting What are the effects of sleep apnea? If left untreated, sleep apnea can result in a number of health problems including hypertension, stroke, arrhythmias, cardiomyopathy (enlargement of the muscle tissue of the heart), congestive heart failure, diabetes, and heart attacks. In addition, untreated sleep apnea may be responsible for job impairment, work-related accidents, and motor vehicle crashes as well as academic underachievement. How is sleep apnea diagnosed? The diagnosis of sleep apnea is relatively straightforward, based on sleep history and an overnight sleep study called a polysomnogram. Polysomnogram is performed in a sleep laboratory under the direct supervision of a trained technologist. During the test, a variety of body functions, such as the electrical activity of the brain, eye movements, muscle activity, heart rate, breathing patterns, air flow, and blood oxygen levels are recorded at night during sleep. After the study is completed, the number of times breathing is impaired during sleep is tallied and the severity of sleep apnea is graded. In some cases, a multiple sleep latency test is performed on the day after the overnight test to measure the speed of falling asleep. In this test, patients are given several opportunities to fall asleep during the course of a day when they normally would be awake. If you have symptoms of sleep apnea, your doctor may ask you to have a sleep evaluation in a sleep disorder center. What are the treatments for sleep apnea? Conservative treatments: In mild cases of sleep apnea, conservative therapy may be all that is needed. Overweight persons can benefit from losing weight. Even a ten percent weight loss can reduce the number of apneic events for most patients. Individuals with apnea should avoid the use of alcohol and sleeping pills, which make the airway more likely to collapse during sleep and prolong the apneic periods. In some patients with mild sleep apnea, breathing pauses occur only when they sleep on their backs. In such cases, using pillows and other devices that help them sleep in a side position may be helpful. People with sinus problems or nasal congestion (such people are more likely to experience sleep apnea) should use nasal sprays or breathing strips to reduce snoring and improve airflow for more comfortable nighttime breathing. Avoiding sleep deprivation is important for all patients with sleep disorders. Mechanical therapy: Continuous Positive Airway Pressure (CPAP) is the preferred initial treatment for most people with obstructive sleep apnea. With CPAP, patients wear a mask over their nose and/or mouth. An air blower forces air through the nose and/or mouth. The air pressure is adjusted so that it is just enough to prevent the upper airway tissues from collapsing during sleep. The pressure is constant and continuous. CPAP prevents airway closure while in use, but apnea episodes return when CPAP is stopped or it is used improperly. Other styles and types of positive airway pressure devices are available for people who have difficulty tolerating CPAP. These include Bilevel Positive Airway Pressure (BiPAP), Auto Positive Airway Pressure (AutoPAP), Auto/Adaptive Servo-Ventilation (ASV), etc Oral appliances: For patients with mild/moderate sleep apnea, dental appliances or oral mandibular advancement devices that prevent the tongue from blocking the throat and/or advance the lower jaw forward can be made. These devices help keep the airway open during sleep. A sleep specialist and commercial real estate underwriter (with expertise in oral appliances for this purpose) should jointly determine if this treatment is best for you. Surgery: Surgical procedures may help people with sleep apnea. There are many types of surgical procedures, some of which are performed as outpatient procedures. Surgery is reserved for people who have excessive or malformed tissue obstructing airflow through the nose or throat, such as a deviated nasal septum, markedly enlarged tonsils, or small lower jaw with an overbite that causes the throat to be abnormally narrow. These procedures are typically performed after sleep apnea has failed to respond to conservative measures and a trial of positive airway pressure treatment. Types of surgery include: Somnoplasty: A minimally invasive procedure that uses radiofrequency energy to reduce the soft tissue in the upper airway. Uvulopalatopharyngoplasty (UPPP): A procedure that removes soft tissue on the back of the throat and palate, increasing the width of the airway at the throat opening. Maxillary/Mandibular advancement surgery: A surgical correction of certain facial abnormalities or throat obstructions that contribute to sleep apnea. This is an invasive procedure that is reserved for patients with severe sleep apnea with head-face abnormalities. Nasal surgery: Correction of nasal obstructions, such as a deviated septum. Hypoglossal nerve stimulator: FDA approved 2013. (Implant that sends a lead that goes to bottom of tongue to stimulate it forward out of the area of the back of the throat) Resources: [facility] Guide to Sleep Disorders by Sabina Humphries DO National Sleep [employer] [address] [place] [id number] [email or web address].[email or web address]/ [place] [employer] [address] [place] [address], [address] [place], [place] [email or web address] To register for GO! to Sleep, visit [email or web address] documented in this encounter [facility] 11-10-2023 History of Presen t illness Narrative Images from the original note were not included. [facility] New Patient Evaluation PATIENT NAME: Windy Iniguez DATE OF SERVICE: November 07, 2023 CONSULTING PROVIDER: Eric Esteves [id number] [facility] [id number] REASON FOR CONSULT: Eric Esteves sends the patient for an opinion about VICKIE. My findings and recommendations will be transmitted electronically via shared medical record to the consulting provider. HPI: Windy Iniguez is a 63 year old female. Sleep-related history: her main concern is insomnia which began at least 2 yrs ago. Diagnosed with VICKIE in 07/2023 but she doesn't feel that is an issue of concern at this time. She was on prednisone for 4 yrs for RA, thought insomnia was due to the prednisone, but off prednisone for more than 6 mos and her insomnia persist. Has had a respiratory infection for the past few weeks. Meds tried: doxepin 10 mg not effective, so then she tried 20 mg which was helpful--able to sleep longer in the morning. Stopped it when she got this respiratory infection. SLEEP-WAKE SCHEDULE Used to go to bed at 9-10 pm. But has delayed going to bed until 11 pm to [place] but still can't fall asleep. Gets out of bed, got to spare room to watch TV, falls asleep 3-4 AM then, sleeps until 7-8 AM. If she awakes in the night she can typically fall back asleep. Rare naps. Average total sleep time (in a 24 hour period): 3-4 hours. SLEEP-RELATED DETAILS Preferred sleep position: side Breathing disturbances and other behaviors during sleep: snoring. Bruxism: Yes GERD or aspiration: Yes. Takes omeprazole every other day. Waking up with heart pounding or racing: No Anxiety or rumination: Yes can't shut mind down when she can't fall asleep She does not report having an urge to move the legs in the evening (when resting) that is accompanied or caused by uncomfortable and/or unpleasant sensations in the legs. She has not been told that she has leg kicking during sleep. She denies any history of parasomnias. Excessive daytime sleepiness / fatigue is a problem. There is no history of a viral illness or significant head injury prior to the start of daytime sleepiness. She does not report sleep paralysis or sleep-related hallucinations or cataplexy WAKE-RELATED DETAILS She does not work. Retired in 2022. She does not have difficulty with memory or concentration. She denies falling asleep or dozing off when driving. She does drink 1 caffeinated beverages per day. There has not been a recent change in weight. Patient Questionnaires Sleep Scores 04/01/2022 PHQ-9 Score 13 03/31/2023 PROMIS Global Health - (T-Scores - the mean of general population = 50. Five points is a clinically meaningful difference.) Physical T-Score 34.9 Mental T-Score 43.5 PAST TREATMENTS: None PRIOR SLEEP STUDIES: A Home Sleep Test (HST) performed on 07/30/23 revealed an AHI of 8.2; supine index of 10.2; and a minimum oxygen saturation of 88%. PAST MEDICAL HISTORY Diagnosis Date Arthritis of right knee 09/22/2018 Carcinoma in situ of breast LEFT CMC arthritis, thumb, degenerative 05/27/2014 Diffuse cystic mastopathy Encounter for screening mammogram for breast cancer 09/17/2023 GERD without esophagitis 04/01/2022 Inflammatory arthritis 09/28/[address] Doss ([facility]) Insomnia 03/07/2015 Internal hemorrhoids without mention of complication REINA (nonalcoholic steatohepatitis) 04/16/2023 VICKIE (obstructive sleep apnea) 08/10/2023 Consult Sleep Med 07/2023. Osteoporosis of lumbar spine 10/09/2018 Personal history of malignant neoplasm of breast 12/13/2016 Right elbow pain 08/13/2021 Seeing [facility] ortho Situational depression 04/01/2022 Skin cancer screening 04/02/2023 Sees Derm Urethral stenosis 09/28/2014 Vitamin D deficiency 09/19/2022 Well adult exam 12/06/2020 Last Done: 10/17/[address] Esteves ([facility]) PAST SURGICAL HISTORY Procedure Laterality Date APPENDECTOMY 10/16/2017 COLONOSCOPY 10/07/2022 repeat in 10 years COLONOSCOPY FLX DX W/COLLJ SPEC WHEN PFRMD 05/06/2011 CYSTOSCOPY 09/21/2014 INJ RADIOACTIVE TRACER FOR ID OF SENTINEL NODE 06/30/2008 LEFT BREAST MASTECTOMY,PARTIAL, WITH AXILLARY LYMPHADENECTOMY 06/30/2008 LEFT BREAST, lumpectomy- cancerious PAST SURGICAL HISTORY OF Novasure PAST SURGICAL HISTORY OF 06/24/2011 Excisional biopsy right forearm- benign PAST SURGICAL HISTORY OF 07/11/2015 left trigger thumb release PREOP PLACEMENT NEEDLE LOC 06/30/2008 LEFT BREAST PUNCH BIOPSY B/O 04/13/2011 Right forearm STEREOTACTIC CORE BIOPSY 06/01/2008 left TONSILLECTOMY PRIMARY/SECONDARY <AGE 12 TOTAL ABDOMINAL HYSTERECT W/WO RMVL TUBE OVARY 01/12/2008 Hysterectomy, BLANCA BSO ACTIVE PROBLEM LIST Carcinoma in Situ of Breast Cmc Arthritis, Thumb, Degenerative Urethral Stenosis Insomnia Personal History of Malignant Neoplasm of Breast Arthritis of Right Knee Osteoporosis of Lumbar Spine Elevated Liver Function Tests Well Adult Exam Right Elbow Pain Encounter for Screening for Diabetes Mellitus Rheumatoid Arthritis of Multiple Sites With Negative Rheumatoid Factor (Hcc) Situational Depression Gerd Without Esophagitis Vitamin D Deficiency Medication Management Skin Cancer Screening Reina (Nonalcoholic Steatohepatitis) Vickie (Obstructive Sleep Apnea) Encounter for Screening Mammogram for Breast Cancer Trigger Ring Finger of Left Hand Allergies As of Date: 11/10/2023 Allergen Noted Reaction CODEINE 01/31/2005 Vomiting DUST MITES 06/14/2005 Unknown FOSAMAX [ALENDRONATE] 12/06/2020 Other: See Comments LORATADINE-PSEUDOEPHEDRINE 08/11/2023 Other: See Comments MOLD 06/14/2005 Unknown RELAFEN [NABUMETONE] 06/14/2005 Unknown TREES 06/14/2005 Unknown Fully Assessed 11/10/2023 CURRENT MEDICATIONS: beclomethasone (QVAR REDIHALER) 40 mcg/actuation inhaler Inhale 1 Puff as instructed two times a day. Rinse, guargle and spit after each use. Benzonatate 200 mg capsule Take 1 capsule by mouth three times a day as needed. atorvastatin (LIPITOR) 10 mg tablet Take 1 tablet by mouth daily at bedtime. For cholesterol. omeprazole (PRILOSEC) 40 mg capsule Take 1 capsule by mouth once daily. tocilizumab (ACTEMRA) 162 mg/0.9 mL Inject 0.9 mL subcutaneously one time a week. Per Rheumatology fluticasone (FLONASE) 50 mcg/actuation nasal spray Use 1 [place] in each nostril twice daily. Rinse mouth after use. Cholecalciferol, Vitamin D3, 50 mcg (2,000 unit) cap Take 1 capsule by mouth once daily. calcium carbonate/vitamin D3 (CALCIUM-D ORAL) Take by mouth once daily. doxepin capsule 10 mg Take 2 capsules by mouth daily at bedtime. Review of Systems Constitutional: Positive for fatigue. Negative for recent unintentional weight change. Cardiovascular: Negative for palpitations. Gastrointestinal: Positive for heartburn. Genitourinary: Negative for nocturia. Neurological: Negative for headaches (no morning headaches). SOCIAL HISTORY: Social History Tobacco Use Smoking status: Never Smokeless tobacco: Never Vaping Use Vaping Use: Never used Substance Use Topics Alcohol use: Yes Comment: socially Drug use: No FAMILY HISTORY: FAMILY HISTORY Problem Relation Age of Onset Cancer Father LIVER AND PANCREAS other (ASHD [Other]) Sister defibrillator Breast Cancer Paternal Grandmother Cancer Maternal Grandfather LUNG Arthritis Mother There is no family history of sleep disorders. PHYSICAL EXAMINATION: Vital Signs: BP 143/86 Pulse 85 Resp 18 Wt 75.9 kg (167 lb 6.4 oz) LMP 12/30/2007 SpO2 97% BMI 26.22 kg/m PHYSICAL EXAM: General appearance: pleasant, NAD Mental status: alert and oriented, able to provide own history Constitutional: WNL Skin: No visible rashes on exposed skin Neuro: No focal deficits observed, no tremors ENT : Posterior airspace: Mccormick tongue position 3, retrognathia present. Overbite present. High arched palate present. Tongue scalloping/ridging present. IMPRESSION/PLAN: F51.04 Chronic insomnia (primary encounter diagnosis) G47.33 VICKIE (obstructive sleep apnea) Windy Iniguez is a 63 year old female with chronic insomnia, VICKIE. PMH of RA, GERD, REINA, breast cancer. Has had sleep onset insomnia for at least 2 yrs; she did get some relief with doxepin 20 mg but stopped when she developed a URI a few weeks ago. Diagnosed with at least mild VICKIE this year. We discussed VICKIE, reviewed her HSAT result, briefly discussed risks of untreated VICKIE, treatment options including dental device and PAP therapy. Will treat insomnia first, then revisit VICKIE. Take doxepin 20 mg at about 9 PM Info re Go To Sleep online CBTI program for insomnia Follow up 3 mos Morgan Bey [email or web address].LETI documented in this encounter [facility] 11-05-2023 Procedure note Procedure(s): TENDON SHEATH INJECT. Pre-Procedure Diagnose(s): Trigger ring finger of left hand Post-Procedure Diagnose(s): Trigger ring finger of left hand UNIVERSAL PROTOCOL / SAFETY CHECKLIST Procedure to be Performed: left ring finger trigger injection Sign In: A Moment of CARE was completed. Personnel directly involved with the procedure wore the appropriate PPE (Personal Protective Equipment). Patient/Surrogate Stated/Verified: PATIENT VERIFIED(optional for EMERGENT procedures): Patient name, Date of , Relevant allergies, and The intended procedure Time Out Communication: Intended patient and procedure match the source documents. Consent documented and matches the intended procedure. Correct side/site marked and visible. Medications required for procedure verified. Sign Out: SIGN OUT (optional for EMERGENT procedures): No specimen collected. Post-procedure follow-up management communicated and Plan of Care Visit completed when applicable. Area over the left palmar ring finger was cleansed with betadine and alcohol. A 25 gauge 5/8 needle was inserted. Aspiration attempted with no blood return. Medication was then injected without any difficulty. Patient tolerated well. Medication: 20 mg kenalog with 0.25 ml of 2% lido without Epi Eric Esteves MD [facility] 11-05-2023 Procedure note Procedure(s): TENDON SHEATH INJECT. Pre-Procedure Diagnose(s): Trigger ring finger of left hand Post-Procedure Diagnose(s): Trigger ring finger of left hand UNIVERSAL PROTOCOL / SAFETY CHECKLIST Procedure to be Performed: left ring finger trigger injection Sign In: A Moment of CARE was completed. Personnel directly involved with the procedure wore the appropriate PPE (Personal Protective Equipment). Patient/Surrogate Stated/Verified: PATIENT VERIFIED(optional for EMERGENT procedures): Patient name, Date of , Relevant allergies, and The intended procedure Time Out Communication: Intended patient and procedure match the source documents. Consent documented and matches the intended procedure. Correct side/site marked and visible. Medications required for procedure verified. Sign Out: SIGN OUT (optional for EMERGENT procedures): No specimen collected. Post-procedure follow-up management communicated and Plan of Care Visit completed when applicable. Area over the left palmar ring finger was cleansed with betadine and alcohol. A 25 gauge 5/8 needle was inserted. Aspiration attempted with no blood return. Medication was then injected without any difficulty. Patient tolerated well. Medication: 20 mg kenalog with 0.25 ml of 2% lido without Epi Eric Esteves MD documented in this encounter [facility] 11-05-2023 History of Presen t illness Narrative Chief Complaint Patient presents with: Trigger Finger HPI Windy Iniguez is a 63 year old female who presents here today for trigger left ring finger trigger injection Patient with Hx of GERD, RA seeing Rheum, situational depression, past Hx of breast cancer, insomnia, Vit D def, osteoporosis as well as those below. Patient is still having cough but improving. Past medical history, appointments, medications, allergies reviewed. 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 Doss ([facility]) Insomnia 03/07/2015 Internal hemorrhoids without mention of complication REINA (nonalcoholic steatohepatitis) 04/16/2023 VICKIE (obstructive sleep apnea) 08/10/2023 Consult Sleep Med 07/2023. Osteoporosis of lumbar spine 10/09/2018 Personal history of malignant neoplasm of breast 12/13/2016 Right elbow pain 08/13/2021 Seeing [facility] ortho Situational depression 04/01/2022 Skin cancer screening 04/02/2023 Sees Derm Urethral stenosis 09/28/2014 Vitamin D deficiency 09/19/2022 Well adult exam 12/06/2020 Last Done: 10/17/[address] Esteves ([facility]) Previous Surgical History PAST SURGICAL HISTORY Procedure Laterality Date APPENDECTOMY 10/16/2017 COLONOSCOPY 10/07/2022 repeat in 10 years COLONOSCOPY FLX DX W/COLLJ SPEC WHEN PFRMD 05/06/2011 CYSTOSCOPY 09/21/2014 INJ RADIOACTIVE TRACER FOR ID OF SENTINEL NODE 06/30/2008 LEFT BREAST MASTECTOMY,PARTIAL, WITH AXILLARY LYMPHADENECTOMY 06/30/2008 LEFT BREAST, lumpectomy- cancerious PAST SURGICAL HISTORY OF Novasure PAST SURGICAL HISTORY OF 06/24/2011 Excisional biopsy right forearm- benign PAST SURGICAL HISTORY OF 07/11/2015 left trigger thumb release PREOP PLACEMENT NEEDLE LOC 06/30/2008 LEFT BREAST PUNCH BIOPSY B/O 04/13/2011 Right forearm STEREOTACTIC CORE BIOPSY 06/01/2008 left TONSILLECTOMY PRIMARY/SECONDARY <AGE 12 TOTAL ABDOMINAL HYSTERECT W/WO RMVL TUBE OVARY 01/12/2008 Hysterectomy, BLANCA BSO Family History FAMILY HISTORY Problem Relation Age of Onset Cancer Father LIVER AND PANCREAS other (ASHD [Other]) Sister defibrillator Breast Cancer Paternal Grandmother Cancer Maternal Grandfather LUNG Arthritis Mother Patient Allergies ALLERGIES Allergen Reactions Codeine Vomiting Nausea and vomiting Dust Mites Unknown Fosamax [Alendronat* Other: See Comments Chest pain Loratadine-Pseudoep* Other: See Comments Palpitations and jittery Mold Unknown Relafen [Nabumetone] Unknown Trees Unknown Current Medications Current Outpatient Medications on File Prior to Visit Medication Sig Benzonatate 200 mg capsule Take 1 capsule by mouth three times a day as needed. atorvastatin (LIPITOR) 10 mg tablet Take 1 tablet by mouth daily at bedtime. For cholesterol. omeprazole (PRILOSEC) 40 mg capsule Take 1 capsule by mouth once daily. doxepin capsule 10 mg Take 1 capsule by mouth daily at bedtime. (Patient not taking: Reported on 09/17/2023) tocilizumab (ACTEMRA) 162 mg/0.9 mL Inject 0.9 mL subcutaneously one time a week. Per Rheumatology fluticasone (FLONASE) 50 mcg/actuation nasal spray Use 1 [place] in each nostril twice daily. Rinse mouth after use. Cholecalciferol, Vitamin D3, 50 mcg (2,000 unit) cap Take 1 capsule by mouth once daily. calcium carbonate/vitamin D3 (CALCIUM-D ORAL) Take by mouth once daily. No current facility-administered medications on file prior to visit. Social History Social History Tobacco Use Smoking status: Never Smokeless tobacco: Never Vaping Use Vaping Use: Never used Substance Use Topics Alcohol use: Yes Comment: socially Drug use: No Review of Symptoms REVIEW OF SYSTEMS See HPI EXAM: BP 120/80 (BP Site: Right Arm, BP Position: Sitting, BP Cuff Size: Regular Adult) Pulse 97 Temp 36.9 C (98.5 F) Resp 18 Wt 75.8 kg (167 lb) LMP 12/30/2007 SpO2 98% BMI 26.16 kg/m General Appearance: Well appearing, alert, in no acute distress, well-hydrated, well nourished.. Health Maintenance List RSV Vaccine(dose 60+ series) Never done Covid-19 Vaccine( season) due on 07/02/2023 Mammogram Screening due on 12/03/2023 Diabetes Screening due on 03/19/2026 Lipid Screening due on 09/01/2028 DTaP,Tdap,Td Vaccine(4 - Td or Tdap) due on 06/18/2032 Colorectal Cancer Screening due on 10/07/2032 Influenza Vaccine Completed Pneumococcal Vaccine Completed Pap Testing Discontinued HPV Testing Discontinued Hepatitis C Screening Discontinued HIV Screening Discontinued Shingrix Vaccine Discontinued Data reviewed A/P ASSESSMENT/PLAN: 1. Trigger ring finger of left hand - ICD9: 727.03, ICD10: M65.342 - discussed steroid injection. Patient in agreement. - consent obtained. - see procedure note section. Eric Esteves MD documented in this encounter [facility] 10-23-2023 Miscellaneous Notes Phoned patient and reviewed message with her. Patient voiced understanding. Let patient know her COVID, RSV and Flu tests were all neg. documented in this encounter [facility] 10-22-2023 History of Presen t illness Narrative Chief Complaint Patient presents with: Cough HPI Windy Iniguez is a 63 year old female who presents here today for a trigger finger injection, but has a dry cough x 1 week. Has been having a dry hacking cough for the last week. No fevers or chills. No ear pain. Slight clear nasal drainage. No facial pain. Slight post nasal drainage. Slightly irritated throat. Chest hurts to cough and take a deep breath. No shortness of breath, wheezing, nausea, vomiting or diarrhea. Because of the medication she is on for her RA her immune system is weakened. Past medical history, appointments, medications, allergies reviewed. 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 Doss ([facility]) Insomnia 03/07/2015 Internal hemorrhoids without mention of complication REINA (nonalcoholic steatohepatitis) 04/16/2023 VICKIE (obstructive sleep apnea) 08/10/2023 Consult Sleep Med 07/2023. Osteoporosis of lumbar spine 10/09/2018 Personal history of malignant neoplasm of breast 12/13/2016 Right elbow pain 08/13/2021 Seeing [facility] ortho Situational depression 04/01/2022 Skin cancer screening 04/02/2023 Sees Derm Urethral stenosis 09/28/2014 Vitamin D deficiency 09/19/2022 Well adult exam 12/06/2020 Last Done: 10/17/2020 Breast exam per Dr. Esteves ([facility]) Previous Surgical History PAST SURGICAL HISTORY Procedure Laterality Date APPENDECTOMY 10/16/2017 COLONOSCOPY 10/07/2022 repeat in 10 years COLONOSCOPY FLX DX W/COLLJ SPEC WHEN PFRMD 05/06/2011 CYSTOSCOPY 09/21/2014 INJ RADIOACTIVE TRACER FOR ID OF SENTINEL NODE 06/30/2008 LEFT BREAST MASTECTOMY,PARTIAL, WITH AXILLARY LYMPHADENECTOMY 06/30/2008 LEFT BREAST, lumpectomy- cancerious PAST SURGICAL HISTORY OF Novasure PAST SURGICAL HISTORY OF 06/24/2011 Excisional biopsy right forearm- benign PAST SURGICAL HISTORY OF 07/11/2015 left trigger thumb release PREOP PLACEMENT NEEDLE LOC 06/30/2008 LEFT BREAST PUNCH BIOPSY B/O 04/13/2011 Right forearm STEREOTACTIC CORE BIOPSY 06/01/2008 left TONSILLECTOMY PRIMARY/SECONDARY <AGE 12 TOTAL ABDOMINAL HYSTERECT W/WO RMVL TUBE OVARY 01/12/2008 Hysterectomy, BLANCA BSO Family History FAMILY HISTORY Problem Relation Age of Onset Cancer Father LIVER AND PANCREAS other (ASHD [Other]) Sister defibrillator Breast Cancer Paternal Grandmother Cancer Maternal Grandfather LUNG Arthritis Mother Patient Allergies ALLERGIES Allergen Reactions Codeine Vomiting Nausea and vomiting Dust Mites Unknown Fosamax [Alendronat* Other: See Comments Chest pain Loratadine-Pseudoep* Other: See Comments Palpitations and jittery Mold Unknown Relafen [Nabumetone] Unknown Trees Unknown Current Medications Current Outpatient Medications on File Prior to Visit Medication Sig atorvastatin (LIPITOR) 10 mg tablet Take 1 tablet by mouth daily at bedtime. For cholesterol. omeprazole (PRILOSEC) 40 mg capsule Take 1 capsule by mouth once daily. doxepin capsule 10 mg Take 1 capsule by mouth daily at bedtime. (Patient not taking: Reported on 09/17/2023) tocilizumab (ACTEMRA) 162 mg/0.9 mL Inject 0.9 mL subcutaneously one time a week. Per Rheumatology fluticasone (FLONASE) 50 mcg/actuation nasal spray Use 1 [place] in each nostril twice daily. Rinse mouth after use. Cholecalciferol, Vitamin D3, 50 mcg (2,000 unit) cap Take 1 capsule by mouth once daily. calcium carbonate/vitamin D3 (CALCIUM-D ORAL) Take by mouth once daily. No current facility-administered medications on file prior to visit. Social History Social History Tobacco Use Smoking status: Never Smokeless tobacco: Never Vaping Use Vaping Use: Never used Substance Use Topics Alcohol use: Yes Comment: socially Drug use: No Review of Symptoms REVIEW OF SYSTEMS See HPI EXAM: BP 120/80 (BP Site: Left Arm, BP Position: Sitting, BP Cuff Size: Regular Adult) Pulse 92 Temp 36.5 C (97.7 F) (Tympanic) Resp 18 Wt 76.2 kg (168 lb) LMP 12/30/2007 SpO2 96% BMI 26.31 kg/m General Appearance: Well appearing, alert, in no acute distress, well-hydrated, well nourished.. Eyes: Anicteric sclera. Pupils are equally round. Extraocular movements are intact. . Ears: External ears, TM's normal, canals clear. Nose/Sinuses: Nares normal, septum midline, no sinus tenderness. Mucus membrane slightly congested and clear nasal drainage. Oropharynx: Lips, mucosa, and tongue normal, teeth and gums normal, oropharynx normal. Neck: Supple, no adenopathy; thyroid symmetric, normal size, no bruits. Lungs: Lungs clear to auscultation. No wheezing, rhonchi, rales.. Heart: RRR without murmur, gallop, or rubs. No ectopy. Abdomen: Normal abdominal exam, Health Maintenance List RSV Vaccine(1 - 1-dose 60+ series) Never done Covid-19 Vaccine(2022- season) due on 07/02/2023 Mammogram Screening due on 12/03/2023 Diabetes Screening due on 03/19/2026 Lipid Screening due on 09/01/2028 DTaP,Tdap,Td Vaccine(4 - Td or Tdap) due on 06/18/2032 Colorectal Cancer Screening due on 10/07/2032 Influenza Vaccine Completed Pneumococcal Vaccine Completed Pap Testing Discontinued HPV Testing Discontinued Hepatitis C Screening Discontinued HIV Screening Discontinued Shingrix Vaccine Discontinued Data reviewed A/P ASSESSMENT/PLAN: 1. Viral illness - ICD9: 079.99, ICD10: B34.9 - Discussed viral etiology and rationale for treatment. - Symptomatic treatment with prn analgesia - Supportive care with fluids and rest - patient given a script for a Z-pack to start if not improving by the weekend or if getting worse. - COVID & INFLUENZA A/B & RSV NAAT, ROUTINE - place on Movable. Requested Prescriptions Signed Prescriptions Disp Refills Benzonatate 200 mg capsule 45 capsule 1 Sig: Take 1 capsule by mouth three times a day as needed. azithromycin (ZITHROMAX Z-JOSHUA) 250 mg tablet 6 tablet 0 Sig: Take 2 tablets day one, then, 1 tablet daily until gone. F/u near future for trigger finger injection. Eric Esteves MD documented in this encounter [facility] 09-17-2023 History of Presen t illness Narrative Chief Complaint Patient presents with: F/U 6 months HPI Windy Iniguez is a 63 year old female who presents here today for 6 month follow up. Patient with Hx of GERD, RA seeing Rheum, situational depression, past Hx of breast cancer, insomnia, Vit D def, osteoporosis as well as those below. Any new concerns today? Right ear still feels plugged; did recently fly. Started as soon as she got off the plan last week. No pain, fevers or chills. Left ring finger; possible trigger finger. Swelling/pain and redness started this past weekend; no known injury. Started over the weekend. Was not working with her hands excessively this past weekend. She saw Rheum yesterday and felt it maybe trigger finger. Patient has noted slight swelling in between the MCP and PIP. No erythema. Finger was popping too. Any recent ER/hospital visits? None Patient sees rheumatology last visit 12/2022 Past medical history, appointments, medications, allergies reviewed. Previous Medical History PAST MEDICAL HISTORY Diagnosis Date Arthritis of right knee 09/22/2018 Carcinoma in situ of breast LEFT CMC arthritis, thumb, degenerative 05/27/2014 Diffuse cystic mastopathy GERD without esophagitis 04/01/2022 Inflammatory arthritis 09/28/[address] Doss ([facility]) Insomnia 03/07/2015 Internal hemorrhoids without mention of complication REINA (nonalcoholic steatohepatitis) 04/16/2023 VICKIE (obstructive sleep apnea) 08/10/2023 Consult Sleep Med 07/2023. Osteoporosis of lumbar spine 10/09/2018 Personal history of malignant neoplasm of breast 12/13/2016 Right elbow pain 08/13/2021 Seeing [facility] ortho Situational depression 04/01/2022 Skin cancer screening 04/02/2023 Sees Derm Urethral stenosis 09/28/2014 Vitamin D deficiency 09/19/2022 Well adult exam 12/06/2020 Last Done: 10/17/[address] Esteves ([facility]) Previous Surgical History PAST SURGICAL HISTORY Procedure Laterality Date APPENDECTOMY 10/16/2017 COLONOSCOPY 10/07/2022 repeat in 10 years COLONOSCOPY FLX DX W/COLLJ SPEC WHEN PFRMD 05/06/2011 CYSTOSCOPY 09/21/2014 INJ RADIOACTIVE TRACER FOR ID OF SENTINEL NODE 06/30/2008 LEFT BREAST MASTECTOMY,PARTIAL, WITH AXILLARY LYMPHADENECTOMY 06/30/2008 LEFT BREAST, lumpectomy- cancerious PAST SURGICAL HISTORY OF Novasure PAST SURGICAL HISTORY OF 06/24/2011 Excisional biopsy right forearm- benign PAST SURGICAL HISTORY OF 07/11/2015 left trigger thumb release PREOP PLACEMENT NEEDLE LOC 06/30/2008 LEFT BREAST PUNCH BIOPSY B/O 04/13/2011 Right forearm STEREOTACTIC CORE BIOPSY 06/01/2008 left TONSILLECTOMY PRIMARY/SECONDARY <AGE 12 TOTAL ABDOMINAL HYSTERECT W/WO RMVL TUBE OVARY 01/12/2008 Hysterectomy, BLANCA BSO Family History FAMILY HISTORY Problem Relation Age of Onset Cancer Father LIVER AND PANCREAS other (ASHD [Other]) Sister defibrillator Breast Cancer Paternal Grandmother Cancer Maternal Grandfather LUNG Arthritis Mother Patient Allergies ALLERGIES Allergen Reactions Codeine Vomiting Nausea and vomiting Dust Mites Unknown Fosamax [Alendronat* Other: See Comments Chest pain Loratadine-Pseudoep* Other: See Comments Palpitations and jittery Mold Unknown Relafen [Nabumetone] Unknown Trees Unknown Current Medications Current Outpatient Medications on File Prior to Visit Medication Sig doxepin capsule 10 mg Take 1 capsule by mouth daily at bedtime. tocilizumab (ACTEMRA) 162 mg/0.9 mL Inject 0.9 mL subcutaneously one time a week. Per Rheumatology omeprazole (PRILOSEC) 40 mg capsule Take 1 capsule by mouth once daily. predniSONE (DELTASONE) 5 mg tablet Take 1-2 tabs a day per Rheum fluticasone (FLONASE) 50 mcg/actuation nasal spray Use 1 [place] in each nostril twice daily. Rinse mouth after use. Cholecalciferol, Vitamin D3, 50 mcg (2,000 unit) cap Take 1 capsule by mouth once daily. mupirocin (BACTROBAN) 2 % ointment Apply to affected area three times daily. calcium carbonate/vitamin D3 (CALCIUM-D ORAL) Take by mouth once daily. No current facility-administered medications on file prior to visit. Social History Social History Tobacco Use Smoking status: Never Smokeless tobacco: Never Vaping Use Vaping Use: Never used Substance Use Topics Alcohol use: Yes Comment: socially Drug use: No Review of Symptoms REVIEW OF SYSTEMS EXAM: BP 118/80 (BP Site: Right Arm, BP Position: Sitting, BP Cuff Size: Regular Adult) Pulse 82 Resp 16 Wt 74.8 kg (165 lb) LMP 12/30/2007 BMI 25.84 kg/m Last 5 Encounter Wt Readings: Date: Wt: 09/17/2023 74.8 kg (165 lb) 04/02/2023 77.8 kg (171 lb 9.6 oz) 11/25/2022 77.6 kg (171 lb 2.4 oz) 10/21/2022 78.6 kg (173 lb 4.8 oz) 10/07/2022 74.8 kg (165 lb) General Appearance: Well appearing, alert, in no acute distress, well-hydrated, well nourished.. Ears: Negative findings: external ears normal to inspection and palpation, Left tympanic membrane normal. Mobility is good, Left tympanic color is carpio, Right tympanic color is carpio, normal light reflex, no fluid behind either TM. Positive findings: R TM: mobility of TM is poor and uncomfortable with testing. Musculoskeletal: there is mild swelling of the area between the MCP and PIP of the left 4th digit. Mild tenderness in this area. No erythema or warmth.. Health Maintenance List RSV Vaccine(1 - 1-dose 60+ series) Never done Covid-19 Vaccine(2022- season) due on 07/02/2023 Mammogram Screening due on 12/03/2023 Diabetes Screening due on 03/19/2026 Lipid Screening due on 09/01/2028 DTaP,Tdap,Td Vaccine(4 - Td or Tdap) due on 06/18/2032 Colorectal Cancer Screening due on 10/07/2032 Influenza Vaccine Completed Pneumococcal Vaccine Completed Pap Testing Discontinued HPV Testing Discontinued Hepatitis C Screening Discontinued HIV Screening Discontinued Shingrix Vaccine Discontinued Data reviewed A/P ASSESSMENT/PLAN: 1. Dysfunction of right eustachian tube - ICD9: 381.81, ICD10: H69.91 (primary diagnosis) - will place on medrol dose pack 2. Encounter for screening mammogram for breast cancer - ICD9: V76.12, ICD10: Z12.31 Check - SINCERE SCREENING 3. Trigger ring finger of left hand - ICD9: 727.03, ICD10: M65.342 - medrol dose pack. Requested Prescriptions Signed Prescriptions Disp Refills omeprazole (PRILOSEC) 40 mg capsule 90 capsule 1 Sig: Take 1 capsule by mouth once daily. methylPREDNISolone (MEDROL, JOSHUA,) 4 mg Dose-Pack 21 tablet 0 Sig: Follow dosing instructions, take with food. F/u routine in 3-4 weeks. Discussed placing on Lipitor 10 mg a day to help with lips and REINA. Patient to consider. Eric Esteves MD documented in this encounter [facility] 04-17-2023 Miscellaneous Notes Patient contacted and scheduled. Sg Ba MA Please help patient schedule an appt in mid September 2023 for f/u REINA. Please see pt's message. Zoraida Taylor LPN documented in this encounter [facility] 04-14-2023 Miscellaneous Notes Pt sent [employer] message notifying her of results and recommendations below from Provider. Annie Gee Ma Please let patient know her US shows fatty liver but is otherwise negative. Patient should work on weight loss and decrease fatty food intake to decrease fatty liver. documented in this encounter [facility] 04-14-2023 History of Presen t illness Narrative Radiology Service Progress Note PATIENT NAME: Windy Iniguez DATE OF SERVICE: April 14, 2023 TIME: 1:58 PM PATIENT IDENTITY VERIFICATION COMPLETED USING TWO (2) IDENTIFIERS: Name and Date of confirmed by patient verbally. FALL SCREENING: Has the patient had 2 falls in the last year or 1 fall with injury or currently using an Ambulatory Assistive Device (Walker, Cane, Wheelchair, Crutches, etc.)? No PATIENT GENDER DATA: Female. status: : No status: NO. PATIENT RELEVANT IMPLANT DATA REVIEWED: Not Applicable RADIOLOGY DEPARTMENT: Ultrasound PERIPHERAL IV DATA: Not applicable SIGNED BY: Beatrice Renae RDMS RVT April 14, 2023 1:58 PM documented in this encounter [facility] 04-02-2023 Instructions Eric Esteves MD - 04/02/2023 10:19 AM EDT Get the flu and COVID on or after 04/26/2023 Check with insurance to see if you can get the shingrix vaccine for shingles and the RSV vaccine. Also see if able to get at doctors office. documented in this encounter [facility] 04-02-2023 History of Presen t illness Narrative Chief Complaint Patient presents with: Physical HPI Windy Iniguez is a 62 year old female who presents here today for Above Complaints.. Patient with Hx of GERD, RA seeing Rheum, situational depression, past Hx of breast cancer, insomnia, Vit D def, osteoporosis as well as those below. Has noted fatigue and thinks it got slightly better with being off the Claritin for the past month. Using the Flonase prn and seems to help this way. Past medical history, appointments, medications, allergies reviewed. Previous Medical History PAST MEDICAL HISTORY Diagnosis Date Arthritis of right knee 09/22/2018 Carcinoma in situ of breast LEFT CMC arthritis, thumb, degenerative 05/27/2014 Diffuse cystic mastopathy GERD without esophagitis 04/01/2022 Inflammatory arthritis 09/28/[address] Doss ([facility]) Insomnia 03/07/2015 Internal hemorrhoids without mention of complication Osteoporosis of lumbar spine 10/09/2018 Personal history of malignant neoplasm of breast 12/13/2016 Right elbow pain 08/13/2021 Seeing [facility] ortho Situational depression 04/01/2022 Urethral stenosis 09/28/2014 Vitamin D deficiency 09/19/2022 Well adult exam 12/06/2020 Last Done: 10/17/[address] Esteves ([facility]) Previous Surgical History PAST SURGICAL HISTORY Procedure Laterality Date APPENDECTOMY 10/16/2017 COLONOSCOPY 10/07/2022 repeat in 10 years COLONOSCOPY FLX DX W/COLLJ SPEC WHEN PFRMD 05/06/2011 CYSTOSCOPY 09/21/2014 INJ RADIOACTIVE TRACER FOR ID OF SENTINEL NODE 06/30/2008 LEFT BREAST MASTECTOMY,PARTIAL, WITH AXILLARY LYMPHADENECTOMY 06/30/2008 LEFT BREAST, lumpectomy- cancerious PAST SURGICAL HISTORY OF Novasure PAST SURGICAL HISTORY OF 06/24/2011 Excisional biopsy right forearm- benign PAST SURGICAL HISTORY OF 07/11/2015 left trigger thumb release PREOP PLACEMENT NEEDLE LOC 06/30/2008 LEFT BREAST PUNCH BIOPSY B/O 04/13/2011 Right forearm STEREOTACTIC CORE BIOPSY 06/01/2008 left TONSILLECTOMY PRIMARY/SECONDARY <AGE 12 TOTAL ABDOMINAL HYSTERECT W/WO RMVL TUBE OVARY 01/12/2008 Hysterectomy, BLANCA BSO Family History FAMILY HISTORY Problem Relation Age of Onset Cancer Father LIVER AND PANCREAS other (ASHD [Other]) Sister defibrillator Breast Cancer Paternal Grandmother Cancer Maternal Grandfather LUNG Arthritis Mother Patient Allergies ALLERGIES Allergen Reactions Claritin-D [Other] Other: See Comments Palpitations and jittery Codeine Vomiting Nausea and vomiting Dust Mites Unknown Fosamax [Alendronat* Other: See Comments Chest pain Mold Unknown Relafen [Nabumetone] Unknown Trees Unknown Current Medications Current Outpatient Medications on File Prior to Visit Medication Sig omeprazole (PRILOSEC) 40 mg capsule Take 1 capsule by mouth once daily. predniSONE (DELTASONE) 5 mg tablet Take 1-2 tabs a day per Rheum fluticasone (FLONASE) 50 mcg/actuation nasal spray Use 1 [place] in each nostril twice daily. Rinse mouth after use. Cholecalciferol, Vitamin D3, 50 mcg (2,000 unit) cap Take 1 capsule by mouth once daily. mupirocin (BACTROBAN) 2 % ointment Apply to affected area three times daily. calcium carbonate/vitamin D3 (CALCIUM-D ORAL) Take by mouth once daily. No current facility-administered medications on file prior to visit. Social History Social History Tobacco Use Smoking status: Never Smokeless tobacco: Never Vaping Use Vaping Use: Never used Substance Use Topics Alcohol use: Yes Comment: socially Drug use: No Review of Symptoms REVIEW OF SYSTEMS GENERAL: No weight loss, malaise or fevers HEENT: Negative for frequent or significant headaches, No changes in hearing or vision, no nose bleeds or other nasal problems. Just her allergies and her ears have not been bothering her. NECK: Negative for lumps, goiter, pain and significant neck swelling RESPIRATORY: Negative for cough, hemoptysis, wheezing, COPD, dyspnea or shortness of breath CARDIOVASCULAR: Negative for chest pain, leg swelling, hypertension, CHF or palpitations GI: No nausea, vomiting, or diarrhea, getting heartburn or reflux symptoms on occasion, and no blood : No history of dysuria, frequency or blood MUSCULOSKELETAL: having some general aches and pains that she was having in the past 4 years and coming off the prednisone SKIN: Negative for lesions, rash, and itching. Seeing derm PSYCH: Negative for mood disorder and recent psychosocial stressors. Still not sleeping well and seems to be sleeping every other night but in the past 7 days she has slept better. She is fatigued daily and never feels refreshed. No waking up chocking. Does snore. HEMATOLOGY/LYMPHOLOGY: Negative for prolonged bleeding, bruising easily or swollen nodes ENDOCRINE: Negative for cold or heat intolerance, polyuria, polydipsia and goiter NEURO: No history of headaches, syncope, paralysis, seizures or tremors EXAM: BP 124/80 Pulse 74 Temp 36.4 C (97.6 F) Resp 16 Ht 170.2 cm (5' 7) Wt 77.8 kg (171 lb 9.6 oz) LMP 12/30/2007 SpO2 96% BMI 26.88 kg/m Last 4 Encounter Wt Readings: Date: Wt: 04/02/2023 77.8 kg (171 lb 9.6 oz) 11/25/2022 77.6 kg (171 lb 2.4 oz) 10/21/2022 78.6 kg (173 lb 4.8 oz) 10/07/2022 74.8 kg (165 lb) General Appearance: Well appearing, alert, in no acute distress, well-hydrated, well nourished.. Skin: sees derm. Head: Normocephalic, no masses, lesions, tenderness or abnormalities. Eyes: Anicteric sclera. Pupils are equally round and reactive to light. Extraocular movements are intact. . Ears: External ears, TM's normal, canals clear. Nose/Sinuses: Nares normal, septum midline, mucosa normal, no drainage or sinus tenderness. Oropharynx: Lips, mucosa, and tongue normal, teeth and gums normal, oropharynx normal. Neck: Supple, no adenopathy; thyroid symmetric, normal size, no bruits. Lungs: Lungs clear to auscultation. No wheezing, rhonchi, rales.. Heart: RRR without murmur, gallop, or rubs. No ectopy. Abdomen: Normal abdominal exam, Abdomen soft, non-tender. Bowel sounds normal. No masses, organomegaly. Extremities: No deformities, edema, skin discoloration, clubbing or cyanosis. Good capillary refill. Musculoskeletal: Muscular strength intact, No joint swelling, deformity, or tenderness. Peripheral Pulses: Normal. Neurologic: Gait normal. Reflexes normal and symmetric. Sensation to light touch and crainal nerves 2-12 intact.. Health Maintenance List Covid-19 Vaccine(6 - Pfizer risk series) due on 05/27/2022 Influenza Vaccine(1) due on 03/14/2023 Mammogram Screening due on 12/03/2023 Diabetes Screening due on 03/19/2026 Lipid Screening due on 03/19/2028 DTaP,Tdap,Td Vaccine(4 - Td or Tdap) due on 06/18/2032 Colorectal Cancer Screening due on 10/07/2032 Pneumococcal Vaccine Completed Pap Testing Discontinued HPV Testing Discontinued Hepatitis C Screening Discontinued HIV Screening Discontinued Shingrix Vaccine Discontinued Data reviewed Component Latest Ref Rng & Units 03/21/2022 03/19/2023 WBC 3.70 - 11.00 k/uL 9.20 5.10 RBC 3.90 - 5.20 m/uL 4.85 4.72 Hemoglobin 11.5 - 15.5 g/dL 14.4 14.8 Hematocrit 36.0 - 46.0 % 46.0 46.1 (H) MCV 80.0 - 100.0 fL 94.8 97.7 MCH 26.0 - 34.0 pg 29.7 31.4 MCHC 30.5 - 36.0 g/dL 31.3 32.1 RDW-CV 11.5 - 15.0 % 14.6 13.4 Platelet Count 150 - 400 k/uL 355 253 MPV 9.0 - 12.7 fL 10.3 11.5 Neut% % 59.5 52.7 Abs Neut (ANC) 1.45 - 7.50 k/uL 5.48 2.69 Lymph% % 28.0 31.0 Abs Lymph 1.00 - 4.00 k/uL 2.58 1.58 Hickman% % 9.8 11.8 Abs [place]man <0.87 k/uL 0.90 (H) 0.60 Eosin% % 1.2 3.1 Abs Eosin <0.46 k/uL 0.11 0.16 Baso% % 0.7 1.0 Abs Baso <0.11 k/uL 0.06 0.05 Immature Gran % % 0.8 0.4 IMMATURE GRANS (ABS) <0.10 k/uL 0.07 <0.03 NRBC /100 WBC 0.0 0.0 Absolute nRBC <0.01 k/uL <0.01 <0.01 DTYPE Auto Auto Protein, Total 6.3 - 8.0 g/dL 6.7 6.6 Albumin 3.9 - 4.9 g/dL 4.3 4.7 Calcium 8.5 - 10.2 mg/dL 9.4 9.6 Bilirubin, Total 0.2 - 1.3 mg/dL 0.5 0.6 Alkaline Phosphatase 34 - 123 U/L 84 98 AST 13 - 35 U/L 36 (H) 62 (H) ALT 7 - 38 U/L 59 (H) 99 (H) Glucose 74 - 99 mg/dL 79 102 (H) BUN 7 - 21 mg/dL 11 13 Creatinine 0.58 - 0.96 mg/dL 0.75 0.88 Sodium 136 - 144 mmol/L 143 144 Potassium 3.7 - 5.1 mmol/L 3.7 4.1 Chloride 97 - 105 mmol/L 106 (H) 106 (H) CO2 22 - 30 mmol/L 26 25 Anion Gap 9 - 18 mmol/L 11 13 eGFR >=60 mL/min/1.73m 91 74 Total Cholesterol, Nonfasting <200 mg/dL 211 (H) 233 (H) Triglycerides, Nonfasting <150 mg/dL 95 91 HDL Cholesterol, Nonfasting >39 mg/dL 57 62 LDL Cholesterol, Nonfasting <100 mg/dL 135 (H) 153 (H) Non HDL Cholesterol, Nonfasting <130 mg/dL 154 (H) 171 (H) VLDL Cholesterol, Nonfasting <30 mg/dL 19 18 Total Chol/HDL Ratio, Nonfasting <5.10 mg/dL 3.70 3.76 LDL/HDL Ratio, Nonfasting <2.54 mg/dL 2.37 2.47 Hemoglobin A1C 4.3 - 5.6 % 5.6 5.2 Estimated Average Glucose mg/dL 114 103 Vitamin D 25 Hydroxy 31.0 - 80.0 ng/mL 26.5 (L) 35.2 Magnesium 1.7 - 2.3 mg/dL 2.3 A/P ASSESSMENT/PLAN: 1. Well adult exam - ICD9: V70.0, ICD10: Z00.00 (primary diagnosis) - Counseled on healthy diet and regular exercise - Calcium intake with supplements or by diet of 1000 mg/day for under 50, 2371-4081 mg/day for 50+ - Discussed need and benefit for weight loss. BMI 26.88 kg/(m^2) - Follow up for annual exam in one year 2. GERD without esophagitis - ICD9: 530.81, ICD10: K21.9 - Continue treatment with Prilosec 40 mg every day-QOD 3. Rheumatoid arthritis 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 factor (HCC) - ICD9: 714.0, ICD10: M06.09 - management per Rheum 4. Situational depression - ICD9: 309.0, ICD10: F43.21 - improved since retiring. 5. Carcinoma in situ of left breast, unspecified type - ICD9: 233.0, ICD10: D05.92 - last mammo was ok. 6. Insomnia, unspecified type - ICD9: 780.52, ICD10: G47.00 - will see if this improves once off the prednisone totally. 7. Osteoporosis of lumbar spine - ICD9: 733.00, ICD10: M81.0 - Reviewed the need for Calcium and Vitamin D supplements and weight bearing exercise as tolerated - managed per Rheum 8. Elevated liver function tests - ICD9: 790.6, ICD10: R79.89 - check Hepatitis panel and US 9. Skin cancer screening - ICD9: V76.43, ICD10: Z12.83 - sees derm 10. Fatigue, unspecified type - ICD9: 780.79, ICD10: R53.83 Check - TSH BLD - T4 FREE/FREE THYROX 11. Snores - ICD9: 786.09, ICD10: R06.83 Check - HOME SLEEP APNEA TEST (HSAT) 12. Hypersomnolence - ICD9: 780.54, ICD10: G47.10 Check - HOME SLEEP APNEA TEST (HSAT) F/u in a year JESSE Esteves MD documented in this encounter [facility] 12-12-2022 History of Presen t illness Narrative Scan on 12/12/2022 11:29 AM by External Provider, NIURKA: Consultation - Rheumatology documented in this encounter [facility] 12-03-2022 Miscellaneous Notes Patient was notified Zahira Rivas Ma Normal mammogram. Repeat in 1 year. Received pt'a mammogram results. Results on your desk for review. Zoraida Taylor LPN documented in this encounter [facility] 11-21-2022 Miscellaneous Notes Patient has been identified by name and date of : Yes Requested Prescriptions Pending Prescriptions Disp Refills omeprazole (PRILOSEC) 40 mg capsule 90 capsule 1 Sig: Take 1 capsule by mouth once daily. RX INSTRUCTIONS: Patient aware RX will be sent to pharmacy. No need to notify patient. Sg Ba MA [place] 09/2022 Nov 03/2023 Last refill 03/2022 documented in this encounter [facility] 10-21-[address] - 10/21/2022 2:03 PM EDT Get back to meal planning Get to partial liquid protein, watch snacks Continue to work on increasing exercise; do weights twice per week documented in this encounter [facility] 10-21-2022 History of Presen t illness Narrative Nutritional Therapy Re-Assessment Nutrition Diagnosis: Overweight/obesity, related to, excess energy intake and physical inactivity, as evidenced by BMI above normative standard for age and gender RECOMMENDED MALNUTRITION DIAGNOSIS: NO MALNUTRITION IDENTIFIED NUTRITION CARE PLAN: Nutrition Intervention 10/21/2022: modify type and amount of food or beverage Get back to meal planning Get to partial liquid protein, watch snacks Continue to work on increasing exercise; do weights twice per week Nutrition Monitoring & Evaluation: half to one pound weight loss per week Need for Follow up: 4-6 weeks PROGRESS: Interval History: Following as relates to weight gain ,with goal to lose weight. Is now retired, no meal planning or structure yet. Note one pound weight loss per week. Intake noted for eating usually two meals, lately frequent sweets. Beverages appropriate. Has been more active and walknig more with better weather. Note about one pound lost since last visit. Nutrition Intervention 09/16/22 1. Follow partial liquid protein diet; have a nutrition drink 250-300 calories and 10-15 grams protein for breakfast and lunch and a fresh fruit with breakfast and lunch. 2. Have healthy balance dinner of 4 oz lean protein, 2 whole grain starches such as brown rice, whole grain pasta, beans/lesgumes; vegetables as desired and one fresh fruit; add one 100 fly snack, look for protein and fiber. 2. Keep protein lean, 93% lean ground beef, chicken, turkey, fish. Bake broil roast and grill 4. Try a whey protein shake mixed with skim milk or 1% milk 5. Non starchy vegetables unlimited 6. Calorie free beverages only such as Crystal Light , flavored water, [id number] , Minute Maid light lemonade, Propel ) 5. Increase exercise to at least 30 min cardio 5 days per week or as tolerated; add in weight resistance exercise, preferably 2-3 days per week. Try Frannie Vidal for weight resistance (on Youtube) do these 2-3 x per week Actions to implement interventions: Walking for exercise Diet History: Breakfast - less coffee (sweet coffee) Snack - no Lunch - salad kit; Snack - lately rice krispie squares. Might have pérez chips with hummus, quac Dinner - last night ham, corn and scalloped potatoes Snack - yes, last night rice krispie squares and milk Beverages - coffee, milk, water, Alcohol - very rare Vitamins/Supplements - vit D, calcium Activity: Activities of Daily Living: more active now that retired Additional Activity: Moderately active (Moderate intensity exercise: Planned physical activity 3-5 days/week) Walking most days weather permitting for about one mile, working on increasing Anthropometrics: Height: Last 1 Encounter Ht Readings: Date: Ht: 10/21/2022 167.6 cm (5' 6) Current weight: Last 1 Encounter Wt Readings: Date: Wt: 10/21/2022 78.6 kg (173 lb 4.8 oz) Body mass index is 27.97 kg/m . Resting Metabolic Rate: 1366 Malnutrition Screening Significant unintentional weight loss? No Eating less than 75% of usual intake for more than 2 weeks? No Potential Signs of Inflammation: no identifiable sources Nutritional status: Education Materials Provided: None this visit READINESS TO LEARN Cognitive ability: Alert and oriented Motivation to learn: Interested Family support: Unable to assess - Family not present Instruction provided to: Patient Patient learns best by: Individual Instruction Factors affecting learning: None Physical limitations affecting learning: None Likelihood of Adherence: Moderate Referred/Supervised by: Liberty MNCarmelo Billing Type: Re-assess/15 min 2 units SIGNATURE: Cori Liao RD PATIENT NAME: Windy Iniguez DATE: October 21, 2022 TIME: 1:44 PM documented in this encounter [facility] 10-07-2022 History and physical note UPDATED PROCEDURAL SEDATION HISTORY AND PHYSICAL EXAMINATION SERVICE DATE: 10/07/2022 SERVICE TIME: 7:28 AM PHYSICAL EXAM MUST BE COMPLETED ON ADMISSION PROCEDURE: Procedure Indications: The History and Physical (completed in the past 30 days) has been reviewed and the patient has been examined. The contents accurately reflect the patient's condition with the following additions or revisions since the H&P was completed. ASA Class: ASA Class:: Patient with mild systemic disease Examination indicates no changes. AIRWAY: Airway Visualization of Uvula: Yes Mouth opening greater than 2 fingerbreadths: Yes Neck Full Range of Motion: Yes LUNGS: Lungs clear to auscultation CARDIAC: Regular rhythm,Regular rate Provisional Diagnosis/Treatment Plan: screening colonoscopy SEDATION GOAL: Moderate This H&P can be found in the attached. SIGNATURE: Dane Rapp MD PATIENT NAME: Windy Iniguez DATE: October 07, 2022 TIME: 7:27 AM Source Note - Dane Rapp MD - 10/07/2022 7:30 AM EDT Images from the original note were not included. HISTORY AND PHYSICAL Windy Iniguez 1960 REFERRING PHYSICIAN: Eric Esteves MD CHIEF COMPLAINT: Consult (colonoscopy) HPI: The patient is a 61 year old female referred for endoscopy. Windy notes no colon complaints. Patient denies any change in bowel habits, weight changes, blood in stools, black tarry stools or abdominal pain. Denies family history of colon issues. The patient notes no upper GI complaints. Windy has undergone prior endoscopy. Most recent colonoscopy 05/06/[address] Mcdaniels under conscious sedation. Patient was noted to have a tortuous colon. Patient notes issues with nausea with sedation in the past. Denies chest pain, shortness of breath or recent hospitalizations. PAST MEDICAL HISTORY PAST MEDICAL HISTORY Diagnosis Date Arthritis of right knee 09/22/2018 Carcinoma in situ of breast LEFT CMC arthritis, thumb, degenerative 05/27/2014 Diffuse cystic mastopathy GERD without esophagitis 04/01/2022 Inflammatory arthritis 09/28/[address] Doss ([facility]) Insomnia 03/07/2015 Internal hemorrhoids without mention of complication Osteoporosis of lumbar spine 10/09/2018 Personal history of malignant neoplasm of breast 12/13/2016 Situational depression 04/01/2022 Urethral stenosis 09/28/2014 Well adult exam 12/06/2020 Last Done: 10/17/[address] Esteves ([facility]) PAST SURGICAL HISTORY PAST SURGICAL HISTORY Procedure Laterality Date APPENDECTOMY 10/16/2017 COLONOSCOPY FLX DX W/COLLJ SPEC WHEN PFRMD 05/06/2011 CYSTOSCOPY 09/21/2014 INJ RADIOACTIVE TRACER FOR ID OF SENTINEL NODE 06/30/2008 LEFT BREAST MASTECTOMY,PARTIAL, WITH AXILLARY LYMPHADENECTOMY 06/30/2008 LEFT BREAST, lumpectomy- cancerious PAST SURGICAL HISTORY OF Novasure PAST SURGICAL HISTORY OF 06/24/2011 Excisional biopsy right forearm- benign PAST SURGICAL HISTORY OF 07/11/2015 left trigger thumb release PREOP PLACEMENT NEEDLE LOC 06/30/2008 LEFT BREAST PUNCH BIOPSY B/O 04/13/2011 Right forearm STEREOTACTIC CORE BIOPSY 06/01/2008 left TONSILLECTOMY PRIMARY/SECONDARY <AGE 12 TOTAL ABDOMINAL HYSTERECT W/WO RMVL TUBE OVARY 01/12/2008 Hysterectomy, BLANCA BSO CURRENT MEDICATIONS Current Outpatient Medications Medication Sig tocilizumab (ACTEMRA) 162 mg/0.9 mL Inject 0.9 mL subcutaneously one time a week. omeprazole (PRILOSEC) 40 mg capsule Take 1 capsule by mouth once daily. Cholecalciferol, Vitamin D3, 50 mcg (2,000 unit) cap Take 1 capsule by mouth once daily. mupirocin (BACTROBAN) 2 % ointment Apply to affected area three times daily. colchicine 0.6 mg tablet Take 0.6 mg by mouth once daily. predniSONE 5 mg/5 mL solution Take 5 mg by mouth as directed. Melatonin 5 mg cap Take 10 mg by mouth daily at bedtime. calcium carbonate/vitamin D3 (CALCIUM-D ORAL) Take by mouth once daily. No current facility-administered medications for this visit. ALLERGIES: Claritin-D [Other], Codeine, Dust Mites, Fosamax [Alendronate], Mold, Relafen [Nabumetone], and Trees PERSONAL HISTORY: SOCIAL HISTORY Social History Tobacco Use Smoking status: Never Smokeless tobacco: Never Vaping Use Vaping Use: Never used Substance Use Topics Alcohol use: Yes Comment: socially Drug use: No FAMILY HISTORY: FAMILY HISTORY FAMILY HISTORY Problem Relation Age of Onset Cancer Father LIVER AND PANCREAS other (ASHD [Other]) Sister defibrillator Breast Cancer Paternal Grandmother Cancer Maternal Grandfather LUNG Arthritis Mother REVIEW OF SYMPTOMS: The review of systems data was entered by the nurse and reviewed by dc Nursing Notes: Concetta Duong LPN 04/22/2022 8:10 AM Signed REVIEW OF SYSTEMS:denies General: The patient denies fatigue, notes weight loss, denies weight gain, denies feeling hot, and denies feelings of cold. Eyes: The patient denies glaucoma, denies eye injury/surgery, wears glasses or contacts. Ear/Nose/Throat: The patient notes allergies, notes hayfever, denies ear infections, and denies bloody noses. Cardiovascular: The patient denies chest pain, denies heart disease, denies high blood pressure,denies cardiac stent, denies prior heart attack, denies irregular heart beat, denies high cholesterol, denies poor circulation, denies heart failure, other cardiac issues, denies claudication, denies cold feet, denies peripheral arterial stent. Respiratory: The patient denies tuberculosis, denies pneumonia, denies frequent cough, denies pulmonary embolism, denies shortness of breath, and denies coughing up blood. Gastrointestinal: The patient denies difficulty swallowing, notes acid reflux, denies ulcers, denies vomiting, denies jaundice/hepatitis, denies gallbladder problems, denies black or tarry stools, denies hemorrhoids, denies bleeding from rectum, denies diverticulitis, denies constipation, denies diarrhea, denies loss of stool control, and denies hernias. Kidney/Bladder: The patient denies kidney stones, denies urine infections, and denies bloody urine. Skin: The patient denies a history of skin cancer, denies bleeding/changing moles, and denies a history of skin rash. Neurologic: The patient denies a history of epilepsy/convulsions, denies headaches, denies head/spinal injuries, and denies stroke/TIA. Psychiatric: The patient denies psychiatric medications, denies depression, and denies voices, denies substance abuse. Endocrine: The patient denies thyroid disorders, denies diabetes, and denies hormonal problems. Hematologic: The patient denies a history of bruising, denies bleeding, and denies anemia, denies blood clots. Infections: The patient denies a history of measles and mumps, denies rheumatic fever, and denies sexually transmitted diseases. Musculoskeletal: The patient denies back pain/injury, denies back problems, denies sciatica, notes knee/foot trouble, denies arthritis, or denies gout. When was patient's last Mammogram screening? 2021 Last Colonoscopy: 2010 Concetta Duong LPN I have confirmed and edited as necessary, the PFSH and ROS obtained by others. Maricruz Robertson PA-C PHYSICAL EXAMINATION: General: The patient is 61 year old female, well nourished, well hydrated in no acute distress. The patient is oriented to time, place, and person. VITALS: Blood pressure 128/82, pulse 104, temperature 36.6 C (97.8 F), height 167.6 cm (5' 6), weight 77.1 kg (170 lb), last menstrual period 01/19/2008, SpO2 96 %. Body mass index is 27.44 kg/m . HEENT: Normal cephalic, ataumatic, pupils are equally round, sclera are anicteric, mucous membranes are moist, oropharynx is clear. Neck has no masses, asymmetry or lymphadenopathy. Respiratory: Clear to auscultation and percussion. Normal respiratory excursion and pattern. Cardiac: Examination is regular rate and rhythm. Normal S1/S2 Abdominal exam: Soft, nontender, with no palpable masses. No hepatosplenomegaly. No palpable hernias. Extremities: no clubbing, cyanosis or edema. No adenopathy. LABORATORY VALUES: As Noted RADIOLOGIC STUDIES: As Noted Assessment IMPRESSION: encounter for screening colonoscopy PLAN: I have reviewed my findings with the surgeon. Will plan for lower endoscopy. We discussed the risks and benefits of the planned endoscopy. I have informed the patient that complications can occur including failure to complete the endoscopy and perforation. The patient had the opportunity to ask questions concerning the planned endoscopy. My staff has also explained the procedure to the patient in understandable terms and has given the patient printed material concerning the procedure. The patient freely consents to surgery. The patient was offered a surgery/procedure at a [facility] facility. I have counseled the patient regarding the risk of exposure to and/or potential harm posed by the COVID-19 virus with having a surgery/procedure at this time versus the risk of delaying the surgery/procedure. It is not possible to know either the risk of delaying the surgery or procedure or chance of getting an infection with perfect accuracy, but a joint decision was made between the patient and myself to proceed at this time with endoscopy. I plan to use Miralax/Dulcolax bowel preparation with 2 full days of clear liquid diet I have explained to the patient the difference between IV conscious sedation and MAC anesthesia - and I have offered either, according to the patient's wishes. I have explained that with IV conscious sedation there is no anesthesia provider available and therefore there is a limitation of the amount of IV medications that can be given and that the patient may wake up in the middle of the procedure and/or experience pain/discomfort during the procedure. Further discussion was done and the patient was given the opportunity to ask questions and all questions were answered. The patient chooses MAC anesthesia Diagnoses: (Z12.11) Screening for colon cancer (primary encounter diagnosis) (Q43.8) Tortuous colon Consultation requested by Dr. Esteves for an opinion regarding screening colonoscopy. My final recommendations will be communicated back to the requesting physician by way of shared Medical record or letter to requesting physician via US mail. Maricruz Robertson PA-C Images from the original note were not included. HISTORY AND PHYSICAL Windy [place]eth[place] 1960 REFERRING PHYSICIAN: Eric Esteves MD CHIEF COMPLAINT: Consult (colonoscopy) HPI: The patient is a 61 year old female referred for endoscopy. Windy notes no colon complaints. Patient denies any change in bowel habits, weight changes, blood in stools, black tarry stools or abdominal pain. Denies family history of colon issues. The patient notes no upper GI complaints. Windy has undergone prior endoscopy. Most recent colonoscopy 05/06/[address] Mcdaniels under conscious sedation. Patient was noted to have a tortuous colon. Patient notes issues with nausea with sedation in the past. Denies chest pain, shortness of breath or recent hospitalizations. PAST MEDICAL HISTORY PAST MEDICAL HISTORY Diagnosis Date Arthritis of right knee 09/22/2018 Carcinoma in situ of breast LEFT CMC arthritis, thumb, degenerative 05/27/2014 Diffuse cystic mastopathy GERD without esophagitis 04/01/2022 Inflammatory arthritis 09/28/[address] Doss ([facility]) Insomnia 03/07/2015 Internal hemorrhoids without mention of complication Osteoporosis of lumbar spine 10/09/2018 Personal history of malignant neoplasm of breast 12/13/2016 Situational depression 04/01/2022 Urethral stenosis 09/28/2014 Well adult exam 12/06/2020 Last Done: 10/17/[address] Esteves ([facility]) PAST SURGICAL HISTORY PAST SURGICAL HISTORY Procedure Laterality Date APPENDECTOMY 10/16/2017 COLONOSCOPY FLX DX W/COLLJ SPEC WHEN PFRMD 05/06/2011 CYSTOSCOPY 09/21/2014 INJ RADIOACTIVE TRACER FOR ID OF SENTINEL NODE 06/30/2008 LEFT BREAST MASTECTOMY,PARTIAL, WITH AXILLARY LYMPHADENECTOMY 06/30/2008 LEFT BREAST, lumpectomy- cancerious PAST SURGICAL HISTORY OF Novasure PAST SURGICAL HISTORY OF 06/24/2011 Excisional biopsy right forearm- benign PAST SURGICAL HISTORY OF 07/11/2015 left trigger thumb release PREOP PLACEMENT NEEDLE LOC 06/30/2008 LEFT BREAST PUNCH BIOPSY B/O 04/13/2011 Right forearm STEREOTACTIC CORE BIOPSY 06/01/2008 left TONSILLECTOMY PRIMARY/SECONDARY <AGE 12 TOTAL ABDOMINAL HYSTERECT W/WO RMVL TUBE OVARY 01/12/2008 Hysterectomy, BLANCA BSO CURRENT MEDICATIONS Current Outpatient Medications Medication Sig tocilizumab (ACTEMRA) 162 mg/0.9 mL Inject 0.9 mL subcutaneously one time a week. omeprazole (PRILOSEC) 40 mg capsule Take 1 capsule by mouth once daily. Cholecalciferol, Vitamin D3, 50 mcg (2,000 unit) cap Take 1 capsule by mouth once daily. mupirocin (BACTROBAN) 2 % ointment Apply to affected area three times daily. colchicine 0.6 mg tablet Take 0.6 mg by mouth once daily. predniSONE 5 mg/5 mL solution Take 5 mg by mouth as directed. Melatonin 5 mg cap Take 10 mg by mouth daily at bedtime. calcium carbonate/vitamin D3 (CALCIUM-D ORAL) Take by mouth once daily. No current facility-administered medications for this visit. ALLERGIES: Claritin-D [Other], Codeine, Dust Mites, Fosamax [Alendronate], Mold, Relafen [Nabumetone], and Trees PERSONAL HISTORY: SOCIAL HISTORY Social History Tobacco Use Smoking status: Never Smokeless tobacco: Never Vaping Use Vaping Use: Never used Substance Use Topics Alcohol use: Yes Comment: socially Drug use: No FAMILY HISTORY: FAMILY HISTORY FAMILY HISTORY Problem Relation Age of Onset Cancer Father LIVER AND PANCREAS other (ASHD [Other]) Sister defibrillator Breast Cancer Paternal Grandmother Cancer Maternal Grandfather LUNG Arthritis Mother REVIEW OF SYMPTOMS: The review of systems data was entered by the nurse and reviewed by dc Nursing Notes: Concetta Duong LPN 04/22/2022 8:10 AM Signed REVIEW OF SYSTEMS:denies General: The patient denies fatigue, notes weight loss, denies weight gain, denies feeling hot, and denies feelings of cold. Eyes: The patient denies glaucoma, denies eye injury/surgery, wears glasses or contacts. Ear/Nose/Throat: The patient notes allergies, notes hayfever, denies ear infections, and denies bloody noses. Cardiovascular: The patient denies chest pain, denies heart disease, denies high blood pressure,denies cardiac stent, denies prior heart attack, denies irregular heart beat, denies high cholesterol, denies poor circulation, denies heart failure, other cardiac issues, denies claudication, denies cold feet, denies peripheral arterial stent. Respiratory: The patient denies tuberculosis, denies pneumonia, denies frequent cough, denies pulmonary embolism, denies shortness of breath, and denies coughing up blood. Gastrointestinal: The patient denies difficulty swallowing, notes acid reflux, denies ulcers, denies vomiting, denies jaundice/hepatitis, denies gallbladder problems, denies black or tarry stools, denies hemorrhoids, denies bleeding from rectum, denies diverticulitis, denies constipation, denies diarrhea, denies loss of stool control, and denies hernias. Kidney/Bladder: The patient denies kidney stones, denies urine infections, and denies bloody urine. Skin: The patient denies a history of skin cancer, denies bleeding/changing moles, and denies a history of skin rash. Neurologic: The patient denies a history of epilepsy/convulsions, denies headaches, denies head/spinal injuries, and denies stroke/TIA. Psychiatric: The patient denies psychiatric medications, denies depression, and denies voices, denies substance abuse. Endocrine: The patient denies thyroid disorders, denies diabetes, and denies hormonal problems. Hematologic: The patient denies a history of bruising, denies bleeding, and denies anemia, denies blood clots. Infections: The patient denies a history of measles and mumps, denies rheumatic fever, and denies sexually transmitted diseases. Musculoskeletal: The patient denies back pain/injury, denies back problems, denies sciatica, notes knee/foot trouble, denies arthritis, or denies gout. When was patient's last Mammogram screening? 2021 Last Colonoscopy: 2010 Concetta Duong LPN I have confirmed and edited as necessary, the PFSH and ROS obtained by others. Maricruz Robertson PA-C PHYSICAL EXAMINATION: General: The patient is 61 year old female, well nourished, well hydrated in no acute distress. The patient is oriented to time, place, and person. VITALS: Blood pressure 128/82, pulse 104, temperature 36.6 C (97.8 F), height 167.6 cm (5' 6), weight 77.1 kg (170 lb), last menstrual period 01/19/2008, SpO2 96 %. Body mass index is 27.44 kg/m . HEENT: Normal cephalic, ataumatic, pupils are equally round, sclera are anicteric, mucous membranes are moist, oropharynx is clear. Neck has no masses, asymmetry or lymphadenopathy. Respiratory: Clear to auscultation and percussion. Normal respiratory excursion and pattern. Cardiac: Examination is regular rate and rhythm. Normal S1/S2 Abdominal exam: Soft, nontender, with no palpable masses. No hepatosplenomegaly. No palpable hernias. Extremities: no clubbing, cyanosis or edema. No adenopathy. LABORATORY VALUES: As Noted RADIOLOGIC STUDIES: As Noted Assessment IMPRESSION: encounter for screening colonoscopy PLAN: I have reviewed my findings with the surgeon. Will plan for lower endoscopy. We discussed the risks and benefits of the planned endoscopy. I have informed the patient that complications can occur including failure to complete the endoscopy and perforation. The patient had the opportunity to ask questions concerning the planned endoscopy. My staff has also explained the procedure to the patient in understandable terms and has given the patient printed material concerning the procedure. The patient freely consents to surgery. The patient was offered a surgery/procedure at a [facility] facility. I have counseled the patient regarding the risk of exposure to and/or potential harm posed by the COVID-19 virus with having a surgery/procedure at this time versus the risk of delaying the surgery/procedure. It is not possible to know either the risk of delaying the surgery or procedure or chance of getting an infection with perfect accuracy, but a joint decision was made between the patient and myself to proceed at this time with endoscopy. I plan to use Miralax/Dulcolax bowel preparation with 2 full days of clear liquid diet I have explained to the patient the difference between IV conscious sedation and MAC anesthesia - and I have offered either, according to the patient's wishes. I have explained that with IV conscious sedation there is no anesthesia provider available and therefore there is a limitation of the amount of IV medications that can be given and that the patient may wake up in the middle of the procedure and/or experience pain/discomfort during the procedure. Further discussion was done and the patient was given the opportunity to ask questions and all questions were answered. The patient chooses MAC anesthesia Diagnoses: (Z12.11) Screening for colon cancer (primary encounter diagnosis) (Q43.8) Tortuous colon Consultation requested by Dr. Esteves for an opinion regarding screening colonoscopy. My final recommendations will be communicated back to the requesting physician by way of shared Medical record or letter to requesting physician via US mail. Maricruz Robertson PA-C documented in this encounter [facility] 09-30-2022 Miscellaneous Notes Images from the original note were not included. Contacted patient for pre-op GI phone call. Patient understands prep, was sent either [employer] and/or Mail. Understands where to report on the day of procedure. All questions answered and or sent to providers office for clarification. Patient understands [employer] arrival time could change and wait for their arrival time call from the facility the day before procedure.Patient understands must have a newspaper delivery driver and or responsible democrat present. Patient was given direct phone number to call ( [phone]) if patient has any further questions or given the option to respond to [employer] message If one was sent (please see below for [employer] message). Please see the prep instructions below. The first set of instructions are over the counter medications that you may chicken picker at any pharmacy. The second set of instructions is by prescription only and will need to be picked up at your pharmacy you provided to your health care team. If you have any questions please contact me directly at [phone] or respond to this [employer] message. . Thank you, Kirk Miralax/Dulcolax Bowel Prep For this bowel preparation you will need to chicken picker the following medications at any pharmacy. Four (4) Dulcolax tablets (generic name Bisacodyl) Please make sure you purchase the Laxative NOT stool Softer. 238 Gram (or 8.3 oz.) Bottle of Miralax (Generic name Polyethylene Glycol) 3 days prior to your procedure, DO NOT EAT HIGH FIBER FOODS Such as popcorn, beans, seeds, nuts, salad and raw veggies, corn, fresh and dried fruit and multi-grain breads. Foods that are good to eat several days before your procedure include but not limited too Lean Chicken breast, fish, Eggs, Soup's YOU MUST BE ON CLEAR LIQUIDS FOR 2 FULL DAYS PRIOR TO PROCEDURE DAY 1 (2 days before your colonoscopy) Clear Liquids all day, you may have water, coffee or tea- NO DAIRY, Clear broth (Beef, Chicken or vegetable) Clear carbonated beverages, apple juice, white grape juice , Gatorade, Jell-O, Jamie-Aid, Gummy Bears, and popsicles. NO DAIRY, TOMATO, OR ORANGE JUICE. NO RED OR PURPLE! DAY 2 - (day before your colonoscopy) SAME DAY 1, Continue clear fluids and then follow the instructions below~ 8:00 AM - Mix the Miralax prep with 64 oz. of Gatorade or any of the clear fluids listed above and place in fridge. 1:00 PM - Take 2 Dulcolax Tablets with 8oz of water 3:00 PM - Start to drink the Miralax mixture. - Finish by midnight 4:00 PM - Take 2 Dulcolax tablets with 8oz of water. You may continue to drink clear liquids while you are taking your prep and after you finish as long as it is before midnight. Drink lots of fluids so you don't become dehydrated. Nothing to drink after midnight unless instructed otherwise by nursing staff and/or physician. Please remember to take your normal medications the morning of your procedure with a small sip of water especially your blood pressure medications. If you are diabetic, you need to contact your physicians regarding how to take your diabetic medications and/or insulin during the prepping period and the day of the procedure. Please see the below Capo instructions. How to prepare for your Colonoscopy using Rafa Your bowel must be empty so that your doctor can clearly view your colon. DO NOT eat any solid food the ENTIRE DAY before your colonoscopy DO NOT MIX the solution until the day before your colonoscopy. The prep is only good for 24 hrs. after it has been mixed A responsible family member or friend MUST come with you to your colonoscopy and REMAIN in the endoscopy area until you are discharged. You are NOT ALLOWED to drive, take a taxi, or leave the Endoscopy Center ALONE. If you do NOT have a responsible newspaper delivery driver (family member or friend) to take you home, your exam cannot be done with sedation and WILL BE cancelled. Please remove all jewelry if possible. Medication Some of the medication may need to be stopped or adjusted before your colonoscopy. Blood thinners - Such as Coumadin, Plavix, Pradaxa and Eliquis. Please contact your physician's office to see if you need to hold this medication prior to your procedure. Insulin or diabetes pills -Please call the doctor that monitors your glucose levels. Your insulin dosage needs to be adjusted due to the diet restrictions required with this bowl preparation. If you take aspirin, take it and ALL other medication prescribed by your doctor. You may take over the counter medications if you have a headache. Please take ALL mediations directed by the ordering physician. Please do not have anything to drink after midnight including water the night before the procedure unless you need to take a sip of water with your morning medications. Five (5) days before your colonoscopy Do not take medications that stop Diarrhea - Imodium, Kaopectate, or Pepto Bismol Do NOT take fiber supplements - Metamucil, Citrucel, FiberCon Do NOT take products that contain iron (check vitamin label) Do NOT take vitamin E. Two (2) to three (3) days before your colonoscopy DO NOT EAT HIGH FIBER FOODS No beans, seeds (flax, sunflower, quinoa), nuts, popcorn, multigrain bread salad/vegetables, or fresh and dried fruit. YOU MAY EAT Lean Chicken breast, fish, eggs, and soup One (1) Day before your colonoscopy ONLY DRINK CLEAR LIQUIDS the ENTIRE DAY BEFORE YOUR COLONOSCOPY. DO NOT EAT ANY SOLID FOODS. Drink at least eight (8) ounces of clear liquids every hour after waking up. Clear fluids include: Water, apple juice, white grape juice, broth (beef, chicken or vegetable), coffee and/or tea (NO DAIRY, MILK OR CREAMER) clear carbonated beverages (sprite, 7-up, balwinder-nidhi), Gatorade, or other sport drinks, Jamie-Aid, Jell-O Gummy Bears and popsicles. NOTHING RED IN COLOR. DO NOT DRINK ALCOHOL the day before or the day of your procedure. Preparing Bowel Prep Follow the instructions on the label. After mixing (warm water so the powder will dissolve), place the solution in the refrigerator. You may either add the flavor packet that comes with the bowel solution or you may use your own (Crystal Light, Jamie-Aid, Flynn, Country Time Lemonade, or any powder flavor that you may mix with water; NOTHING RED). If you use your own flavor, please add flavor glass by glass. You do not want to mix your own flavor in the container as you may over flavor the prep. If you add glass by glass you may also switch flavors during the consumption of your bowel prep. Day Before Your Colonoscopy You may start your bowel prep any time after 1:00 PM before 6:00 PM. Alternate between your bowel prep and clear liquids. You MUST drink the bowel prep until your bowels are COMPLETELY CLEAR (may have a yellowish tint). Please try to drink all of the prep to ensure you are completely cleaned out. If you are unsure if you're Clear , please continue to drink till the bowel prep is gone for best results. Failure to have clear stools may lead to cancellation of your procedure. documented in this encounter [facility] 09-19-2022 Miscellaneous Notes Patient notified via my chart. Sg Ba MA Orders placed. Zenia Lopez PA-C Patient is scheduled in April 02 for Physical. Will need orders prior to appointment. Sg Ba MA documented in this encounter [facility] 09-19-2022 History of Presen t illness Narrative Chief Complaint Patient presents with: Follow Up HPI Windy Iniguez is a 62 year old female who presents here today for follow up on right ear. Patient no longer getting the pressure sensation behind the right ear for the past week Past medical history, appointments, medications, allergies reviewed. Previous Medical History PAST MEDICAL HISTORY Diagnosis Date Arthritis of right knee 09/22/2018 Carcinoma in situ of breast LEFT CMC arthritis, thumb, degenerative 05/27/2014 Diffuse cystic mastopathy GERD without esophagitis 04/01/2022 Inflammatory arthritis 09/28/[address] Doss ([facility]) Insomnia 03/07/2015 Internal hemorrhoids without mention of complication Osteoporosis of lumbar spine 10/09/2018 Personal history of malignant neoplasm of breast 12/13/2016 Situational depression 04/01/2022 Urethral stenosis 09/28/2014 Well adult exam 12/06/2020 Last Done: 10/17/[address] Esteves ([facility]) Previous Surgical History PAST SURGICAL HISTORY Procedure Laterality Date APPENDECTOMY 10/16/2017 COLONOSCOPY FLX DX W/COLLJ SPEC WHEN PFRMD 05/06/2011 CYSTOSCOPY 09/21/2014 INJ RADIOACTIVE TRACER FOR ID OF SENTINEL NODE 06/30/2008 LEFT BREAST MASTECTOMY,PARTIAL, WITH AXILLARY LYMPHADENECTOMY 06/30/2008 LEFT BREAST, lumpectomy- cancerious PAST SURGICAL HISTORY OF Novasure PAST SURGICAL HISTORY OF 06/24/2011 Excisional biopsy right forearm- benign PAST SURGICAL HISTORY OF 07/11/2015 left trigger thumb release PREOP PLACEMENT NEEDLE LOC 06/30/2008 LEFT BREAST PUNCH BIOPSY B/O 04/13/2011 Right forearm STEREOTACTIC CORE BIOPSY 06/01/2008 left TONSILLECTOMY PRIMARY/SECONDARY <AGE 12 TOTAL ABDOMINAL HYSTERECT W/WO RMVL TUBE OVARY 01/12/2008 Hysterectomy, BLANCA BSO Family History FAMILY HISTORY Problem Relation Age of Onset Cancer Father LIVER AND PANCREAS other (ASHD [Other]) Sister defibrillator Breast Cancer Paternal Grandmother Cancer Maternal Grandfather LUNG Arthritis Mother Patient Allergies ALLERGIES Allergen Reactions Claritin-D [Other] Other: See Comments Palpitations and jittery Codeine Vomiting Nausea and vomiting Dust Mites Unknown Fosamax [Alendronat* Other: See Comments Chest pain Mold Unknown Relafen [Nabumetone] Unknown Trees Unknown Current Medications Current Outpatient Medications on File Prior to Visit Medication Sig predniSONE (DELTASONE) 5 mg tablet Take 1-2 tabs a day per Rheum omeprazole (PRILOSEC) 40 mg capsule Take 1 capsule by mouth once daily. Cholecalciferol, Vitamin D3, 50 mcg (2,000 unit) cap Take 1 capsule by mouth once daily. colchicine 0.6 mg tablet Take 0.6 mg by mouth once daily. Melatonin 5 mg cap Take 10 mg by mouth daily at bedtime. calcium carbonate/vitamin D3 (CALCIUM-D ORAL) Take by mouth once daily. fluticasone (FLONASE) 50 mcg/actuation nasal spray Use 1 [place] in each nostril twice daily. Rinse mouth after use. (Patient not taking: Reported on 08/21/2022) Benzonatate 200 mg capsule Take 1 capsule by mouth three times daily as needed. tocilizumab (ACTEMRA) 162 mg/0.9 mL Inject 0.9 mL subcutaneously one time a week. mupirocin (BACTROBAN) 2 % ointment Apply to affected area three times daily. (Patient not taking: Reported on 08/21/2022) No current facility-administered medications on file prior to visit. Social History Social History Tobacco Use Smoking status: Never Smokeless tobacco: Never Vaping Use Vaping Use: Never used Substance Use Topics Alcohol use: Yes Comment: socially Drug use: No Review of Symptoms REVIEW OF SYSTEMS Se HPI EXAM: BP 138/94 (BP Site: Right Arm, BP Position: Sitting, BP Cuff Size: Regular Adult) Pulse 82 Wt 78.5 kg (173 lb) LMP 12/30/2007 BMI 27.92 kg/m General Appearance: Well appearing, alert, in no acute distress, well-hydrated, well nourished.. Ears: External ears, TM's normal, canals clear. No further effusion behind the right TM and tight TM insufflation is improved. Health Maintenance List COLORECTAL CANCER SCREENING due on 05/28/2015 MAMMOGRAM due on 11/29/2022 DIABETES SCREEN due on 03/21/2025 LIPID SCREEN due on 03/21/2027 DTAP,TDAP,TD(4 - Td or Tdap) due on 06/18/2032 INFLUENZA Completed COVID-19 VACCINE Completed PNEUMOCOCCAL Completed PAP TESTING Discontinued HPV TESTING Discontinued HEPATITIS C SCREENING Discontinued HIV SCREENING Discontinued SHINGRIX VACCINE Discontinued Data reviewed A/P ASSESSMENT/PLAN: 1. Fluid level behind tympanic membrane of right ear - ICD9: 381.4, ICD10: H65.91 (primary diagnosis) - resolved. 2. Eustachian tube dysfunction, right - ICD9: 381.81, ICD10: H69.81 - advised getting on daily Claritin. F/u prn , needs WAE around 04/01/2023 Eric Esteves MD documented in this encounter [facility] 07-29-[address] - 07/29/2022 2:51 PM EST Continue heart healthy diet Watch sodium intake aim for 2000 mg sodium diet Work on increasing water Work on increasing exercise When on steriods eat a low carb diet, try for less than 50 grams carb per day- have lean meats and vegetables Consider tracking intake aiming for 1300 calories. documented in this encounter [facility] 07-29-2022 History of Presen t illness Narrative Nutritional Therapy Re-Assessment Nutrition Diagnosis: Overweight/obesity, related to, excess energy intake and physical inactivity, as evidenced by BMI above normative standard for age and gender RECOMMENDED MALNUTRITION DIAGNOSIS: NO MALNUTRITION IDENTIFIED NUTRITION CARE PLAN: Nutrition Intervention 07/29/2022: modify type and amount of food or beverage Continue heart healthy diet Watch sodium intake aim for 2000 mg sodium diet Work on increasing water Work on increasing exercise When on steriods eat a low carb diet, try for less than 50 grams carb per day- have lean meats and vegetables Consider tracking intake aiming for 1300 calories. Nutrition Monitoring & Evaluation: half to one pound weight loss per week Need for Follow up: 4-6 weeks PROGRESS: Interval History: Following as relates to weight gain with goal to lose weight. Has been feeling better, making better choices,started exercising. Frustrated with weight gain from last visit . Did have high sodium over the weekends, may be a factor. Nutrition Intervention 06/17/22 Review and follow recommendations previously provided Continue exercise and activity as ableFolllow Mediteranean style eating. Consume whole grains (whole grain breads/cereals, oatmeal, barley, popcorn). [id number]+ grams of fiber per day. Consume fresh/frozen fruit and vegetables (blueberries, nectarines, raspberries, apples, apricots, figs, prunes, dark leafy greens) Include a variety of deep colors) Consume lean protein (chicken, turkey breast, fish. Avoid eating red meats more than twice per month if at all. Aim for cheese and meats with 3 grams of fat or less per ounce. Dairy sources primarly low fat/nonfat yogurt and cheese. Use low fat cooking methods such as baking, broiling, roasted, and grilled Use healthy fats such as primarily olive oil, flaxseed oil, walnuts, almonds, pecans, olives and avocado but in limited amounts. Increase foods rich in omega-3 fatty acids (salmon, tuna, fournier, sardines, anisha) Aim for a small serving daily of Almonds/walnuts and ground flaxseed/coleman seeds (2 Tablespoons/day), seeds Read food labels. Avoid products made with partially hydrogenated fats/oils. Include a variety of spices and herbs daily (oregano, arturo, tumeric, mckeon, garlic, etc) When on steriods eat a low carb diet, try for less than 50 grams carb per day- have lean meats and vegetables Aim for at least 64 oz water daily Consider magnesium and MVI Consider warm water pool exercises Try seated exercises (Cricket Porras) Actions to implement interventions: Records past weeek Diet History: Breakfast - fruit, yogurt, granola; breakfast sandwich, egg n toast; smoothie with fruit coleman/flax seeds and plain yogur;t starbucks Snack - no; Lunch - salads, avocado and black pérez chips, hummus; water Snack - last week hummus and black pérez chips but trying to avoid Dinner - left over pizza and side salad; north korean onion soup and salad; broccoli cheese soup; water Snack - not last week Beverages - coffee with flavored cream Alcohol - limited Vitamins/Supplements - vit D Hot opal bomb Activity: Activities of Daily Living: Sedentary (Desk job, seated for most of the day) Additional Activity: Lightly active (Light exercise: planned physical activity 1-3 days/week) Last 3 weeks - seated and low impact exercises Chair pilates every other day Exercise bike Anthropometrics: Height: Last 1 Encounter Ht Readings: Date: Ht: 07/29/2022 167.6 cm (5' 6) Current weight: Last 1 Encounter Wt Readings: Date: Wt: 07/29/2022 77.3 kg (170 lb 8 oz) Body mass index is 27.52 kg/m . Resting Metabolic Rate: 1358 Malnutrition Screening Significant unintentional weight loss? No Eating less than 75% of usual intake for more than 2 weeks? No Potential Signs of Inflammation: no identifiable sources Nutritional status: Education Materials Provided: Your Sodium-Controlled Diet READINESS TO LEARN Cognitive ability: Alert and oriented Motivation to learn: Interested Family support: Unable to assess - Family not present Instruction provided to: Patient Patient learns best by: Individual Instruction Factors affecting learning: None Physical limitations affecting learning: None Likelihood of Adherence: Moderate Referred/Supervised by: Liberty MOREJON Billing Type: Re-assess/15 min 2 units SIGNATURE: Cori Liao RD PATIENT NAME: Windy Iniguez DATE: July 29, 2022 TIME: 2:26 PM documented in this encounter [facility] 06-19-2022 History of Presen t illness Narrative Chief Complaint Patient presents with: Recheck: Sinus and ear pain HPI Windy Iniguez is a 61 year old female who presents here today for Above Complaints.. Patient was seen in the office back on 05/23/2022 and diagnosed with URI. Placed on Levaquin 500 mg a day for 10 days. Was feeling better but now getting intermittent pain off an on in the right ear. Today has pain in the left ear. In the past two days she has a cough again but not productive. No fevers, chills. No post nasal drainage. Has a sore throat when she first wakes up in the AM. No nausea, vomiting, shortness of breath, wheezing or changes in her typical diarrhea. Patient has not been on the Actemra since prior to last visit. Patient was at calling hours about a week ago and did not wear a mask. Patient is up to date on COVID vaccination and flu Has not taken any OTC meds for this. Past medical history, appointments, medications, allergies reviewed. Previous Medical History PAST MEDICAL HISTORY Diagnosis Date Arthritis of right knee 09/22/2018 Carcinoma in situ of breast LEFT CMC arthritis, thumb, degenerative 05/27/2014 Diffuse cystic mastopathy GERD without esophagitis 04/01/2022 Inflammatory arthritis 09/28/[address] Doss ([facility]) Insomnia 03/07/2015 Internal hemorrhoids without mention of complication Osteoporosis of lumbar spine 10/09/2018 Personal history of malignant neoplasm of breast 12/13/2016 Situational depression 04/01/2022 Urethral stenosis 09/28/2014 Well adult exam 12/06/2020 Last Done: 10/17/[address] Esteves ([facility]) Previous Surgical History PAST SURGICAL HISTORY Procedure Laterality Date APPENDECTOMY 10/16/2017 COLONOSCOPY FLX DX W/COLLJ SPEC WHEN PFRMD 05/06/2011 CYSTOSCOPY 09/21/2014 INJ RADIOACTIVE TRACER FOR ID OF SENTINEL NODE 06/30/2008 LEFT BREAST MASTECTOMY,PARTIAL, WITH AXILLARY LYMPHADENECTOMY 06/30/2008 LEFT BREAST, lumpectomy- cancerious PAST SURGICAL HISTORY OF Novasure PAST SURGICAL HISTORY OF 06/24/2011 Excisional biopsy right forearm- benign PAST SURGICAL HISTORY OF 07/11/2015 left trigger thumb release PREOP PLACEMENT NEEDLE LOC 06/30/2008 LEFT BREAST PUNCH BIOPSY B/O 04/13/2011 Right forearm STEREOTACTIC CORE BIOPSY 06/01/2008 left TONSILLECTOMY PRIMARY/SECONDARY <AGE 12 TOTAL ABDOMINAL HYSTERECT W/WO RMVL TUBE OVARY 01/12/2008 Hysterectomy, BLANCA BSO Family History FAMILY HISTORY Problem Relation Age of Onset Cancer Father LIVER AND PANCREAS other (ASHD [Other]) Sister defibrillator Breast Cancer Paternal Grandmother Cancer Maternal Grandfather LUNG Arthritis Mother Patient Allergies ALLERGIES Allergen Reactions Claritin-D [Other] Other: See Comments Palpitations and jittery Codeine Vomiting Nausea and vomiting Dust Mites Unknown Fosamax [Alendronat* Other: See Comments Chest pain Mold Unknown Relafen [Nabumetone] Unknown Trees Unknown Current Medications Current Outpatient Medications on File Prior to Visit Medication Sig Benzonatate 200 mg capsule Take 1 capsule by mouth three times daily as needed. omeprazole (PRILOSEC) 40 mg capsule Take 1 capsule by mouth once daily. Cholecalciferol, Vitamin D3, 50 mcg (2,000 unit) cap Take 1 capsule by mouth once daily. mupirocin (BACTROBAN) 2 % ointment Apply to affected area three times daily. colchicine 0.6 mg tablet Take 0.6 mg by mouth once daily. predniSONE 5 mg/5 mL solution Take 5 mg by mouth as directed. Melatonin 5 mg cap Take 10 mg by mouth daily at bedtime. calcium carbonate/vitamin D3 (CALCIUM-D ORAL) Take by mouth once daily. tocilizumab (ACTEMRA) 162 mg/0.9 mL Inject 0.9 mL subcutaneously one time a week. No current facility-administered medications on file prior to visit. Social History Social History Tobacco Use Smoking status: Never Smokeless tobacco: Never Vaping Use Vaping Use: Never used Substance Use Topics Alcohol use: Yes Comment: socially Drug use: No Review of Symptoms REVIEW OF SYSTEMS See HPI EXAM: BP 100/80 (BP Site: Left Arm, BP Position: Sitting, BP Cuff Size: Large Adult) Pulse 84 Temp 36.1 C (97 F) Resp 18 Wt 76.7 kg (169 lb) LMP 01/19/2008 BMI 27.28 kg/m General Appearance: Well appearing, alert, in no acute distress, well-hydrated, well nourished.. Ears: Negative findings: external ears normal to inspection and palpation, canals clear, Left tympanic membrane normal. Mobility is good, Left tympanic color is carpio, Positive findings: R TM: cindy fluid noted behind TM, mobility of TM is poor, and decreased light reflex. . Nose/Sinuses: Positive findings: mucosa swollen, pale, and boggy. Oropharynx: Lips, mucosa, and tongue normal, teeth and gums normal, oropharynx normal. Neck: Supple, no adenopathy; thyroid symmetric, normal size, no bruits. Lungs: Lungs clear to auscultation. No wheezing, rhonchi, rales.. Heart: RRR without murmur, gallop, or rubs. No ectopy. Abdomen: Normal abdominal exam, Abdomen soft, non-tender. Bowel sounds normal. No masses, organomegaly. Health Maintenance List COLORECTAL CANCER SCREENING due on 05/28/2015 MAMMOGRAM due on 11/29/2022 DIABETES SCREEN due on 03/21/2025 LIPID SCREEN due on 03/21/2027 DTAP,TDAP,TD(4 - Td or Tdap) due on 06/18/2032 INFLUENZA Completed COVID-19 VACCINE Completed PNEUMOCOCCAL Completed PAP TESTING Discontinued HPV TESTING Discontinued HEPATITIS C SCREENING Discontinued HIV SCREENING Discontinued SHINGRIX VACCINE Discontinued Data reviewed A/P ASSESSMENT/PLAN: 1. Non-recurrent acute serous otitis media of right ear - ICD9: 381.01, ICD10: H65.01 (primary diagnosis) - will Tx with Flonase one spray each nostril twice a day. 2. URI, acute - ICD9: 465.9, ICD10: J06.9 - Discussed viral etiology and rationale for treatment. - Symptomatic treatment with prn analgesia - Supportive care with fluids and rest Requested Prescriptions Signed Prescriptions Disp Refills fluticasone (FLONASE) 50 mcg/actuation nasal spray 1 Each 1 Sig: Use 1 [place] in each nostril twice daily. Rinse mouth after use. F/u if not resolving. If ear symptoms continue patient to let be know and will refer to ENT. Eric Esteves MD documented in this encounter [facility] 06-18-2022 History of Presen t illness Narrative Patient presents for TDAP and Prevnar 20 vaccines. Denies any problems at this time. Tolerated injections well. Argenis Ye LPN documented in this encounter [facility] 06-18-2022 Miscellaneous Notes LendYour message sent. Advise patient should be seen to eval the ear pain. Either KERMIT in the office of [facility] care. documented in this encounter [facility] 06-17-2022 History of Presen t illness Narrative Nutritional Therapy Re-Assessment Nutrition Diagnosis: Overweight/obesity, related to, excess energy intake and physical inactivity, as evidenced by BMI above normative standard for age and gender RECOMMENDED MALNUTRITION DIAGNOSIS: NO MALNUTRITION IDENTIFIED NUTRITION CARE PLAN: Nutrition Intervention 06/17/2022: modify type and amount of food or beverage Review and follow recommendations previously provided Continue exercise and activity as able Nutrition Monitoring & Evaluation: half to one pound weight loss per week Need for Follow up: 4-6 weeks PROGRESS: Interval History: following as relates weight gain with goal to lose weight. Did well for a week then became ill, has been on medication and ill for last four weeks. Last night first healty meal and getting back to plan Nutrition Intervention 05/06/22 Folllow Mediteranean style eating. Consume whole grains (whole grain breads/cereals, oatmeal, barley, popcorn). [id number]+ grams of fiber per day. Consume fresh/frozen fruit and vegetables (blueberries, nectarines, raspberries, apples, apricots, figs, prunes, dark leafy greens) Include a variety of deep colors) Consume lean protein (chicken, turkey breast, fish. Avoid eating red meats more than twice per month if at all. Aim for cheese and meats with 3 grams of fat or less per ounce. Dairy sources primarly low fat/nonfat yogurt and cheese. Use low fat cooking methods such as baking, broiling, roasted, and grilled Use healthy fats such as primarily olive oil, flaxseed oil, walnuts, almonds, pecans, olives and avocado but in limited amounts. Increase foods rich in omega-3 fatty acids (salmon, tuna, fournier, sardines, anisha) Aim for a small serving daily of Almonds/walnuts and ground flaxseed/coleman seeds (2 Tablespoons/day), seeds Read food labels. Avoid products made with partially hydrogenated fats/oils. Include a variety of spices and herbs daily (oregano, arturo, tumeric, mckeon, garlic, etc) When on steriods eat a low carb diet, try for less than 50 grams carb per day- have lean meats and vegetables Aim for at least 64 oz water daily Consider magnesium and MVI Consider warm water pool exercises Try seated exercises (Cricket Porras) Actions to implement interventions: Using Tumeric Coleman and flax seeds Less red meat and sweets Before sick was doing chair pilates Diet History: Breakfast - granola with jeovanny and flax and yogurt Snack - no Lunch - today [employer] Killer bread with pnb. Snack - apple Dinner - pork chops with apples and butternut squash Snack - last night no but is including occ with steroids Beverages - coffee with flavored creamer, water, Alcohol - limited Vitamins/Supplements - vit d Activity: Activities of Daily Living: Sedentary (Desk job, seated for most of the day) Additional Activity: Lightly active (Light exercise: planned physical activity 1-3 days/week) Anthropometrics: Height: Last 1 Encounter Ht Readings: Date: Ht: 06/17/2022 167.6 cm (5' 6) Current weight: Last 1 Encounter Wt Readings: Date: Wt: 06/17/2022 76.4 kg (168 lb 8 oz) Body mass index is 27.2 kg/m . Resting Metabolic Rate: 1349 Malnutrition Screening Significant unintentional weight loss? No Eating less than 75% of usual intake for more than 2 weeks? No Potential Signs of Inflammation: no identifiable sources Nutritional status: Education Materials Provided: None this visit READINESS TO LEARN Cognitive ability: Alert and oriented Motivation to learn: Interested Family support: Unable to assess - Family not present Instruction provided to: Patient Patient learns best by: Individual Instruction Factors affecting learning: None Physical limitations affecting learning: None Likelihood of Adherence: Moderate Referred/Supervised by: Liberty MOREJNO Billing Type: Re-assess/15 min 1 unit SIGNATURE: Cori Liao RD PATIENT NAME: Windy Iniguez DATE: June 17, 2022 TIME: 3:11 PM documented in this encounter [facility] 05-24-2022 Miscellaneous Notes Patient notified and voiced understanding. Sg Ba MA Let patient know her COVID and flu tests were negative. documented in this encounter [facility] 05-23-2022 History of Presen t illness Narrative Chief Complaint Patient presents with: Cough HPI Windy Iniguez is a 61 year old female who presents here today for a horrible dry hacking cough x1 week. Initially began with a sore throat that waxes and wanes; pt believes it is secondary to the cough. Cough is nonproductive but she reports a little clear/pale yellow mucus production yesterday and some post nasal drainage. Coughing is so constant that it keeps her up at night. Reports feeling as if she has strained the muscles in her back from coughing so much. Also has intermittent rhinorrhea and nasal congestion. Has tried OTC cough drops with minimal relief. Patient is also is complaining of some abdominal cramping and worsening diarrhea than her usual. Is having a BM ~3-4x a day; increased from her typical only 1-2x. Patient denies having a cough like this in the past. is currently sick as of yesterday with a cough and nasal congestion. Did a home COVID test last week ago which was negative. Denies wheezing, hemoptysis, worsened fatigue, fever, chills, sinus pressure, n/v, dyspnea, chest pain, myalgias, dysphagia, lymphadenopathy, and constipation. Past medical history, appointments, medications, allergies reviewed. Previous Medical History PAST MEDICAL HISTORY Diagnosis Date Arthritis of right knee 09/22/2018 Carcinoma in situ of breast LEFT CMC arthritis, thumb, degenerative 05/27/2014 Diffuse cystic mastopathy GERD without esophagitis 04/01/2022 Inflammatory arthritis 09/28/[address] Doss ([facility]) Insomnia 03/07/2015 Internal hemorrhoids without mention of complication Osteoporosis of lumbar spine 10/09/2018 Personal history of malignant neoplasm of breast 12/13/2016 Situational depression 04/01/2022 Urethral stenosis 09/28/2014 Well adult exam 12/06/2020 Last Done: 10/17/[address] Esteves ([facility]) Previous Surgical History PAST SURGICAL HISTORY Procedure Laterality Date APPENDECTOMY 10/16/2017 COLONOSCOPY FLX DX W/COLLJ SPEC WHEN PFRMD 05/06/2011 CYSTOSCOPY 09/21/2014 INJ RADIOACTIVE TRACER FOR ID OF SENTINEL NODE 06/30/2008 LEFT BREAST MASTECTOMY,PARTIAL, WITH AXILLARY LYMPHADENECTOMY 06/30/2008 LEFT BREAST, lumpectomy- cancerious PAST SURGICAL HISTORY OF [facility] PAST SURGICAL HISTORY OF 06/24/2011 Excisional biopsy right forearm- benign PAST SURGICAL HISTORY OF 07/11/2015 left trigger thumb release PREOP PLACEMENT NEEDLE LOC 06/30/2008 LEFT BREAST PUNCH BIOPSY B/O 04/13/2011 Right forearm STEREOTACTIC CORE BIOPSY 06/01/2008 left TONSILLECTOMY PRIMARY/SECONDARY <AGE 12 TOTAL ABDOMINAL HYSTERECT W/WO RMVL TUBE OVARY 01/12/2008 Hysterectomy, BLANCA BSO Family History FAMILY HISTORY Problem Relation Age of Onset Cancer Father LIVER AND PANCREAS other (ASHD [Other]) Sister defibrillator Breast Cancer Paternal Grandmother Cancer Maternal Grandfather LUNG Arthritis Mother Patient Allergies ALLERGIES Allergen Reactions Claritin-D [Other] Other: See Comments Palpitations and jittery Codeine Vomiting Nausea and vomiting Dust Mites Unknown Fosamax [Alendronat* Other: See Comments Chest pain Mold Unknown Relafen [Nabumetone] Unknown Trees Unknown Current Medications Current Outpatient Medications on File Prior to Visit Medication Sig tocilizumab (ACTEMRA) 162 mg/0.9 mL Inject 0.9 mL subcutaneously one time a week. omeprazole (PRILOSEC) 40 mg capsule Take 1 capsule by mouth once daily. Cholecalciferol, Vitamin D3, 50 mcg (2,000 unit) cap Take 1 capsule by mouth once daily. mupirocin (BACTROBAN) 2 % ointment Apply to affected area three times daily. colchicine 0.6 mg tablet Take 0.6 mg by mouth once daily. predniSONE 5 mg/5 mL solution Take 5 mg by mouth as directed. Melatonin 5 mg cap Take 10 mg by mouth daily at bedtime. calcium carbonate/vitamin D3 (CALCIUM-D ORAL) Take by mouth once daily. No current facility-administered medications on file prior to visit. Social History Social History Tobacco Use Smoking status: Never Smokeless tobacco: Never Vaping Use Vaping Use: Never used Substance Use Topics Alcohol use: Yes Comment: socially Drug use: No Review of Symptoms REVIEW OF SYSTEMS GENERAL: No weight loss, malaise or fevers HEENT: Negative for frequent or significant headaches, No changes in hearing or vision, no nose bleeds or other nasal problems, Mouth & Throat Positive for sore throat attributed to coughing. NECK: Negative for lumps, goiter, pain and significant neck swelling RESPIRATORY: Cough; dry CARDIOVASCULAR: Negative for chest pain, leg swelling, hypertension, CHF or palpitations GI: No nausea, vomiting, or diarrhea, No heartburn or reflux symptoms, and Positive for abdominal discomfort , diarrhea MUSCULOSKELETAL: Negative for joint pain or swelling, back pain or muscle pain and back pain +back discomfort from straining to cough EXAM: BP 138/94 (BP Site: Left Arm, BP Position: Sitting, BP Cuff Size: Regular Adult) Pulse 77 Temp 36.9 C (98.4 F) (Tympanic) Resp 18 Wt 77.1 kg (170 lb) LMP 01/19/2008 SpO2 98% BMI 27.44 kg/m General Appearance: Well appearing, alert, in no acute distress, well-hydrated, well nourished. Eyes: Anicteric sclera. Pupils are equally round and reactive to light. Extraocular movements are intact. . Ears: EAC normal, canals clear. Left/Left tympanic membranes normal. Mobility is good, with normal light reflexes b/l. Nose/Sinuses: Nares normal, septum midline, mucosa normal, no drainage or sinus tenderness, Negative except for clear rhinorrhea. Oropharynx: Lips, mucosa, and tongue normal, teeth and gums normal, oropharynx normal. Mild posterior oropharyngeal erythema. Neck: Supple, no adenopathy; thyroid symmetric, normal size, no bruits. Lungs: Lungs clear to auscultation. No wheezing, rhonchi, rales. Negative bronchophony. Percussion normal, good diaphragmatic excursion Unlabored on room air. + Dry Cough. Heart: RRR without murmur, gallop, or rubs. No ectopy. Musculoskeletal: + Left lower back tenderness Lymph Nodes: No cervical lymphadenopathy, No supraclavicular lymphadenopathy, and No axillary lymphadenopathy. Health Maintenance List PNEUMOCOCCAL(1 - PCV) Never done COLORECTAL CANCER SCREENING due on 05/28/2015 DTAP,TDAP,TD(3 - Td or Tdap) due on 02/24/2019 COVID-19 VACCINE(6 - Booster for Pfizer series) due on 05/27/2022 MAMMOGRAM due on 11/29/2022 DIABETES SCREEN due on 03/21/2025 LIPID SCREEN due on 03/21/2027 INFLUENZA Completed PAP TESTING Discontinued HPV TESTING Discontinued HEPATITIS C SCREENING Discontinued HIV SCREENING Discontinued SHINGRIX VACCINE Discontinued Data reviewed As per PCP note. Laine Bonilla PA student Examined patient and confirmed mosquera findings on history and examination and ROS as noted by PA student Laine Bonilla above. Summary of my findings and impressions are as follows in my note. Chief Complaint Patient presents with: Cough HPI Windy Iniguez is a 61 year old female who presents here today for cough x 1 1/2 week. Hx as per PA student as above. Patient is on immune modulator drugs. The increased diarrhea just started this week. Patient has been vaccinated from [employer]. Past medical history, appointments, medications, allergies reviewed. Previous Medical History PAST MEDICAL HISTORY Diagnosis Date Arthritis of right knee 09/22/2018 Carcinoma in situ of breast LEFT CMC arthritis, thumb, degenerative 05/27/2014 Diffuse cystic mastopathy GERD without esophagitis 04/01/2022 Inflammatory arthritis 09/28/[address] Doss ([facility]) Insomnia 03/07/2015 Internal hemorrhoids without mention of complication Osteoporosis of lumbar spine 10/09/2018 Personal history of malignant neoplasm of breast 12/13/2016 Situational depression 04/01/2022 Urethral stenosis 09/28/2014 Well adult exam 12/06/2020 Last Done: 10/17/[address] Esteves ([facility]) Previous Surgical History PAST SURGICAL HISTORY Procedure Laterality Date APPENDECTOMY 10/16/2017 COLONOSCOPY FLX DX W/COLLJ SPEC WHEN PFRMD 05/06/2011 CYSTOSCOPY 09/21/2014 INJ RADIOACTIVE TRACER FOR ID OF SENTINEL NODE 06/30/2008 LEFT BREAST MASTECTOMY,PARTIAL, WITH AXILLARY LYMPHADENECTOMY 06/30/2008 LEFT BREAST, lumpectomy- cancerious PAST SURGICAL HISTORY OF [facility] PAST SURGICAL HISTORY OF 06/24/2011 Excisional biopsy right forearm- benign PAST SURGICAL HISTORY OF 07/11/2015 left trigger thumb release PREOP PLACEMENT NEEDLE LOC 06/30/2008 LEFT BREAST PUNCH BIOPSY B/O 04/13/2011 Right forearm STEREOTACTIC CORE BIOPSY 06/01/2008 left TONSILLECTOMY PRIMARY/SECONDARY <AGE 12 TOTAL ABDOMINAL HYSTERECT W/WO RMVL TUBE OVARY 01/12/2008 Hysterectomy, BLANCA BSO Family History FAMILY HISTORY Problem Relation Age of Onset Cancer Father LIVER AND PANCREAS other (ASHD [Other]) Sister defibrillator Breast Cancer Paternal Grandmother Cancer Maternal Grandfather LUNG Arthritis Mother Patient Allergies ALLERGIES Allergen Reactions Claritin-D [Other] Other: See Comments Palpitations and jittery Codeine Vomiting Nausea and vomiting Dust Mites Unknown Fosamax [Alendronat* Other: See Comments Chest pain Mold Unknown Relafen [Nabumetone] Unknown Trees Unknown Current Medications Current Outpatient Medications on File Prior to Visit Medication Sig tocilizumab (ACTEMRA) 162 mg/0.9 mL Inject 0.9 mL subcutaneously one time a week. omeprazole (PRILOSEC) 40 mg capsule Take 1 capsule by mouth once daily. Cholecalciferol, Vitamin D3, 50 mcg (2,000 unit) cap Take 1 capsule by mouth once daily. mupirocin (BACTROBAN) 2 % ointment Apply to affected area three times daily. colchicine 0.6 mg tablet Take 0.6 mg by mouth once daily. predniSONE 5 mg/5 mL solution Take 5 mg by mouth as directed. Melatonin 5 mg cap Take 10 mg by mouth daily at bedtime. calcium carbonate/vitamin D3 (CALCIUM-D ORAL) Take by mouth once daily. No current facility-administered medications on file prior to visit. Social History Social History Tobacco Use Smoking status: Never Smokeless tobacco: Never Vaping Use Vaping Use: Never used Substance Use Topics Alcohol use: Yes Comment: socially Drug use: No Review of Symptoms REVIEW OF SYSTEMS See PA students note EXAM: BP 138/94 (BP Site: Left Arm, BP Position: Sitting, BP Cuff Size: Regular Adult) Pulse 77 Temp 36.9 C (98.4 F) (Tympanic) Resp 18 Wt 77.1 kg (170 lb) LMP 01/19/2008 SpO2 98% BMI 27.44 kg/m BP 124/84 Pulse 77 Temp 36.9 C (98.4 F) (Tympanic) Resp 18 Wt 77.1 kg (170 lb) LMP 01/19/2008 SpO2 98% BMI 27.44 kg/m General Appearance: Well appearing, alert, in no acute distress, well-hydrated, well nourished.. Ears: External ears, TM's normal, canals clear. Nose/Sinuses: Nares normal, septum midline, mucosa normal, no drainage or sinus tenderness. Oropharynx: Lips, mucosa, and tongue normal, teeth and gums normal, oropharynx normal. Neck: Supple, no adenopathy; thyroid symmetric, normal size, no bruits. Lungs: Lungs clear to auscultation. No wheezing, rhonchi, rales.. Heart: RRR without murmur, gallop, or rubs. No ectopy. Abdomen: Normal abdominal exam, Abdomen soft, non-tender. Bowel sounds normal. No masses, organomegaly. Health Maintenance List PNEUMOCOCCAL(1 - PCV) Never done COLORECTAL CANCER SCREENING due on 05/28/2015 DTAP,TDAP,TD(3 - Td or Tdap) due on 02/24/2019 COVID-19 VACCINE(6 - Booster for Pfizer series) due on 05/27/2022 MAMMOGRAM due on 11/29/2022 DIABETES SCREEN due on 03/21/2025 LIPID SCREEN due on 03/21/2027 INFLUENZA Completed PAP TESTING Discontinued HPV TESTING Discontinued HEPATITIS C SCREENING Discontinued HIV SCREENING Discontinued SHINGRIX VACCINE Discontinued Data reviewed A/P ASSESSMENT/PLAN: 1. Bacterial URI - ICD9: 465.9, 041.9, ICD10: J06.9, B96.89 (primary diagnosis) - Discussed viral etiology and rationale for treatment. - Symptomatic treatment with prn analgesia - Supportive care with fluids and rest - will treat withy levaquin 500 mg a day for 10 days 2. Suspected COVID-19 virus infection - ICD9: V01.79, ICD10: Z20.822 Check - COVID WITH FLUA+B, ROUTINE - discussed guidlines. Requested Prescriptions Signed Prescriptions Disp Refills levoFLOXacin (LEVAQUIN) 500 mg tablet 10 tablet 0 Sig: Take 1 tablet by mouth once daily for 10 days. Benzonatate 200 mg capsule 45 capsule 1 Sig: Take 1 capsule by mouth three times daily as needed. Eric Esteves MD documented in this encounter [facility] 05-06-[address] - 05/06/2022 2:55 PM EDT Folllow Mediteranean style eating. Consume whole grains (whole grain breads/cereals, oatmeal, barley, popcorn). [id number]+ grams of fiber per day. Consume fresh/frozen fruit and vegetables (blueberries, nectarines, raspberries, apples, apricots, figs, prunes, dark leafy greens) Include a variety of deep colors) Consume lean protein (chicken, turkey breast, fish. Avoid eating red meats more than twice per month if at all. Aim for cheese and meats with 3 grams of fat or less per ounce. Dairy sources primarly low fat/nonfat yogurt and cheese. Use low fat cooking methods such as baking, broiling, roasted, and grilled Use healthy fats such as primarily olive oil, flaxseed oil, walnuts, almonds, pecans, olives and avocado but in limited amounts. Increase foods rich in omega-3 fatty acids (salmon, tuna, fournier, sardines, anisha) Aim for a small serving daily of Almonds/walnuts and ground flaxseed/coleman seeds (2 Tablespoons/day), seeds Read food labels. Avoid products made with partially hydrogenated fats/oils. Include a variety of spices and herbs daily (oregano, arturo, tumeric, mckeon, garlic, etc) When on steriods eat a low carb diet, try for less than 50 grams carb per day- have lean meats and vegetables Aim for at least 64 oz water daily Consider magnesium and MVI Consider warm water pool exercises Try seated exercises (Cricket Porras) documented in this encounter [facility] 05-06-2022 History of Presen t illness Narrative Nutrition Therapy Initial Assessment Nutrition Diagnosis: Overweight/obesity, related to, excess energy intake and physical inactivity, as evidenced by BMI above normative standard for age and gender. RECOMMENDED MALNUTRITION DIAGNOSIS: NO MALNUTRITION IDENTIFIED NUTRITION CARE PLAN Nutrition Intervention 05/06/2022: modify type and amount of food or beverage Folllow Mediteranean style eating. Consume whole grains (whole grain breads/cereals, oatmeal, barley, popcorn). [id number]+ grams of fiber per day. Consume fresh/frozen fruit and vegetables (blueberries, nectarines, raspberries, apples, apricots, figs, prunes, dark leafy greens) Include a variety of deep colors) Consume lean protein (chicken, turkey breast, fish. Avoid eating red meats more than twice per month if at all. Aim for cheese and meats with 3 grams of fat or less per ounce. Dairy sources primarly low fat/nonfat yogurt and cheese. Use low fat cooking methods such as baking, broiling, roasted, and grilled Use healthy fats such as primarily olive oil, flaxseed oil, walnuts, almonds, pecans, olives and avocado but in limited amounts. Increase foods rich in omega-3 fatty acids (salmon, tuna, fournier, sardines, anisha) Aim for a small serving daily of Almonds/walnuts and ground flaxseed/coleman seeds (2 Tablespoons/day), seeds Read food labels. Avoid products made with partially hydrogenated fats/oils. Include a variety of spices and herbs daily (oregano, arturo, tumeric, mckeon, garlic, etc) When on steriods eat a low carb diet, try for less than 50 grams carb per day- have lean meats and vegetables Aim for at least 64 oz water daily Consider magnesium and MVI Consider warm water pool exercises Try seated exercises (Cricket Porras) Nutrition Monitoring & Evaluation: gradual weight loss Need for Follow up: 4-6 weeks Patient presents for initial MNT as relates to weight gain, has gained 30 pounds over last 3 years. Has had different medication and prednisone for control. Notes increase hunger especially later in the evening and has added late night eating. Tends towards high carb diet. Limited exercise and activity with pain. Patient's symptoms are: Weight Concerns: weight gain Diet History: nausea Breakfast - [place] yogurt with fruit and home made granola; [employer] cold brew with sweet cream Snack - not usually Lunch - sandwich, salad, half grilled cheese sandwich, try to drink water Snack - yesterday an apple, could be pretzel mix Dinner - steak, Lobster and bread stick; may have salad with grilled salmon; may have breakfast of pancakes, saleh, soups, chili, cheese burger soup; try to drink water, may have skim milk Snack - toast with pnb, chips, may eat late in evening Beverages - coffee, water, skim Alcohol- limited Vitamins/Supplements - vit D Activity: Activities of Daily Living: Sedentary (Desk job, seated for most of the day) Additional Activity: Sedentary (Little or no exercise: <1x/week) Chair pilates. Anthropometrics: Height: Last 1 Encounter Ht Readings: Date: Ht: 05/06/2022 167.6 cm (5' 6) Current weight: Last 1 Encounter Wt Readings: Date: Wt: 05/06/2022 77.6 kg (171 lb) Body mass index is 27.6 kg/m . Resting Metabolic Rate: 1361 Malnutrition Screening Significant unintentional weight loss? No Eating less than 75% of usual intake for more than 2 weeks? No Potential Signs of Inflammation: chronic condition Education Materials Provided: Inflammation, Meditrranean diet READINESS TO LEARN Cognitive ability: Alert and oriented Motivation to learn: Interested Family support: High - Very involved in pt care Instruction provided to: Patient and Spouse Patient learns best by: Individual Instruction Factors affecting learning: None Physical limitations affecting learning: None Referred/Supervised by: Danielito/Rebeka MOREJON Billing Type: Initial Assess/15 min 2 units SIGNATURE: Cori Liao RD PATIENT NAME: Windy Iniguez DATE: May 06, 2022 TIME: 2:32 PM documented in this encounter [facility] 04-22-2022 History of Presen t illness Narrative HISTORY AND PHYSICAL Windy [place] 1960 REFERRING PHYSICIAN: Eric Esteves MD CHIEF COMPLAINT: Consult (colonoscopy) HPI: The patient is a 61 year old female referred for endoscopy. Windy notes no colon complaints. Patient denies any change in bowel habits, weight changes, blood in stools, black tarry stools or abdominal pain. Denies family history of colon issues. The patient notes no upper GI complaints. Windy has undergone prior endoscopy. Most recent colonoscopy 05/06/[address] Mcdaniels under conscious sedation. Patient was noted to have a tortuous colon. Patient notes issues with nausea with sedation in the past. Denies chest pain, shortness of breath or recent hospitalizations. PAST MEDICAL HISTORY Diagnosis Date Arthritis of right knee 09/22/2018 Carcinoma in situ of breast LEFT CMC arthritis, thumb, degenerative 05/27/2014 Diffuse cystic mastopathy GERD without esophagitis 04/01/2022 Inflammatory arthritis 09/28/[address] Doss ([facility]) Insomnia 03/07/2015 Internal hemorrhoids without mention of complication Osteoporosis of lumbar spine 10/09/2018 Personal history of malignant neoplasm of breast 12/13/2016 Situational depression 04/01/2022 Urethral stenosis 09/28/2014 Well adult exam 12/06/2020 Last Done: 10/17/[address] Esteves ([facility]) PAST SURGICAL HISTORY Procedure Laterality Date APPENDECTOMY 10/16/2017 COLONOSCOPY FLX DX W/COLLJ SPEC WHEN PFRMD 05/06/2011 CYSTOSCOPY 09/21/2014 INJ RADIOACTIVE TRACER FOR ID OF SENTINEL NODE 06/30/2008 LEFT BREAST MASTECTOMY,PARTIAL, WITH AXILLARY LYMPHADENECTOMY 06/30/2008 LEFT BREAST, lumpectomy- cancerious PAST SURGICAL HISTORY OF [facility] PAST SURGICAL HISTORY OF 06/24/2011 Excisional biopsy right forearm- benign PAST SURGICAL HISTORY OF 07/11/2015 left trigger thumb release PREOP PLACEMENT NEEDLE LOC 06/30/2008 LEFT BREAST PUNCH BIOPSY B/O 04/13/2011 Right forearm STEREOTACTIC CORE BIOPSY 06/01/2008 left TONSILLECTOMY PRIMARY/SECONDARY <AGE 12 TOTAL ABDOMINAL HYSTERECT W/WO RMVL TUBE OVARY 01/12/2008 Hysterectomy, BLANCA BSO Current Outpatient Medications Medication Sig tocilizumab (ACTEMRA) 162 mg/0.9 mL Inject 0.9 mL subcutaneously one time a week. omeprazole (PRILOSEC) 40 mg capsule Take 1 capsule by mouth once daily. Cholecalciferol, Vitamin D3, 50 mcg (2,000 unit) cap Take 1 capsule by mouth once daily. mupirocin (BACTROBAN) 2 % ointment Apply to affected area three times daily. colchicine 0.6 mg tablet Take 0.6 mg by mouth once daily. predniSONE 5 mg/5 mL solution Take 5 mg by mouth as directed. Melatonin 5 mg cap Take 10 mg by mouth daily at bedtime. calcium carbonate/vitamin D3 (CALCIUM-D ORAL) Take by mouth once daily. No current facility-administered medications for this visit. ALLERGIES: Claritin-D [Other], Codeine, Dust Mites, Fosamax [Alendronate], Mold, Relafen [Nabumetone], and Trees PERSONAL HISTORY: Social History Tobacco Use Smoking status: Never Smokeless tobacco: Never Vaping Use Vaping Use: Never used Substance Use Topics Alcohol use: Yes Comment: socially Drug use: No FAMILY HISTORY: FAMILY HISTORY Problem Relation Age of Onset Cancer Father LIVER AND PANCREAS other (ASHD [Other]) Sister defibrillator Breast Cancer Paternal Grandmother Cancer Maternal Grandfather LUNG Arthritis Mother REVIEW OF SYMPTOMS: The review of systems data was entered by the nurse and reviewed by me Nursing Notes: Concetta Duong LPN 04/22/2022 8:10 AM Signed REVIEW OF SYSTEMS:denies General: The patient denies fatigue, notes weight loss, denies weight gain, denies feeling hot, and denies feelings of cold. Eyes: The patient denies glaucoma, denies eye injury/surgery, wears glasses or contacts. Ear/Nose/Throat: The patient notes allergies, notes hayfever, denies ear infections, and denies bloody noses. Cardiovascular: The patient denies chest pain, denies heart disease, denies high blood pressure,denies cardiac stent, denies prior heart attack, denies irregular heart beat, denies high cholesterol, denies poor circulation, denies heart failure, other cardiac issues, denies claudication, denies cold feet, denies peripheral arterial stent. Respiratory: The patient denies tuberculosis, denies pneumonia, denies frequent cough, denies pulmonary embolism, denies shortness of breath, and denies coughing up blood. Gastrointestinal: The patient denies difficulty swallowing, notes acid reflux, denies ulcers, denies vomiting, denies jaundice/hepatitis, denies gallbladder problems, denies black or tarry stools, denies hemorrhoids, denies bleeding from rectum, denies diverticulitis, denies constipation, denies diarrhea, denies loss of stool control, and denies hernias. Kidney/Bladder: The patient denies kidney stones, denies urine infections, and denies bloody urine. Skin: The patient denies a history of skin cancer, denies bleeding/changing moles, and denies a history of skin rash. Neurologic: The patient denies a history of epilepsy/convulsions, denies headaches, denies head/spinal injuries, and denies stroke/TIA. Psychiatric: The patient denies psychiatric medications, denies depression, and denies voices, denies substance abuse. Endocrine: The patient denies thyroid disorders, denies diabetes, and denies hormonal problems. Hematologic: The patient denies a history of bruising, denies bleeding, and denies anemia, denies blood clots. Infections: The patient denies a history of measles and mumps, denies rheumatic fever, and denies sexually transmitted diseases. Musculoskeletal: The patient denies back pain/injury, denies back problems, denies sciatica, notes knee/foot trouble, denies arthritis, or denies gout. When was patient's last Mammogram screening? 2021 Last Colonoscopy: 2010 Concetta Duong LPN I have confirmed and edited as necessary, the PFSH and ROS obtained by others. Maricruz Robertson PA-C PHYSICAL EXAMINATION: General: The patient is 61 year old female, well nourished, well hydrated in no acute distress. The patient is oriented to time, place, and person. VITALS: Blood pressure 128/82, pulse 104, temperature 36.6 C (97.8 F), height 167.6 cm (5' 6), weight 77.1 kg (170 lb), last menstrual period 01/19/2008, SpO2 96 %. Body mass index is 27.44 kg/m . HEENT: Normal cephalic, ataumatic, pupils are equally round, sclera are anicteric, mucous membranes are moist, oropharynx is clear. Neck has no masses, asymmetry or lymphadenopathy. Respiratory: Clear to auscultation and percussion. Normal respiratory excursion and pattern. Cardiac: Examination is regular rate and rhythm. Normal S1/S2 Abdominal exam: Soft, nontender, with no palpable masses. No hepatosplenomegaly. No palpable hernias. Extremities: no clubbing, cyanosis or edema. No adenopathy. LABORATORY VALUES: As Noted RADIOLOGIC STUDIES: As Noted Assessment IMPRESSION: encounter for screening colonoscopy PLAN: I have reviewed my findings with the surgeon. Will plan for lower endoscopy. We discussed the risks and benefits of the planned endoscopy. I have informed the patient that complications can occur including failure to complete the endoscopy and perforation. The patient had the opportunity to ask questions concerning the planned endoscopy. My staff has also explained the procedure to the patient in understandable terms and has given the patient printed material concerning the procedure. The patient freely consents to surgery. The patient was offered a surgery/procedure at a [facility] facility. I have counseled the patient regarding the risk of exposure to and/or potential harm posed by the COVID-19 virus with having a surgery/procedure at this time versus the risk of delaying the surgery/procedure. It is not possible to know either the risk of delaying the surgery or procedure or chance of getting an infection with perfect accuracy, but a joint decision was made between the patient and myself to proceed at this time with endoscopy. I plan to use Miralax/Dulcolax bowel preparation with 2 full days of clear liquid diet I have explained to the patient the difference between IV conscious sedation and MAC anesthesia - and I have offered either, according to the patient's wishes. I have explained that with IV conscious sedation there is no anesthesia provider available and therefore there is a limitation of the amount of IV medications that can be given and that the patient may wake up in the middle of the procedure and/or experience pain/discomfort during the procedure. Further discussion was done and the patient was given the opportunity to ask questions and all questions were answered. The patient chooses MAC anesthesia Diagnoses: (Z12.11) Screening for colon cancer (primary encounter diagnosis) (Q43.8) Tortuous colon Consultation requested by Dr. Esteves for an opinion regarding screening colonoscopy. My final recommendations will be communicated back to the requesting physician by way of shared Medical record or letter to requesting physician via US mail. Maricruz Robertson PA-C documented in this encounter [facility] 04-22-2022 Nurse Note REVIEW OF SYSTEMS:denies General: The patient denies fatigue, notes weight loss, denies weight gain, denies feeling hot, and denies feelings of cold. Eyes: The patient denies glaucoma, denies eye injury/surgery, wears glasses or contacts. Ear/Nose/Throat: The patient notes allergies, notes hayfever, denies ear infections, and denies bloody noses. Cardiovascular: The patient denies chest pain, denies heart disease, denies high blood pressure,denies cardiac stent, denies prior heart attack, denies irregular heart beat, denies high cholesterol, denies poor circulation, denies heart failure, other cardiac issues, denies claudication, denies cold feet, denies peripheral arterial stent. Respiratory: The patient denies tuberculosis, denies pneumonia, denies frequent cough, denies pulmonary embolism, denies shortness of breath, and denies coughing up blood. Gastrointestinal: The patient denies difficulty swallowing, notes acid reflux, denies ulcers, denies vomiting, denies jaundice/hepatitis, denies gallbladder problems, denies black or tarry stools, denies hemorrhoids, denies bleeding from rectum, denies diverticulitis, denies constipation, denies diarrhea, denies loss of stool control, and denies hernias. Kidney/Bladder: The patient denies kidney stones, denies urine infections, and denies bloody urine. Skin: The patient denies a history of skin cancer, denies bleeding/changing moles, and denies a history of skin rash. Neurologic: The patient denies a history of epilepsy/convulsions, denies headaches, denies head/spinal injuries, and denies stroke/TIA. Psychiatric: The patient denies psychiatric medications, denies depression, and denies voices, denies substance abuse. Endocrine: The patient denies thyroid disorders, denies diabetes, and denies hormonal problems. Hematologic: The patient denies a history of bruising, denies bleeding, and denies anemia, denies blood clots. Infections: The patient denies a history of measles and mumps, denies rheumatic fever, and denies sexually transmitted diseases. Musculoskeletal: The patient denies back pain/injury, denies back problems, denies sciatica, notes knee/foot trouble, denies arthritis, or denies gout. When was patient's last Mammogram screening? 2021 Last Colonoscopy: 2010 Concetta Duong LPN documented in this encounter [facility] 04-17-2022 Miscellaneous Notes Patient scheduled for nurse visit 04/30/22 to receive TDAP and Prevnar [address]. [address] order at this time. Argenis Ye LPN documented in this encounter [facility] 04-05-2022 Miscellaneous Notes Patient returned call, both appointments scheduled. Tania WELLER .1st failed attempt to contact patient. Left message to return call. Patient has a referral to General surgery and consult to Nutrition Tania Quiñones Please schedule patient For general surgery and nutritional. Sg Ba MA Order placed. 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 Please place consult. Once consult is place MA will send to associate professor of engineering so they contact patient to schedule for that and General Surgery. Sg Ba MA documented in this encounter [facility] 04-01-2022 History of Presen t illness Narrative Chief Complaint Patient presents with: Physical HPI Windy Iniguez is a 61 year old female who presents here today for Physical. Some depression - with all other RA and medications. The issue is that she has had to be on several meds and with insurance denying something that was working. Dealing with recurrent set backs with RA flares. Otherwise has been doing well. Is going to get the COVID booster after today's appt. Past medical history, appointments, medications, allergies reviewed. Previous Medical History PAST MEDICAL HISTORY Diagnosis Date Carcinoma in situ of breast LEFT Diffuse cystic mastopathy Internal hemorrhoids without mention of complication Osteoporosis of lumbar spine 10/09/2018 Other malaise and fatigue Well adult exam 12/06/2020 Last Done: 10/17/[address] Esteves (Dyad) Previous Surgical History PAST SURGICAL HISTORY Procedure Laterality Date COLONOSCOPY FLX DX W/COLLJ SPEC WHEN PFRMD 05/06/11 CYSTOSCOPY 09/21/14 INJ RADIOACTIVE TRACER FOR ID OF SENTINEL NODE 06/30/08 LEFT BREAST MASTECTOMY,PARTIAL, WITH AXILLARY LYMPHADENECTOMY 06/30/08 LEFT BREAST, lumpectomy- cancerious PAST SURGICAL HISTORY OF Novasure PAST SURGICAL HISTORY OF 06/24/2011 Excisional biopsy right forearm- benign PAST SURGICAL HISTORY OF 07/11/2015 left trigger thumb release PREOP PLACEMENT NEEDLE LOC 06/30/08 LEFT BREAST PUNCH BIOPSY B/O 04/2011 Right forearm STEREOTACTIC CORE BIOPSY 06/01/08 left TONSILLECTOMY PRIMARY/SECONDARY <AGE 12 TOTAL ABDOMINAL HYSTERECT W/WO RMVL TUBE OVARY -2007 Hysterectomy, BLANCA BSO Family History FAMILY HISTORY Problem Relation Age of Onset Cancer Father LIVER AND PANCREAS other (ASHD [Other]) Sister defibrillator Breast Cancer Paternal Grandmother Cancer Maternal Grandfather LUNG Arthritis Mother Patient Allergies ALLERGIES Allergen Reactions Claritin-D [Other] Other: See Comments Palpitations and jittery Codeine Vomiting Nausea and vomiting Dust Mites Unknown Fosamax [Alendronat* Other: See Comments Chest pain Mold Unknown Relafen [Nabumetone] Unknown Trees Unknown Current Medications Current Outpatient Medications on File Prior to Visit Medication Sig mupirocin (BACTROBAN) 2 % ointment Apply to affected area three times daily. colchicine 0.6 mg tablet Take 0.6 mg by mouth once daily. predniSONE 5 mg/5 mL solution Take 5 mg by mouth as directed. Melatonin 5 mg cap Take 10 mg by mouth daily at bedtime. calcium carbonate/vitamin D3 (CALCIUM-D ORAL) Take by mouth once daily. tocilizumab (ACTEMRA) 162 mg/0.9 mL Inject subcutaneously. ORENCIA CLICKJECT 125 mg/mL (Patient not taking: Reported on 04/01/2022) No current facility-administered medications on file prior to visit. Social History Social History Tobacco Use Smoking status: Never Smokeless tobacco: Never Substance Use Topics Alcohol use: Yes Comment: socially Drug use: No Review of Symptoms REVIEW OF SYSTEMS GENERAL: No weight loss, malaise or fevers HEENT: Negative for frequent or significant headaches, No changes in hearing or vision, no nose bleeds or other nasal problems NECK: Negative for lumps, goiter, pain and significant neck swelling RESPIRATORY: Negative for cough, hemoptysis, wheezing, COPD, dyspnea or shortness of breath CARDIOVASCULAR: Negative for chest pain, leg swelling, hypertension, CHF or palpitations GI: No nausea, vomiting, or diarrhea and getting GERD symptoms on a regular basis. No blood. : No history of dysuria, blood MUSCULOSKELETAL: has pain from her RA. SKIN: Negative for lesions, rash, and itching PSYCH: Positive for See HPI HEMATOLOGY/LYMPHOLOGY: Negative for prolonged bleeding, bruising easily or swollen nodes ENDOCRINE: Negative for cold or heat intolerance, polyuria, polydipsia and goiter NEURO: No history of syncope, paralysis, seizures or tremors. Has headache's on occasion, but nothing different then typical. EXAM: BP 140/98 (BP Site: Right Arm, BP Position: Sitting, BP Cuff Size: Regular Adult) Pulse 86 Resp 16 Ht 167 cm (5' 5.75) Wt 76.7 kg (169 lb) LMP 01/19/2008 BMI 27.49 kg/m BP 126/85 Pulse 86 Resp 16 Ht 167 cm (5' 5.75) Wt 76.7 kg (169 lb) LMP 01/19/2008 BMI 27.49 kg/m Last 4 Encounter Wt Readings: Date: Wt: 04/01/2022 76.7 kg (169 lb) 01/25/2022 75.7 kg (166 lb 12.8 oz) 01/24/2022 75.6 kg (166 lb 9.6 oz) 08/21/2021 75.3 kg (166 lb) General Appearance: Well appearing, alert, in no acute distress, well-hydrated, well nourished.. Skin: Skin color, texture, turgor normal, no suspicious rashes or lesions. Head: Normocephalic, no masses, lesions, tenderness or abnormalities. Eyes: Anicteric sclera. Pupils are equally round and reactive to light. Extraocular movements are intact. . Ears: External ears, TM's normal, canals clear. Neck: Supple, no adenopathy; thyroid symmetric, normal size, no bruits. Lungs: Lungs clear to auscultation. No wheezing, rhonchi, rales.. Heart: RRR without murmur, gallop, or rubs. No ectopy. Abdomen: Normal abdominal exam, Abdomen soft, non-tender. Bowel sounds normal. No masses, organomegaly. Extremities: No deformities, edema, skin discoloration, clubbing or cyanosis. Good capillary refill. . Musculoskeletal: Muscular strength intact, No joint swelling, deformity, or tenderness. Peripheral Pulses: Normal. Neurologic: Gait normal. Reflexes normal and symmetric. Sensation to light touch and crainal nerves 2-12 intact.. Health Maintenance List PNEUMOCOCCAL(1 - PCV) Never done COLORECTAL CANCER SCREENING due on 05/28/2015 DTAP,TDAP,TD(3 - Td or Tdap) due on 02/24/2019 DEPRESSION SCREENING due on 10/16/2021 COVID-19 VACCINE(5 - Booster for Pfizer series) due on 02/11/2022 INFLUENZA(1) due on 03/14/2022 MAMMOGRAM due on 11/29/2022 DIABETES SCREEN due on 03/21/2025 LIPID SCREEN due on 03/21/2027 PAP TESTING Discontinued HPV TESTING Discontinued HEPATITIS C SCREENING Discontinued HIV SCREENING Discontinued SHINGRIX VACCINE Discontinued Data reviewed Component Latest Ref Rng & Units 09/26/2020 06/04/2021 03/21/2022 WBC 3.70 - 11.00 k/uL 7.03 9.20 RBC 3.90 - 5.20 m/uL 4.62 4.85 Hemoglobin 11.5 - 15.5 g/dL 13.8 14.4 Hematocrit 36.0 - 46.0 % 44.1 46.0 MCV 80.0 - 100.0 fL 95.5 94.8 MCH 26.0 - 34.0 pg 29.9 29.7 MCHC 30.5 - 36.0 g/dL 31.3 31.3 RDW-CV 11.5 - 15.0 % 13.6 14.6 Platelet Count 150 - 400 k/uL 270 355 MPV 9.0 - 12.7 fL 10.8 10.3 Neut% % 59.5 Abs Neut (ANC) 1.45 - 7.50 k/uL 5.48 Lymph% % 28.0 Abs Lymph 1.00 - 4.00 k/uL 2.58 Hickman% % 9.8 Abs Hickman <0.87 k/uL 0.90 (H) Eosin% % 1.2 Abs Eosin <0.46 k/uL 0.11 Baso% % 0.7 Abs Baso <0.11 k/uL 0.06 Immature Gran % % 0.8 IMMATURE GRANS (ABS) <0.10 k/uL 0.07 NRBC /100 WBC 0.0 Absolute nRBC <0.01 k/uL <0.01 <0.01 DTYPE Auto Protein, Total 6.3 - 8.0 g/dL 6.7 6.6 6.7 Albumin 3.9 - 4.9 g/dL 4.4 4.6 4.3 Calcium 8.5 - 10.2 mg/dL 9.6 9.4 Bilirubin, Total 0.2 - 1.3 mg/dL 0.5 0.3 0.5 Alkaline Phosphatase 34 - 123 U/L 84 79 84 AST 13 - 35 U/L 72 (H) 32 36 (H) Glucose 74 - 99 mg/dL 83 79 BUN 7 - 21 mg/dL 12 11 Creatinine 0.58 - 0.96 mg/dL 0.75 0.75 Sodium 136 - 144 mmol/L 143 143 Potassium 3.7 - 5.1 mmol/L 3.7 3.7 Chloride 97 - 105 mmol/L 108 (H) 106 (H) CO2 22 - 30 mmol/L 26 26 Anion Gap 9 - 18 mmol/L 9 11 ALT 7 - 38 U/L 130 (H) 50 (H) 59 (H) eGFR- >60 eGFR-All Other Races . >60 eGFR >=60 mL/min/1.73m 91 Cholesterol, Total <200 mg/dL 237 (H) Triglyceride <150 mg/dL 120 HDL Cholesterol >39 mg/dL 68 LDL Cholesterol <100 mg/dL 145 (H) Non HDL Cholesterol <130 mg/dL 169 (H) Fasting Time hrs 12 VLDL Cholesterol <30 mg/dL 24 TC:HDL Ratio <5.10 3.49 LDL:HDL Ratio <2.54 2.13 Total Cholesterol, Nonfasting <200 mg/dL 211 (H) Triglycerides, Nonfasting <150 mg/dL 95 HDL Cholesterol, Nonfasting >39 mg/dL 57 LDL Cholesterol, Nonfasting <100 mg/dL 135 (H) Non HDL Cholesterol, Nonfasting <130 mg/dL 154 (H) VLDL Cholesterol, Nonfasting <30 mg/dL 19 Total Chol/HDL Ratio, Nonfasting <5.10 mg/dL 3.70 LDL/HDL Ratio, Nonfasting <2.54 mg/dL 2.37 Bilirubin, Conjug <0.2 mg/dL <0.2 Vitamin D 25 Hydroxy 31.0 - 80.0 ng/mL 42.3 26.5 (L) A/P ASSESSMENT/PLAN: 1. Well adult exam - ICD9: V70.0, ICD10: Z00.00 (primary diagnosis) - Counseled on healthy diet and regular exercise - Calcium intake with supplements or by diet of 1000 mg/day for under 50, 1660-0242 mg/day for 50+ - Discussed need and benefit for weight loss. BMI 27.49 kg/(m^2) - Follow up for annual exam in one year - Discussed getting Tdap and PCV-20 2. Insomnia, unspecified type - ICD9: 780.52, ICD10: G47.00 - taking melatonin as needed. 3. Personal history of malignant neoplasm of breast - ICD9: V10.3, ICD10: Z85.3 - last mammo was ok. 4. Osteoporosis of lumbar spine - ICD9: 733.00, ICD10: M81.0 - Reviewed the need for Calcium and Vitamin D supplements and weight bearing exercise as tolerated - f/u per Rheum 5. Rheumatoid arthritis 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 factor (HCC) - ICD9: 714.0, ICD10: M06.09 - management per Rheum 6. Screening for colon cancer - ICD9: V76.51, ICD10: Z12.11 - CONSULT TO GENERAL SURGERY 7. Situational depression - ICD9: 309.0, ICD10: F43.21 - discussed Tx but patient defers at this time. 8. GERD without esophagitis - ICD9: 530.81, ICD10: K21.9 - Begin treatment with Prilosec 40 mg QD Requested Prescriptions Signed Prescriptions Disp Refills tocilizumab (ACTEMRA) 162 mg/0.9 mL Sig: Inject 0.9 mL subcutaneously one time a week. omeprazole (PRILOSEC) 40 mg capsule 90 capsule 1 Sig: Take 1 capsule by mouth once daily. Cholecalciferol, Vitamin D3, 50 mcg (2,000 unit) cap Sig: Take 1 capsule by mouth once daily. F/u in a year for WAE or sooner if issues. Eric Esteves MD documented in this encounter [facility] 01-25-2022 Instructions Twyla Kauffman APRN.LETI - 01/25/2022 8:02 AM EDT Wash with Dial soap. Cephalexin antibiotic. Warm compresses, warm soaks Minimizing irritation of the vulva (area around the vagina) Wear white cotton underwear. Avoid synthetic fabrics and tight clothing. Sleep wearing shorts or pajama bottoms without underwear. Shower as soon as possible after exercise. Avoid clothing detergents and soaps with perfumes or dyes. Use warm (not hot) water to wash the vulva and if you use soap use a product designed for sensitive skin (like Dove or Cetaphil). Do not douche or use creams/powders in the vulvar area unless instructed by your physician. If you must douche, use only plain warm water. Make sure the vulva is dry before dressing by patting dry with a towel. Avoid vigorous rubbing with the towel. You may want to use the blow dryer (on the cool setting only!) on the vulva. The most important way to let your body heal is by avoiding scratching. Many patients find it difficult to avoid scratching at night when they are most aware of the itchiness. You can try taking Benadryl just before bedtime. Some women find it helpful to wear cotton gloves to bed to avoid scratching at night. documented in this encounter [facility] 01-25-2022 History of Presen t illness Narrative Windy Iniguez is a 61 year old female who presents for problem visit Vaginal lump HPI: Pinching feeling sore to vulva x 1 week. No pain. Sore started bleeding a couple of days ago, yesterday bled quite a bit. No other drainage. No fever or chills. No home treatment except for Aquaphor. Has not been swimming or in hot tubs. Has been wearing spandex shape wear. Evaluated yesterday by PCP - prescribed doxycycline but did chicken picker yet. Had a vulvar cyst many years ago that resolved without I&D. Sexually active with one male partner, long-term. No concern for STD. OB History No obstetric history on file. Arts Therapist History LMP: 01/19/2008, Hysterectomy Age at Menarche: Age at First : Age at Menopause: Arts Therapist History Comments: Sexual Activity: Not Asked; No partner data on record Contraception: No contraception data on record PAST MEDICAL HISTORY Diagnosis Date Carcinoma in situ of breast LEFT Diffuse cystic mastopathy Internal hemorrhoids without mention of complication Osteoporosis of lumbar spine 10/09/2018 Other malaise and fatigue Well adult exam 12/06/2020 Last Done: 10/17/[address] Esteves (Dyad) PAST SURGICAL HISTORY Procedure Laterality Date COLONOSCOPY FLX DX W/COLLJ SPEC WHEN PFRMD 05/06/11 CYSTOSCOPY 09/21/14 INJ RADIOACTIVE TRACER FOR ID OF SENTINEL NODE 06/30/08 LEFT BREAST MASTECTOMY,PARTIAL, WITH AXILLARY LYMPHADENECTOMY 06/30/08 LEFT BREAST, lumpectomy- cancerious PAST SURGICAL HISTORY OF Novasure PAST SURGICAL HISTORY OF 06/24/2011 Excisional biopsy right forearm- benign PAST SURGICAL HISTORY OF 07/11/2015 left trigger thumb release PREOP PLACEMENT NEEDLE LOC 06/30/08 LEFT BREAST PUNCH BIOPSY B/O 04/2011 Right forearm STEREOTACTIC CORE BIOPSY 06/01/08 left TONSILLECTOMY PRIMARY/SECONDARY <AGE 12 TOTAL ABDOMINAL HYSTERECT W/WO RMVL TUBE OVARY -2007 Hysterectomy, BLANCA BSO FAMILY HISTORY Problem Relation Age of Onset Cancer Father LIVER AND PANCREAS other (ASHD [Other]) Sister defibrillator Breast Cancer Paternal Grandmother Cancer Maternal Grandfather LUNG Arthritis Mother Social History Tobacco Use Smoking status: Never Smoker Smokeless tobacco: Never Used Substance Use Topics Alcohol use: Yes Comment: socially Drug use: No Current Outpatient Medications Medication Sig ORENCIA CLICKJECT 125 mg/mL doxycycline (VIBRA-TABS) 100 mg tablet Take 1 tablet by mouth twice daily for 7 days. amitriptyline (ELAVIL) 10 mg tablet Take 1 tablet by mouth daily at bedtime for 7 days, THEN 2 tablets daily at bedtime. colchicine 0.6 mg tablet Take 0.6 mg by mouth once daily. folic acid 1 mg tablet Take 1 mg by mouth once daily. Per rheumatology (Patient not taking: Reported on 01/24/2022 ) methotrexate 2.5 mg tablet Per rheumatology adalimumab (HUMIRA) 40 mg/0.8 mL injection Inject 40 mg subcutaneously as directed. Every other Friday (Patient not taking: Reported on 08/21/2021 ) predniSONE 5 mg/5 mL solution Take 5 mg by mouth as directed. Melatonin 5 mg cap Take 5 mg by mouth daily at bedtime. calcium carbonate/vitamin D3 (CALCIUM-D ORAL) Take by mouth once daily. No current facility-administered medications for this visit. Allergies As of Date: 01/25/2022 Allergen Noted Reaction CLARITIN-D [OTHER] 01/31/2005 Other: See Comments CODEINE 01/31/2005 Vomiting DUST MITES 06/14/2005 Unknown FOSAMAX [ALENDRONATE] 12/06/2020 Other: See Comments MOLD 06/14/2005 Unknown RELAFEN [NABUMETONE] 06/14/2005 Unknown TREES 06/14/2005 Unknown Fully Assessed 01/25/2022 REVIEW OF SYSTEMS Bladder: No dysuria, gross hematuria, urinary frequency, urinary urgency, or incontinence. Allergies and current medication updated:Yes EXAM: BP 124/72 Wt 166 lb 12.8 oz (75.7kg) LMP 01/19/2008 GENERAL: pleasant, female in no apparent distress CHEST: Normal inspiratory effort ABDOMEN: soft, non-tender, no masses and no lymphadenopathy PELVIC: external genitalia normal, normal Bartholin's glands, urethra, [place]'s glands, no vulvar lesions, physiologic discharge present, normal appearing perineal body and perianal region, cervix surgically absent. + atrophy. Right vulva with 2 small lumps, one with small amount yellow drainage, consistent with folliculitis. No surrounding eyth Folliculitis to inner thighs and buttocks. NEURO: alert and oriented x3,exam grossly non-focal ASSESSMENT/PLAN: 1. Vulvar lump - ICD9: 625.8, ICD10: N90.89 (primary diagnosis) - no abscess. Consistent with folliculitis. - CEPHALEXIN 500 MG CAPSULE - Warm compresses, warm soaks 2. Folliculitis - ICD9: 704.8, ICD10: L73.9 Wash with Dial soap. Warm compresses, warm soaks - Vulvar hygiene instructions - CEPHALEXIN 500 MG CAPSULE Follow-up as needed. Twyla Kauffman APRN.INTERNAL AUDITOR Medical Decision Making: Problems: Low: Acute, uncomplicated illness or injury Data: Unique source(s) for external note(s) reviewed: 1 Risk: Moderate: Drug management Medical Decision Making Level: 3 - Low documented in this encounter [facility] 01-24-2022 History of Presen t illness Narrative Images from the original note were not included. Subjective Patient came in with complaints of painful lesion that is bleeding in the vaginal area. Noticed a week ago and the bleeding just started. patient has not had a BUILD TECHNICIAN appt in several years. Patient denies any risk for STD. patient denies any other symptoms at this time. Has had a complete hysterectomy. The history is provided by the patient. No silo painter was used. Review of Systems Constitutional: Negative. Skin: Negative. Objective Physical Exam Exam conducted with a pewter fabricator present. Constitutional: Appearance: Normal appearance. Pulmonary: Effort: Pulmonary effort is normal. Genitourinary: Comments: Pea sized firm lump located in area marked above and small shallow ulceration in center of pea sized lump. No drainage noted. Lump did spear to be reddish purple in color. Neurological: Mental Status: She is alert. PAST MEDICAL HISTORY Diagnosis Date Carcinoma in situ of breast LEFT Diffuse cystic mastopathy Internal hemorrhoids without mention of complication Osteoporosis of lumbar spine 10/09/2018 Other malaise and fatigue Well adult exam 12/06/2020 Last Done: 10/17/[address] Esteves (Dyad) PAST SURGICAL HISTORY Procedure Laterality Date COLONOSCOPY FLX DX W/COLLJ SPEC WHEN PFRMD 05/06/11 CYSTOSCOPY 09/21/14 INJ RADIOACTIVE TRACER FOR ID OF SENTINEL NODE 06/30/08 LEFT BREAST MASTECTOMY,PARTIAL, WITH AXILLARY LYMPHADENECTOMY 06/30/08 LEFT BREAST, lumpectomy- cancerious PAST SURGICAL HISTORY OF Novasure PAST SURGICAL HISTORY OF 06/24/2011 Excisional biopsy right forearm- benign PAST SURGICAL HISTORY OF 07/11/2015 left trigger thumb release PREOP PLACEMENT NEEDLE LOC 06/30/08 LEFT BREAST PUNCH BIOPSY B/O 04/2011 Right forearm STEREOTACTIC CORE BIOPSY 06/01/08 left TONSILLECTOMY PRIMARY/SECONDARY <AGE 12 TOTAL ABDOMINAL HYSTERECT W/WO RMVL TUBE OVARY 7-2007 Hysterectomy, BLANCA BSO ALLERGIES Claritin-D [Other], Codeine, Dust Mites, Fosamax [Alendronate], Mold, Relafen [Nabumetone], and Trees MEDICATIONS ORENCIA CLICKJECT 125 mg/mL colchicine 0.6 mg tablet Take 0.6 mg by mouth once daily. predniSONE 5 mg/5 mL solution Take 5 mg by mouth as directed. Melatonin 5 mg cap Take 5 mg by mouth daily at bedtime. calcium carbonate/vitamin D3 (CALCIUM-D ORAL) Take by mouth once daily. doxycycline (VIBRA-TABS) 100 mg tablet Take 1 tablet by mouth twice daily for 7 days. amitriptyline (ELAVIL) 10 mg tablet Take 1 tablet by mouth daily at bedtime for 7 days, THEN 2 tablets daily at bedtime. folic acid 1 mg tablet Take 1 mg by mouth once daily. Per rheumatology methotrexate 2.5 mg tablet Per rheumatology adalimumab (HUMIRA) 40 mg/0.8 mL injection Inject 40 mg subcutaneously as directed. Every other Friday FAMILY HISTORY Problem Relation Age of Onset Cancer Father LIVER AND PANCREAS other (ASHD [Other]) Sister defibrillator Breast Cancer Paternal Grandmother Cancer Maternal Grandfather LUNG Arthritis Mother Social History Tobacco Use Smoking status: Never Smoker Smokeless tobacco: Never Used Substance Use Topics Alcohol use: Yes Comment: socially Drug use: No ASSESSMENT/PLAN: 1. Vaginal sore - ICD9: 623.8, ICD10: N89.8 - CONSULT TO PASSENGER FLAGMAN appt made for 7 tomorrow with BUILD TECHNICIAN. Patient started on doxycycline 100mg bid for 7 days (no medication interaction will call her whale fisherman and double check if he thinks that is okay with her medication). patient is following up with BUILD TECHNICIAN for further evaluation managment. Patient was okay with this care plan. Afia Ba APRN.LETI documented in this encounter [facility] 01-24-2022 Miscellaneous Notes Protocol recommends see provider in 24 hours. Patient agreeable to EC for same day appt. Reason for Disposition Genital area looks infected (e.g., draining sore, spreading redness) Answer Assessment - Initial Assessment Questions 1. SYMPTOM Sore on vaginal labia that is bleeding. Pinch feeling. 2. LOCATION: Outside on labia. 3. ONSET: Noticed last weekend. Could feel the pinch feeling and the presence of something. 4. PAIN: No real pain. Tender to touch. 5. ITCHING: No itching. 6. CAUSE: Has had a cyst in that area for years that has never caused a problem. No discharge. Notices blood with wiping. It is tender when wiping. 7. OTHER SYMPTOMS: Area feels big like it's inflammed or swollen. No injury to that area. No pain with urination. 8. : No. Hysterectomy. Protocols used: VAGINAL [id number] documented in this encounter [facility] 01-07-2022 History of Presen t illness Narrative Open in error documented in this encounter [facility] 11-29-2021 Miscellaneous Notes Pt notified of same. Zoraida Taylor LPN Normal mammogram. Repeat in 1 year. Received results of pt's mammogram done at [facility]. Results on your desk for review. Zoraida Taylor LPN documented in this encounter [facility] 11-27-2021 Miscellaneous Notes New order faxed to mammography dept [facility], at fax # [phone]. Julia, mammography dept [facility], reports they received a mammogram order, but it is not written with the 3 D component. Asking provider to fax new order to . Pended. Patient is scheduled for 11-29. documented in this encounter [facility] 11-20-2021 Miscellaneous Notes Re-faxed order to [phone]. [facility] Scheduling. Windy Bone LPN documented in this encounter [facility] 08-01-2021 History of Presen t illness Narrative Radiology Service Progress Note PATIENT NAME: Windy Iniguez DATE OF SERVICE: August 01, 2021 TIME: 6:27 PM PATIENT IDENTITY VERIFICATION COMPLETED USING TWO (2) IDENTIFIERS: Name and Date of confirmed by patient verbally. FALL SCREENING: Has the patient had 2 falls in the last year or 1 fall with injury or currently using an Ambulatory Assistive Device (Walker, Cane, Wheelchair, Crutches, etc.)? No PATIENT GENDER DATA: Female. status: : No status: NO. PATIENT RELEVANT IMPLANT DATA REVIEWED: Not Applicable RADIOLOGY DEPARTMENT: General X-ray: Exam(s) Completed: Spine X-Ray(s): Cervical AP / LAT / OBL PERIPHERAL IV DATA: Not applicable SIGNED BY: RT Anton(R) August 01, 2021 6:27 PM documented in this encounter [facility] 07-18-2015 History of Past i llness Narrative Problem Noted Date Resolved Date Trigger thumb of left hand 07/18/201508/13 Degenerative arthritis of toe joint 03/07/2015 08/13/2016 Patellar tendinitis of right knee 03/07/2015 08/13/2016 De Quervain's tenosynovitis, left 05/27/2014 08/13/2016 documented as of this encounter (statuses as of 11/20/2021) [facility] History of Past illness Narrative* Problem Noted Date Resolved Date Trigger thumb of left hand 07/18/201508/13 Degenerative arthritis of toe joint 03/07/2015 08/13/2016 Patellar tendinitis of right knee 03/07/2015 08/13/2016 De Quervain's tenosynovitis, left 05/27/2014 08/13/2016 documented as of this encounter (statuses as of 11/27/2021) [address] History of Past illness Narrative* Problem Noted Date Resolved Date Trigger thumb of left hand 07/18/201508/13 Degenerative arthritis of toe joint 03/07/2015 08/13/2016 Patellar tendinitis of right knee 03/07/2015 08/13/2016 De Quervain's tenosynovitis, left 05/27/2014 08/13/2016 documented as of this encounter (statuses as of 11/29/2021) [facility] History of Past illness Narrative* Problem Noted Date Resolved Date Trigger thumb of left hand 07/18/201508/13 Degenerative arthritis of toe joint 03/07/2015 08/13/2016 Patellar tendinitis of right knee 03/07/2015 08/13/2016 De Quervain's tenosynovitis, left 05/27/2014 08/13/2016 documented as of this encounter (statuses as of 01/07/2022) [facility] History of Past illness Narrative* Problem Noted Date Resolved Date Trigger thumb of left hand 07/18/201508/13 Degenerative arthritis of toe joint 03/07/2015 08/13/2016 Patellar tendinitis of right knee 03/07/2015 08/13/2016 De Quervain's tenosynovitis, left 05/27/2014 08/13/2016 documented as of this encounter (statuses as of 01/24/2022) [address]2016 History of Past illness Narrative* Problem Noted Date Resolved Date Trigger thumb of left hand 07/18/201508/13 Degenerative arthritis of toe joint 03/07/2015 08/13/2016 Patellar tendinitis of right knee 03/07/2015 08/13/2016 De Quervain's tenosynovitis, left 05/27/2014 08/13/2016 documented as of this encounter (statuses as of 01/24/2022) [address]2016 History of Past illness Narrative* Problem Noted Date Resolved Date Trigger thumb of left hand 07/18/201508/13 Degenerative arthritis of toe joint 03/07/2015 08/13/2016 Patellar tendinitis of right knee 03/07/2015 08/13/2016 De Quervain's tenosynovitis, left 05/27/2014 08/13/2016 documented as of this encounter (statuses as of 01/25/2022) [address]2016 History of Past illness Narrative* Problem Noted Date Resolved Date Trigger thumb of left hand 07/18/201508/13 Degenerative arthritis of toe joint 03/07/2015 08/13/2016 Patellar tendinitis of right knee 03/07/2015 08/13/2016 De Quervain's tenosynovitis, left 05/27/2014 08/13/2016 documented as of this encounter (statuses as of 02/15/2022) [address]2016 History of Past illness Narrative* Problem Noted Date Resolved Date Trigger thumb of left hand 07/18/201508/13 Degenerative arthritis of toe joint 03/07/2015 08/13/2016 Patellar tendinitis of right knee 03/07/2015 08/13/2016 De Quervain's tenosynovitis, left 05/27/2014 08/13/2016 documented as of this encounter (statuses as of 03/14/2022) [address]2016 History of Past illness Narrative* Problem Noted Date Resolved Date Trigger thumb of left hand 07/18/201508/13 Degenerative arthritis of toe joint 03/07/2015 08/13/2016 Patellar tendinitis of right knee 03/07/2015 08/13/2016 De Quervain's tenosynovitis, left 05/27/2014 08/13/2016 documented as of this encounter (statuses as of 04/01/2022) [address]2016 History of Past illness Narrative* Problem Noted Date Resolved Date Trigger thumb of left hand 07/18/201508/13 Degenerative arthritis of toe joint 03/07/2015 08/13/2016 Patellar tendinitis of right knee 03/07/2015 08/13/2016 De Quervain's tenosynovitis, left 05/27/2014 08/13/2016 documented as of this encounter (statuses as of 04/05/2022) [address]2016 History of Past illness Narrative* Problem Noted Date Resolved Date Trigger thumb of left hand 07/18/201508/13 Degenerative arthritis of toe joint 03/07/2015 08/13/2016 Patellar tendinitis of right knee 03/07/2015 08/13/2016 De Quervain's tenosynovitis, left 05/27/2014 08/13/2016 documented as of this encounter (statuses as of 04/17/2022) [address]2016 History of Past illness Narrative* Problem Noted Date Resolved Date Trigger thumb of left hand 07/18/201508/13 Degenerative arthritis of toe joint 03/07/2015 08/13/2016 Patellar tendinitis of right knee 03/07/2015 08/13/2016 De Quervain's tenosynovitis, left 05/27/2014 08/13/2016 documented as of this encounter (statuses as of 04/29/2022) [address]2016 History of Past illness Narrative* Problem Noted Date Resolved Date Trigger thumb of left hand 07/18/201508/13 Degenerative arthritis of toe joint 03/07/2015 08/13/2016 Patellar tendinitis of right knee 03/07/2015 08/13/2016 De Quervain's tenosynovitis, left 05/27/2014 08/13/2016 documented as of this encounter (statuses as of 05/07/2022) [address]2016 History of Past illness Narrative* Problem Noted Date Resolved Date Trigger thumb of left hand 07/18/201508/13 Degenerative arthritis of toe joint 03/07/2015 08/13/2016 Patellar tendinitis of right knee 03/07/2015 08/13/2016 De Quervain's tenosynovitis, left 05/27/2014 08/13/2016 documented as of this encounter (statuses as of 05/22/2022) [address]2016 History of Past illness Narrative* Problem Noted Date Resolved Date Trigger thumb of left hand 07/18/201508/13 Degenerative arthritis of toe joint 03/07/2015 08/13/2016 Patellar tendinitis of right knee 03/07/2015 08/13/2016 De Quervain's tenosynovitis, left 05/27/2014 08/13/2016 documented as of this encounter (statuses as of 05/23/2022) [address]2016 History of Past illness Narrative* Problem Noted Date Resolved Date Trigger thumb of left hand 07/18/201508/13 Degenerative arthritis of toe joint 03/07/2015 08/13/2016 Patellar tendinitis of right knee 03/07/2015 08/13/2016 De Quervain's tenosynovitis, left 05/27/2014 08/13/2016 documented as of this encounter (statuses as of 05/24/2022) [address]2016 History of Past illness Narrative* Problem Noted Date Resolved Date Trigger thumb of left hand 07/18/201508/13 Degenerative arthritis of toe joint 03/07/2015 08/13/2016 Patellar tendinitis of right knee 03/07/2015 08/13/2016 De Quervain's tenosynovitis, left 05/27/2014 08/13/2016 documented as of this encounter (statuses as of 06/18/2022) [address]2016 History of Past illness Narrative* Problem Noted Date Resolved Date Trigger thumb of left hand 07/18/201508/13 Degenerative arthritis of toe joint 03/07/2015 08/13/2016 Patellar tendinitis of right knee 03/07/2015 08/13/2016 De Quervain's tenosynovitis, left 05/27/2014 08/13/2016 documented as of this encounter (statuses as of 06/18/2022) [address]2016 History of Past illness Narrative* Problem Noted Date Resolved Date Trigger thumb of left hand 07/18/201508/13 Degenerative arthritis of toe joint 03/07/2015 08/13/2016 Patellar tendinitis of right knee 03/07/2015 08/13/2016 De Quervain's tenosynovitis, left 05/27/2014 08/13/2016 documented as of this encounter (statuses as of 06/19/2022) [address]2016 History of Past illness Narrative* Problem Noted Date Resolved Date Trigger thumb of left hand 07/18/201508/13 Degenerative arthritis of toe joint 03/07/2015 08/13/2016 Patellar tendinitis of right knee 03/07/2015 08/13/2016 De Quervain's tenosynovitis, left 05/27/2014 08/13/2016 documented as of this encounter (statuses as of 06/20/2022) [address]2016 History of Past illness Narrative* Problem Noted Date Resolved Date Trigger thumb of left hand 07/18/201508/13 Degenerative arthritis of toe joint 03/07/2015 08/13/2016 Patellar tendinitis of right knee 03/07/2015 08/13/2016 De Quervain's tenosynovitis, left 05/27/2014 08/13/2016 documented as of this encounter (statuses as of 07/29/2022) [address]2016 History of Past illness Narrative* Problem Noted Date Resolved Date Trigger thumb of left hand 07/18/201508/13 Degenerative arthritis of toe joint 03/07/2015 08/13/2016 Patellar tendinitis of right knee 03/07/2015 08/13/2016 De Quervain's tenosynovitis, left 05/27/2014 08/13/2016 documented as of this encounter (statuses as of 09/19/2022) [address]2016 History of Past illness Narrative* Problem Noted Date Resolved Date Trigger thumb of left hand 07/18/201508/13 Degenerative arthritis of toe joint 03/07/2015 08/13/2016 Patellar tendinitis of right knee 03/07/2015 08/13/2016 De Quervain's tenosynovitis, left 05/27/2014 08/13/2016 documented as of this encounter (statuses as of 09/20/2022) [address]2016 History of Past illness Narrative* Problem Noted Date Resolved Date Trigger thumb of left hand 07/18/201508/13 Degenerative arthritis of toe joint 03/07/2015 08/13/2016 Patellar tendinitis of right knee 03/07/2015 08/13/2016 De Quervain's tenosynovitis, left 05/27/2014 08/13/2016 documented as of this encounter (statuses as of 10/08/2022) [address]2016 History of Past illness Narrative* Problem Noted Date Resolved Date Trigger thumb of left hand 07/18/201508/13 Degenerative arthritis of toe joint 03/07/2015 08/13/2016 Patellar tendinitis of right knee 03/07/2015 08/13/2016 De Quervain's tenosynovitis, left 05/27/2014 08/13/2016 documented as of this encounter (statuses as of 10/24/2022) [address]2016 History of Past illness Narrative* Problem Noted Date Resolved Date Trigger thumb of left hand 07/18/201508/13 Degenerative arthritis of toe joint 03/07/2015 08/13/2016 Patellar tendinitis of right knee 03/07/2015 08/13/2016 De Quervain's tenosynovitis, left 05/27/2014 08/13/2016 documented as of this encounter (statuses as of 11/11/2022) [address]2016 History of Past illness Narrative* Problem Noted Date Resolved Date Trigger thumb of left hand 07/18/201508/13 Degenerative arthritis of toe joint 03/07/2015 08/13/2016 Patellar tendinitis of right knee 03/07/2015 08/13/2016 De Quervain's tenosynovitis, left 05/27/2014 08/13/2016 documented as of this encounter (statuses as of 11/22/2022) [address]2016 History of Past illness Narrative* Problem Noted Date Resolved Date Trigger thumb of left hand 07/18/201508/13 Degenerative arthritis of toe joint 03/07/2015 08/13/2016 Patellar tendinitis of right knee 03/07/2015 08/13/2016 De Quervain's tenosynovitis, left 05/27/2014 08/13/2016 documented as of this encounter (statuses as of 12/03/2022) [address]2016 History of Past illness Narrative* Problem Noted Date Resolved Date Trigger thumb of left hand 07/18/201508/13 Degenerative arthritis of toe joint 03/07/2015 08/13/2016 Patellar tendinitis of right knee 03/07/2015 08/13/2016 De Quervain's tenosynovitis, left 05/27/2014 08/13/2016 documented as of this encounter (statuses as of 12/13/2022) [address]2016 History of Past illness Narrative* Problem Noted Date Diagnosed Date Resolved Date Trigger thumb of left hand 07/18/2015 0 08/13/2016 Degenerative arthritis of toe joint 03/07/2015 08/13/2016 Patellar tendinitis of right knee 03/07/2015 08/13/2016 De Quervain's tenosynovitis, left 05/27/2014 08/13/2016 documented as of this encounter (statuses as of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 restrict any use of the information to criminally investigate or prosecute any alcohol or drug abuse patient.[facility] the event this information is protected by the Federal Confidentiality of Alcohol and Drug Abuse Patient Records regulations: The Federal rules restrict any use of the information to criminally investigate or prosecute any alcohol or drug abuse patient.[facility] the event this information is protected by the Federal Confidentiality of Alcohol and Drug Abuse Patient Records regulations: The Federal rules restrict any use of the information to criminally investigate or prosecute any alcohol or drug abuse patient.[facility] the event this information is protected by the Federal Confidentiality of Alcohol and Drug Abuse Patient Records regulations: The Federal rules restrict any use of the information to criminally investigate or prosecute any alcohol or drug abuse patient.[facility] the event this information is protected by the Federal Confidentiality of Alcohol and Drug Abuse Patient Records regulations: The Federal rules restrict any use of the information to criminally investigate or prosecute any alcohol or drug abuse patient.[facility] the event this information is protected by the Federal Confidentiality of Alcohol and Drug Abuse Patient Records regulations: The Federal rules restrict any use of the information to criminally investigate or prosecute any alcohol or drug abuse patient.[facility] the event this information is protected by the Federal Confidentiality of Alcohol and Drug Abuse Patient Records regulations: The Federal rules restrict any use of the information to criminally investigate or prosecute any alcohol or drug abuse patient.[facility] the event this information is protected by the Federal Confidentiality of Alcohol and Drug Abuse Patient Records regulations: The Federal rules restrict any use of the information to criminally investigate or prosecute any alcohol or drug abuse patient.[facility]In the event this information is protected by the Federal Confidentiality of Alcohol and Drug Abuse Patient Records regulations: The Federal rules restrict any use of the information to criminally investigate or prosecute any alcohol or drug abuse patient.[facility] the event this information is protected by the Federal Confidentiality of Alcohol and Drug Abuse Patient Records regulations: The Federal rules restrict any use of the information to criminally investigate or prosecute any alcohol or drug abuse patient.[facility] the event this information is protected by the Federal Confidentiality of Alcohol and Drug Abuse Patient Records regulations: The Federal rules restrict any use of the information to criminally investigate or prosecute any alcohol or drug abuse patient.[facility] the event this information is protected by the Federal Confidentiality of Alcohol and Drug Abuse Patient Records regulations: The Federal rules restrict any use of the information to criminally investigate or prosecute any alcohol or drug abuse patient.[facility] Hospital[facility] the event this information is protected by the Federal Confidentiality of Alcohol and Drug Abuse Patient Records regulations: The Federal rules restrict any use of the information to criminally investigate or prosecute any alcohol or drug abuse patient.[facility] HospitalIn the event this information is protected by the Federal Confidentiality of Alcohol and Drug Abuse Patient Records regulations: The Federal rules restrict any use of the information to criminally investigate or prosecute any alcohol or drug abuse patient.[facility] HospitalIn the event this information is protected by the Federal Confidentiality of Alcohol and Drug Abuse Patient Records regulations: The Federal rules restrict any use of the information to criminally investigate or prosecute any alcohol or drug abuse patient.[facility] HospitalIn the event this information is protected by the Federal Confidentiality of Alcohol and Drug Abuse Patient Records regulations: The Federal rules restrict any use of the information to criminally investigate or prosecute any alcohol or drug abuse patient.[facility] HospitalIn the event this information is protected by the Federal Confidentiality of Alcohol and Drug Abuse Patient Records regulations: The Federal rules restrict any use of the information to criminally investigate or prosecute any alcohol or drug abuse patient.[facility] HospitalIn the event this information is protected by the Federal Confidentiality of Alcohol and Drug Abuse Patient Records regulations: The Federal rules restrict any use of the information to criminally investigate or prosecute any alcohol or drug abuse patient.[facility] HospitalIn the event this information is protected by the Federal Confidentiality of Alcohol and Drug Abuse Patient Records regulations: The Federal rules restrict any use of the information to criminally investigate or prosecute any alcohol or drug abuse patient.[facility] HospitalIn the event this information is protected by the Federal Confidentiality of Alcohol and Drug Abuse Patient Records regulations: The Federal rules restrict any use of the information to criminally investigate or prosecute any alcohol or drug abuse patient.[facility] HospitalIn the event this information is protected by the Federal Confidentiality of Alcohol and Drug Abuse Patient Records regulations: The Federal rules restrict any use of the information to criminally investigate or prosecute any alcohol or drug abuse patient.[facility] HospitalIn the event this information is protected by the Federal Confidentiality of Alcohol and Drug Abuse Patient Records regulations: The Federal rules restrict any use of the information to criminally investigate or prosecute any alcohol or drug abuse patient.[facility] HospitalIn the event this information is protected by the Federal Confidentiality of Alcohol and Drug Abuse Patient Records regulations: The Federal rules restrict any use of the information to criminally investigate or prosecute any alcohol or drug abuse patient.[facility] HospitalIn the event this information is protected by the Federal Confidentiality of Alcohol and Drug Abuse Patient Records regulations: The Federal rules restrict any use of the information to criminally investigate or prosecute any alcohol or drug abuse patient.[facility] HospitalIn the event this information is protected by the Federal Confidentiality of Alcohol and Drug Abuse Patient Records regulations: The Federal rules restrict any use of the information to criminally investigate or prosecute any alcohol or drug abuse patient.[facility] HospitalIn the event this information is protected by the Federal Confidentiality of Alcohol and Drug Abuse Patient Records regulations: The Federal rules restrict any use of the information to criminally investigate or prosecute any alcohol or drug abuse patient.[facility] HospitalIn the event this information is protected by the Federal Confidentiality of Alcohol and Drug Abuse Patient Records regulations: The Federal rules restrict any use of the information to criminally investigate or prosecute any alcohol or drug abuse patient.[facility] HospitalIn the event this information is protected by the Federal Confidentiality of Alcohol and Drug Abuse Patient Records regulations: The Federal rules restrict any use of the information to criminally investigate or prosecute any alcohol or drug abuse patient.[facility] HospitalIn the event this information is protected by the Federal Confidentiality of Alcohol and Drug Abuse Patient Records regulations: The Federal rules restrict any use of the information to criminally investigate or prosecute any alcohol or drug abuse patient.[facility] HospitalIn the event this information is protected by the Federal Confidentiality of Alcohol and Drug Abuse Patient Records regulations: The Federal rules restrict any use of the information to criminally investigate or prosecute any alcohol or drug abuse patient.[facility] HospitalIn the event this information is protected by the Federal Confidentiality of Alcohol and Drug Abuse Patient Records regulations: The Federal rules restrict any use of the information to criminally investigate or prosecute any alcohol or drug abuse patient.[facility] HospitalIn the event this information is protected by the Federal Confidentiality of Alcohol and Drug Abuse Patient Records regulations: The Federal rules restrict any use of the information to criminally investigate or prosecute any alcohol or drug abuse patient.[facility] HospitalIn the event this information is protected by the Federal Confidentiality of Alcohol and Drug Abuse Patient Records regulations: The Federal rules restrict any use of the information to criminally investigate or prosecute any alcohol or drug abuse patient.[facility] HospitalIn the event this information is protected by the Federal Confidentiality of Alcohol and Drug Abuse Patient Records regulations: The Federal rules restrict any use of the information to criminally investigate or prosecute any alcohol or drug abuse patient.[facility] HospitalIn the event this information is protected by the Federal Confidentiality of Alcohol and Drug Abuse Patient Records regulations: The Federal rules restrict any use of the information to criminally investigate or prosecute any alcohol or drug abuse patient.[facility] HospitalIn the event this information is protected by the Federal Confidentiality of Alcohol and Drug Abuse Patient Records regulations: The Federal rules restrict any use of the information to criminally investigate or prosecute any alcohol or drug abuse patient.[facility] HospitalIn the event this information is protected by the Federal Confidentiality of Alcohol and Drug Abuse Patient Records regulations: The Federal rules restrict any use of the information to criminally investigate or prosecute any alcohol or drug abuse patient.[facility] HospitalIn the event this information is protected by the Federal Confidentiality of Alcohol and Drug Abuse Patient Records regulations: The Federal rules restrict any use of the information to criminally investigate or prosecute any alcohol or drug abuse patient.[facility] HospitalIn the event this information is protected by the Federal Confidentiality of Alcohol and Drug Abuse Patient Records regulations: The Federal rules restrict any use of the information to criminally investigate or prosecute any alcohol or drug abuse patient.[facility] HospitalIn the event this information is protected by the Federal Confidentiality of Alcohol and Drug Abuse Patient Records regulations: The Federal rules restrict any use of the information to criminally investigate or prosecute any alcohol or drug abuse patient.[facility] HospitalIn the event this information is protected by the Federal Confidentiality of Alcohol and Drug Abuse Patient Records regulations: The Federal rules restrict any use of the information to criminally investigate or prosecute any alcohol or drug abuse patient.[facility] HospitalIn the event this information is protected by the Federal Confidentiality of Alcohol and Drug Abuse Patient Records regulations: The Federal rules restrict any use of the information to criminally investigate or prosecute any alcohol or drug abuse patient.[facility] HospitalIn the event this information is protected by the Federal Confidentiality of Alcohol and Drug Abuse Patient Records regulations: The Federal rules restrict any use of the information to criminally investigate or prosecute any alcohol or drug abuse patient.[facility] HospitalIn the event this information is protected by the Federal Confidentiality of Alcohol and Drug Abuse Patient Records regulations: The Federal rules restrict any use of the information to criminally investigate or prosecute any alcohol or drug abuse patient.[facility] HospitalIn the event this information is protected by the Federal Confidentiality of Alcohol and Drug Abuse Patient Records regulations: The Federal rules restrict any use of the information to criminally investigate or prosecute any alcohol or drug abuse patient.[facility] HospitalIn the event this information is protected by the Federal Confidentiality of Alcohol and Drug Abuse Patient Records regulations: The Federal rules restrict any use of the information to criminally investigate or prosecute any alcohol or drug abuse patient.[facility] HospitalIn the event this information is protected by the Federal Confidentiality of Alcohol and Drug Abuse Patient Records regulations: The Federal rules restrict any use of the information to criminally investigate or prosecute any alcohol or drug abuse patient.[facility] HospitalIn the event this information is protected by the Federal Confidentiality of Alcohol and Drug Abuse Patient Records regulations: The Federal rules restrict any use of the information to criminally investigate or prosecute any alcohol or drug abuse patient.[facility] HospitalIn the event this information is protected by the Federal Confidentiality of Alcohol and Drug Abuse Patient Records regulations: The Federal rules restrict any use of the information to criminally investigate or prosecute any alcohol or drug abuse patient.[facility] HospitalIn the event this information is protected by the Federal Confidentiality of Alcohol and Drug Abuse Patient Records regulations: The Federal rules restrict any use of the information to criminally investigate or prosecute any alcohol or drug abuse patient.[facility] HospitalIn the event this information is protected by the Federal Confidentiality of Alcohol and Drug Abuse Patient Records regulations: The Federal rules restrict any use of the information to criminally investigate or prosecute any alcohol or drug abuse patient.[facility] HospitalIn the event this information is protected by the Federal Confidentiality of Alcohol and Drug Abuse Patient Records regulations: The Federal rules restrict any use of the information to criminally investigate or prosecute any alcohol or drug abuse patient.[facility] HospitalIn the event this information is protected by the Federal Confidentiality of Alcohol and Drug Abuse Patient Records regulations: The Federal rules restrict any use of the information to criminally investigate or prosecute any alcohol or drug abuse patient.[facility] HospitalIn the event this information is protected by the Federal Confidentiality of Alcohol and Drug Abuse Patient Records regulations: The Federal rules restrict any use of the information to criminally investigate or prosecute any alcohol or drug abuse patient.[facility] HospitalIn the event this information is protected by the Federal Confidentiality of Alcohol and Drug Abuse Patient Records regulations: The Federal rules restrict any use of the information to criminally investigate or prosecute any alcohol or drug abuse patient.[facility] HospitalIn the event this information is protected by the Federal Confidentiality of Alcohol and Drug Abuse Patient Records regulations: The Federal rules restrict any use of the information to criminally investigate or prosecute any alcohol or drug abuse patient.[facility] HospitalIn the event this information is protected by the Federal Confidentiality of Alcohol and Drug Abuse Patient Records regulations: The Federal rules restrict any use of the information to criminally investigate or prosecute any alcohol or drug abuse patient.[facility] HospitalIn the event this information is protected by the Federal Confidentiality of Alcohol and Drug Abuse Patient Records regulations: The Federal rules restrict any use of the information to criminally investigate or prosecute any alcohol or drug abuse patient.[facility] HospitalIn the event this information is protected by the Federal Confidentiality of Alcohol and Drug Abuse Patient Records regulations: The Federal rules restrict any use of the information to criminally investigate or prosecute any alcohol or drug abuse patient.[facility] HospitalIn the event this information is protected by the Federal Confidentiality of Alcohol and Drug Abuse Patient Records regulations: The Federal rules restrict any use of the information to criminally investigate or prosecute any alcohol or drug abuse patient.[facility] HospitalIn the event this information is protected by the Federal Confidentiality of Alcohol and Drug Abuse Patient Records regulations: The Federal rules restrict any use of the information to criminally investigate or prosecute any alcohol or drug abuse patient.[facility] HospitalIn the event this information is protected by the Federal Confidentiality of Alcohol and Drug Abuse Patient Records regulations: The Federal rules restrict any use of the information to criminally investigate or prosecute any alcohol or drug abuse patient.[facility] Care Teams (unrecognized sec tion and content) Mission Coordinator Relationship Specialty Start Date End Date Eric Esteves MD [facility] [place] [address] PCP - General Family Practice 12/06/20 Mission Coordinator Relationship Specialty Start Date End Date Eric Esteves MD [address] [place] [address] PCP - General Family Practice 12/06/20 Mission Coordinator Relationship Specialty Start Date End Date Eric Esteves MD [address] [place] [address] PCP - General Family Practice 12/06/20 Mission Coordinator Relationship Specialty Start Date End Date Eric Esteves MD [address] [place] [address] PCP - General Family Practice 12/06/20 Mission Coordinator Relationship Specialty Start Date End Date Eric Esteves MD [address] [place] [address] PCP - General Family Practice 12/06/20 Mission Coordinator Relationship Specialty Start Date End Date Eric Esteves MD [address] [place] [address] PCP - General Family Practice 12/06/20 Mission Coordinator Relationship Specialty Start Date End Date Eric Esteves MD [address] [facility] [place] [address] PCP - General Family Practice 12/06/20 Mission Coordinator Relationship Specialty Start Date End Date Eric Esteves MD [facility] [place] [address] PCP - General Family Practice 12/06/20 Mission Coordinator Relationship Specialty Start Date End Date Eric Esteves MD [address] [place] [address], [place] [address] PCP - General Family Practice 12/06/20 Mission Coordinator Relationship Specialty Start Date End Date Eric Esteves MD [address] [place] [address], [place] [address] PCP - General Family Medicine 12/06/20 Mission Coordinator Relationship Specialty Start Date End Date Eric Esteves MD [address] [place] [address], [place] [address] PCP - General Family Medicine 12/06/20 Mission Coordinator Relationship Specialty Start Date End Date Eric Esteves MD [address] [place] [address], [place] [address] PCP - General Family Medicine 12/06/20 Mission Coordinator Relationship Specialty Start Date End Date Erci Esteves MD [facility] [place] [address] PCP - General Family Medicine 12/06/20 Mission Coordinator Relationship Specialty Start Date End Date Eric Esteves MD [address] [place] [address], [place] [address] PCP - General Family Medicine 12/06/20 Mission Coordinator Relationship Specialty Start Date End Date Eric Esteves MD [address] [place] [address], [place] [address] PCP - General Family Medicine 12/06/20 Mission Coordinator Relationship Specialty Start Date End Date Eric Esteves MD [address] [place] [address] PCP - General Family Medicine 12/06/20 Mission Coordinator Relationship Specialty Start Date End Date Eric Esteves MD [address] [place] [address] PCP - General Family Medicine 12/06/20 Mission Coordinator Relationship Specialty Start Date End Date Eric Esteves MD [address] [place] [address] PCP - General Family Medicine 12/06/20 Mission Coordinator Relationship Specialty Start Date End Date Eric Esteves MD [address] [place] [address] PCP - General Family Medicine 12/06/20 Team Status: Active Member Role Status Dates Dr. Timothy Proctor III, MD Family Provider Active EVELIN Cronin Primary Care Provider Active Team Status: Inactive Member Role Status Dates EVELIN Cronin Primary Care Pro vider, Attending Provider, Referring Provider Active Mission Coordinator Relationship Specialty Start Date End Date Eric Esteves MD [address] [place] [address] PCP - General Family Medicine 12/06/20 Mission Coordinator Relationship Specialty Start Date End Date Eric Esteves MD [address] [place] [address] PCP - General Family Medicine 12/06/20 Mission Coordinator Relationship Specialty Start Date End Date Eric Esteves MD [address] [place] [address] PCP - General Family Medicine 12/06/20 Mission Coordinator Relationship Specialty Start Date End Date Eric Esteves MD [address] [place] [address] PCP - General Family Medicine 12/06/20 Mission Coordinator Relationship Specialty Start Date End Date Eric Esteves MD [address] [place] [address] PCP - General Family Medicine 12/06/20 Mission Coordinator Relationship Specialty Start Date End Date Eric Esteves MD [address] [place] [address] PCP - General Family Medicine 12/06/20 Mission Coordinator Relationship Specialty Start Date End Date Eric Esteves MD [address] [place] [address] PCP - General Family Medicine 12/06/20 Mission Coordinator Relationship Specialty Start Date End Date Eric Esteves MD [address] [place] [address] PCP - General Family Medicine 12/06/20 Mission Coordinator Relationship Specialty Start Date End Date Eric Esteves MD [address] [place] [address] PCP - General Family Medicine 12/06/20 Team Status: Active Member Role Status Dates Dr. Timothy Proctor III, MD Family Provider Active Dr. Eric Esteves MD Primary Care Provider Active Team Status: Inactive Member Role Status Dates Dr. Eric Esteves MD Primary Care Provider Active Jb Macias MD Emergency Provider Active Mission Coordinator Relationship Specialty Start Date End Date Eric Esteves MD [address] [place] [address] PCP - General Family Medicine 12/06/20 Mission Coordinator Relationship Specialty Start Date End Date Eric Esteves MD [address] [place] [address] PCP - General Family Medicine 12/06/20 Mission Coordinator Relationship Specialty Start Date End Date Eric Esteves MD [address] [place] [address] PCP - General Family Medicine 12/06/20 Mission Coordinator Relationship Specialty Start Date End Date Eric Esteves MD [address] [place] [address] PCP - General Family Medicine 12/06/20 Mission Coordinator Relationship Specialty Start Date End Date Eric Esteves MD [address] [place] [address] PCP - General Family Medicine 12/06/20 Mission Coordinator Relationship Specialty Start Date End Date Eric Esteves MD [address] [place] [address] PCP - General Family Medicine 12/06/20 Mission Coordinator Relationship Specialty Start Date End Date Eric Esteves MD [address] [place] [address] PCP - General Family Medicine 12/06/20 Mission Coordinator Relationship Specialty Start Date End Date Eric Esteves MD [address] [place] [address] PCP - General Family Medicine 12/06/20 Mission Coordinator Relationship Specialty Start Date End Date Eric Esteves MD [address] [place] [address] PCP - General Family Medicine 12/06/20 Mission Coordinator Relationship Specialty Start Date End Date Eric Esteves MD [address] [place] [address] PCP - General Family Medicine 12/06/20 Mission Coordinator Relationship Specialty Start Date End Date Eric Esteves MD [address] [place] [address] PCP - General Family Medicine 12/06/20 Mission Coordinator Relationship Specialty Start Date End Date Eric Esteves MD [address] [place] [address] PCP - General Family Medicine 12/06/20 Devi Ward, LESLEE.INTERNAL AUDITOR [address] [place] [address] [employer] And [employer] Fleshing Machine Operator Family Medicine 06/19/24 Zenia Lopez PA-C [address] [place] [address] [employer] And Skin Fleshing Machine Operator Family Medicine 06/19/24 Mission Coordinator Relationship Specialty Start Date End Date Eric Esteves MD [address] [place] [address] PCP - General Family Medicine 12/06/20 Devi Ward, [employer]CHER AIRCRAFT.INTERNAL AUDITOR [address] [place] [address] Hide And Skin Fleshing Machine Operator Family Medicine 06/19/24 Zenia Lopez PA-C [address] [place] [address] Hide And Skin Fleshing Machine Operator Family Medicine 06/19/24 Mission Coordinator Relationship Specialty Start Date End Date Eric Esteves MD [address] [place] [address] PCP - General Family Medicine 12/06/20 Devi Ward APRN.INTERNAL AUDITOR [address] [place] [address] Hide And Skin Fleshing Machine Operator Family Medicine 06/19/24 Zenia Lopez PA-C [address] [place] [address] [facility] 06/19/24 Mission Coordinator Relationship Specialty Start Date End Date Eric Esteves MD [address] [place] [address] PCP - General Family Medicine 12/06/20 Devi Ward APRN.INTERNAL AUDITOR [address] [place] [address] [facility] 06/19/24 Zenia Lopez PA-C [address] [place] [address] [facility] Fleshing [facility] 06/19/24 Mission Coordinator Relationship Specialty Start Date End Date Eric Esteves MD [address] [place] [address] PCP - General Family Medicine 12/06/20 Devi Ward APRN.INTERNAL AUDITOR [address] [place] [address] Hide And Skin Fleshing Machine Operator Family Medicine 06/19/24 Zenia Lopez PA-C [address] [place] [address] Hide And Skin Fleshing Machine Operator Family [facility] 06/19/24 Mission Coordinator Relationship Specialty Start Date End Date Eric Esteves MD [address] [place] [address] PCP - General Family Medicine 10/18/24 Devi Ward APRN.INTERNAL AUDITOR [address] [place] [address] Hide And Skin Fleshing Machine Operator Family Medicine 06/19/24 11/28/24 Zenia Lopez PA-C [address] [place] [address] Hide And Skin Fleshing Machine Operator Family [facility] 06/19/24 Mission Coordinator Relationship Specialty Start Date End Date Eric Esteves MD [address] [place] [address] PCP - General Family Medicine 10/18/24 Devi Ward APRN.INTERNAL AUDITOR [address] [place] [address] Hide And Skin Fleshing Machine Operator Family Medicine 12/13/24 Zenia Lopez PA-C [facility] [place] [address] Hide And Skin Fleshing Machine Operator Family [facility] 12/13/24 Mission Coordinator Relationship Specialty Start Date End Date Eric Esteves MD [address] [place] [address] PCP - General Family Medicine 10/18/24 Devi Ward APRN.INTERNAL AUDITOR [address] [place] [address] [facility] 12/13/24 Zenia Lopez PA-C [address] [place] [address] [facility] 12/13/24 Mission Coordinator Relationship Specialty Start Date End Date Eric Esteves MD [address] [place] [address] PCP - General Family Medicine 10/18/24 Devi Ward, LESLEE.INTERNAL AUDITOR [address] [place] [address] [facility] 12/13/24 Zenia Lopez PA-C [address] [place] [address] [facility] 12/13/24 Team Status: Active Member Role Status Dates Dr. Eric Esteves MD Primary Care Provider Active Team Status: Inactive Member Role Status Dates Dr. Eric Esteves MD Primary Care Provider Active Start: December 14, 2024 End: December 14, 2024 Dr. Eric Esteves MD Attending Provider Active Start: December 14, 2024 End: December 14, 2024 Dr. Eric Esteves MD Referring Provider Active Start: December 14, 2024 End: December 14, 2024 Mission Coordinator Relationship Specialty Start Date End Date Eric Esteves MD [address] [place] [id number] PCP - General Family Medicine 10/18/24 Devi Ward, LESLEE.INTERNAL AUDITOR [address] [place] [id number] [facility] 12/13/24 Zenia Lopez PA-C [address] [place] [address] [employer] Operator Family Medicine 12/13/24 Mission Coordinator Relationship Specialty Start Date End Date Eric Esteves MD [address] [place] [address] PCP - General Family Medicine 10/18/24 Devi Ward, LESLEE.INTERNAL AUDITOR [facility] [place] [address] [facility] 12/13/24 Zenia Lopez PA-C [facility] [place] [address] [facility] 12/13/24 Team Status: Inactive Member Role Status Dates Dr. Eric Esteves MD Primary Care Provider Active Start: December 22, 2024 End: December 22, 2024 Dr. Eric Esteves MD Attending Provider Active Start: December 22, 2024 End: December 22, 2024 Dr. Eric Esteves MD Referring Provider Active Start: December 22, 2024 End: December 22, 2024 Mission Coordinator Relationship Specialty Start Date End Date Eric Esteves MD [address] [place] [address] PCP - General Family Medicine 10/18/24 Devi Ward, LESLEE.INTERNAL AUDITOR [facility] [place] [address] [facility] 12/13/24 Zenia Lopez PA-C [address] [place], [place] [id number] [facility] Medicine 12/13/24 Reason for Visit (unrecogniz ed section and content) Reason Comments Physical Therapy Specialty Diagnoses / Procedures Referred By Contac t Referred To Contact [facility] Diagnoses Left hip pain Procedures CONSULT TO PHYSICAL THERAPY PHYSICAL THERAPY EVALUATION HIGH COMPLEX 45 MINS Eric Esteves MD [address] [place] [address] [facility] [address] [place] [address] Referral ID Status Reason Start Date Expiration Date Visits Requested Visits Authorized [id number] Authorized Auto-Generat ed Referral 01/12/2024 07/13/2024 40 40 Reason Comments Follow Up Specialty Diagnoses / Procedures Referred By Contac t Referred To Contact Diagnoses VICKIE (obstructive sleep apnea) Procedures CONSULT TO SLEEP MEDICINE - ADULT OFFICE/OUTPATIENT [facility] 60 MINUTES Eric Esteves MD [address] [place] [address] Referral ID Status Reason Start Date Expiration Date V isits Requested Visits Authorized [id number] Closed PCP Requested Referral 08/10/2023 08/09/2024 1 1 Reason Comments Reassessment Patient Education Specialty Diagnoses / Procedures Referred By Contac t Referred To Contact Nutrition Diagnoses Weight gain Procedures CONSULT TO NUTRITION THERAPY OFFICE/OUTPATIENT [facility] 60-74 MINUTES Eric Esteves MD [address] [place] [address] Referral ID Status Reason Start Date Expiration Date V isits Requested Visits Authorized [id number] Closed PCP Requested Referral 04/01/2022 04/01/2023 1 1 Reason Comments Mammogram order Reason Comments Results mammogram Reason Comments Results Reason Comments Acute Visit vagina issues, bleed ing sore? x 1 week Reason Comments Vaginal sore Reason Comments vaginal open area x1 week Reason Comments Physical Reason Comments Consult Reason Comments Orders Reason Comments Consult colonoscopy Specialty Diagnoses / Procedures Referred By Contac t Referred To Contact General Surgery Diagnoses Screening for colon cancer Procedures CONSULT TO GENERAL SURGERY OFFICE/OUTPATIENT [facility] 60-74 MINUTES Eric Esteves MD [address] [place] [address] Referral ID Status Reason Start Date Expiration Date V isits Requested Visits Authorized [id number] Closed PCP Requested Referral 04/01/2022 04/01/2023 1 1 Reason Comments Assessment Patient Education Reason Onset Date Comments Opened In Error 05/22/2022 Reason Comments Cough Reason Comments Imm/Inj Reason Comments Recheck Sinus and ear pain Reason Comments GI Pre Procedure Reason Onset Date Comments Refill Request 11/21/2022 Reason Comments Outside Rheumatology Reason Comments Physical Reason Comments Radiology US Specialty Diagnoses / Procedures Referred By Contac t Referred To Contact [facility] Diagnoses Elevated liver function tests Procedures US ABD RIGHT UPPER QUADRANT US ABDOMINAL REAL TIME W/IMAGE LIMITED Eric Esteves MD [address] [place] [address] [place] [address] Referral ID Status Reason Start Date Expiration Date V isits Requested Visits Authorized [id number] Closed Auto-Generate d Referral 04/02/2023 05/01/2024 1 1 Reason Comments right ear feels blocked and left finger pain Reason Comments Trigger Finger Reason Comments New Patient Evaluation Reason Comments ER F/U Reason Comments Ext Mammogram Reason Comments Rash Reason Comments Follow Up Hip Pain Rash Reason Comments Results Reason Comments PT Eval Reason Comments Physical Reason Comments Follow Up Follow up for medica tion change, patient was switched from Doxepin to Trazodone, states she is getting over 5 weeks of COVID and was not able to use the Trazodone while taking Nyquil. Since restarting she states most nights she is able to sleep, however sometimes it does not work Reason Comments Back Pain Reason Comments Consult ENT Reason Onset Date Comments Refill Request 12/13/2024 Reason Comments Orders Reason Comments Headaches Goals (unrecognized section and content) Goals may be documented in a n alternate sectionGoals may be documented in an alternate sectionGoals may be documented in an alternate sectionGoals may be documented in an alternate sectionGoals may be documented in an alternate section INFORMATION SOURCE (unrecogn ized section and content) DATE CREATED AUTHOR 10/07/2022 [facility] DATE CREATED AUTHOR AUTHOR'S ORGANIZ ATION 01/01/2025 [facility] DATE CREATED AUTHOR AUTHOR'S ORGANIZ ATION 02/11/2025 [facility] FOR RECORDS PERTAINING TO PATIENTS WHO ARE OR HAVE BEEN ENROLLED IN A CHEMICAL DEPENDENCY/SUBSTANCEABUSE PROGRAM, SOME INFORMATION MAY BE OMITTED. This clinical summary was aggregated from multiple sources. Caution should be exercised in using it in the provision of clinical care. This summary normalizes information from multiple sources, and as a consequence, information in this document may materially change the coding, format and clinical context of patient data. In addition, data may be omitted in some cases. CLINICAL DECISIONS SHOULD BE BASED ON THE PRIMARY CLINICAL RECORDS. [employer] [facility]. provides no warranty or guarantee of the accuracy or completeness of information in this document.
[2025-02-11 22:59] VITALS: BP 129/75; PULSE 81; RESP 18; TEMP 36.8; O2SAT 95
[2025-02-11 23:06] LABS: Color, Urine Yellow (Yellow); Glucose, Dipstick Normal (Normal); Ketone-Dipstick Negative (Negative); Leukocyte Esterase-Dipstick Negative /ul (Negative); Nitrite-Dipstick Negative (Negative); Occult Blood-Urine 250 /ul (Negative); Protein-Dipstick 30 mg/dl (Negative); Specific Gravity, Urine 1.020 (1.002-1.030); Urine Bilirubin Dipstick Negative (Negative)
[2025-02-11 23:48] LABS: Mucous, Urine 2+ /hpf (<or=2+); Red Blood Cells-Urine > 100 SEEN /hpf (0-5); Squamous Epithelial Cells - UA 0-5 SEEN /hpf (5-10)
[2025-02-12] VITALS: BP 139/77; PULSE 77; RESP 18; TEMP 36.6; O2SAT 96
== END 2025-02-12 00:12 | disposition home or self-care (01) ==
PROVIDERS: Emergency Provider Emergency Medicine; PCP Family Medicine; Referring Provider Emergency Medicine; Visit Provider Emergency Medicine
DX: N13.2 Hydronephrosis with renal and ureteral calculous obstruction (principal); Z87.891 Personal history of nicotine dependence
CPT/HCPCS: 74176; 80048; 81001; 85025; 96361; 96374; 96375; 99284; A4216; J2405